=== PATIENT | female | born 1960 | race Caucasian/White ===

== ENCOUNTER 2020-11-17 07:13 | Outpatient (RCR) | payer MEDICAID, SELFPAY ==
[2020-09-13] VITALS (8 sets, daily range): BP systolic 119–142; BP diastolic 51–65; PULSE 72–83; RESP 14–16; TEMP 36.4–37; O2SAT 96–100
[2020-09-13] MEDS: diphenhydrAMINE HCl CAP 25 MG CAPSULE PO (09:14)
[2020-09-13] MEDS: FUROSEMIDE INJ 40 MG/4 ML VIAL 20 MG IV PUSH (12:35)
--- NOTE | 2020-09-13 16:10 | PC.NURSE ---
1545 D/c/ instructions reviewed with patient, questions answered she verbalizes understanding. Iv d/c'd cath intact; pressure applied no bleeding noted. Pt toileted and escorted out via ambulation to main lobby where her son picked her up and drove her home via private vehicle.
[2020-10-14] VITALS (10 sets, daily range): BP systolic 90–128; BP diastolic 46–64; PULSE 71–80; RESP 14–16; TEMP 36.2–37.3; O2SAT 99–100
[2020-10-14] MEDS: ACETAMINOPHEN 325 MG TABLET 650 MG PO (07:51)
[2020-10-14] MEDS: diphenhydrAMINE HCl CAP 25 MG CAPSULE PO (07:52)
[2020-10-14 07:56] LABS: Hematocrit 21.7 % (37.0-47.0); Hemoglobin 7.1 g/dL (12.0-15.0)
[2020-10-14] MEDS: FUROSEMIDE INJ 40 MG/4 ML VIAL 20 MG IV PUSH (11:37)
[2020-11-17] VITALS (10 sets, daily range): BP systolic 124–147; BP diastolic 65–81; PULSE 85–92; RESP 14–16; TEMP 36.9–37.6; O2SAT 100
[2020-11-17] MEDS: ACETAMINOPHEN 325 MG TABLET 650 MG PO (08:52)
[2020-11-17] MEDS: diphenhydrAMINE HCl CAP 25 MG CAPSULE PO (08:52)
[2020-11-17] MEDS: SODIUM CHLORIDE 0.9% IV 250 ML 30 ML (09:07)
[2020-11-17] MEDS: FUROSEMIDE INJ 40 MG/4 ML VIAL 20 MG IV PUSH (12:16)
[2020-11-17] MEDS: HEPARIN SOD FLUSH 500 UNITS/5 ML SYRINGE (15:50)
== END 2020-12-12 23:59 | disposition home or self-care (01) ==
LOC: ANHCPCTRAN 07:13
PROVIDERS: Visit Provider Internal Medicine Hematology & Oncology
DX: C34.90 Malignant neoplasm of unspecified part of unspecified bronchus or lung (principal)
CPT/HCPCS: 36415; 36430; 85014; 85018; 86850; 86900; 86901; 86923; 96374; A9270; J1940; J7050; P9016

== ENCOUNTER 2020-12-05 10:49 | Outpatient (CLI) | payer OTHER, SELFPAY ==
--- NOTE | ~2020-12-05 | CT_ITS ---
EXAMINATION: CT diagnostic chest w con EXAM DATE: 12/05/2020 11:58 INDICATION: C34.82 - Malignant neoplasm of overlapping sites of left bronchus and lung. TECHNIQUE: Spiral CT of the chest following intravenous injection of 75 mL Omnipaque 350. Axial, cor onal and sagittal images were reviewed. Coronal maximum intensity pixel images of chest reviewed. T he dose-length product (DLP) for this examination was 116.45 mGy-cm. The exposure was tailored accor ding to patient size (auto mA exposure control), and iterative reconstruction (ASIR) was used as felicia tional dose reduction technique. There is no prior study for comparison. FINDINGS: There is a right-sided portacatheter in position. Evaluation of lung parenchyma limited fr om respiratory motion, but there are no suspicious pulmonary nodules. The entire mid esophagus has wa ll thickening, probably edema given the indistinct adjacent fat planes. Most likely esophagitis, or c ould be radiation related change if there is such history. Also edema, indistinct fat plane surroundi ng the trachea and mediastinum. There is small pericardial effusion. No pleural effusions. Mild emphysema. Tracheobronchial tree is patent. There is no mediastinal, hilar or axillary lymphadenopathy. There is no pneumothorax. H eart normal in size. There is mild coronary arterial calcification, arterial sclerosis. Upper abdo men is unremarkable. There is mild to moderate thoracic spondylosis without osteoblastic or osteoly tic lesions identified. IMPRESSION: 1. Mediastinal, esophageal edema without focal mass identified. Could be esophagitis or radiation re lated change. 2. Mild emphysema. Reviewed, dictated and finalized at location A. ER HELPER IMPRESSION: 1. Mediastinal, esophageal edema without focal mass identified. Could be esoph agitis or radiation related change. 2. Mild emphysema.
== END 2020-12-05 10:50 | disposition home or self-care (01) ==
LOC: ANHIMG 10:57
PROVIDERS: Visit Provider Radiology Radiation Oncology
DX: C34.92 Malignant neoplasm of unspecified part of left bronchus or lung (principal); J43.9 Emphysema, unspecified
CPT/HCPCS: 71260; Q9967

== ENCOUNTER 2020-12-14 09:40 | Outpatient (CLI) | payer OTHER, SELFPAY ==
[2020-12-14 12:28] LABS: Creatinine Urine 97.2 mg/dL; Total Protein Urine Random 70 mg/dL; Ur Ttl Prot Creatinine Ratio 0.72 mg/mg (0-0.20)
== END 2020-12-14 09:41 | disposition home or self-care (01) ==
LOC: ANHLAB 09:43
PROVIDERS: Visit Provider Internal Medicine Nephrology
DX: N18.32 Chronic kidney disease, stage 3b (principal)
CPT/HCPCS: 36415; 82570; 83970; 84100; 84156

== ENCOUNTER 2021-01-01 09:38 | Outpatient (CLI) | payer OTHER, SELFPAY ==
--- NOTE | ~2021-01-01 | MR_ITS ---
EXAMINATION: MR brain/brain stem wo con EXAM DATE: 01/01/2021 10:48 INDICATION: C34.82 - Malignant neoplasm of overlapping sites of left bronchus. TECHNIQUE: Magnetic resonance imaging (MRI) of the brain/brain stem obtained without contrast. Rosa al T1, axial diffusion, gradient echo (T2*), T1, T2, FLAIR sequences obtained. There is no prior st udy for comparison. FINDINGS: There are no areas of restricted diffusion to suggest acute infarction. There is no acute hemorrhage seen on the T2*, a hemosiderin sensitive sequence. No intraparenchymal brain mass lesion. There is mild to moderate periventricular and subcortical T2/FLAIR signal hyperintensity, nonspecifi c but probably related to small vessel ischemic disease (microangiopathy). Field enhance There are n o extra-axial collections. Flow voids are seen in the cerebral arteries on the T2-weighted sequences consistent with their expected patency. The orbits are unremarkable. Soft tissue is unremarkable. IMPRESSION: 1. No evidence of intracranial metastatic disease. 2. Mild to moderate white matter hyperintensity probably microangiopathy. Reviewed, dictated and finalized at location A.
== END 2021-01-01 09:39 | disposition home or self-care (01) ==
PROVIDERS: Visit Provider Radiology Radiation Oncology
DX: C34.82 Malignant neoplasm of overlapping sites of left bronchus and lung (principal); R51.9 Headache, unspecified; R93.0 Abnormal findings on diagnostic imaging of skull and head, not elsewhere classified
CPT/HCPCS: 70551

== ENCOUNTER → 2021-02-03 02:32 | Outpatient (CLI) | payer OTHER, SELFPAY ==
[2021-02-03 19:11] LABS: SARS-CoV-2 RNA PCR Negative
== END ==
PROVIDERS: Visit Provider Internal Medicine Gastroenterology
DX: Z01.812 Encounter for preprocedural laboratory examination (principal); Z20.822 Contact with and (suspected) exposure to COVID-19
CPT/HCPCS: C9803; U0003; U0005

== ENCOUNTER 2021-02-06 02:29 | Day surgery (SDC) | payer OTHER, SELFPAY ==
[2021-01-31 13:01] VITALS: BMI 19.5
--- NOTE | 2021-02-05 12:12 | P.PNAN_ITS ---
Anes - Eval Pre Procedure Procedure: Operation Date: 02/06/21 07:30 Proposed Procedures p Esophagogastroduodenoscopy - Nguyễn Edward MD Date/Time: 02/05/21 12:12 Pre Op Diagnosis: epigastric pain Patient Data Age: 60 Gender: F Height: 1.5 m Weight: 43.9 kg Allergies Allergy/AdvReac Type Severity Reaction Status Date / Time No Known Allergies Allergy Verified 02/01/21 11:01 Home Medications Medication Instructions Recorded Confirmed Type albuterol sulfate 2 puff INHALATION QID PRN 09/07/20 02/01/21 History aspirin [Low-Dose Aspirin] 81 mg PO DAILY 09/07/20 02/01/21 History atorvastatin 40 mg PO HS 09/07/20 02/01/21 History cholecalciferol (vitamin D3) 125 mcg PO EVERY OTHER DAY 09/07/20 02/01/21 Hi story [Vitamin D3] diltiazem HCl 360 mg PO DAILY 09/07/20 02/01/21 History escitalopram oxalate 10 mg PO DAILY 09/07/20 02/01/21 History ipratropium-albuterol 3 ml INHALATION QID PRN 09/07/20 02/01/21 History budesonide-formoterol HFA 160 2 puff INHALATION Q12H 02/01/21 02/01/21 History mcg-4.5 mcg/actuation aerosol inhaler ferrous sulfate 325 mg (65 mg 325 mg PO DAILY 02/01/21 02/01/21 History iron) tablet mecobalamin (vitamin B12) 1,000 1,000 mcg SUBLINGUAL DAILY 02/01/21 02/01/21 History mcg disintegrating tablet,sublingual melatonin 3 mg tablet 5 mg PO HS tablet 02/01/21 02/01/21 History metoprolol succinate 25 mg 12.5 mg PO Q12H tablet 02/01/21 02/01/21 History tablet,extended release 24 hr pyridoxine (vitamin B6) 100 mg 100 mg PO BID tablet 02/01/21 02/01/21 History tablet sodium bicarbonate 650 mg tablet 650 mg PO BID tablet 02/01/21 02/01/21 History Patient hx anesthesia problems: none Family hx anesthesia problems: none PMFSH Past Medical History Medical History Acute pulmonary edema Acute renal failure Acute respiratory failure Anxiety CHF (congestive heart failure) COPD (chronic obstructive pulmonary disease) Deafness Depression HTN (hypertension) Family History Family History Father Cancer Social History Social History Smoking packs per day: 2 Smoking cigarettes per day: 40.0 Years smoked: 40 Smoking pack-years: 80.00 Smoking status: Former smoker Tobacco type: cigarettes Smoking end date: 11/17/18 Substance use type: does not use Gender identity (if verbalized by the patient): Female Spiritual care concerns: No Exam Day of Procedure 02/05/21 12:12
[2021-02-06 06:31] VITALS: BP 153/83; PULSE 85; RESP 22; TEMP 37.1; O2SAT 100
[2021-02-06] MEDS: LACTATED RINGERS 1,000 ML 150 ML IV CONT (06:42)
--- NOTE | 2021-02-06 07:06 | WPDANESEPPF ---
Anes - Initial Pre Proc Eval Procedure: Operation Date: 02/06/21 07:30 Proposed Procedures p Esophagogastroduodenoscopy - Nguyễn Edward MD Date/Time: 02/06/21 07:06 Surgeon: Nguyễn Edward MD Pre Op Diagnosis: epigastric pain Patient Data Age: 60 Gender: F Height: 4 ft 11 in Weight: 43.1 kg Last Vital Signs Temp 37.1 C 02/06/21 06:31 Pulse 85 02/06/21 06:31 Resp 22 H 02/06/21 06:31 BP 153/83 H 02/06/21 06:31 Pulse Ox 100 02/06/21 06:31 Allergies Allergy/AdvReac Type Severity Reaction Status Date / Time No Known Allergies Allergy Verified 02/01/21 11:01 Home Medications Medication Instructions Recorded Confirmed Type albuterol sulfate 2 puff INHALATION QID PRN 09/07/20 02/01/21 History aspirin [Low-Dose Aspirin] 81 mg PO DAILY 09/07/20 02/01/21 History atorvastatin 40 mg PO HS 09/07/20 02/01/21 History cholecalciferol (vitamin D3) 125 mcg PO EVERY OTHER DAY 09/07/20 02/01/21 History [Vitamin D3] diltiazem HCl 360 mg PO DAILY 09/07/20 02/01/21 History escitalopram oxalate 10 mg PO DAILY 09/07/20 02/01/21 History ipratropium-albuterol 3 ml INHALATION QID PRN 09/07/20 02/01/21 History budesonide-formoterol HFA 160 2 puff INHALATION Q12H 02/01/21 02/06/21 History mcg-4.5 mcg/actuation aerosol inhaler ferrous sulfate 325 mg (65 mg 325 mg PO DAILY 02/01/21 02/06/21 History iron) tablet mecobalamin (vitamin B12) 1,000 1,000 mcg SUBLINGUAL DAILY 02/01/21 02/06/21 History mcg disintegrating tablet,sublingual melatonin 3 mg tablet 5 mg PO HS tablet 02/01/21 02/06/21 History metoprolol succinate 25 mg 12.5 mg PO Q12H tablet 02/01/21 02/06/21 History tablet,extended release 24 hr pyridoxine (vitamin B6) 100 mg 100 mg PO BID tablet 02/01/21 02/06/21 History tablet sodium bicarbonate 650 mg tablet 650 mg PO BID tablet 02/01/21 02/06/21 History Patient hx anesthesia problems: none Family hx anesthesia problems: none PMFSH Past Medical History Medical History Acute pulmonary edema Acute renal failure Acute respiratory failure Anxiety CHF (congestive heart failure) COPD (chronic obstructive pulmonary disease) Deafness Depression HTN (hypertension) Family History Family History Father Cancer Social History Social History Smoking packs per day: 2 Smoking cigarettes per day: 40.0 Years smoked: 40 Smoking pack-years: 80.00 Smoking status: Former smoker Tobacco type: cigarettes Smoking end date: 11/17/18 Substance use type: does not use Living arrangements: with family Gender identity (if verbalized by the patient): Female Spiritual care concerns: No Anes - Eval Final PreProcedure Day of Procedure 02/06/21 07:06 Patient weight: normal Heart: regular rate and rhythm Lungs: decreased breath sounds Airway: Mallampati scale class 1 Neurological: alert and oriented Last oral intake: >/= 8 hours ASA classification: IV Emergent: no Anesthetic plan: proceed Anesthesia type and monitoring: general GIVS and standard monitoring Informed Consent: The patient's anesthetic plan and its attendant risks and benefits were discussed with the patient/family/POA. Questions were solicited and answers provided to the satisfaction of the patient/family/POA.
[2021-02-06 07:39] VITALS: BP 130/70; PULSE 87; RESP 20; O2SAT 100
[2021-02-06 07:49] VITALS: BP 134/82; PULSE 88; RESP 22; O2SAT 99
[2021-02-06 07:59] VITALS: BP 146/79; PULSE 83; RESP 21; O2SAT 100
--- NOTE | 2021-02-06 08:15 | PM.HPGS ---
History of Present Illness History of Present Illness Consent: Risks, benefits, and alternatives have been discussed and questions answered. Patient agrees to proceed with procedure. Chief complaint: epigastric pain Narrative: Stephanie Holt is a 60 year old female who suffers from severe odynophagia and dysphagia for the past several weeks. She has been undergoing radiation treatments for carcinoma of the lung. Various agents have been tried to relieve her discomfort without success including sucralfate and concoction containing lidocaine and other substances Review of Systems Review of Systems: All systems reviewed & are unremarkable except as noted in HPI and below PMFSH Past Medical History Medical History Acute pulmonary edema Acute renal failure Acute respiratory failure Anxiety CHF (congestive heart failure) COPD (chronic obstructive pulmonary disease) Deafness Depression HTN (hypertension) Family History Family History Father Cancer Social History Social History Smoking packs per day: 2 Smoking cigarettes per day: 40.0 Years smoked: 40 Smoking pack-years: 80.00 Smoking status: Former smoker Tobacco type: cigarettes Smoking end date: 11/17/18 Substance use type: does not use Living arrangements: with family Gender identity (if verbalized by the patient): Female Spiritual care concerns: No Meds Home Medications and Allergies Home Medications Medication Instructions Recorded Confirmed Type albuterol sulfate 2 puff INHALATION QID PRN 09/07/20 02/01/21 History aspirin 81 mg PO DAILY 09/07/20 02/01/21 History atorvastatin 40 mg PO HS 09/07/20 02/01/21 History cholecalciferol (vitamin D3) 125 mcg PO EVERY OTHER DAY 09/07/20 02/01/21 History [Vitamin D3] diltiazem HCl 360 mg PO DAILY 09/07/20 02/01/21 History escitalopram oxalate 10 mg PO DAILY 09/07/20 02/01/21 History ipratropium-albuterol 3 ml INHALATION QID PRN 09/07/20 02/01/21 History budesonide-formoterol HFA 160 2 puff INHALATION Q12H 02/01/21 02/06/21 History mcg-4.5 mcg/actuation aerosol inhaler ferrous sulfate 325 mg (65 mg 325 mg PO DAILY 02/01/21 02/06/21 History iron) tablet mecobalamin (vitamin B12) 1,000 1,000 mcg SUBLINGUAL DAILY 02/01/21 02/06/21 History mcg disintegrating tablet,sublingual melatonin 3 mg tablet 5 mg PO HS tablet 02/01/21 02/06/21 History metoprolol succinate 25 mg 12.5 mg PO Q12H tablet 02/01/21 02/06/21 History tablet,extended release 24 hr pyridoxine (vitamin B6) 100 mg 100 mg PO BID tablet 02/01/21 02/06/21 History tablet sodium bicarbonate 650 mg tablet 650 mg PO BID tablet 02/01/21 02/06/21 History Allergies Allergy/AdvReac Type Severity Reaction Status Date / Time No Known Allergies Allergy Verified 02/01/21 11:01 Vital Signs Vital Signs - 24 hr 02/06/21 06:31 02/06/21 07:39 02/06/21 07:49 Temperature 37.1 C Pulse Rate 85 87 88 Respiratory Rate 22 H 20 22 H Blood Pressure 153/83 H 130/70 134/82 Pulse Oximetry 100 100 99 02/06/21 07:59 Temperature Pulse Rate 83 Respiratory Rate 21 H Blood Pressure 146/79 H Pulse Oximetry 100 Exam Const: General: alert Orientation/consciousness: patient oriented x3 Resp: Auscultation: clear to auscultation bilaterally Cardio: Rhythm: regular rhythm GI: GI Palp: Yes Soft to palpation and No Tenderness to palpation present (GI) Neuro: General: patient oriented x3 Assessment and Plan Assessment and plan (1) Dysphagia: Code(s): R13.10 - Dysphagia, unspecified Status: Acute Assessment and Plan: EGD with possible biopsy or dilatation or cautery.
== END 2021-02-06 08:11 | disposition home or self-care (01) ==
PROVIDERS: Visit Provider Internal Medicine Gastroenterology
PROC: 0DJ08ZZ Inspection of Upper Intestinal Tract, Via Natural or Artificial Opening Endoscopic (ICD-10-PCS; CPT 43235; principal; 2021-02-06 07:30)
DX: K22.2 Esophageal obstruction (principal); I10 Essential (primary) hypertension; F41.9 Anxiety disorder, unspecified; F32.9 Major depressive disorder, single episode, unspecified; J44.9 Chronic obstructive pulmonary disease, unspecified; I50.9 Heart failure, unspecified; C34.90 Malignant neoplasm of unspecified part of unspecified bronchus or lung; Z87.891 Personal history of nicotine dependence
CPT/HCPCS: 43249; C1726; J2704; J7120

== ENCOUNTER 2021-02-16 12:40 | Outpatient (CLI) | payer OTHER, SELFPAY ==
[2021-02-16 12:53] VITALS: PULSE 78; O2SAT 90
[2021-02-16 12:55] VITALS: PULSE 85; O2SAT 84
[2021-02-16 12:56] VITALS: PULSE 85; O2SAT 90
[2021-02-16 12:58] VITALS: PULSE 81; O2SAT 93
[2021-02-16 13:02] VITALS: PULSE 81; O2SAT 91
--- NOTE | 2021-02-16 14:03 | HOMEO2EVAL ---
Evaluation was performed at [facility] Home Oxygen Evaluation RC: Home Oxygen (O2) Evaluation Start: 02/16/21 14:01 Freq: Status: Active Protocol: RPE Activity Type Activity Date Activity User E-Sign Co-Sign Detail Recorded Client Recorded Date Recorded By Document 02/16/21 12:53 KRM [id number] 02/16/21 14:03 KRM Document 02/16/21 12:55 [email or web address] [email or web address] 02/16/21 14:03 KRM Document 02/16/21 12:56 [email or web address] [email or web address] 02/16/21 14:03 KRM Document 02/16/21 12:58 [email or web address] [email or web address] 02/16/21 14:03 KRM Document 02/16/21 13:02 [email or web address] [email or web address] 02/16/21 14:03 KRM 02/16/21 02/16/21 02/16/21 12:53 12:55 12:56 Home O2 Evaluation Test Phase Resting Exercise Exercise Oxygen Delivery Room Air Room Air Nasal Cannula Oxygen Flow Rate (L/min) 2 Pulse Oximetry (90-100 %) 90 84 L 90 Pulse Rate (60-100 beats/min) 78 85 85 Activity Tolerance Fair Fair Ambulation Distance (feet) 400 Treatment Charges O2 Evaluation - Inpatient 02/16/21 02/16/21 12:58 13:02 Home O2 Evaluation Test Phase Exercise Resting Oxygen Delivery Nasal Cannula Room Air Oxygen Flow Rate (L/min) 2 Pulse Oximetry (90-100 %) 93 91 Pulse Rate (60-100 beats/min) 81 81 Activity Tolerance Good Ambulation Distance (feet) Treatment Charges
--- NOTE | 2021-02-16 15:29 | WPDPFTINT ---
PFT Procedure Performed PFT Procedure Performed Spirometry with Pre/Post Bronchodilator Plethysmography (Lung Vol) Diffusing Cap (DLCO) Flow Vol Loop PFT Interpretation This is a pulmonary function test with pre and post-bronchodilator spirometry, plethysmography and diffusing capacity. The test was performed and results interpreted in accordance with the 2019 and 2005 ATS/ERS Task Force guidelines respectively using the Global Lung Function Initiative-2012 reference equations. Patient demonstrated good effort and cooperation. Reproducibility criteria were met. The quality of the pre bronchodilator spirometry maneuver was Grade A and post bronchodilator spirometry maneuver was Grade A. Findings: Spirometry: There is decreased maximal expiratory airflow at all lung volumes with concave expiratory flow tracing. The contour of the inspiratory flow tracing is normal. The pre bronchodilator FVC is 1.30 L, 50% predicted. The pre bronchodilator FEV1 is 0.66 L, 32% predicted. The FEV1: FVC ratio is 51%. Post bronchodilator FVC is 1.73 L, representing a 33% increase. The post bronchodilator FEV1 is 0.71 L, representing a 7% increase. Plethysmography: The total lung capacity is 4.15 L, 96% predicted. The functional residual capacity is 3.11 L, 129% predicted. The residual volume is 2.64 L, 150% predicted. Diffusion capacity: The absolute diffusion capacity is 3.2, 17% predicted. The diffusing capacity corrected for alveolar volume is 1.73 L, 37% predicted. Impression: There is a very severe obstructive abnormality with significant improvement after inhaling a single dose of albuterol. The increase in residual volume is consistent with air trapping from an obstructive abnormality. The absolute diffusing capacity is severely decreased and remains severely decreased when corrected for alveolar volume. There are no prior studies for comparison
== END 2021-02-16 12:41 | disposition home or self-care (01) ==
LOC: ANHPFT 12:41
PROVIDERS: Visit Provider Internal Medicine Pulmonary Disease
DX: J44.9 Chronic obstructive pulmonary disease, unspecified (principal); R06.00 Dyspnea, unspecified; R94.2 Abnormal results of pulmonary function studies
CPT/HCPCS: 94060; 94618; 94726; 94729

== ENCOUNTER 2021-03-14 08:51 | Outpatient (CLI) | payer OTHER, SELFPAY ==
--- NOTE | ~2021-03-14 | CT_ITS ---
EXAMINATION: CT diagnostic chest w con EXAM DATE: 03/14/2021 09:44 INDICATION: Small cell lung cancer, left bronchus and lung. TECHNIQUE: Spiral CT of the chest following intravenous injection of 75 mL Omnipaque 350. Axial, cor onal and sagittal images of the chest were reviewed. Coronal maximum intensity pixel images of chest reviewed. The dose-length product (DLP) for this examination was 117.34 mGy-cm. The exposure was t ailored according to patient size (auto mA exposure control), and iterative reconstruction (ASIR) was used as additional dose reduction technique. Comparison is made to prior examination from 12/05/2020. FINDINGS: Left lower lobe superior subsegmental peripheral opacity with ill-defined margins measuring 1.5 cm, new compared to previous examination, with differential diagnosis including infection, infar ction or less likely cancer. No pulmonary emboli centrally or and segmental pulmonary arteries. Subse gmental vessels not visualized. There is a right-sided portacatheter. No central pulmonary emboli. Moderate pericardial effusion, an d small left pleural effusion. Mild emphysema. Mild intralobular septal thickening, pulmonary edema o r less likely developing mild interstitial lung disease. Lingular subsegmental atelectasis. There are indistinct fat plane surrounding the left bronchus without mass effect, could be treated lung cancer . Tracheobronchial tree is patent. There is no mediastinal, hilar or axillary lymphadenopathy. Ther e is no pneumothorax. Heart normal in size. There is mild coronary arterial calcification, arteri al sclerosis. Mid esophageal edema with improvement, could be esophagitis or radiation related pepper e. There is mild thoracic spondylosis without osteoblastic or osteolytic lesions identified. Compared to previous examination, improvement in esophageal edema. Increase in size of the pericardia l effusion and development of the left pleural effusion. IMPRESSION: 1. Development of left lower lobe subsegmental peripheral opacity, infection, infarction or less lik anais cancer. 2. Moderate pericardial, small left pleural effusions. 3. Mild interlobular septal thickening, most likely mild pulmonary edema. 4. Chronic left hilar peribronchial fat stranding probably treated cancer. 5. Improvement in esophageal edema. 6. Mild emphysema. Reviewed, dictated and finalized at location A. IMPRESSION: 1. Development of left lower lobe subsegmental peripheral opacity, infection, infarction or less likely cancer. 2. Moderate pericardial, small left pleural effusions. 3. Mild interlobular septal thickening, most likely mild pulmonary edema. 4. Chronic left hilar peribronchial fat stranding probably treated cancer. 5. Improvement in esophageal edema. 6. Mild emphysema.
[2021-03-14 09:31] LABS: Estimated Glomerular Filt Rate 33
== END 2021-03-14 08:52 | disposition home or self-care (01) ==
LOC: ANHIMG 08:51
PROVIDERS: Visit Provider Internal Medicine Hematology & Oncology
DX: C34.90 Malignant neoplasm of unspecified part of unspecified bronchus or lung (principal); J43.9 Emphysema, unspecified
CPT/HCPCS: 71260; Q9967

== ENCOUNTER 2021-05-12 03:19 | Day surgery (SDC) | payer OTHER, SELFPAY ==
[2021-04-28 13:34] VITALS: BMI 19.5
[2021-05-03 08:47] VITALS: BMI 19.5
--- NOTE | 2021-05-12 10:12 | WPDANESEPPF ---
Anes - Initial Pre Proc Eval Procedure: Operation Date: 05/12/21 12:30 Proposed Procedures p Esophagogastroduodenoscopy - Nguyễn Edward MD Date/Time: 05/12/21 10:12 Surgeon: Nguyễn Edward MD Pre Op Diagnosis: dysphagia Patient Data Age: 60 Gender: F Height: 1.5 m Weight: 44 kg Allergies Allergy/AdvReac Type Severity Reaction Status Date / Time No Known Allergies Allergy Verified 05/12/21 11:57 Home Medications Medication Instructions Recorded Confirmed Type albuterol sulfate 2 puff INHALATION QID PRN 09/07/20 05/03/21 History aspirin 81 mg PO DAILY 09/07/20 05/03/21 History atorvastatin 40 mg PO HS 09/07/20 05/03/21 History cholecalciferol (vitamin D3) 125 mcg PO EVERY OTHER DAY 09/07/20 05/03/21 History [Vitamin D3] diltiazem HCl 360 mg PO DAILY 09/07/20 05/03/21 History escitalopram oxalate 10 mg PO DAILY 09/07/20 05/03/21 History ipratropium-albuterol 3 ml INHALATION QID PRN 09/07/20 05/03/21 History ferrous sulfate 325 mg (65 mg 325 mg PO DAILY 02/01/21 05/03/21 History iron) tablet mecobalamin (vitamin B12) 1,000 1,000 mcg SUBLINGUAL DAILY 02/01/21 05/03/21 History mcg disintegrating tablet,sublingual melatonin 3 mg tablet 5 mg PO HS tablet 02/01/21 05/03/21 History pyridoxine (vitamin B6) 100 mg 100 mg PO BID tablet 02/01/21 05/03/21 History tablet metoprolol succinate 25 mg 25 mg PO BID tablet 05/03/21 05/03/21 History tablet,extended release 24 hr sucralfate 100 mg/mL oral 1 g PO Q6H ml 05/03/21 05/03/21 History suspension tiotropium 2.5 mcg-olodaterol 2.5 2 puff INHALATION DAILY #4 g 05/03/21 05/03/21 Rx mcg/actuation mist for inhalation budesonide-formoterol HFA 160 2 puff INHALATION Q12H #10.2 g 05/11/21 Rx mcg-4.5 mcg/actuation aerosol inhaler Patient hx anesthesia problems: none Family hx anesthesia problems: none PMFSH Past Medical History Medical History (Updated 05/12/21 @ 10:14 by Clarence Alba MD) Acute pulmonary edema Acute renal failure Acute respiratory failure Anxiety CHF (congestive heart failure) COPD (chronic obstructive pulmonary disease) Deafness Depression Emphysema of lung HTN (hypertension) Hypercholesterolemia Malignant neoplasm of overlapping sites of left bronchus and lung Small cell lung cancer Family History Family History Father Cancer Social History Social History Smoking packs per day: 2 Smoking cigarettes per day: 40.0 Years smoked: 40 Smoking pack-years: 80.00 Smoking status: Former smoker Tobacco type: cigarettes Smoking end date: 11/17/18 Alcohol intake: current Alcohol use details: socially Substance use: never Substance use type: does not use Living arrangements: alone Gender identity (if verbalized by the patient): Female Spiritual care concerns: No Anes - Eval Final PreProcedure Day of Procedure 05/12/21 10:12 Patient weight: normal Heart: regular rate and rhythm Lungs: clear to auscultation and normal air movement Airway: Mallampati scale class II Neurological: alert and oriented Last oral intake: >/= 8 hours ASA classification: IV Emergent: no Anesthetic plan: proceed Anesthesia type and monitoring: general GIVS Informed Consent: The patient's anesthetic plan and its attendant risks and benefits were discussed with the patient/family/POA. Questions were solicited and answers provided to the satisfaction of the patient/family/POA.
[2021-05-12 12:00] VITALS: BP 158/70; PULSE 92; RESP 20; TEMP 36.2; O2SAT 100; BMI 19.1
[2021-05-12] MEDS: LACTATED RINGERS 1,000 ML 150 ML IV CONT (12:10)
[2021-05-12 12:47] VITALS: BP 122/77; PULSE 93; RESP 23; O2SAT 93
[2021-05-12 12:57] VITALS: BP 129/64; PULSE 95; RESP 34; O2SAT 97
[2021-05-12 13:07] VITALS: BP 139/86; PULSE 92; RESP 20; O2SAT 97
== END 2021-05-12 13:20 | disposition home or self-care (01) ==
PROVIDERS: Visit Provider Internal Medicine Gastroenterology
PROC: 0DJ08ZZ Inspection of Upper Intestinal Tract, Via Natural or Artificial Opening Endoscopic (ICD-10-PCS; CPT 43235; principal; 2021-05-12 12:30)
DX: R13.10 Dysphagia, unspecified (principal); K22.2 Esophageal obstruction; C34.02 Malignant neoplasm of left main bronchus; I11.0 Hypertensive heart disease with heart failure; I50.9 Heart failure, unspecified; J44.9 Chronic obstructive pulmonary disease, unspecified; H91.90 Unspecified hearing loss, unspecified ear; F41.9 Anxiety disorder, unspecified; Z92.3 Personal history of irradiation; Z87.891 Personal history of nicotine dependence
CPT/HCPCS: 43249; C1726; J2001; J2704; J7120

== ENCOUNTER 2021-05-15 13:04 | Outpatient (CLI) | payer OTHER, SELFPAY ==
--- NOTE | ~2021-05-15 | CT_ITS ---
EXAMINATION: CT diagnostic chest wo con DATE: 05/15/2021 13:31 INDICATION: Small cell lung cancer TECHNIQUE: Computed tomography (CT) of the chest was performed without intravenous contrast. The dose -length product (DLP) was 122.22 mGy-cm. Automated exposure control and iterative reconstruction tech nique were employed. COMPARISON: 03/14/2021, 12/05/2020 FINDINGS: A small left pleural effusion is unchanged. There is also a moderate-sized pericardial effu pb without significant change. A 2.2 x 1.3 cm pleural-based nodule of the left lower lobe previousl y measured approximately 1.7 x 0.9 cm. There is no pneumothorax. There is mild atelectasis. A right i nternal jugular Port-A-Cath ends with its tip near the inferior cavoatrial junction. There is mild em physema. There is unchanged mediastinal lymphadenopathy. The heart size is normal. Calcified coronary artery atherosclerosis is noted. There is moderate thoracic spondylosis. IMPRESSION: 1. Left lower lobe nodule with interval enlargement of mediastinal lymphadenopathy, consistent with m etastatic disease. 2. Small left pleural effusion and moderate-sized pericardial effusion, stable. Reviewed, dictated and finalized at location B. IMPRESSION: 1. Left lower lobe nodule with interval enlargement of mediastinal lymphadenopa thy, consistent with metastatic disease. 2. Small left pleural effusion and moderate-sized pericardial effusion, stable.
== END 2021-05-15 13:05 | disposition home or self-care (01) ==
PROVIDERS: Visit Provider Internal Medicine Hematology & Oncology
DX: C34.90 Malignant neoplasm of unspecified part of unspecified bronchus or lung (principal); J90 Pleural effusion, not elsewhere classified; I31.3 Pericardial effusion (noninflammatory)
CPT/HCPCS: 71250

== ENCOUNTER 2021-05-30 12:02 | Outpatient (CLI) | payer OTHER, SELFPAY ==
--- NOTE | ~2021-05-30 | PE_ITS ---
EXAMINATION: PET skull to mid thigh DATE: 05/30/2021 14:04 INDICATION: Small cell lung cancer TECHNIQUE: Blood glucose level was 89 mg/dL. 9.87 mCi of 18-fluorodeoxyglucose (18-FDG) was administe red i.v. Low dose computed tomography (CT) images were acquired from the base of the brain to the pro ximal thighs for attenuation correction and anatomic localization. Positron emission tomography (PET) images were acquired in the same distribution beginning 60 minutes after injection. Images including fused PET/CT images were reconstructed in axial, coronal, and sagittal planes. Automated exposure co ntrol technique was employed. The dose-length product was 251.28mGy-cm. COMPARISON: None FINDINGS: Head/neck: There is symmetric increased activity in the oral cavity, palatine tonsils and multiple muscles the h ead and neck including the laryngeal, ocular, sternocleidomastoid, scalene, levator scapulae and cerv ical paraspinal muscles, all without CT correlate, likely physiologic. No pathologically enlarged cer vical lymphadenopathy or suspicious foci of increased FDG uptake in the visualized head or neck. Chest: Mild emphysema. Elevation of the left hemidiaphragm. 1.8 x 1.1 cm pleural-based nodule in the posteri or superior segment of the left lower lobe with moderate increased FDG uptake with maximal SUV of 4.5 . There is suggestion of additional mild increased FDG uptake associated with a approximately 1 cm ri ght lower lobe nodule situated along the posterior mediastinum abutting the posterior margin of the r ight atrium with maximal SUV of 1.9. Assessment of the lesion on CT is limited by the absence of intr avenous contrast and on the PET portion of the study due to the activity in the immediately adjacent right atrium. New band of discoid atelectasis at the junction of the left upper lobe and lingula. Sma ll posteriorly layering left pleural effusion with additional mild dependent atelectasis. Heart size is normal. Atherosclerotic coronary artery calcification. Moderate sized pericardial effusion. Right internal jugular central venous port catheter with distal tip extending across the right atrium to th e inferior cavoatrial junction. Calcified right hilar lymph nodes consistent with old granulomatous d isease. There appears to be decrease in the degree of esophageal wall thickening consistent with impr oving radiation esophagitis. No discrete enlarged or FDG avid thoracic lymphadenopathy. Abdomen/pelvis/proximal thighs: Physiologic renal accumulation and excretion of FDG activity in the kidneys, bladder and along portio ns of ureters. 2 mm nonobstructing stone at the upper pole of the right kidney. Normal degree and het erogenous pattern of increased uptake throughout the liver without radiologic correlate or dominant F DG avid lesion. The gallbladder, pancreas, spleen and bilateral adrenal glands are normal. Mild uptak e scattered throughout the bowels without radiologic correlate, also likely physiologic. Calcified ut erine fibroids photopenic defects such with a 2.8 cm cystic lesion at the right adnexal region. There is calcified atherosclerosis of the aorta and many of the other arteries. No other abnormal foci of increased FDG uptake or pathologically enlarged lymphadenopathy in the abdomen, pelvis or proximal t highs. Musculoskeletal: Thoracic kyphosis with moderate spondylosis. No suspicious lytic, blastic or FDG avid bone lesions. IMPRESSION: 1. Moderate increased FDG uptake associated with a 1.8 x 1.1 cm pleural-based mass in the superior se gment of the left lower lobe concerning for malignancy. 2. Mild FDG uptake associated with a 1 cm paramediastinal lesion in the posterior basilar segment of the left lower lobe could be related to radiation pneumonitis, infection or malignancy/metastatic dis ease. Recommend attention on follow-up chest CT studies for which contrast would be helpful. 3.
[2021-05-30 12:28] LABS: Glucose Point of Care 89 mg/dl (65-105)
== END 2021-05-30 12:03 | disposition home or self-care (01) ==
PROVIDERS: Visit Provider Internal Medicine Hematology & Oncology
DX: C34.90 Malignant neoplasm of unspecified part of unspecified bronchus or lung (principal); R91.8 Other nonspecific abnormal finding of lung field
CPT/HCPCS: 78815; A9552

== ENCOUNTER 2021-08-24 12:41 | Outpatient (CLI) | payer OTHER, SELFPAY ==
[2021-08-24 13:00] VITALS: PULSE 85; O2SAT 86
[2021-08-24 13:05] VITALS: PULSE 87; O2SAT 91
[2021-08-24 13:10] VITALS: O2SAT 87
[2021-08-24 13:15] VITALS: PULSE 98; O2SAT 91
[2021-08-24 13:25] VITALS: PULSE 84; O2SAT 91
--- NOTE | 2021-08-24 14:39 | HOMEO2EVAL ---
Evaluation was performed at [facility] Home Oxygen Evaluation RC: Home Oxygen (O2) Evaluation Start: 08/24/21 14:36 Freq: Status: Active Protocol: RPE Activity Type Activity Date Activity User E-Sign Co-Sign Detail Recorded Client Recorded Date Recorded By Document 08/24/21 13:00 DJO [email or web address] 08/24/21 14:39 DJO Document 08/24/21 13:05 [email or web address] [email or web address] 08/24/21 14:39 DJO Document 08/24/21 13:10 [email or web address] [email or web address] 08/24/21 14:39 DJO Document 08/24/21 13:15 [email or web address] [email or web address] 08/24/21 14:39 DJO Document 08/24/21 13:25 [email or web address] [email or web address] 08/24/21 14:39 DJO 08/24/21 08/24/21 08/24/21 13:00 13:05 13:10 Home O2 Evaluation Test Phase Resting Resting Exercise Oxygen Delivery Room Air Nasal Cannula Nasal Cannula Oxygen Flow Rate (L/min) 1 1 Pulse Oximetry (90-100 %) 86 L 91 87 L Pulse Rate (60-100 beats/min) 85 87 Ambulation Distance (feet) Treatment Charges O2 Evaluation - Outpatient 08/24/21 08/24/21 13:15 13:25 Home O2 Evaluation Test Phase Exercise Resting Oxygen Delivery Nasal Cannula Nasal Cannula Oxygen Flow Rate (L/min) 2 1 Pulse Oximetry (90-100 %) 91 91 Pulse Rate (60-100 beats/min) 98 84 Ambulation Distance (feet) 500 Treatment Charges
== END 2021-08-24 12:42 | disposition home or self-care (01) ==
PROVIDERS: Visit Provider Nurse Practitioner Family
DX: J96.00 Acute respiratory failure, unspecified whether with hypoxia or hypercapnia (principal)
CPT/HCPCS: 36415; 80048; 82607; 82728; 83540; 83550; 85027; 94618

== ENCOUNTER 2021-08-24 12:52 | Outpatient (CLI) | payer OTHER, SELFPAY ==
[2021-08-24 14:19] LABS: Hematocrit 25.8 % (37.0-47.0); Hemoglobin 8.3 g/dL (12.0-15.0); Mean Corpuscular HGB Conc 32.2 g/dl (32-36); Mean Corpuscular Hemoglobin 38.6 pg (26-34); Mean Platelet Volume 9.1 fl (7.4-10.4); Platelet Count Result 170 k/mm3 (150-375); Red Blood Count 2.15 M/mm3 (4.2-5.4); Red Cell Distribution Width 12.9 % (11.5-14.5); White Blood Count 7.7 K/mm3 (4.5-10.0)
[2021-08-24 14:30] LABS: Anion Gap 3 mmol/L (8-16); Blood Urea Nitrogen 12 mg/dL (7-17); Calcium 9.4 mg/dL (8.4-10.2); Carbon Dioxide 35 mmol/L (22-30); Chloride 93 mmol/L (98-107); Estimated Glomerular Filt Rate 50; Glucose 95 mg/dL (65-110); Potassium 4.1 mmol/L (3.4-5.0); Sodium 131 mmol/L (137-145)
[2021-08-24 15:17] LABS: Iron 43 ug/dL (37-170)
[2021-08-24 15:28] LABS: Percent Iron Saturation 18 % (20-50)
[2021-08-24 15:35] LABS: Vitamin B12 > 1000.0 pg/mL (239-931)
== END 2021-08-24 12:53 | disposition home or self-care (01) ==
PROVIDERS: Visit Provider Internal Medicine Hematology & Oncology
DX: D64.9 Anemia, unspecified (principal)
CPT/HCPCS: 36415; 80048; 82607; 82728; 83540; 83550; 85027

== ENCOUNTER 2021-09-11 15:08 | Outpatient (CLI) | payer OTHER, SELFPAY ==
--- NOTE | ~2021-09-11 | XR_ITS ---
EXAMINATION: XR chest 2V EXAM DATE: 09/11/2021 15:41 INDICATION: J44.9 - Chronic obstructive pulmonary disease, unspecified. TECHNIQUE: Frontal and lateral projections of the chest obtained and reviewed. There is no prior duran dy for comparison. FINDINGS: There is enlarged cardiac silhouette, cardiomegaly and/or pericardial effusion. Elevated l eft hemidiaphragm, possible paralysis. This was also elevated on a chest CT from May. There is a r ight-sided portacatheter overlying expected position. Small bilateral pleural effusions. There may be mild pulmonary edema. There are mild bony degenerative changes. IMPRESSION: 1. Possible mild CHF exacerbation. Small pleural effusions. 2. Chronic left hemidiaphragm elevation. Reviewed, dictated and finalized at location A. PRODUCTS INSPECTOR
== END 2021-09-11 15:09 | disposition home or self-care (01) ==
LOC: ANHIMG 15:17
PROVIDERS: Visit Provider Physician Assistant
DX: J44.9 Chronic obstructive pulmonary disease, unspecified (principal); J90 Pleural effusion, not elsewhere classified
CPT/HCPCS: 71046

== ENCOUNTER 2021-10-02 14:24 | Inpatient (IN) | payer OTHER, SELFPAY ==
[2021-10-02] VITALS (12 sets, daily range): BP systolic 110–145; BP diastolic 65–95; PULSE 79–87; RESP 16–28; TEMP 37.2; O2SAT 90–100
--- NOTE | ~2021-10-02 | XR_ITS ---
EXAMINATION: [id number] DATE: 10/06/2021 09:51 INDICATION: Left pleural effusion status post thoracentesis. TECHNIQUE: Frontal and lateral views of the chest were obtained. COMPARISON: Chest single view at 5:16 AM FINDINGS: There is a small right pleural effusion. There is a diffuse interstitial pattern in the regine gs, consistent with pulmonary edema. There is mild atelectasis in left midlung zone and at the lung b ases. No pneumothorax. There is enlargement of the cardiac silhouette. There is a right internal jugu lar port with tip in right atrium. IMPRESSION: 1. Mild pulmonary edema. 2. Mild atelectasis in left midlung zone and at the lung bases. 3. Small right pleural effusion. 4. Persistent enlargement of the cardiac silhouette, likely secondary to pericardial effusion. Reviewed, dictated and finalized at location A. PUNCHER IMPRESSION: 1. Mild pulmonary edema. 2. Mild atelectasis in left midlung zone and at the lung bases. 3. Small right pleural effusion. 4. Persistent enlargement of the cardiac silhouette, likely secondary to perica rdial effusion.
--- NOTE | ~2021-10-02 | XR_ITS ---
EXAMINATION: XR chest 1V portable EXAM DATE: 10/08/2021 06:16 INDICATION: Dyspnea. TECHNIQUE: Portable AP frontal chest x-ray was obtained. Comparison is made to prior examination from 10/07/2021. FINDINGS: There is a right-sided portacatheter. There is moderate-sized left pleural effusion with ad jacent atelectasis. Superimposed pneumonia or edema also likely. No pneumothorax or focal right-sided airspace disease. Cardiomegaly. Osteopenic-appearing bones. There is aortic arteriosclerosis. IMPRESSION: 1. Improvement in size of moderate left pleural effusion. 2. Adjacent atelectasis and superimposed pneumonia or edema. Reviewed, dictated and finalized at location A. C ARRANGER
--- NOTE | ~2021-10-02 | XR_ITS ---
EXAMINATION: XR chest 1V portable INDICATION: Hypoxia and shortness of breath, history of small cell lung cancer TECHNIQUE: Portable AP chest at 1607 hours COMPARISON: 09/11/2021 FINDINGS: A right internal jugular Port-A-Cath is in expected position. Perihilar airspace opacities have developed on the left. There are also minimal airspace opacities of the lung bases. There are sm all pleural effusions. No pneumothorax is identified. Cardiomegaly is noted. IMPRESSION: 1. Left perihilar and bibasilar airspace opacities which could reflect atelectasis versus pneumonia. 2. Cardiomegaly. 3. Small pleural effusions. Reviewed, dictated and finalized at location F. SCAPING CREW LEADER IMPRESSION: 1. Left perihilar and bibasilar airspace opacities which could reflect atelecta sis versus pneumonia. 2. Cardiomegaly. 3. Small pleural effusions.
--- NOTE | ~2021-10-02 | CT_ITS ---
EXAMINATION: CT brain wo con INDICATION: Confusion COMPARISON: None TECHNIQUE: Standard unenhanced head CT. The dose-length product (DLP) was 605.33 mGy-cm. The mA was a djusted according to patient size. Iterative reconstruction technique was employed. FINDINGS: There is no intracranial hemorrhage, acute infarction, or abnormal mass lesion. The ventric les are normal. There is no abnormal mass effect or midline shift. The kimball-white matter differentiat ion is normal. The basal cisterns are patent. The orbits are normal. There are bilateral mastoid effu sions. IMPRESSION: 1. No acute intracranial abnormality. 2. Bilateral mastoid effusions. Reviewed, dictated and finalized at location F. HANDISE DISTRIBUTOR
--- NOTE | ~2021-10-02 | CT_ITS ---
EXAMINATION: CT diagnostic chest wo con DATE: 10/03/2021 13:15 INDICATION: ? CHF. Shortness of breath. COPD. TECHNIQUE: Computed tomography (CT) of the chest was performed without intravenous contrast. Addition al 3D reconstructions utilizing coronal maximum intensity projection (MIP) were performed. Automated exposure control and iterative reconstruction technique were employed. The dose-length product was 11 8.76 mGy-cm. COMPARISON: 05/15/2021 FINDINGS: Small bilateral posterior layering pleural effusions left larger than right. There is compressive ate lectasis in the dependent bilateral lower lobes and along the anteromedial lingula. Additional linear bands of discoid atelectasis/scarring in the right upper lobe and in the left upper lobe extending t o the lingula. Diffuse mild peripheral smooth septal line thickening consistent with mild pulmonary e camila. Calcified right lower lobe nodules along with calcified right hilar lymph nodes consistent with old granulomatous disease. Interval decrease in size of a 2.0 x 1.2 cm nodule in the superior segmen t of the left lower lobe currently measuring 9 x 7 mm. No pneumonia. Heart size is normal. Moderate-s ized pericardial effusion. Atherosclerotic coronary artery calcification. Aortic valve calcification. Thoracic aorta is normal in caliber. Right internal jugular central venous port catheter with distal tip extending into the inferior right atrium. Minimal amount of perihepatic ascites. A few <2 mm non obstructing stones at the upper poles of both kidneys. Moderate to severe lower cervical spondylosis. Mild thoracic spondylosis. IMPRESSION: 1. Mild pulmonary edema, small bilateral pleural effusions and some associated atelectasis. 2. Decrease in size of a previously 2.0 x 1.2 cm, now 9 x 7 mm nodules in the superior segment of the left lower lobe which could represent stress response to treatment of metastatic disease in this pat ient with known small cell lung cancer 3. Normal heart size with moderate-sized pericardial effusion. Reviewed, dictated and finalized at location A. ERTY MANAGEMENT COORDINATOR IMPRESSION: 1. Mild pulmonary edema, small bilateral pleural effusions and some associated atelectasis. 2. Decrease in size of a previously 2.0 x 1.2 cm, now 9 x 7 mm nodules in the s uperior segment of the left lower lobe which could represent stress response to treatment of metastatic disease in this patient with known small cell lung can cer 3. Normal heart size with moderate-sized pericardial effusion.
--- NOTE | ~2021-10-02 | XR_ITS ---
EXAMINATION: XR chest 1V portable DATE: 10/05/2021 08:44 INDICATION: Shortness of breath. TECHNIQUE: A single frontal view of the chest was obtained. COMPARISON: Chest single view 10/02/2021, chest CT 10/03/2021 FINDINGS: There is a diffuse interstitial pattern in the lungs. There are airspace opacities in the p erihilar regions and at the lung bases, left worse than right. There is a small left pleural effusion . No pneumothorax. There is enlargement of the cardiac silhouette. There is a right internal jugular port with tip in right atrium. IMPRESSION: 1. Diffuse lung disease with worsening from 10/02/2021, likely a combination of pulmonary edema and a telectasis. Pneumonia cannot be excluded. 2. Small left pleural effusion, worsened from 10/02/2021. 3. Persistent enlargement of the cardiac silhouette, likely secondary to pericardial effusion. Reviewed, dictated and finalized at location B. DISTRIBUTION SUPERVISOR IMPRESSION: 1. Diffuse lung disease with worsening from 10/02/2021, likely a combination of pulmonary edema and atelectasis. Pneumonia cannot be excluded. 2. Small left pleural effusion, worsened from 10/02/2021. 3. Persistent enlargement of the cardiac silhouette, likely secondary to perica rdial effusion.
--- NOTE | ~2021-10-02 | XR_ITS ---
EXAMINATION: XR chest 1V portable DATE: 10/07/2021 07:10 INDICATION: Respiratory failure. TECHNIQUE: A single frontal view of the chest was obtained. COMPARISON: Chest single view 10/06/2021 FINDINGS: The patient is rotated to her left. There is a diffuse interstitial pattern in the lungs. T here are airspace opacities in the right perihilar region. There are airspace opacities in all left l guillermina zones, worse at left lung base. There is a small left pleural effusion. There is enlargement of t he cardiac silhouette. There is a right internal jugular port with tip in right atrium. IMPRESSION: 1. Worsened small left pleural effusion. 2. Diffuse lung disease with worsening on the left, consistent with a combination of pulmonary edema and either pneumonia or atelectasis. 3. Persistent enlargement of the cardiac silhouette, likely secondary to pericardial effusion. Reviewed, dictated and finalized at location A. MILLER IMPRESSION: 1. Worsened small left pleural effusion. 2. Diffuse lung disease with worsening on the left, consistent with a combinati on of pulmonary edema and either pneumonia or atelectasis. 3. Persistent enlargement of the cardiac silhouette, likely secondary to perica rdial effusion.
--- NOTE | ~2021-10-02 | US_ITS ---
EXAMINATION: US venous doppler [facility] DATE: 10/03/2021 14:39 INDICATION: Deep vein thrombosis. TECHNIQUE: Grayscale ultrasound images without and with compression and Doppler ultrasound images of the bilateral lower extremity veins were obtained. COMPARISON: None. FINDINGS: The visualized portions of right common femoral vein, profunda (deep) femoral vein, femoral vein, pop liteal vein, peroneal veins, posterior tibial veins, and greater saphenous vein outflow are patent. The visualized portions of left common femoral vein, profunda femoral vein, femoral vein, popliteal v ein, peroneal veins, posterior tibial veins, and greater saphenous vein outflow are patent. IMPRESSION: 1. No deep venous thrombosis. Reviewed, dictated and finalized at location B. PACKER
--- NOTE | ~2021-10-02 | XR_ITS ---
EXAMINATION: XR chest 1V portable DATE: 10/06/2021 05:53 INDICATION: Shortness of breath. TECHNIQUE: A single frontal view of the chest was obtained. COMPARISON: Chest single view 10/05/2021, chest CT 10/05/2021 FINDINGS: There is a diffuse interstitial pattern in the lungs, consistent with pulmonary edema. Ther e are airspace opacities in left lung with a basilar predominance. There are mild airspace opacities in right mid and lower lung zones. There is a moderate-sized left pleural effusion. No pneumothorax. There is enlargement of the cardiac silhouette. There is a right internal jugular port with tip in ri ght atrium. IMPRESSION: 1. Stable diffuse lung disease, likely a combination of pulmonary edema and atelectasis. Pneumonia ca nnot be excluded. 2. Stable moderate-sized left pleural effusion. 3. Persistently enlargement of the cardiac silhouette, likely secondary to pericardial effusion. Reviewed, dictated and finalized at location A. GRADER IMPRESSION: 1. Stable diffuse lung disease, likely a combination of pulmonary edema and ate lectasis. Pneumonia cannot be excluded. 2. Stable moderate-sized left pleural effusion. 3. Persistently enlargement of the cardiac silhouette, likely secondary to saqib cardial effusion.
--- NOTE | ~2021-10-02 | US_ITS ---
EXAMINATION: US thoracentesis DATE: 10/06/2021 09:47 INDICATION: pleural effusion TECHNIQUE: The procedure and its risks, benefits, and alternatives were discussed with the patient. P otential risks discussed included bleeding, infection, and pneumothorax. The patient understood the r isks and agreed to proceed. The skin was prepped and draped in sterile fashion. 1% lidocaine was used for local anesthesia. Under ultrasound guidance, a 5 Fr catheter with trochar was advanced into the left pleural effusion. Fluid was aspirated. The catheter was removed, and a dressing was applied. The re were no immediate complications. FINDINGS: Ultrasound images demonstrate a left pleural effusion and the catheter within the fluid. IMPRESSION: 1. Successful ultrasound-guided thoracentesis yielding 500 mL of clear, philomena-colored fluid. Reviewed, dictated and finalized at location A. GRATION SPECIALIST IMPRESSION: 1. Successful ultrasound-guided thoracentesis yielding 500 mL of clear, philomena- colored fluid.
--- NOTE | ~2021-10-02 | XR_ITS ---
EXAMINATION: XR chest 2V DATE: 10/11/2021 09:51 INDICATION: Lung cancer. Left pleural effusion. TECHNIQUE: Frontal and lateral views of the chest were obtained. COMPARISON: Chest single view 10/08/2021, chest CT 10/05/2021 FINDINGS: There is elevation of left hemidiaphragm. There are airspace opacities at left lung base. T here is a diffuse interstitial pattern in the lungs. There are airspace opacities in left upper lobe. There is a moderate-sized left pleural effusion. No pneumothorax. There is enlargement of the cardia c silhouette. Calcified right hilar lymph nodes are consistent with old granulomatous disease. There is a right internal jugular port with tip in right atrium. IMPRESSION: 1. Stable moderate-sized left pleural effusion. 2. Airspace opacities in left upper lobe and at left lung base, consistent with atelectasis versus pn eumonia. 3. Diffuse interstitial pattern in the lungs, likely mild pulmonary edema. 4. Enlargement of the cardiac silhouette, likely secondary to pericardial effusion as seen by CT. Reviewed, dictated and finalized at location A. STERILIZER IMPRESSION: 1. Stable moderate-sized left pleural effusion. 2. Airspace opacities in left upper lobe and at left lung base, consistent with atelectasis versus pneumonia. 3. Diffuse interstitial pattern in the lungs, likely mild pulmonary edema. 4. Enlargement of the cardiac silhouette, likely secondary to pericardial effus ion as seen by CT.
--- NOTE | ~2021-10-02 | MR_ITS ---
EXAMINATION: MR brain/brain stem wo/w con EXAM DATE: 10/06/2021 17:26 INDICATION: Confusion, small cell lung CA. TECHNIQUE: Magnetic resonance imaging (MRI) of the brain/brain stem obtained without contrast. Sagit zulma T1, axial diffusion, gradient echo (T2*), T1, T2, FLAIR sequences obtained. Patient was then inj ected with 9 cc intravenous Multihance contrast. Axial and coronal postcontrast T1 weighted sequences obtained. Comparison is made to prior examination from 01/01/2021. FINDINGS: There are no areas of restricted diffusion to suggest acute infarction. There is no acute hemorrhage seen on the T2*, a hemosiderin sensitive sequence. No intraparenchymal brain mass lesion. There is moderate periventricular and subcortical T2/FLAIR signal hyperintensity, nonspecific but pr obably related to small vessel ischemic disease (microangiopathy). There is mild to moderate promin ence of the sulci and ventricles related to cerebral atrophy. There are no extra-axial collections. Flow voids are seen in the cerebral arteries on the T2-weighted sequences consistent with their exp ected patency. The orbits are unremarkable. Soft tissue is unremarkable. Bilateral mastoid effusion s. There are no areas of abnormal enhancement on the postcontrast images. IMPRESSION: 1. No acute intracranial findings or suspicion of intracranial metastatic disease. 2. Chronic age related findings. 3. Bilateral mastoid effusions. Reviewed, dictated and finalized at location A. USEMENT MACHINE MECHANIC IMPRESSION: 1. No acute intracranial findings or suspicion of intracranial metastatic dise ase. 2. Chronic age related findings. 3. Bilateral mastoid effusions.
--- NOTE | ~2021-10-02 | CT_ITS ---
EXAMINATION: CTA chest PE protocol DATE: 10/05/2021 16:56 INDICATION: Confusion and shortness of breath, history of small cell lung cancer TECHNIQUE: Computed tomography angiography (CTA) of the chest was performed with 100 mL Omnipaque-350 intravenous contrast timed to evaluate the pulmonary arteries. Coronal maximum intensity projection 3D-reconstructions were created by the technologist. The dose-length product (DLP) was 140.20 mGy-cm. Automated exposure control and iterative reconstruction technique were employed. COMPARISON: 10/03/2021 FINDINGS: The pulmonary arteries are well-opacified. No pulmonary embolism is identified. There are s mall right and moderate-sized left pleural effusions. Mild smooth interlobular septal thickening is n oted. There is moderate emphysema. There is increasing atelectasis of the lingula. There is a moderat e-sized pericardial effusion. IMPRESSION: 1. No pulmonary embolus identified. 2. Moderate-sized left and small right pleural effusions. 3. Moderate-sized pericardial effusion. 4. Mild pulmonary edema. 5. Increasing atelectasis of the lingula. Reviewed, dictated and finalized at location F. LY REUNIFICATION SPECIALIST
--- NOTE | 2021-10-02 15:53 | ECG_ITS ---
Measurements Intervals [place] Rate: 80 P: 16 IA: 130 QRS: 23 QRSD: 74 T: 65 QT: 346 QTc: 400 Interpretive Statements SINUS RHYTHM EARLY PRECORDIAL R/S TRANSITION LOW QRS VOLTAGE IN PRECORDIAL LEADS BASELINE ARTIFACT- II, III, AVF, V1, V3 BORDERLINE ECG Electronically Signed On 10-02-2021 19:49:17 AGRICULTURAL RESEARCH TECHNICIAN by Darrell Norris D.O.
--- NOTE | 2021-10-02 15:54 | ED.SOB ---
HPI - SOB/Dyspnea General Chief Complaint: Shortness of Breath/Dyspnea Stated Complaint: SOB, hx copd Time Seen by Provider: 10/02/21 15:45 Source: patient and family Mode of arrival: ambulatory Limitations: no limitations History of Present Illness HPI Narrative: Patient is a 60-year-old female complaining of shortness of breath, I am always short of breath but worse the past week. Daughter states that today her shortness of breath is worse, when she walks to the bathroom even just a few steps her oxygen saturation will drop to the 60s . Patient has a history of COPD, CHF and respiratory failure, currently on 2 to 4 L of O2 continuously at home. Patient denies any chest pain, abdominal pain, nausea, vomiting, diaphoresis, fever or chills. Related Data Home Medications Medication Instructions Recorded Confirmed albuterol sulfate 2 puff INHALATION QID PRN 09/07/20 07/20/21 aspirin 81 mg PO DAILY 09/07/20 07/20/21 atorvastatin 40 mg PO HS 09/07/20 07/20/21 cholecalciferol (vitamin D3) 125 mcg PO EVERY OTHER DAY 09/07/20 07/20/21 [Vitamin D3] diltiazem HCl 360 mg PO DAILY 09/07/20 07/20/21 escitalopram oxalate 10 mg PO DAILY 09/07/20 07/20/21 mecobalamin (vitamin B12) 1,000 1,000 mcg SUBLINGUAL DAILY 02/01/21 07/20/21 mcg disintegrating tablet,sublingual melatonin 3 mg tablet 5 mg PO HS tablet 02/01/21 07/20/21 pyridoxine (vitamin B6) 100 mg 100 mg PO BID tablet 02/01/21 07/20/21 tablet metoprolol succinate 25 mg 25 mg PO BID tablet 05/03/21 07/20/21 tablet,extended release 24 hr ferrous sulfate 325 mg (65 mg 325 mg PO BID tablet 09/11/21 09/11/21 iron) tablet Allergies Allergy/AdvReac Type Severity Reaction Status Date / Time No Known Allergies Allergy Verified 10/02/21 17:42 Review of Systems Review of Systems: All systems reviewed & are unremarkable except as noted in HPI and below Constitutional: Constitutional: Denies body ache(s), Denies chills, Denies excessive sweating, Denies fatigue, Denies fever(s), Denies headache(s), Denies lethargy, Denies malaise, Denies weakness and Denies weight loss Eyes: Eyes: Denies blurry vision, Denies change in vision and Denies loss of vision ENT: Denies dizziness, Denies ear discharge, Denies headache(s), Denies lip swelling, Denies epistaxis, Denies nasal congestion, Denies neck pain, Denies throat swelling and Denies tongue swelling Cardiovascular: Cardiovascular: Denies chest pain, Denies chest pain at rest, Denies chest pain with activity, Denies diaphoresis, Denies rapid heart rate, Denies edema, Denies irregular heart rhythm, Denies lightheadedness and Denies palpitations Respiratory: Respiratory: Denies chest congestion and Denies hemoptysis Gastrointestinal: Gastrointestinal: Denies abdominal pain, Denies melena, Denies hematochezia, Denies diarrhea, Denies nausea, Denies vomiting and Denies hematemesis Musculoskeletal: Musculoskeletal: Denies abnormal gait, Denies deformity, Denies joint swelling, Denies limited range of motion, Denies neck pain and Denies numbness Neurologic: Denies Abnormal speech present, Denies abnormal gait, Denies confusion, Denies dizziness, Denies headache(s), Denies focal weakness, Denies loss of vision, Denies numbness, Denies Other visual disturbances, Denies Sensory deficit (Neuro) and Denies weakness Psychiatric: Psychiatric: Denies confusion, Denies depression, Denies auditory hallucinations, Denies homicidal ideation and Denies suicidal ideation Endocrine: Endocrine: Denies cold intolerance, Denies excessive sweating, Denies fatigue, Denies heat intolerance and Denies palpitations Hematologic/Lymphatic: Hematologic/Lymphatic: Denies easy bleeding and Denies easy bruising Allergic/Immunologic: Allergic/Immunologic: Denies lip swelling, Denies throat swelling and Denies tongue swelling PMFSH Past Medical History Medical History Acute pulmonary edema Acute renal jet
[2021-10-02 16:11] LABS: Basophils Percent Auto 0.6 % (0.2-1.2); Eosinophils Absolute Auto 0.1 K/mm3 (0-0.3); Eosinophils Percent Auto 0.9 % (0-4.4); Hematocrit 27.4 % (37.0-47.0); Hemoglobin 8.4 g/dL (12.0-15.0); Immature Granulocyte Absolute 0.03 K/mm3 (0.00-0.031); Immature Granulocyte Percent A 0.4 % (0-0.5); Immature Platelet Fraction Pct 4.2 % (0.9-11.2); Lymphocytes Absolute Auto 0.34 K/mm3 (0.9-3.2); Mean Corpuscular HGB Conc 30.7 g/dl (32-36); Mean Corpuscular Hemoglobin 35.7 pg (26-34); Mean Corpuscular Volume 116.6 fl (80-100); Mean Platelet Volume 9.8 fl (7.4-10.4); Monocytes Absolute Auto 0.6 K/mm3 (0.1-0.6); Monocytes Percent Auto 8.2 % (2.6-8.5); Neutrophils Absolute Auto 5.8 K/mm3 (1.3-6.7); Neutrophils Percent Auto 84.9 % (45.5-73.1); Platelet Count Result 161 k/mm3 (150-375); Red Blood Count 2.35 M/mm3 (4.2-5.4); Red Cell Distribution Width 13.1 % (11.5-14.5); White Blood Count 6.9 K/mm3 (4.5-10.0)
[2021-10-02 16:20] LABS: Anion Gap 5 mmol/L (8-16); Blood Urea Nitrogen 14 mg/dL (7-17); Calcium 8.9 mg/dL (8.4-10.2); Carbon Dioxide 37 mmol/L (22-30); Chloride 92 mmol/L (98-107); Estimated Glomerular Filt Rate 38; Glucose 111 mg/dL (65-110); Potassium 4.7 mmol/L (3.4-5.0); Sodium 134 mmol/L (137-145)
[2021-10-02 16:21] LABS: Lactic Acid Reflex 0.6 mmol/L (0.7-2.1)
[2021-10-02 16:23] LABS: INR 0.9; Prothrombin Time 12.4 Seconds (11.1-14.7)
[2021-10-02] MEDS: methylPREDNISolone SOD SUCC 125 MG VIAL IV PUSH (16:23)
[2021-10-02 16:24] LABS: Partial Thromboplastin Time 29.3 SECONDS (22.3-36.8)
[2021-10-02] MEDS: ALBUTEROL SULFATE NEB 2.5 MG/0.5 ML INH 5 MG INHALATION ×2 (16:29→20:09)
[2021-10-02] MEDS: IPRATROPIUM BR 0.02% INH SOLN 0.5 MG/2.5 ML VIAL INHALATION ×2 (16:29→20:09)
--- NOTE | 2021-10-02 16:30 | PC.NURSE ---
Pt states that ABGs hurt too bad and is requesting medication to help with the pain. Verbal order for topical LET obtained and placed on patients wrists with a tegaderm
[2021-10-02] MEDS: LIDOCAINE, EPINEPHRINE, TETRACAINE VISCOUS SOLN 3 ML TOPICAL (16:31)
[2021-10-02 16:33] LABS: NT Pro B Type Natriuretic Pept 2930 pg/mL (5-100); Troponin I < 0.012 ng/mL (0.000-0.034)
[2021-10-02 16:47] LABS: Alveolar/Arterial O2 Gradient 53.4 mmHg; Base Excess ABG 10.8 mEq/l (+/-2.0); Carboxyhemoglobin 0.2 % THb (0-2.0); Fractional Inspired Oxygen 28 %; HCO3 ABG 38.6 mEq/l (22.0-26.0); Methemoglobin ABG 0.2 %THb (0-1.5); Oxygen Content ABG 11.1 %vol (16.0-22.0); PO2 ABG 57.2 mmHg (80.0-100.0); PO2 FiO2 Ratio Arterial Blood 2.04 %; Total Hemoglobin 9.1 g/dL (12.0-18.0); pH ABG 7.327 (7.350-7.450)
[2021-10-02 16:48] LABS: Oxygen Saturation ABG 86.2 % (95.0-100.0); PCO2 ABG 75.5 mmHg (35.0-45.0)
[2021-10-02 16:49] LABS: Oxyhemoglobin 86.6 % THb (90.0-100.0)
[2021-10-02 16:51] LABS: Device NASAL CANNULA; Modified Allen's Test Pass; Site Drawn RIGHT RADIAL
--- NOTE | 2021-10-02 19:22 | PC.NURSE ---
Assumed care of pt at this time. Pt alert and upright on stretcher. Ambulated with steady gait to bedside commode. Pt on 5L NC
--- NOTE | 2021-10-02 19:40 | PC.NURSE ---
pt refusing blood cultures at this time.
--- NOTE | 2021-10-02 20:02 | PM.IMHP ---
H&P: HPI History of Present Illness Date/Time: 10/02/21 20:02 Chief Complaint: Shortness of breath Narrative: This is a 60-year-old female with past medical history significant for COPD/emphysema, 8 0 dependence, megaloblastic anemia, tobacco dependence, congestive heart failure, a small cell lung cancer, chronic hypoxic and hypercarbic respiratory failure on chronic supplemental oxygen by nasal cannula, patient has concluded chemotherapy and radiation she follows up in the outpatient setting with Oncology. Patient has been having worsening shortness of breath. According to office visit patient has been struggling with this for quite some time now. Today in particular before coming to the emergency room she was noted that her oxygen saturation was dropping into the 60s at exertion and she had to increase her usual supplemental oxygen she is usually on 3 L. she denies any fevers any rigors any chills she denies any changes to her sputum quality or excessive production of sputum however she has a persistent productive cough. Preliminary workup was significant for chest x-ray with opacities. A COVID PCR is currently pending. An ABG showed a pH of 7.3, pCO2 of 75 PO2 of 57. Patient is being admitted for further evaluation management and treatment. Review of Systems Review of Systems: Worsening shortness of breath at rest and worse with exertion on low pulse ox, persistent cough. Constitutional: Constitutional: Denies chills, Denies fever(s), Denies malaise and Denies night sweats Eyes: Eyes: Denies change in vision ENT: Denies dysphagia, Denies nasal congestion, Denies nasal discharge, Denies nasal obstruction and Denies odynophagia Cardiovascular: Cardiovascular: Denies chest pain, Denies pedal edema, Denies lightheadedness, Denies radiating jaw, neck or arm pain and Denies palpitations Respiratory: Respiratory: Denies change in phlegm color, Reports cough, Denies excessive phlegm production and Reports dyspnea Gastrointestinal: Gastrointestinal: Denies dyspepsia, Denies heartburn, Denies nausea and Denies vomiting Genitourinary: Genitourinary: Denies dysuria and Denies flank pain Musculoskeletal: Musculoskeletal: Denies arthralgias and Denies joint swelling Integumentary/Breasts: Skin/Breast: Denies rash Neurologic: Denies focal weakness and Denies Sensory deficit (Neuro) Psychiatric: Psychiatric: Reports no additional psychiatric complaints and Reports as per HPI Endocrine: Endocrine: Denies excessive sweating, Denies heat intolerance and Denies palpitations Hematologic/Lymphatic: Hematologic/Lymphatic: Reports no additional hematologic/lymphatic complaints and Reports as per HPI Allergic/Immunologic: Allergic/Immunologic: Reports no additional allergic/immunologic complaints and Reports as per HPI PMFSH Past Medical History Medical History Acute pulmonary edema Acute renal failure Acute respiratory failure Anxiety CHF (congestive heart failure) COPD (chronic obstructive pulmonary disease) Deafness Depression Emphysema of lung HTN (hypertension) Hypercholesterolemia Malignant neoplasm of overlapping sites of left bronchus and lung Small cell lung cancer Family History Family History Father Cancer Social History Social History Smoking packs per day: 2 Smoking cigarettes per day: 40.0 Years smoked: 40 Smoking pack-years: 80.00 Smoking status: Former smoker Alcohol intake: former Alcohol use details: socially Substance use: never Substance use type: does not use Gender identity (if verbalized by the patient): Female Spiritual care concerns: No Meds Home Medications and Allergies Home Medications Medication Instructions Recorded Confirmed Type albuterol sulfate 2 puff INHALATION QID PRN 09/07/20 10/03/21 History as
--- NOTE | 2021-10-02 20:11 | PC.NURSE ---
Respiratory at bedside
[2021-10-02 20:31] LABS: Alveolar/Arterial O2 Gradient 131.5 mmHg; Base Excess ABG 10.5 mEq/l (+/-2.0); Carboxyhemoglobin 0.3 % THb (0-2.0); Fractional Inspired Oxygen 40 %; HCO3 ABG 38.3 mEq/l (22.0-26.0); Methemoglobin ABG 0.2 %THb (0-1.5); Oxygen Content ABG 12.3 %vol (16.0-22.0); Oxyhemoglobin 91.7 % THb (90.0-100.0); PO2 ABG 69.3 mmHg (80.0-100.0); PO2 FiO2 Ratio Arterial Blood 1.73 %; Reduced Hemoglobin 7.8 %THb (0-5.0); Total Hemoglobin 9.5 g/dL (12.0-18.0); pH ABG 7.335 (7.350-7.450)
[2021-10-02 20:32] LABS: PCO2 ABG 73.4 mmHg (35.0-45.0)
[2021-10-02 20:33] LABS: Device NASAL CANNULA; Modified Allen's Test Pass; Site Drawn RIGHT RADIAL
[2021-10-02] MEDS: LACTATED RINGERS 1,000 ML 75 ML IV CONT (23:50)
[2021-10-03] VITALS (24 sets, daily range): BP systolic 118–156; BP diastolic 7–83; PULSE 72–106; RESP 15–22; TEMP 35.7; O2SAT 91–100; BMI 19.6
--- NOTE | 2021-10-03 00:33 | ADMGEN ---
This patient, Stephanie Holt, was admitted to [facility] Bed Second Floor-1. Patient/family oriented to hospital policies and general routines including ID bracelet, bed and alarms, visiting hours, pain management, procedures, bathroom and other care routines, personal items, smoking policy, room service/diet, and visiting hours. Information on how to activate the Rapid Response Team has been discussed. Patient/Family are encouraged to report perceived risks to care and to ask questions if they do not understand what they are told or what they should do.
[2021-10-03] MEDS: ALBUTEROL SULFATE NEB 2.5 MG/0.5 ML INH 5 MG INHALATION ×4 (01:57→19:34)
[2021-10-03] MEDS: IPRATROPIUM BR 0.02% INH SOLN 0.5 MG/2.5 ML VIAL INHALATION ×4 (01:57→19:34)
--- NOTE | 2021-10-03 01:58 | PCRCNOTE ---
02 off when therapist entered room- pt desat to 68
[2021-10-03] MEDS: methylPREDNISolone SOD SUCC 40 MG VIAL IV PUSH ×2 (04:23→09:09)
[2021-10-03] MEDS: FERROUS SULFATE 324 MG TABLET PO ×2 (09:07→18:25)
[2021-10-03] MEDS: METOPROLOL SUCCINATE EXT REL 25 MG TABCR PO (09:08)
[2021-10-03] MEDS: ESCITALOPRAM OXALATE 10 MG TABLET PO (09:08)
[2021-10-03] MEDS: dilTIAZem HCL CD 180 MG CAP.ER.24H 360 MG PO (09:09)
[2021-10-03] MEDS: ASPIRIN 81 MG CHEWABLE TABLET PO (09:10)
--- NOTE | 2021-10-03 12:36 | PM.CNPUL ---
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 Chest imaging studies showed new infiltrates bilaterally possibly related to congestive heart failure and less likely to pneumonia. In addition the patient has worsening of her renal function, and no evidence of wheezing on physical exam or other respiratory symptoms to suggest COPD exacerbation or pneumonia. It is very likely that the patient's worsening dyspnea is related to congestive heart failure and also anemia with the last hematocrit being 8.3. Doubt there is pulmonary embolism. COVID test is pending. I would discontinue IV steroids, get a chest CT without contrast, venous study of lower extremities, EchoCardiogram. I would decrease IV fluid rate as patient is taking p.o.. Would start the patient on BiPAP support at night. Further recommendations depending upon the results of chest CT. (2) Congestive heart failure: Qualifiers: Heart failure chronicity: unspecified Heart failure type: unspecified Qualified Code(s): I50.9 - Heart failure, unspecified Code(s): I50.9 - Heart failure, unspecified Status: Acute (3) Small cell lung cancer: Code(s): C34.90 - Malignant neoplasm of unspecified part of unspecified bronchus or lung Status: Acute (4) COPD (chronic obstructive pulmonary disease): Qualifiers: COPD type: unspecified COPD Qualified Code(s): J44.9 - Chronic obstructive pulmonary disease, unspecified Code(s): J44.9 - Chronic obstructive pulmonary disease, unspecified Status: Acute History of Present Illness History of Present Illness Consult date: 10/03/21 Chief complaint: Pneumonia,COPD exacerbation, respiratory failure Narrative: This 60-year-old female presented with progressively increasing shortness of breath. The patient has a significant past medical history consisting of a severe COPD with FEV1 in the range of 0.6L or 32% predicted with previous significant response to bronchodilators, history of congestive heart failure, small cell lung cancer status post chemo radiation approximately 1 year ago. The small cell cancer was primarily arising from the left hilar region with extensive lymphadenopathy in the right lobe neck mediastinum and left hilar region.The patient also has hypoxemic respiratory failure and has been on supplemental oxygen at home ranging from 2-4 liters/minute. Over the last week she noticed increasing shortness of breath primarily with activities. She had no other respiratory symptoms such as chest pain palpitations hemoptysis coughing sputum production fever or chills. Workup in the emergency room with a chest x-ray showed a chronically elevated left hemidiaphragm a new infiltrates bilaterally since approximately 3 weeks ago. arterial blood gases showed a pH of 7.3 pCO2 of 75 PO2 57. COVID PCR is pending. The patient has hearing impairment and most of the information for this report was obtained after reviewing the records and also talking to the patient. Review of Systems Review of Systems: All systems reviewed & are unremarkable except as noted in HPI and below ( H&P and below) PMFSH Past Medical History M
[2021-10-03 15:47] LABS: SARS-CoV-2 RNA PCR Negative (Negative)
--- NOTE | 2021-10-03 15:58 | PM.IMPN ---
Progress Note: A&P Assessment and Plan (1) Pneumonia: Qualifiers: Laterality: unspecified laterality Lung location: unspecified part of lung Pneumonia type: due to unspecified organism Qualified Code(s): J18.9 - Pneumonia, unspecified organism Code(s): J18.9 - Pneumonia, unspecified organism Status: Acute Assessment and Plan: Patient was found to have infiltrates on chest x-ray Started on Rocephin and Zithromax Blood cultures in progress Supportive care Continue to monitor (2) Acute exacerbation of chronic obstructive pulmonary disease: Code(s): J44.1 - Chronic obstructive pulmonary disease with (acute) exacerbation Status: Acute Assessment and Plan: Continue supplemental oxygen by nasal cannula Continuous pulse ox (3) Malignant neoplasm of overlapping sites of left bronchus and lung: Code(s): C34.82 - Malignant neoplasm of overlapping sites of left bronchus and lung Status: Acute Assessment and Plan: Small cell lung cancer Patient concluded chemotherapy and radiation therapy Follow-up in the outpatient setting Limited stage small cell lung cancer status post bronchoscopy and biopsy done August 04, 2020 left upper lobe bronchial biopsy showed small cell carcinoma and lymph node 4R also showed metastatic small-cell carcinoma Recent PET scan with moderate increased FDG uptake in 1.8 x 1.1 cm pleural based mass in the superior segment of the left lower lobe concerning for malignancy with mild FDG uptake associated with 1 cm paramediastinal lesion in the posterior basilar segment of the left lower lobe could be related to radiation pneumonitis infection or malignancy/metastatic disease. Follow this up as an outpatient basis with Dr. Mendez (4) Respiratory failure, [id number]: Qualifiers: Respiratory failure complication: hypoxia and hypercapnia Qualified Code(s): J96.21 - Acute and chronic respiratory failure with hypoxia; J96.22 - Acute and chronic respiratory failure with hypercapnia Code(s): J96.20 - Acute and chronic respiratory failure, unspecified whether with hypoxia or hypercapnia Status: Acute Assessment and Plan: Acute on chronic hypoxic hypercapnic respiratory failure Pulmonary consulted BiPAP at night started for pulmonary See normally on 1-2 L oxygen currently on 5 L oxygen Chest x-ray with left perihilar and bibasilar airspace opacities which could represent atelectasis versus pneumonia along with cardiomegaly and small pleural effusion CT chest done this morning 10/03/2021 with mild pulmonary edema, small bilateral pleural effusions some at associated atelectasis. Decrease in size of previously to to multiply 1.2 cm now 0 9 multiply 7 mm nodule in superior segment of the left lower lobe which may represent stress response to treatment off metastatic disease in this patient with known small cell lung cancer Normal heart size with moderate size pericardial effusion Bilateral lower extremity venous duplex is negative for DVT BNP is elevated at 2 930 Troponins negative COVID swab came back negative Will stop her IV fluids that was ordered Will give a dose of Lasix (5) Anemia in CKD (chronic kidney disease): Code(s): N18.9 - Chronic kidney disease, unspecified; D63.1 - Anemia in chronic kidney disease Status: Acute Assessment and Plan: Patient also with history of heavy alcohol use also chronic disease Continue to monitor No need for transfusion currently Iron profile suggestive of anemia of chronic disease with ferritin is elevated with lower TIBC vitamin B12 is more than 1000 Will check folic acid MCV is elevated suggestive of macrocytic anemia Will also check TSH hepatic panel History of heavy drinking (6) Pericardial effusion: Code(s): I31.3 - Pericardial effusion (noninflammatory) Status: Acute Assessment and Plan: Moderate size. Chest CT from May represent the similar sized pe
[2021-10-03] MEDS: FUROSEMIDE INJ 40 MG/4 ML VIAL IV PUSH (18:26)
[2021-10-03 18:56] LABS: Alanine Aminotransferase 29 U/L (4-35); Albumin Level 4.1 g/dL (3.5-5.1); Alkaline Phosphatase 69 U/L (38-126); Aspartate Amino Transferase 41 U/L (14-36); Bilirubin,Total 0.4 mg/dL (0.2-1.3)
[2021-10-03] MEDS: FLUTICASONE/SALMETEROL 115-21 MCG INHALER 1 PUFF 2 PUFF INHALATION (19:34)
[2021-10-03 20:02] LABS: Folic Acid 4.5 ng/mL (2.76->20)
[2021-10-03] MEDS: ATORVASTATIN 40 MG TABLET PO (21:14)
[2021-10-04] VITALS (22 sets, daily range): BP systolic 115–151; BP diastolic 57–75; PULSE 67–105; RESP 16–26; TEMP 35.8–36.8; O2SAT 91–100
--- NOTE | 2021-10-04 | ECHO_ITS ---
Patient Info Name: Stephanie Holt Age: 60 years : 1960 Gender: Female Ht: 50 in Wt: 95 lbs BSA: 1.25 m2 HR: 80 bpm BP: 115 / 65 mmHg Heart Rhythm: Sinus Rhythm Technical Quality: Fair Exam Date: 10/04/2021 9:18 AM Exam Location: [facility] Patient Status: Outpatient Admit Date: 10/03/2021 Staff Ordering Physician: Jaime Quiles MD Activity Director: Nancy Pichardo RDCS Attending Provider: Job Armenta MD Referring Physician: Kb MENDOZA; Exam Type: CA echo doppler color flow Study Info Indications - ? CHF Complete two-dimensional, color flow and Doppler transthoracic echocardiogram is performed. Summary 1. Complete two-dimensional, color flow and Doppler transthoracic echocardiogram is performed. 2. Left ventricular chamber dimension is normal. 3. Left ventricular systolic function is normal, estimated at 65-70%. 4. There is mildly increased left ventricular wall thickness. 5. The left ventricular diastolic function is grade I diastolic dysfunction. 6. Left atrial chamber dimension is moderately enlarged. 7. There is mild mitral valve regurgitation. 8. There is mild to moderate tricuspid valve regurgitation. 9. Moderate pulmonary hypertension, estimated pulmonary arterial systolic pressure is 47 mmHg. 10. There is mild pulmonic regurgitation. 11. There is moderate to large pericardial effusion. Right atrial free wall invagination consistent with elevated pericardial pressures. 12. The pericardium appears thickened pericardium. Left Ventricle Left ventricular chamber dimension is normal. Left ventricular systolic function is normal, estimated at 65-70%. There is mildly increased left ventricular wall thickness. The left ventricular diastolic function is grade I diastolic dysfunction. Right Ventricle Right ventricular chamber dimension is normal. Right ventricular systolic function is normal. Left Atria Left atrial chamber dimension is moderately enlarged. Right Atria Right atrial chamber dimension is normal. Atrial Septum Intact interatrial septum visualized by color flow imaging. Aortic Valve The aortic valve is trileaflet. There is mild aortic valve sclerosis. There is no aortic valve stenosis. There is trace aortic valve regurgitation. Pulmonic Valve The pulmonic valve is normal. There is no pulmonic valve stenosis. There is mild pulmonic regurgitation. Mitral Valve The mitral valve has thickened leaflets. There is no mitral valve stenosis. There is mild mitral valve regurgitation. Tricuspid Valve The tricuspid valve leaflets are normal. There is no significant tricuspid valve stenosis. There is mild to moderate tricuspid valve regurgitation. Moderate pulmonary hypertension, estimated pulmonary arterial systolic pressure is 47 mmHg. Pericardium/Pleural The pericardium appears thickened pericardium. There is moderate to large pericardial effusion. Right atrial free wall invagination consistent with elevated pericardial pressures. Inferior Vena Cava Normal inferior vena cava with <50% collapse upon inspiration consistent with elevated right atrial pressure, 10 mmHg. Aorta The aortic root size at the sinus of Valsalva is normal. Left Ventricular Outflow Tract Name Value Normal LVOT 2D ------
[2021-10-04] MEDS: ALBUTEROL SULFATE NEB 2.5 MG/0.5 ML INH 5 MG INHALATION (01:45)
[2021-10-04] MEDS: IPRATROPIUM BR 0.02% INH SOLN 0.5 MG/2.5 ML VIAL INHALATION ×3 (01:45→20:33)
--- NOTE | 2021-10-04 03:07 | ADMGEN ---
This patient, Stephanie Holt, was admitted to IMU Room 209-01. Patient/family oriented to hospital policies and general routines including ID bracelet, bed and alarms, visiting hours, pain management, procedures, bathroom and other care routines, personal items, smoking policy, room service/diet, and visiting hours. Information on how to activate the Rapid Response Team has been discussed. Patient/Family are encouraged to report perceived risks to care and to ask questions if they do not understand what they are told or what they should do.
[2021-10-04 05:17] LABS: Basophils Percent Auto 0.1 % (0.2-1.2); Hematocrit 27.9 % (37.0-47.0); Hemoglobin 8.8 g/dL (12.0-15.0); Immature Granulocyte Absolute 0.06 K/mm3 (0.00-0.031); Immature Granulocyte Percent A 0.6 % (0-0.5); Lymphocytes Absolute Auto 0.27 K/mm3 (0.9-3.2); Lymphocytes Percent Auto 2.5 % (18.3-44.2); Mean Corpuscular HGB Conc 31.5 g/dl (32-36); Mean Corpuscular Hemoglobin 35.1 pg (26-34); Mean Corpuscular Volume 111.2 fl (80-100); Mean Platelet Volume 10.2 fl (7.4-10.4); Monocytes Absolute Auto 0.5 K/mm3 (0.1-0.6); Monocytes Percent Auto 4.7 % (2.6-8.5); Neutrophils Percent Auto 92.1 % (45.5-73.1); Platelet Count Result 172 k/mm3 (150-375); Red Blood Count 2.51 M/mm3 (4.2-5.4); Red Cell Distribution Width 12.9 % (11.5-14.5); White Blood Count 10.9 K/mm3 (4.5-10.0)
[2021-10-04 05:34] LABS: Alanine Aminotransferase 26 U/L (4-35); Albumin Level 3.8 g/dL (3.5-5.1); Alkaline Phosphatase 76 U/L (38-126); Anion Gap 8 mmol/L (8-16); Aspartate Amino Transferase 35 U/L (14-36); Bilirubin,Total 0.4 mg/dL (0.2-1.3); Blood Urea Nitrogen 32 mg/dL (7-17); Calcium 9.2 mg/dL (8.4-10.2); Carbon Dioxide 37 mmol/L (22-30); Chloride 87 mmol/L (98-107); Estimated Glomerular Filt Rate 46; Glucose 121 mg/dL (65-110); Magnesium 1.7 mg/dL (1.6-2.3); Potassium 4.4 mmol/L (3.4-5.0); Sodium 132 mmol/L (137-145)
[2021-10-04] MEDS: CHOLECALCIFEROL 1,000 UNITS TABLET 5000 UNITS PO (08:41)
[2021-10-04] MEDS: dilTIAZem HCL CD 180 MG CAP.ER.24H 360 MG PO (08:42)
[2021-10-04] MEDS: METOPROLOL SUCCINATE EXT REL 25 MG TABCR PO (08:43)
[2021-10-04] MEDS: FERROUS SULFATE 324 MG TABLET PO ×2 (08:43→19:01)
[2021-10-04] MEDS: ESCITALOPRAM OXALATE 10 MG TABLET PO (08:43)
[2021-10-04] MEDS: ASPIRIN 81 MG CHEWABLE TABLET PO (08:43)
[2021-10-04 11:06] LABS: Alveolar/Arterial O2 Gradient 174.5 mmHg; Base Excess ABG 13.9 mEq/l (+/-2.0); HCO3 ABG 41.1 mEq/l (22.0-26.0); Oxygen Content ABG 11.9 %vol (16.0-22.0); Oxygen Saturation ABG 89.7 % (95.0-100.0); PCO2 ABG 69.5 mmHg (35.0-45.0); Total Hemoglobin 9.6 g/dL (12.0-18.0)
[2021-10-04 11:07] LABS: Carboxyhemoglobin 0.3 % THb (0-2.0); Device HIGH FLOW NASAL CANN; Fractional Inspired Oxygen 44 %; Methemoglobin ABG 0.3 %THb (0-1.5); Modified Allen's Test Pass; Oxyhemoglobin 87.7 % THb (90.0-100.0); PO2 FiO2 Ratio Arterial Blood 1.36 %; Reduced Hemoglobin 11.7 %THb (0-5.0); Site Drawn RIGHT RADIAL
--- NOTE | 2021-10-04 12:16 | P.CDI_ITS ---
CDI Query Clarification Request -
--- NOTE | 2021-10-04 12:16 | WPDCDIQUERY2 ---
CDI Query Clarification Request -
--- NOTE | 2021-10-04 13:05 | PM.IMPN ---
Progress Note: A&P Assessment and Plan (1) Pneumonia: Qualifiers: Laterality: unspecified laterality Lung location: unspecified part of lung Pneumonia type: due to unspecified organism Qualified Code(s): J18.9 - Pneumonia, unspecified organism Code(s): J18.9 - Pneumonia, unspecified organism Status: Acute Assessment and Plan: Patient was found to have infiltrates on chest x-ray Started on Rocephin and Zithromax Blood cultures in progress Supportive care Continue to monitor (2) Acute exacerbation of chronic obstructive pulmonary disease: Code(s): J44.1 - Chronic obstructive pulmonary disease with (acute) exacerbation Status: Acute Assessment and Plan: Continue supplemental oxygen by nasal cannula Continuous pulse ox (3) Malignant neoplasm of overlapping sites of left bronchus and lung: Code(s): C34.82 - Malignant neoplasm of overlapping sites of left bronchus and lung Status: Acute Assessment and Plan: Small cell lung cancer Patient concluded chemotherapy and radiation therapy Follow-up in the outpatient setting Limited stage small cell lung cancer status post bronchoscopy and biopsy done August 04, 2020 left upper lobe bronchial biopsy showed small cell carcinoma and lymph node 4R also showed metastatic small-cell carcinoma Recent PET scan with moderate increased FDG uptake in 1.8 x 1.1 cm pleural based mass in the superior segment of the left lower lobe concerning for malignancy with mild FDG uptake associated with 1 cm paramediastinal lesion in the posterior basilar segment of the left lower lobe could be related to radiation pneumonitis infection or malignancy/metastatic disease. Follow this up as an outpatient basis with Dr. Mendez (4) Respiratory failure, [id number]: Qualifiers: Respiratory failure complication: hypoxia and hypercapnia Qualified Code(s): J96.21 - Acute and chronic respiratory failure with hypoxia; J96.22 - Acute and chronic respiratory failure with hypercapnia Code(s): J96.20 - Acute and chronic respiratory failure, unspecified whether with hypoxia or hypercapnia Status: Acute Assessment and Plan: Acute on chronic hypoxic hypercapnic respiratory failure Pulmonary consulted BiPAP at night started for pulmonary See normally on 1-2 L oxygen currently on 5 L oxygen Chest x-ray with left perihilar and bibasilar airspace opacities which could represent atelectasis versus pneumonia along with cardiomegaly and small pleural effusion CT chest done this morning 10/03/2021 with mild pulmonary edema, small bilateral pleural effusions some at associated atelectasis. Decrease in size of previously to to multiply 1.2 cm now 0 9 multiply 7 mm nodule in superior segment of the left lower lobe which may represent stress response to treatment off metastatic disease in this patient with known small cell lung cancer Normal heart size with moderate size pericardial effusion Bilateral lower extremity venous duplex is negative for DVT BNP is elevated at 2 930 Troponins negative COVID swab came back negative Will stop her IV fluids that was ordered Will give a dose of Lasix 10/04/2021 will continue IV Lasix 40 mg daily with pericardial effusion will not aggressively diurese (5) Anemia in CKD (chronic kidney disease): Code(s): N18.9 - Chronic kidney disease, unspecified; D63.1 - Anemia in chronic kidney disease Status: Acute Assessment and Plan: Patient also with history of heavy alcohol use also chronic disease Continue to monitor No need for transfusion currently Iron profile suggestive of anemia of chronic disease with ferritin is elevated with lower TIBC vitamin B12 is more than 1000 Will check folic acid MCV is elevated suggestive of macrocytic anemia Will also check TSH hepatic panel History of heavy drinking (6) Pericardial effusion: Code(s): I31.3 - Pericardial effusion (noninflammatory) Status:
[2021-10-04] MEDS: ALBUTEROL SULFATE NEB 2.5 MG/0.5 ML INH INHALATION ×2 (13:46→20:33)
[2021-10-04] MEDS: FUROSEMIDE INJ 40 MG/4 ML VIAL IV PUSH (14:39)
--- NOTE | 2021-10-04 16:24 | PM.PNPUL ---
Progress Note: A&P Assessment and Plan (1) Respiratory failure, [id number]: Qualifiers: Respiratory failure complication: hypoxia and hypercapnia Qualified Code(s): J96.21 - Acute and chronic respiratory failure with hypoxia; J96.22 - Acute and chronic respiratory failure with hypercapnia Code(s): J96.20 - Acute and chronic respiratory failure, unspecified whether with hypoxia or hypercapnia Status: Acute Assessment and Plan: patient presented with a blood gas on 10/02/2021 a pH of 7.33/76/57 on 2 L nasal cannula demonstrating acute on chronic hypercarbic and hypoxemic respiratory failure. Etiology of this failure includes chronic COPD, acute fluid overload and possible pneumonia. her COVID RT PCR test is negative. Her CT scan demonstrates mild pulmonary edema with small bilateral pleural effusions. Decreased size in her previous nodules in the superior segment of the left lower lobe. Moderate size pericardial effusion. 10/04 Patient improved today on ceftriaxone and azithromycin for possible pneumonia. White blood cell count 10.9, afebrile. Cultures are negative. patient is being diuresed with Lasix 40 mg IV q.day. (2) COPD (chronic obstructive pulmonary disease): Qualifiers: COPD type: unspecified COPD Qualified Code(s): J44.9 - Chronic obstructive pulmonary disease, unspecified Code(s): J44.9 - Chronic obstructive pulmonary disease, unspecified Status: Acute Assessment and Plan: Patient tells me that at home she wears 2 L at rest and 4-5 L with activity. At home she is on Symbicort and DuoNebs p.r.n.. 10/04 No wheezing on albuterol and ipratropium nebulizers q.6 hours. There is no evidence of a COPD exacerbation and I do not feel a need for systemic steroids. At this time I will discontinue patient's Advair HFA 115-21 at 2 puffs q.12 hours As she is on albuterol full strength and I will attempt to see if we can maintain her off of the inhaled corticos. Patient has chronic hypercarbic respiratory failure from COPD and would benefit from noninvasive ventilation. Patient did not tolerate the BiPAP earlier during this admission and tonight I will place her on noninvasive ventilation with an AVAPS mode, respiratory rate 14, tidal volume 450, EPAP 5, minimal inspiratory pressure 6, maximal inspiratory pressure 25 and 35% FiO2. I will check a blood gas prior to removal of the AVAPS and an overnight oximetry. Will follow with you. (3) Malignant neoplasm of overlapping sites of left bronchus and lung: Code(s): C34.82 - Malignant neoplasm of overlapping sites of left bronchus and lung Status: Acute Assessment and Plan: CT scan of the chest demonstrates an improvement in her superior segment of the left lower lobe nodule. Patient is followed by Oncology. Subjective Date/time seen: 10/04/21 16:24 Interval history: 10/03/21 Chief complaint: Pneumonia,COPD exacerbation, respiratory failure Narrative: This 60-year-old female presented with progressively increasing shortness of breath. The patient has a significant past medical history consisting of a severe COPD with FEV1 in the range of 0.6L or 32% predicted with previous significant response to bronchodilators, history of congestive heart failure, small cell lung cancer status post chemo radiation approximately 1 year ago. The small cell cancer was primarily arising from the left hilar region with extensive lymphadenopathy in the right lobe neck mediastinum and left hilar region.The patient also has hypoxemic respiratory failure and has been on supplemental oxygen at home ranging from 2-4 liters/minute. Over the last week she noticed increasing shortness of breath primarily with activities. She had no other respiratory symptoms such as chest pain palpitations hemoptysis coughing sputum production fever or chills. Workup in the emergency room with a chest x-ray showed a chronically kian
[2021-10-04] MEDS: ATORVASTATIN 40 MG TABLET PO (20:41)
--- NOTE | 2021-10-04 23:27 | PCRCNOTE ---
Pt very confused, has a sitter, is taking every type of monitor or device off, is combative @ times, will not do sleep study now refuses to sleep here
[2021-10-05] VITALS (21 sets, daily range): BP systolic 113–153; BP diastolic 64–106; PULSE 66–103; RESP 14–22; TEMP 36.4–37.7; O2SAT 87–100
[2021-10-05] MEDS: IPRATROPIUM BR 0.02% INH SOLN 0.5 MG/2.5 ML VIAL INHALATION ×3 (02:14→20:19)
[2021-10-05] MEDS: ALBUTEROL SULFATE NEB 2.5 MG/0.5 ML INH INHALATION ×3 (02:14→20:19)
[2021-10-05 05:23] LABS: Basophils Percent Auto 0.1 % (0.2-1.2); Eosinophils Percent Auto 0.4 % (0-4.4); Hematocrit 26.1 % (37.0-47.0); Hemoglobin 7.9 g/dL (12.0-15.0); Immature Granulocyte Absolute 0.03 K/mm3 (0.00-0.031); Immature Granulocyte Percent A 0.4 % (0-0.5); Lymphocytes Absolute Auto 0.32 K/mm3 (0.9-3.2); Lymphocytes Percent Auto 4.1 % (18.3-44.2); Mean Corpuscular HGB Conc 30.3 g/dl (32-36); Mean Corpuscular Hemoglobin 35.4 pg (26-34); Mean Platelet Volume 10.3 fl (7.4-10.4); Monocytes Absolute Auto 0.7 K/mm3 (0.1-0.6); Monocytes Percent Auto 9.4 % (2.6-8.5); Neutrophils Absolute Auto 6.7 K/mm3 (1.3-6.7); Neutrophils Percent Auto 85.6 % (45.5-73.1); Platelet Count Result 147 k/mm3 (150-375); Red Blood Count 2.23 M/mm3 (4.2-5.4); Red Cell Distribution Width 13.4 % (11.5-14.5); White Blood Count 7.9 K/mm3 (4.5-10.0)
[2021-10-05 05:57] LABS: Blood Urea Nitrogen 28 mg/dL (7-17); Calcium 8.6 mg/dL (8.4-10.2); Carbon Dioxide > 40 mmol/L (22-30); Chloride 87 mmol/L (98-107); Estimated Glomerular Filt Rate 46; Glucose 96 mg/dL (65-110); Magnesium 1.7 mg/dL (1.6-2.3); Potassium 4.1 mmol/L (3.4-5.0); Sodium 132 mmol/L (137-145)
--- NOTE | 2021-10-05 08:53 | PM.CNCAR ---
Assessment and Plan Additional Plan -acute on chronic hypercapnic and hypoxic respiratory failure. -acute diastolic heart failure exacerbation. -pericardial effusion -underlying small cell lung cancer. -COPD This is 60-year-old female with history of COPD, tobacco use, small-cell lung cancer who presents here with shortness of breath. She has elevated CO2 and decrease oxygen on blood gases. On CT imaging it shows moderate pericardial effusion, small pleural effusions and mild pulmonary edema. Echocardiogram I personally reviewed myself shows small to moderate pericardial effusion and not large pericardial effusion. Patient is hemodynamically stable. She has no tachycardia and blood pressure is stable. At this time she is getting IV Lasix 40 mg daily. I will continue the Lasix with monitoring renal function. On physical examination she does not have peripheral edema no elevated JVP History of Present Illness History of Present Illness Consult date/time: Date of service 10/05/21 08:53 Requesting physician: Angel Mcarthur MD Consult reason: Other (Pericardial effusion) Reason For Visit: Pneumonia,COPD exacerbation, respiratory failure Narrative: This 60-year-old female with past history of hypertension, hyperlipidemia small cell lung cancer concluded chemoradiation, tobacco abuse, COPD, alcohol use who presents here with shortness of breath. Patient at this time is totally obtunded on oxygen. She has stable vital signs both blood pressure and heart rate. History obtained from review of the chart. Patient has a sitter next to her. White cell count on admission 10.9 and today 7.9, hemoglobin on admission 8.8 and today 7.9 Blood gas as 7.32, CO2 79, oxygen 52 BUN 32, creatinine 1.[address] a thorax shows Small pleural effusions and pulmonary edema, moderate pericardial effusion. Decrease in the size of the left lung nodule. Brain atretic peptide 2900 EKG reviewed and I zoster shows normal sinus rhythm. Echo done during this admission: 2. Left ventricular chamber dimension is normal. 3. Left ventricular systolic function is normal, estimated at 65-70%. 4. There is mildly increased left ventricular wall thickness. 5. The left ventricular diastolic function is grade I diastolic dysfunction. 6. Left atrial chamber dimension is moderately enlarged. 7. There is mild mitral valve regurgitation. 8. There is mild to moderate tricuspid valve regurgitation. 9. Moderate pulmonary hypertension, estimated pulmonary arterial systolic pressure is 47 mmHg. 10. There is mild pulmonic regurgitation. 11. There is moderate to large pericardial effusion. Right atrial free wall invagination consistent with elevated pericardial pressures. 12. The pericardium appears thickened pericardium. Echo July 2020 small to moderate pericardial effusion Review of Systems Review of Systems: ROS unobtainable: Yes unobtainable due to mental status and other (No family member on bedside) [facility] Past Medical History Medical History Acute pulmonary edema Acute renal failure Acute respiratory failure Anxiety CHF (congestive heart failure) COPD (chronic obstructive pulmonary disease) Deafness Depression Emphysema of lung HTN (hypertension) Hypercholesterolemia Malignant neoplasm of overlapping sites of left bronchus and lung Small cell lung cancer Family History Family History Father Cancer Social History Social History Smoking packs per day: 2 Smoking cigarettes per day: 40.0 Years smoked: 40 Smoking pack-years: 80.00 Smoking status: Former smoker Alcohol intake: former Alcohol use details: socially Substance use: never Substance use type: does not use Gender identity (if verbalized by the patient): Female Spiritual care concerns:
[2021-10-05] MEDS: METOPROLOL SUCCINATE EXT REL 25 MG TABCR PO (10:40)
[2021-10-05] MEDS: FERROUS SULFATE 324 MG TABLET PO ×2 (10:40→19:08)
[2021-10-05] MEDS: ASPIRIN 81 MG CHEWABLE TABLET PO (10:40)
[2021-10-05] MEDS: FUROSEMIDE INJ 40 MG/4 ML VIAL IV PUSH (10:41)
[2021-10-05] MEDS: dilTIAZem HCL CD 180 MG CAP.ER.24H 360 MG PO (10:41)
[2021-10-05] MEDS: ESCITALOPRAM OXALATE 10 MG TABLET PO (10:42)
[2021-10-05 12:22] LABS: D Dimer 1.71 ug/mL (<0.48)
[2021-10-05 12:40] LABS: NT Pro B Type Natriuretic Pept 3320 pg/mL (5-100)
--- NOTE | 2021-10-05 12:59 | PM.PNPUL ---
Progress Note: A&P Assessment and Plan (1) Respiratory failure, [id number]: Qualifiers: Respiratory failure complication: hypoxia and hypercapnia Qualified Code(s): J96.21 - Acute and chronic respiratory failure with hypoxia; J96.22 - Acute and chronic respiratory failure with hypercapnia Code(s): J96.20 - Acute and chronic respiratory failure, unspecified whether with hypoxia or hypercapnia Status: Acute Assessment and Plan: patient presented with a blood gas on 10/02/2021 a pH of 7.33/76/57 on 2 L nasal cannula demonstrating acute on chronic hypercarbic and hypoxemic respiratory failure. Etiology of this failure includes chronic COPD, acute fluid overload and possible pneumonia. her COVID RT PCR test is negative. Her CT scan demonstrates mild pulmonary edema with small bilateral pleural effusions. Decreased size in her previous nodules in the superior segment of the left lower lobe. Moderate size pericardial effusion. 10/04 Patient improved today on ceftriaxone and azithromycin for possible pneumonia. White blood cell count 10.9, afebrile. Cultures are negative. patient is being diuresed with Lasix 40 mg IV q.day. 10/05 Patient tells me that she feels better and overall she is breathing better. Patient was uncooperative wearing the overnight noninvasive ventilator mask and also she would not wear the overnight oximetry. She kept pulling on things. Patient had hypoxemia this morning and required 15 L high-flow nasal cannula for saturations 97%. A a chest x-ray was performed and demonstrated worsening diffuse lung infiltrates and small left pleural effusion from 10/02/2021. A D-dimer was positive and I have ordered a CT angiogram of the chest. Her COVID was negative. I have ordered an influenza swab. She is afebrile and her white blood cell count is 7.0. Patient had some expiratory wheezes on exam and I will initiate Solu-Medrol 40 q.6. I will continue her albuterol and ipratropium nebulizers and increase the frequency to q.4 hours. (2) COPD (chronic obstructive pulmonary disease): Qualifiers: COPD type: unspecified COPD Qualified Code(s): J44.9 - Chronic obstructive pulmonary disease, unspecified Code(s): J44.9 - Chronic obstructive pulmonary disease, unspecified Status: Acute Assessment and Plan: Patient tells me that at home she wears 2 L at rest and 4-5 L with activity. At home she is on Symbicort and DuoNebs p.r.n.. 10/04 No wheezing on albuterol and ipratropium nebulizers q.6 hours. There is no evidence of a COPD exacerbation and I do not feel a need for systemic steroids. At this time I will discontinue patient's Advair HFA 115-21 at 2 puffs q.12 hours As she is on albuterol full strength and I will attempt to see if we can maintain her off of the inhaled corticos. Patient has chronic hypercarbic respiratory failure from COPD and would benefit from noninvasive ventilation. Patient did not tolerate the BiPAP earlier during this admission and tonight I will place her on noninvasive ventilation with an AVAPS mode, respiratory rate 14, tidal volume 450, EPAP 5, minimal inspiratory pressure 6, maximal inspiratory pressure 25 and 35% FiO2. I will check a blood gas prior to removal of the AVAPS and an overnight oximetry. 10/05 Patient was to add to agitated and uncooperative last night and did not wear a noninvasive ventilator at night and did not allow for her overnight oximetry. Will follow with you. (3) Malignant neoplasm of overlapping sites of left bronchus and lung: Code(s): C34.82 - Malignant neoplasm of overlapping sites of left bronchus and lung Status: Acute Assessment and Plan: CT scan of the chest demonstrates an improvement in her superior segment of the left lower lobe nodule. Patient is followed by Oncology. Subjective Date/time seen: 10/05/21 13:00 Interval history: 10/03/21 Chief complaint: Pneumo
--- NOTE | 2021-10-05 14:16 | PM.IMPN ---
Progress Note: A&P Assessment and Plan (1) Pneumonia: Qualifiers: Laterality: unspecified laterality Lung location: unspecified part of lung Pneumonia type: due to unspecified organism Qualified Code(s): J18.9 - Pneumonia, unspecified organism Code(s): J18.9 - Pneumonia, unspecified organism Status: Acute Assessment and Plan: Patient was found to have infiltrates on chest x-ray Started on Rocephin and Zithromax Blood cultures in progress Supportive care Continue to monitor (2) Acute exacerbation of chronic obstructive pulmonary disease: Code(s): J44.1 - Chronic obstructive pulmonary disease with (acute) exacerbation Status: Acute Assessment and Plan: Continue supplemental oxygen by nasal cannula Continuous pulse ox Steroid has been stopped Pulmonary following Discussed with Pulmonary (3) Malignant neoplasm of overlapping sites of left bronchus and lung: Code(s): C34.82 - Malignant neoplasm of overlapping sites of left bronchus and lung Status: Acute Assessment and Plan: Small cell lung cancer Patient concluded chemotherapy and radiation therapy Follow-up in the outpatient setting Limited stage small cell lung cancer status post bronchoscopy and biopsy done August 04, 2020 left upper lobe bronchial biopsy showed small cell carcinoma and lymph node 4R also showed metastatic small-cell carcinoma Recent PET scan with moderate increased FDG uptake in 1.8 x 1.1 cm pleural based mass in the superior segment of the left lower lobe concerning for malignancy with mild FDG uptake associated with 1 cm paramediastinal lesion in the posterior basilar segment of the left lower lobe could be related to radiation pneumonitis infection or malignancy/metastatic disease. Follow this up as an outpatient basis with Dr. Mendez (4) Respiratory failure, [id number]: Qualifiers: Respiratory failure complication: hypoxia and hypercapnia Qualified Code(s): J96.21 - Acute and chronic respiratory failure with hypoxia; J96.22 - Acute and chronic respiratory failure with hypercapnia Code(s): J96.20 - Acute and chronic respiratory failure, unspecified whether with hypoxia or hypercapnia Status: Acute Assessment and Plan: Acute on chronic hypoxic hypercapnic respiratory failure Pulmonary consulted BiPAP at night started for pulmonary See normally on 1-2 L oxygen currently on 5 L oxygen Chest x-ray with left perihilar and bibasilar airspace opacities which could represent atelectasis versus pneumonia along with cardiomegaly and small pleural effusion CT chest done this morning 10/03/2021 with mild pulmonary edema, small bilateral pleural effusions some at associated atelectasis. Decrease in size of previously to to multiply 1.2 cm now 0 9 multiply 7 mm nodule in superior segment of the left lower lobe which may represent stress response to treatment off metastatic disease in this patient with known small cell lung cancer Normal heart size with moderate size pericardial effusion Bilateral lower extremity venous duplex is negative for DVT BNP is elevated at 2 930 Troponins negative COVID swab came back negative Will stop her IV fluids that was ordered Will give a dose of Lasix 10/04/2021 will continue IV Lasix 40 mg daily with pericardial effusion will not aggressively diurese 10/05/2021 continue diuresis chest x-ray with persistent congestive changes and/or pneumonia. CTA planned to rule out PE. (5) Anemia in CKD (chronic kidney disease): Code(s): N18.9 - Chronic kidney disease, unspecified; D63.1 - Anemia in chronic kidney disease Status: Acute Assessment and Plan: Patient also with history of heavy alcohol use also chronic disease Continue to monitor No need for transfusion currently Iron profile suggestive of anemia of chronic disease with ferritin is elevated with lower TIBC vitamin B12 is more than 1000 Will check folic acid MCV is elevated sug
[2021-10-05] MEDS: methylPREDNISolone SOD SUCC 40 MG VIAL IV PUSH (14:59)
[2021-10-05 16:29] LABS: Influenza Control Positive
--- NOTE | 2021-10-05 17:35 | PCRCNOTE ---
Window of time for administration has passed. See next scheduled administration.
[2021-10-05] MEDS: ATORVASTATIN 40 MG TABLET PO (21:05)
[2021-10-06] VITALS (32 sets, daily range): BP systolic 105–158; BP diastolic 59–93; PULSE 73–95; RESP 12–25; TEMP 36.7–37.1; O2SAT 91–100
[2021-10-06] MEDS: IPRATROPIUM BR 0.02% INH SOLN 0.5 MG/2.5 ML VIAL INHALATION ×5 (00:20→23:17)
[2021-10-06] MEDS: ALBUTEROL SULFATE NEB 2.5 MG/0.5 ML INH INHALATION ×5 (00:20→23:17)
[2021-10-06 04:43] LABS: Alveolar/Arterial O2 Gradient 107.7 mmHg; Base Excess ABG 16.1 mEq/l (+/-2.0); Fractional Inspired Oxygen 40 %; HCO3 ABG 41.8 mEq/l (22.0-26.0); Oxygen Saturation ABG 98.1 % (95.0-100.0); Oxyhemoglobin 96.9 % THb (90.0-100.0); PCO2 ABG 58.8 mmHg (35.0-45.0); PO2 ABG 109.9 mmHg (80.0-100.0); PO2 FiO2 Ratio Arterial Blood 2.75 %; Total Hemoglobin 9.4 g/dL (12.0-18.0)
[2021-10-06 04:44] LABS: Modified Allen's Test Pass; Site Drawn RIGHT RADIAL
[2021-10-06 05:37] LABS: Hematocrit 25.8 % (37.0-47.0); Hemoglobin 8.4 g/dL (12.0-15.0); Immature Granulocyte Absolute 0.03 K/mm3 (0.00-0.031); Immature Granulocyte Percent A 0.5 % (0-0.5); Lymphocytes Absolute Auto 0.15 K/mm3 (0.9-3.2); Lymphocytes Percent Auto 2.6 % (18.3-44.2); Mean Corpuscular HGB Conc 32.6 g/dl (32-36); Mean Corpuscular Hemoglobin 35.6 pg (26-34); Mean Corpuscular Volume 109.3 fl (80-100); Mean Platelet Volume 10.1 fl (7.4-10.4); Monocytes Absolute Auto 0.2 K/mm3 (0.1-0.6); Monocytes Percent Auto 3.1 % (2.6-8.5); Neutrophils Absolute Auto 5.4 K/mm3 (1.3-6.7); Neutrophils Percent Auto 93.8 % (45.5-73.1); Platelet Count Result 160 k/mm3 (150-375); Red Blood Count 2.36 M/mm3 (4.2-5.4); Red Cell Distribution Width 12.7 % (11.5-14.5); White Blood Count 5.8 K/mm3 (4.5-10.0)
[2021-10-06 06:05] LABS: Blood Urea Nitrogen 32 mg/dL (7-17); Calcium 8.5 mg/dL (8.4-10.2); Carbon Dioxide > 40 mmol/L (22-30); Chloride 82 mmol/L (98-107); Estimated Glomerular Filt Rate 42; Glucose 138 mg/dL (65-110); Magnesium 1.6 mg/dL (1.6-2.3); Potassium 4.5 mmol/L (3.4-5.0); Sodium 129 mmol/L (137-145)
[2021-10-06 07:18] LABS: Hypochromasia 1+ (NORMAL); Platelet Estimate Adequate (Adequate); Stomatocytes 1+ (NORMAL)
[2021-10-06 07:36] LABS: Lactate Dehydrogenase 488 U/L (313-618)
--- NOTE | 2021-10-06 09:45 | PCPTNOTE ---
The patient treatment was not able to be completed due to patient having thoracentesis procedure. Will plan to continue treatment per plan of care.
[2021-10-06 10:08] LABS: pH Pleural Fluid 7.474 (7.210-7.500)
[2021-10-06] MEDS: CHOLECALCIFEROL 1,000 UNITS TABLET 5000 UNITS PO (10:24)
[2021-10-06] MEDS: FERROUS SULFATE 324 MG TABLET PO ×2 (10:24→17:14)
[2021-10-06] MEDS: ASPIRIN 81 MG CHEWABLE TABLET PO (10:24)
[2021-10-06] MEDS: dilTIAZem HCL CD 180 MG CAP.ER.24H 360 MG PO (10:25)
[2021-10-06] MEDS: ESCITALOPRAM OXALATE 10 MG TABLET PO (10:25)
[2021-10-06] MEDS: METOPROLOL SUCCINATE EXT REL 25 MG TABCR PO (10:25)
--- NOTE | 2021-10-06 11:04 | PM.PNPUL ---
Progress Note: A&P Assessment and Plan (1) Respiratory failure, [id number]: Qualifiers: Respiratory failure complication: hypoxia and hypercapnia Qualified Code(s): J96.21 - Acute and chronic respiratory failure with hypoxia; J96.22 - Acute and chronic respiratory failure with hypercapnia Code(s): J96.20 - Acute and chronic respiratory failure, unspecified whether with hypoxia or hypercapnia Status: Acute Assessment and Plan: patient presented with a blood gas on 10/02/2021 a pH of 7.33/76/57 on 2 L nasal cannula demonstrating acute on chronic hypercarbic and hypoxemic respiratory failure. Etiology of this failure includes chronic COPD, acute fluid overload and possible pneumonia. her COVID RT PCR test is negative. Her CT scan demonstrates mild pulmonary edema with small bilateral pleural effusions. Decreased size in her previous nodules in the superior segment of the left lower lobe. Moderate size pericardial effusion. 10/04 Patient improved today on ceftriaxone and azithromycin for possible pneumonia. White blood cell count 10.9, afebrile. Cultures are negative. patient is being diuresed with Lasix 40 mg IV q.day. 10/05 Patient tells me that she feels better and overall she is breathing better. Patient was uncooperative wearing the overnight noninvasive ventilator mask and also she would not wear the overnight oximetry. She kept pulling on things. Patient had hypoxemia this morning and required 15 L high-flow nasal cannula for saturations 97%. A a chest x-ray was performed and demonstrated worsening diffuse lung infiltrates and small left pleural effusion from 10/02/2021. A D-dimer was positive and I have ordered a CT angiogram of the chest. Her COVID was negative. I have ordered an influenza swab. She is afebrile and her white blood cell count is 7.0. Patient had some expiratory wheezes on exam and I will initiate Solu-Medrol 40 q.6. I will continue her albuterol and ipratropium nebulizers and increase the frequency to q.4 hours. Patient was weaned to 4 L nasal cannula later in the day. Her in full phlegm influenza swab was negative. Her CT angiogram of the chest was negative for PE, she had a moderate left and small right pleural effusion she had moderate centrilobular emphysema a moderate pericardial effusion and moderate pulmonary edema. 10/06 Patient is currently on 5 L nasal cannula with saturations 100%. Patient's creatinine is 1.30 and her Lasix has been held today. A left thoracentesis has been performed and 500 mL of clear fluid with a pH of 7.47 is back. Other chemistries are pending. Patient wore noninvasive ventilator with AVAPS mode at a rate of 14, tidal volume 400, EPAP 5, minimal inspiratory pressure 6, maximal inspiratory pressure 25, inspiratory time 1.0, rise of 5 and 40% last night and she tolerated this well and nursing staff she slept well. Patient said that the mask was comfortable and her blood gas prior to removal was 7.47/59/110. The settings appear optimal at this time. Will continue. (2) COPD (chronic obstructive pulmonary disease): Qualifiers: COPD type: unspecified COPD Qualified Code(s): J44.9 - Chronic obstructive pulmonary disease, unspecified Code(s): J44.9 - Chronic obstructive pulmonary disease, unspecified Status: Acute Assessment and Plan: Patient tells me that at home she wears 2 L at rest and 4-5 L with activity. At home she is on Symbicort and DuoNebs p.r.n.. 10/04 No wheezing on albuterol and ipratropium nebulizers q.6 hours. There is no evidence of a COPD exacerbation and I do not feel a need for systemic steroids. At this time I will discontinue patient's Advair HFA 115-21 at 2 puffs q.12 hours As she is on albuterol full strength and I will attempt to see if we can maintain her off of the inhaled corticos. Patient has chronic hypercarbic respiratory failure from COPD and would benefit from noninva
--- NOTE | 2021-10-06 11:38 | PM.PNCARD ---
Progress Note: A&P Additional Plan 60-year-old lady with small cell lung cancer which now has a pericardial effusion involving this. Draining the effusion would be a matter of treatment of tamponade physiology not really a need to drain this for diagnostic purposes I am confident this is a malignant process based on her history. There is no physical exam evidence of tamponade at this time and therefore at this time there are no specific cardiac recommendations regarding this. I would recommend that DNR status be considered in this setting William Menendez MD [facility] Subjective Date/time seen: Date of service: 10/06/21 11:38 Interval history: Follow-up visit in this 60-year-old lady with: Small cell lung cancer which was treated with radiation and chemotherapy starting about a year ago and then salvage therapy because of recurrent masses in the left lung. Asked to see the patient in this hospitalization because of the presence of a pericardial effusion. The effusion is not resulting in any hemodynamic embarrassment(TAMPONADE) at this time. The likelihood that this is a malignant effusion is almost certain. Obviously patient's prognosis is very poor in this situation. Exam Const: General: comfortable and no acute distress Other: Chronically ill woman appearing older than her stated age sleeping flat in bed upon awakening appears to be in good spirits and offers no significant complaints of a cardiac nature HENMT: Mouth: Yes moist mucous membranes Eyes: Sclera: sclerae normal Neck: Neck: supple and no JVD Other: Jugular veins are not distended at this time Resp: Effort & Inspection: normal respiratory effort Other: Coarse breath sounds Cardio: Rate: regular rate Rhythm: regular rhythm GI: GI Palp: Yes Soft to palpation Auscultation: normal bowel sounds Skin: General skin exam: normal color Neuro: Other: Alert and responsive when awakened Extrem: General: normal to inspection Objective Data Vital Signs Vital Signs: Vital Signs - 24 hr 10/05/21 12:00 10/05/21 14:00 10/05/21 15:22 Temperature Pulse Rate 103 H 85 82 Respiratory Rate 14 Blood Pressure Pulse Oximetry 97 91 10/05/21 16:00 10/05/21 18:00 10/05/21 19:40 Temperature 36.7 C 36.9 C Pulse Rate 82 79 82 Respiratory Rate 22 H 22 H Blood Pressure 113/64 125/106 H Pulse Oximetry 98 94 10/05/21 20:00 10/05/21 20:19 10/05/21 20:26 Temperature Pulse Rate 80 80 79 Respiratory Rate 20 16 Blood Pressure Pulse Oximetry 98 100 10/05/21 21:35 10/05/21 22:00 10/06/21 00:00 Temperature Pulse Rate 83 85 Respiratory Rate Blood Pressure Pulse Oximetry 100 97 10/06/21 00:20 10/06/21 00:25 10/06/21 00:27 Temperature 37.1 C Pulse Rate 88 83 88 Respiratory Rate 20 20 20 Blood Pressure 141/93 H Pulse Oximetry 97 10/06/21 02:00 10/06/21 03:10 10/06/21 03:44 Temperature 37.0 C Pulse Rate 86 88 82 Respiratory Rate 22 H 18 Blood Pressure 117/61 Pulse Oximetry 98 10/06/21 03:49 10/06/21 03:50 10/06/21 04:00 Temperature Pulse Rate 86 86 92 Respiratory Rate 21 H 21 H Blood Pressure Pulse Oximetry 100 98 10/06/21 06:00 10/06/21 07:19 10/06/21 08:09 Temperature 36.8 C Pulse Rate 82 73 84 Respiratory Rate 12 18 Blood Pressure 140/59 L Pulse Oximetry 99 10/06/21 08:13 10/06/21 08:21 10/06/21 09:44 Temperature Pulse Rate 85 86 Respiratory Rate 18 24 H Blood Pressure 158/77 H Pulse Oximetry 98 100 10/06/21 09:45 10/06/21 10:25 Temperature Pulse Rate 92 95 Respiratory Rate 24 H Blood Pressure 152/81 H Pulse Oximetry 100 Intake/Output Intake/Output: Intake & Output 10/03/21 10/04/21 10/05/21 10/06/21 23:59 23:59 23:59 23:59 Intake Total 1040 1310 480 250 Output Total 776 720 7549 1200 Balance 240 102 -9206 -347 Meds/Results Medications: Active Medications Generic Name Dose Route Start Last Admin Trade Name Freq PRN Reas
[2021-10-06 12:28] LABS: Appearance Pleural Fluid Clear (Clear); Color Pleural Fluid Yellow (Colorless); Lymphocytes Pleural Fluid 46 %; Monocytes Pleural Fluid 11 %; Neutrophils Pleural Fluid 41 % (0-25); Pleural fluid source Pleural fluid
[2021-10-06 12:29] LABS: Macrophages Pleural Fluid 1 %; Other Cells Pleural Fluid 1 %
--- NOTE | 2021-10-06 15:28 | PM.IMPN ---
Progress Note: A&P Assessment and Plan (1) Pneumonia: Qualifiers: Laterality: unspecified laterality Lung location: unspecified part of lung Pneumonia type: due to unspecified organism Qualified Code(s): J18.9 - Pneumonia, unspecified organism Code(s): J18.9 - Pneumonia, unspecified organism Status: Acute Assessment and Plan: Patient was found to have infiltrates on chest x-ray. Started on Rocephin and Zithromax Blood cultures NGTD. Thoracentesis today showing no organisms but rare WBC on smear. CTA showing increasing atelectasis of the lingula. Feel PNA less likely. (2) Acute exacerbation of chronic obstructive pulmonary disease: Code(s): J44.1 - Chronic obstructive pulmonary disease with (acute) exacerbation Status: Acute Assessment and Plan: No wheezing. 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 Patient concluded chemotherapy and radiation therapy Follow up as an outpatient basis with Dr. Mendez (4) Respiratory failure, [id number]: Qualifiers: Respiratory failure complication: hypoxia and hypercapnia Qualified Code(s): J96.21 - Acute and chronic respiratory failure with hypoxia; J96.22 - Acute and chronic respiratory failure with hypercapnia Code(s): J96.20 - Acute and chronic respiratory failure, unspecified whether with hypoxia or hypercapnia Status: Acute Assessment and Plan: Acute on chronic hypoxic hypercapnic respiratory failure Pulmonary consulted BiPAP at night started for pulmonary See normally on 2-[address] chest 10/03/2021 with mild pulmonary edema, small bilateral pleural effusions some at associated atelectasis. Decrease in size of previously to to multiply 1.2 cm now 0 9 multiply 7 mm nodule in superior segment of the left lower lobe which may represent stress response to treatment off metastatic disease in this patient with known small cell lung cancer Bilateral lower extremity venous duplex is negative for DVT CTA chest 10/05 shownig no PE but moderate sized left pleural effusion adn moderate sized pericardial effusion. BNP is elevated 3320 Thoracentesis left lung with 500mL removed Troponins negative COVID swab came back negative Treated with Laisx IV with negative fluid balance. Lasix stopped today. Weaned to 4L which is at her baseline (5) Anemia in CKD (chronic kidney disease): Code(s): N18.9 - Chronic kidney disease, unspecified; D63.1 - Anemia in chronic kidney disease Status: Acute Assessment and Plan: Hgb mostly in the 8-9 range recently but it does fluctuate widely. Iron profile suggestive of anemia of chronic disease with ferritin is elevated with lower TIBC. B12 and folate levels are normal. She does have a macrocytosis. She has a history of heavy alcohol use. Continue to follow (6) Pericardial effusion: Code(s): I31.3 - Pericardial effusion (noninflammatory) Status: Acute Assessment and Plan: Moderate size pericardial effusion. Chest CT from May represent the similar sized pericardial effusion also d
--- NOTE | 2021-10-06 17:51 | PCRCNOTE ---
Window of time for administration has passed. See next scheduled administration.
[2021-10-06] MEDS: ATORVASTATIN 40 MG TABLET PO (21:04)
[2021-10-07] VITALS (14 sets, daily range): BP systolic 111–153; BP diastolic 47–86; PULSE 70–93; RESP 17–20; TEMP 35.8–36.7; O2SAT 93–98
--- NOTE | 2021-10-07 01:24 | PC.NURSE ---
Received pt from IMU per bed. Report from Ramya RODRÍGUEZ. Pt is reoriented to room. Bed alarm activated.
[2021-10-07 06:13] LABS: Eosinophils Absolute Auto 0.1 K/mm3 (0-0.3); Eosinophils Percent Auto 1.2 % (0-4.4); Hematocrit 30.6 % (37.0-47.0); Hemoglobin 9.8 g/dL (12.0-15.0); Immature Granulocyte Absolute 0.04 K/mm3 (0.00-0.031); Immature Granulocyte Percent A 0.5 % (0-0.5); Lymphocytes Absolute Auto 0.42 K/mm3 (0.9-3.2); Lymphocytes Percent Auto 5.5 % (18.3-44.2); Mean Corpuscular Hemoglobin 35.1 pg (26-34); Mean Corpuscular Volume 109.7 fl (80-100); Mean Platelet Volume 9.9 fl (7.4-10.4); Monocytes Absolute Auto 0.9 K/mm3 (0.1-0.6); Monocytes Percent Auto 11.2 % (2.6-8.5); Neutrophils Absolute Auto 6.3 K/mm3 (1.3-6.7); Neutrophils Percent Auto 81.6 % (45.5-73.1); Platelet Count Result 196 k/mm3 (150-375); Red Blood Count 2.79 M/mm3 (4.2-5.4); Red Cell Distribution Width 12.7 % (11.5-14.5); White Blood Count 7.7 K/mm3 (4.5-10.0)
[2021-10-07 06:57] LABS: Alanine Aminotransferase 34 U/L (4-35); Albumin Level 3.6 g/dL (3.5-5.1); Alkaline Phosphatase 74 U/L (38-126); Aspartate Amino Transferase 42 U/L (14-36); Bilirubin,Total 0.3 mg/dL (0.2-1.3); Blood Urea Nitrogen 34 mg/dL (7-17); CRP 0.6 mg/dL (<1.0); Calcium 9.4 mg/dL (8.4-10.2); Carbon Dioxide > 40 mmol/L (22-30); Chloride 85 mmol/L (98-107); Estimated Glomerular Filt Rate 31; Glucose 89 mg/dL (65-110); Magnesium 1.8 mg/dL (1.6-2.3); Phosphorus 2.9 mg/dL (2.5-4.5); Sodium 133 mmol/L (137-145)
[2021-10-07] MEDS: METOPROLOL SUCCINATE EXT REL 25 MG TABCR PO (09:29)
[2021-10-07] MEDS: dilTIAZem HCL CD 180 MG CAP.ER.24H 360 MG PO (09:29)
[2021-10-07] MEDS: FERROUS SULFATE 324 MG TABLET PO ×2 (09:29→16:05)
[2021-10-07] MEDS: ESCITALOPRAM OXALATE 10 MG TABLET PO (09:30)
[2021-10-07] MEDS: ASPIRIN 81 MG CHEWABLE TABLET PO (09:30)
[2021-10-07] MEDS: IPRATROPIUM BR 0.02% INH SOLN 0.5 MG/2.5 ML VIAL INHALATION ×4 (09:49→20:23)
[2021-10-07] MEDS: ALBUTEROL SULFATE NEB 2.5 MG/0.5 ML INH INHALATION ×4 (09:49→20:23)
--- NOTE | 2021-10-07 10:27 | PM.IMPN ---
Progress Note: A&P Assessment and Plan (1) Pneumonia: Qualifiers: Laterality: unspecified laterality Lung location: unspecified part of lung Pneumonia type: due to unspecified organism Qualified Code(s): J18.9 - Pneumonia, unspecified organism Code(s): J18.9 - Pneumonia, unspecified organism Status: Acute Assessment and Plan: Patient was found to have infiltrates on chest x-ray. Started on Rocephin and Zithromax Blood cultures NGTD. Thoracentesis today showing no organisms but rare WBC on smear. CTA showing increasing atelectasis of the lingula. Feel PNA less likely. (2) Acute exacerbation of chronic obstructive pulmonary disease: Code(s): J44.1 - Chronic obstructive pulmonary disease with (acute) exacerbation Status: Acute Assessment and Plan: No wheezing. 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 Patient concluded chemotherapy and radiation therapy Follow up as an outpatient basis with Dr. Mendez pleural fluid tapped 10/06/2021 and awaiting cytology. if positive for cancer cells, would suggest extesion of her malignancy, likely involvign her pericardium as well now. (4) Respiratory failure, [id number]: Qualifiers: Respiratory failure complication: hypoxia and hypercapnia Qualified Code(s): J96.21 - Acute and chronic respiratory failure with hypoxia; J96.22 - Acute and chronic respiratory failure with hypercapnia Code(s): J96.20 - Acute and chronic respiratory failure, unspecified whether with hypoxia or hypercapnia Status: Acute Assessment and Plan: Acute on chronic hypoxic hypercapnic respiratory failure Pulmonary consulted BiPAP at night started for pulmonary See normally on 2-[address] chest 10/03/2021 with mild pulmonary edema, small bilateral pleural effusions some at associated atelectasis. Decrease in size of previously to to multiply 1.2 cm now 0 9 multiply 7 mm nodule in superior segment of the left lower lobe which may represent stress response to treatment off metastatic disease in this patient with known small cell lung cancer Bilateral lower extremity venous duplex is negative for DVT CTA chest 10/05 shownig no PE but moderate sized left pleural effusion adn moderate sized pericardial effusion. BNP is elevated 3320 Thoracentesis left lung with 500mL removed Troponins negative COVID swab came back negative Treated with Laisx IV with negative fluid balance. Lasix stopped today. Weaned to 4L which is at her baseline renal funciton slightly up today, will recheck in am. hold iv diureiss until renal function improves. (5) Anemia in CKD (chronic kidney disease): Code(s): N18.9 - Chronic kidney disease, unspecified; D63.1 - Anemia in chronic kidney disease Status: Acute Assessment and Plan: Hgb mostly in the 8-9 range recently but it does fluctuate widely. Iron profile suggestive of anemia of chronic disease with ferritin is elevated with lower TIBC. B12 and folate levels are normal. She does have a macrocytosis. She has a history of heavy alcohol use.
[2021-10-07] MEDS: ATORVASTATIN 40 MG TABLET PO (21:22)
[2021-10-08] VITALS (18 sets, daily range): BP systolic 110–128; BP diastolic 53–61; PULSE 73–99; RESP 17–22; TEMP 36.6–37.1; O2SAT 94–98
[2021-10-08] MEDS: IPRATROPIUM BR 0.02% INH SOLN 0.5 MG/2.5 ML VIAL INHALATION ×5 (00:07→23:46)
[2021-10-08] MEDS: ALBUTEROL SULFATE NEB 2.5 MG/0.5 ML INH INHALATION ×5 (00:07→23:47)
[2021-10-08 06:19] LABS: Basophils Percent Auto 0.1 % (0.2-1.2); Eosinophils Absolute Auto 0.2 K/mm3 (0-0.3); Eosinophils Percent Auto 2.8 % (0-4.4); Hematocrit 33.5 % (37.0-47.0); Hemoglobin 10.4 g/dL (12.0-15.0); Immature Granulocyte Absolute 0.03 K/mm3 (0.00-0.031); Immature Granulocyte Percent A 0.4 % (0-0.5); Lymphocytes Absolute Auto 0.23 K/mm3 (0.9-3.2); Lymphocytes Percent Auto 3.2 % (18.3-44.2); Mean Corpuscular Hemoglobin 34.8 pg (26-34); Mean Platelet Volume 9.8 fl (7.4-10.4); Monocytes Absolute Auto 0.7 K/mm3 (0.1-0.6); Monocytes Percent Auto 9.5 % (2.6-8.5); Neutrophils Absolute Auto 5.9 K/mm3 (1.3-6.7); Platelet Count Result 172 k/mm3 (150-375); Red Blood Count 2.99 M/mm3 (4.2-5.4); Red Cell Distribution Width 12.9 % (11.5-14.5); White Blood Count 7.1 K/mm3 (4.5-10.0)
[2021-10-08 06:30] LABS: Alanine Aminotransferase 39 U/L (4-35); Albumin Level 3.3 g/dL (3.5-5.1); Alkaline Phosphatase 75 U/L (38-126); Aspartate Amino Transferase 44 U/L (14-36); Bilirubin,Total 0.3 mg/dL (0.2-1.3); Blood Urea Nitrogen 32 mg/dL (7-17); Carbon Dioxide > 40 mmol/L (22-30); Chloride 87 mmol/L (98-107); Estimated Glomerular Filt Rate 42; Glucose 93 mg/dL (65-110); Potassium 4.4 mmol/L (3.4-5.0); Sodium 134 mmol/L (137-145)
[2021-10-08] MEDS: ESCITALOPRAM OXALATE 10 MG TABLET PO (08:26)
[2021-10-08] MEDS: CHOLECALCIFEROL 1,000 UNITS TABLET 5000 UNITS PO (08:26)
[2021-10-08] MEDS: dilTIAZem HCL CD 180 MG CAP.ER.24H 360 MG PO (08:26)
[2021-10-08] MEDS: FERROUS SULFATE 324 MG TABLET PO ×2 (08:26→16:50)
[2021-10-08] MEDS: METOPROLOL SUCCINATE EXT REL 25 MG TABCR PO (08:27)
[2021-10-08] MEDS: ASPIRIN 81 MG CHEWABLE TABLET PO (08:27)
--- NOTE | 2021-10-08 09:58 | PM.IMPN ---
Progress Note: A&P Assessment and Plan (1) Pneumonia: Qualifiers: Laterality: unspecified laterality Lung location: unspecified part of lung Pneumonia type: due to unspecified organism Qualified Code(s): J18.9 - Pneumonia, unspecified organism Code(s): J18.9 - Pneumonia, unspecified organism Status: Acute Assessment and Plan: Patient was found to have infiltrates on chest x-ray. Started on Rocephin and Zithromax Blood cultures NGTD. Thoracentesis 10/05/2021 showing no organisms but rare WBC on smear. CTA showing increasing atelectasis of the lingula. Feel PNA less likely. (2) Acute exacerbation of chronic obstructive pulmonary disease: Code(s): J44.1 - Chronic obstructive pulmonary disease with (acute) exacerbation Status: Acute Assessment and Plan: No wheezing. 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 Patient concluded chemotherapy and radiation therapy Follow up as an outpatient basis with Dr. Mendez pleural fluid tapped 10/06/2021 and awaiting cytology. if positive for cancer cells, would suggest extension of her malignancy, likely involvign her pericardium as well now. (4) Respiratory failure, [id number]: Qualifiers: Respiratory failure complication: hypoxia and hypercapnia Qualified Code(s): J96.21 - Acute and chronic respiratory failure with hypoxia; J96.22 - Acute and chronic respiratory failure with hypercapnia Code(s): J96.20 - Acute and chronic respiratory failure, unspecified whether with hypoxia or hypercapnia Status: Acute Assessment and Plan: Acute on chronic hypoxic hypercapnic respiratory failure Pulmonary consulted BiPAP at night started for pulmonary See normally on 2-[address] chest 10/03/2021 with mild pulmonary edema, small bilateral pleural effusions some at associated atelectasis. Decrease in size of previously to to multiply 1.2 cm now 0 9 multiply 7 mm nodule in superior segment of the left lower lobe which may represent stress response to treatment off metastatic disease in this patient with known small cell lung cancer Bilateral lower extremity venous duplex is negative for DVT CTA chest 10/05 shownig no PE but moderate sized left pleural effusion adn moderate sized pericardial effusion. BNP is elevated 3320 Thoracentesis left lung with 500mL removed Troponins negative COVID swab came back negative Treated with Laisx IV with negative fluid balance. Lasix stopped today. Weaned to 4L which is at her baseline renal funciton slightly up but improved with holding diuresis. Start oral diuretic and was renal function Chest x-ray with improvement in the moderate left pleural effusion today (5) Anemia in CKD (chronic kidney disease): Code(s): N18.9 - Chronic kidney disease, unspecified; D63.1 - Anemia in chronic kidney disease Status: Acute Assessment and Plan: Hgb mostly in the 8-9 range recently but it does fluctuate widely. Iron profile suggestive of anemia of chronic disease with ferritin is elevated with lower TIBC. B12 and folate levels are
--- NOTE | 2021-10-08 10:19 | PCRCNOTE ---
Window of time for administration has passed. See next scheduled administration.
[2021-10-08] MEDS: FUROSEMIDE 40 MG TABLET PO (12:19)
--- NOTE | 2021-10-08 17:55 | PCRCNOTE ---
Window of time for administration has passed. See next scheduled administration.
[2021-10-08] MEDS: ATORVASTATIN 40 MG TABLET PO (21:27)
[2021-10-09] VITALS (17 sets, daily range): BP systolic 106–130; BP diastolic 48–58; PULSE 78–99; RESP 16–20; TEMP 36.3–37.1; O2SAT 93–99
[2021-10-09] MEDS: IPRATROPIUM BR 0.02% INH SOLN 0.5 MG/2.5 ML VIAL INHALATION ×3 (03:43→11:21)
[2021-10-09] MEDS: ALBUTEROL SULFATE NEB 2.5 MG/0.5 ML INH INHALATION ×3 (03:44→11:21)
--- NOTE | 2021-10-09 04:09 | PCRCNOTE ---
Patient wore Bipap for about 4 hours through the night. Removed bipap herself and said she didn't want it anymore. Placed back on nasal cannula.
[2021-10-09 06:12] LABS: Eosinophils Absolute Auto 0.2 K/mm3 (0-0.3); Eosinophils Percent Auto 2.9 % (0-4.4); Hematocrit 30.7 % (37.0-47.0); Hemoglobin 9.7 g/dL (12.0-15.0); Immature Granulocyte Absolute 0.04 K/mm3 (0.00-0.031); Immature Granulocyte Percent A 0.8 % (0-0.5); Lymphocytes Absolute Auto 0.16 K/mm3 (0.9-3.2); Lymphocytes Percent Auto 3.1 % (18.3-44.2); Mean Corpuscular HGB Conc 31.6 g/dl (32-36); Mean Corpuscular Hemoglobin 34.9 pg (26-34); Mean Corpuscular Volume 110.4 fl (80-100); Mean Platelet Volume 9.7 fl (7.4-10.4); Monocytes Absolute Auto 0.7 K/mm3 (0.1-0.6); Monocytes Percent Auto 13.5 % (2.6-8.5); Neutrophils Absolute Auto 4.1 K/mm3 (1.3-6.7); Neutrophils Percent Auto 79.7 % (45.5-73.1); Platelet Count Result 143 k/mm3 (150-375); Red Blood Count 2.78 M/mm3 (4.2-5.4); Red Cell Distribution Width 12.7 % (11.5-14.5); White Blood Count 5.2 K/mm3 (4.5-10.0)
[2021-10-09 06:35] LABS: Blood Urea Nitrogen 24 mg/dL (7-17); Calcium 8.8 mg/dL (8.4-10.2); Carbon Dioxide > 40 mmol/L (22-30); Chloride 84 mmol/L (98-107); Estimated Glomerular Filt Rate 42; Glucose 98 mg/dL (65-110); Potassium 4.1 mmol/L (3.4-5.0); Sodium 130 mmol/L (137-145)
[2021-10-09] MEDS: FERROUS SULFATE 324 MG TABLET PO ×2 (09:25→16:46)
[2021-10-09] MEDS: acetaZOLAMIDE TAB 250 MG TABLET 500 MG PO (09:25)
[2021-10-09] MEDS: ASPIRIN 81 MG CHEWABLE TABLET PO (09:25)
[2021-10-09] MEDS: ESCITALOPRAM OXALATE 10 MG TABLET PO (09:26)
[2021-10-09] MEDS: FUROSEMIDE 40 MG TABLET PO (09:26)
[2021-10-09] MEDS: METOPROLOL SUCCINATE EXT REL 25 MG TABCR PO (09:27)
[2021-10-09] MEDS: dilTIAZem HCL CD 180 MG CAP.ER.24H 360 MG PO (09:28)
[2021-10-09 11:55] LABS: Non-Invasive Vent Rate 14 /MIN
[2021-10-09 11:57] LABS: Device NON-INVASIVE VENT
--- NOTE | 2021-10-09 12:10 | P.PNPL_ITS ---
Progress Note: A&P Assessment and Plan (1) Respiratory failure, [id number]: Qualifiers: Respiratory failure complication: hypoxia and hypercapnia Qualified Code(s): J96.21 - Acute and chronic respiratory failure with hypoxia; J96.22 - Acute and chronic respiratory failure with hypercapnia Code(s): J96.20 - Acute and chronic respiratory failure, unspecified whether with hypoxia or hypercapnia Status: Acute Assessment and Plan: patient presented with a blood gas on 10/02/2021 a pH of 7.33/76/57 on 2 L nasal cannula demonstrating acute on chronic hypercarbic and hypoxemic respiratory failure. Etiology of this failure includes chronic COPD, acute fluid overload and possible pneumonia. her COVID RT PCR test is negative. Her CT scan demonstrates mild pulmonary edema with small bilateral pleural effusions. Decreased size in her previous nodules in the superior segment of the left lower lobe. Moderate size pericardial effusion. 10/04 Patient improved today on ceftriaxone and azithromycin for possible pneumonia. White blood cell count 10.9, afebrile. Cultures are negative. patient is being diuresed with Lasix 40 mg IV q.day. 10/05 Patient tells me that she feels better and overall she is breathing better. Patient was uncooperative wearing the overnight noninvasive ventilator mask and also she would not wear the overnight oximetry. She kept pulling on things. Patient had hypoxemia this morning and required 15 L high-flow nasal cannula for saturations 97%. A a chest x-ray was performed and demonstrated worsening diffuse lung infiltrates and small left pleural effusion from 10/02/2021. A D-dimer was positive and I have ordered a CT angiogram of the chest. Her COVID was negative. I have ordered an influenza swab. She is afebrile and her white blood cell count is 7.0. Patient had some expiratory wheezes on exam and I will initiate Solu-Medrol 40 q.6. I will continue her albuterol and ipratropium nebulizers and increase the frequency to q.4 hours. Patient was weaned to 4 L nasal cannula later in the day. Her in full phlegm influenza swab was negative. Her CT angiogram of the chest was negative for PE, she had a moderate left and small right pleural effusion she had moderate centrilobular emphysema a moderate pericardial effusion and moderate pulmonary edema. 10/06 Patient is currently on 5 L nasal cannula with saturations 100%. Patient's creatinine is 1.30 and her Lasix has been held today. A left thoracentesis has been performed and 500 mL of clear fluid with a pH of 7.47 is back. Other chemistries are pending. Patient wore noninvasive ventilator with AVAPS mode at a rate of 14, tidal volume 400, EPAP 5, minimal inspiratory pressure 6, maximal inspiratory pressure 25, inspiratory time 1.0, rise of 5 and 40% last night and she tolerated this well and nursing staff she slept well. Patient said that the mask was comfortable and her blood gas prior to removal was 7.47/59/110. The settings appear optimal at this time. Will continue. 10/09/21 Patient sitting in the chair and looks well today. Currently on 4 L nasal cannula saturations 96%. Patient is in agreement to wear her noninvasive ventilator overnight. I will perform an overnight oximetry on her noninvasive ventilator with the above settings and 5 L bleed in tonight. The quality assurance coordinator as initiated the process to obtain a home noninvasive ventilator. I spoke with the [id number] Caitlyn and she confirmed with the daughter that there are no plans for the patient to move in with the daughters. The patient is confused and had relayed this to the healthcare team but the patient will not be moving in with the daughters. In my opinion the juan m
--- NOTE | 2021-10-09 14:33 | PM.IMPN ---
Progress Note: A&P Assessment and Plan (1) Pneumonia: Qualifiers: Laterality: unspecified laterality Lung location: unspecified part of lung Pneumonia type: due to unspecified organism Qualified Code(s): J18.9 - Pneumonia, unspecified organism Code(s): J18.9 - Pneumonia, unspecified organism Status: Acute Assessment and Plan: Patient was found to have infiltrates on chest x-ray. Started on Rocephin and Zithromax Blood cultures NGTD. Thoracentesis 10/05/2021 showing no organisms but rare WBC on smear. CTA showing increasing atelectasis of the lingula. Feel PNA less likely. aziithromycin stopped. discussed with pulmonary contineu ceftriaxone (2) Acute exacerbation of chronic obstructive pulmonary disease: Code(s): J44.1 - Chronic obstructive pulmonary disease with (acute) exacerbation Status: Acute Assessment and Plan: No wheezing. 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 Patient concluded chemotherapy and radiation therapy Follow up as an outpatient basis with Dr. Mendez pleural fluid tapped 10/06/2021 and awaiting cytology. if positive for cancer cells, would suggest extension of her malignancy, likely involvign her pericardium as well now. awaiitng fluid cytology. (4) Respiratory failure, [id number]: Qualifiers: Respiratory failure complication: hypoxia and hypercapnia Qualified Code(s): J96.21 - Acute and chronic respiratory failure with hypoxia; J96.22 - Acute and chronic respiratory failure with hypercapnia Code(s): J96.20 - Acute and chronic respiratory failure, unspecified whether with hypoxia or hypercapnia Status: Acute Assessment and Plan: Acute on chronic hypoxic hypercapnic respiratory failure Pulmonary consulted BiPAP at night started for pulmonary See normally on 2-[address] chest 10/03/2021 with mild pulmonary edema, small bilateral pleural effusions some at associated atelectasis. Decrease in size of previously to to multiply 1.2 cm now 0 9 multiply 7 mm nodule in superior segment of the left lower lobe which may represent stress response to treatment off metastatic disease in this patient with known small cell lung cancer Bilateral lower extremity venous duplex is negative for DVT CTA chest 10/05 shownig no PE but moderate sized left pleural effusion adn moderate sized pericardial effusion. BNP is elevated 3320 Thoracentesis left lung with 500mL removed Troponins negative COVID swab came back negative Treated with Laisx IV with negative fluid balance. Lasix stopped today. Weaned to 4L which is at her baseline renal funciton slightly up but improved with holding diuresis. Start oral diuretic and was renal function Chest x-ray with improvement in the moderate left pleural effusion needs AVAPS at discrge, pulmonary setting up the non invasive ventilation therapy for her discharge. (5) Anemia in CKD (chronic kidney disease): Code(s): N18.9 - Chronic kidney disease, unspecified; D63.1 - Anemia in chroni
[2021-10-09] MEDS: ATORVASTATIN 40 MG TABLET PO (20:08)
[2021-10-10] VITALS (13 sets, daily range): BP systolic 100–116; BP diastolic 43–88; PULSE 66–87; RESP 14–18; TEMP 36.2–37.4; O2SAT 93–100
[2021-10-10 05:25] LABS: Basophils Percent Auto 0.6 % (0.2-1.2); Eosinophils Absolute Auto 0.2 K/mm3 (0-0.3); Eosinophils Percent Auto 4.1 % (0-4.4); Hematocrit 33.6 % (37.0-47.0); Hemoglobin 10.3 g/dL (12.0-15.0); Immature Granulocyte Absolute 0.06 K/mm3 (0.00-0.031); Immature Granulocyte Percent A 1.1 % (0-0.5); Lymphocytes Absolute Auto 0.32 K/mm3 (0.9-3.2); Mean Corpuscular HGB Conc 30.7 g/dl (32-36); Mean Corpuscular Volume 114.3 fl (80-100); Mean Platelet Volume 9.5 fl (7.4-10.4); Monocytes Absolute Auto 0.9 K/mm3 (0.1-0.6); Monocytes Percent Auto 16.3 % (2.6-8.5); Neutrophils Absolute Auto 3.8 K/mm3 (1.3-6.7); Neutrophils Percent Auto 71.9 % (45.5-73.1); Platelet Count Result 169 k/mm3 (150-375); Red Blood Count 2.94 M/mm3 (4.2-5.4); Red Cell Distribution Width 12.6 % (11.5-14.5); White Blood Count 5.3 K/mm3 (4.5-10.0)
--- NOTE | 2021-10-10 07:23 | PCRCNOTE ---
Faxed paperwork to patient's DME, [facility], for home [employer] set-up.
[2021-10-10 08:37] LABS: Anion Gap 6 mmol/L (8-16); Blood Urea Nitrogen 27 mg/dL (7-17); Calcium 9.2 mg/dL (8.4-10.2); Carbon Dioxide 38 mmol/L (22-30); Chloride 88 mmol/L (98-107); Estimated Glomerular Filt Rate 29; Glucose 97 mg/dL (65-110); Potassium 4.2 mmol/L (3.4-5.0); Sodium 132 mmol/L (137-145)
[2021-10-10] MEDS: ASPIRIN 81 MG CHEWABLE TABLET PO (08:46)
[2021-10-10] MEDS: FERROUS SULFATE 324 MG TABLET PO ×2 (08:46→16:41)
[2021-10-10] MEDS: acetaZOLAMIDE TAB 250 MG TABLET 500 MG PO (08:46)
[2021-10-10] MEDS: dilTIAZem HCL CD 180 MG CAP.ER.24H 360 MG PO (08:46)
[2021-10-10] MEDS: CHOLECALCIFEROL 1,000 UNITS TABLET 5000 UNITS PO (08:46)
[2021-10-10] MEDS: ESCITALOPRAM OXALATE 10 MG TABLET PO (08:46)
[2021-10-10] MEDS: METOPROLOL SUCCINATE EXT REL 25 MG TABCR PO (08:47)
[2021-10-10] MEDS: FUROSEMIDE 40 MG TABLET PO (08:47)
--- NOTE | 2021-10-10 10:16 | P.PNPL_ITS ---
Progress Note: A&P Assessment and Plan (1) Respiratory failure, [id number]: Qualifiers: Respiratory failure complication: hypoxia and hypercapnia Qualified Code(s): J96.21 - Acute and chronic respiratory failure with hypoxia; J96.22 - Acute and chronic respiratory failure with hypercapnia Code(s): J96.20 - Acute and chronic respiratory failure, unspecified whether with hypoxia or hypercapnia Status: Acute Assessment and Plan: patient presented with a blood gas on 10/02/2021 a pH of 7.33/76/57 on 2 L nasal cannula demonstrating acute on chronic hypercarbic and hypoxemic respiratory failure. Etiology of this failure includes chronic COPD, acute fluid overload and possible pneumonia. her COVID RT PCR test is negative. Her CT scan demonstrates mild pulmonary edema with small bilateral pleural effusions. Decreased size in her previous nodules in the superior segment of the left lower lobe. Moderate size pericardial effusion. 10/04 Patient improved today on ceftriaxone and azithromycin for possible pneumonia. White blood cell count 10.9, afebrile. Cultures are negative. patient is being diuresed with Lasix 40 mg IV q.day. 10/05 Patient tells me that she feels better and overall she is breathing better. Patient was uncooperative wearing the overnight noninvasive ventilator mask and also she would not wear the overnight oximetry. She kept pulling on things. Patient had hypoxemia this morning and required 15 L high-flow nasal cannula for saturations 97%. A a chest x-ray was performed and demonstrated worsening diffuse lung infiltrates and small left pleural effusion from 10/02/2021. A D-dimer was positive and I have ordered a CT angiogram of the chest. Her COVID was negative. I have ordered an influenza swab. She is afebrile and her white blood cell count is 7.0. Patient had some expiratory wheezes on exam and I will initiate Solu-Medrol 40 q.6. I will continue her albuterol and ipratropium nebulizers and increase the frequency to q.4 hours. Patient was weaned to 4 L nasal cannula later in the day. Her in full phlegm influenza swab was negative. Her CT angiogram of the chest was negative for PE, she had a moderate left and small right pleural effusion she had moderate centrilobular emphysema a moderate pericardial effusion and moderate pulmonary edema. 10/06 Patient is currently on 5 L nasal cannula with saturations 100%. Patient's creatinine is 1.30 and her Lasix has been held today. A left thoracentesis has been performed and 500 mL of clear fluid with a pH of 7.47 is back. Other chemistries are pending. Patient wore noninvasive ventilator with AVAPS mode at a rate of 14, tidal volume 400, EPAP 5, minimal inspiratory pressure 6, maximal inspiratory pressure 25, inspiratory time 1.0, rise of 5 and 40% last night and she tolerated this well and nursing staff she slept well. Patient said that the mask was comfortable and her blood gas prior to removal was 7.47/59/110. The settings appear optimal at this time. Will continue. 10/09/21 Patient sitting in the chair and looks well today. Currently on 4 L nasal cannula saturations 96%. Patient is in agreement to wear her noninvasive ventilator overnight. I will perform an overnight oximetry on her noninvasive ventilator with the above settings and 5 L bleed in tonight. The manager respiratory care as initiated the process to obtain a home noninvasive ventilator. I spoke with the [id number] Caitlyn and she confirmed with the daughter that there are no plans for the patient to move in with the daughters. The patient is confused and had relayed this to the healthcare team but the patient will not be moving in with the daughters. In my opinion the juan m
--- NOTE | 2021-10-10 12:15 | PDONCCN ---
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 Completed chemotherapy treatment in January of 2021. She had local relapse in the left lower lobe of the lung and completed radiation therapy in July of 2021. She also had PCI treatment. Patient has significant COPD and is quite hard of hearing. She came into the hospital with worsening of shortness of breath. CT chest showed no evidence of PE but there was mild pulmonary edema and bilateral pleural effusion. Decrease in size of the left lower lobe lung mass now measures only 9 x 7 mm compared to 2 x 1.2 cm previously. Moderate side pericardial effusion. Patient had left-sided thoracentesis done with 500 cc of fluid removed on October 04 and cytology is pending. Breathing has improved. She denies any fevers and chills. Review of Systems - Review of Systems All systems reviewed & are unremarkable except as noted in HPI and bel - Neurologic Reports system reviewed and no additional complaints, except as documented, Denies abnormal speech, Denies abnormal gait, Denies confusion, Denies headache(s), Denies focal weakness, Denies loss of vision, Denies numbness, Denies other visual disturbances, Denies sensory deficit, Denies weakness PMFSH Medical History: Medical History (Last Reviewed 10/05/21 @ 09:09 by Donn Pinto MD) Acute pulmonary edema Acute renal failure Acute respiratory failure Anxiety CHF (congestive heart failure) COPD (chronic obstructive pulmonary disease) Deafness Depression Emphysema of lung HTN (hypertension) Hypercholesterolemia Malignant neoplasm of overlapping sites of left bronchus and lung Small cell lung cancer Family History: Family History (Last Reviewed 10/05/21 @ 09:25 by Donn Pinto MD) Father Cancer - Social History Social History: Social History (Last Reviewed 10/05/21 @ 09:09 by Donn Pinto MD) Gender Identity: Gender identity (if verbalized by the patient): Female Alcohol Use: Alcohol intake: former Alcohol use details: socially Substance Use: Substance use: never Substance use type: does not use Others: Spiritual care concerns: No Smoking Status: Smoking status: Former smoker Smoking Pack-years: Smoking packs per day: 2 Smoking cigarettes per day: 40.0 Years smoked: 40 Smoking pack-years: 80.00 Meds Home Medications Medication Instructions Recorded Confirmed Type aspirin 81 mg PO DAILY 09/07/20 10/03/21 History atorvastatin 40 mg PO HS 09/07/20 10/03/21 History cholecalciferol (vitamin D3) 125 mcg PO EVERY OTHER DAY 09/07/20 10/03/21 History [Vitamin D3] diltiazem HCl 360 mg PO DAILY 09/07/20 10/03/21 History escitalopram oxalate 10 mg PO DAILY 09/07/20 10/03/21 History mecobalamin (vitamin B12) 1,000 1,000 mcg SUBLINGUAL DAILY 02/01/21 10/04/21 History mcg disintegrating tablet,sublingual melatonin 3 mg tablet 5 mg PO HS tablet 02/01/21 10/04/21 History pyridoxine (vitamin B6) 100 mg 100 mg PO BID tablet 02/01/21 10/04/21 History tablet metoprolol succinate 25 mg 25 mg PO DAILY tablet 05/03/21 10/03/21 History tablet,extended release 24 hr Symbicort 160 mcg-4.5 2 puff INHALATION Q12H #10.2 g NS 09/08/21 10/03/21 Rx mcg/actuation HFA aerosol inhaler ferrous sulfate 325 mg (65 mg 325 mg PO BID tablet 09/11/21 10/03/21 History iron) tablet albuterol sulfate 90 mcg/actuation 2 puff INHALATION QID PRN #17 g 10/03/21 10/04/21 Rx aerosol inhaler ipratropium 0.5 mg-albuterol 3 mg 3 ml INHALATION Q4H PRN #300 ml 10/03/21 10/04/21 Rx (2.5 mg base)/3 mL nebulization soln Allergies Aller
[2021-10-10] MEDS: ACETAMINOPHEN 325 MG TABLET 650 MG PO (15:28)
--- NOTE | 2021-10-10 15:31 | PM.IMPN ---
Progress Note: A&P Assessment and Plan (1) Pneumonia: Qualifiers: Laterality: unspecified laterality Lung location: unspecified part of lung Pneumonia type: due to unspecified organism Qualified Code(s): J18.9 - Pneumonia, unspecified organism Code(s): J18.9 - Pneumonia, unspecified organism Status: Acute Assessment and Plan: Patient was found to have infiltrates on chest x-ray. Started on Rocephin and Zithromax Blood cultures NGTD. Thoracentesis 10/05/2021 showing no organisms but rare WBC on smear. CTA showing increasing atelectasis of the lingula. Feel PNA less likely. Azithromycin stopped after #5 days of treatment discussed with pulmonary continue ceftriaxone #7, will discontinue treatment after today. Doing well at this time. (2) Acute exacerbation of chronic obstructive pulmonary disease: Code(s): J44.1 - Chronic obstructive pulmonary disease with (acute) exacerbation Status: Acute Assessment and Plan: No wheezing. Steroid has been stopped Pulmonary following and recommends continuing Anoro Ellipta at this time. Continue supplemental oxygen by nasal cannula stable oxygen need, though increased from her home settings (3) Malignant neoplasm of overlapping sites of left bronchus and lung: Code(s): C34.82 - Malignant neoplasm of overlapping sites of left bronchus and lung Status: Acute Assessment and Plan: Small cell lung cancer with limited stage small cell lung cancer status post bronchoscopy and biopsy done August 04, 2020 left upper lobe bronchial biopsy showed small cell carcinoma and lymph node 4R also showed metastatic small-cell carcinoma Recent PET scan with moderate increased FDG uptake in 1.8 x 1.1 cm pleural based mass in the superior segment of the left lower lobe concerning for malignancy with mild FDG uptake associated with 1 cm paramediastinal lesion in the posterior basilar segment of the left lower lobe could be related to radiation pneumonitis infection or malignancy/metastatic disease. Patient concluded chemotherapy and radiation therapy Follow up as an outpatient basis with Dr. Mendez pleural fluid tapped 10/06/2021 and awaiting cytology. if positive for cancer cells, would suggest extension of her malignancy, likely involvign her pericardium as well now. awaiitng fluid cytology. (4) Respiratory failure, [id number]: Qualifiers: Respiratory failure complication: hypoxia and hypercapnia Qualified Code(s): J96.21 - Acute and chronic respiratory failure with hypoxia; J96.22 - Acute and chronic respiratory failure with hypercapnia Code(s): J96.20 - Acute and chronic respiratory failure, unspecified whether with hypoxia or hypercapnia Status: Acute Assessment and Plan: Acute on chronic hypoxic hypercapnic respiratory failure Pulmonary consulted BiPAP at night started for pulmonary See normally on 2-[address] chest 10/03/2021 with mild pulmonary edema, small bilateral pleural effusions some at associated atelectasis. Decrease in size of previously to to multiply 1.2 cm now 0 9 multiply 7 mm nodule in superior segment of the left lower lobe which may represent stress response to treatment off metastatic disease in this patient with known small cell lung cancer Bilateral lower extremity venous duplex is negative for DVT CTA chest 10/05 shownig no PE but moderate sized left pleural effusion adn moderate sized pericardial effusion. BNP is elevated 3320 Thoracentesis left lung with 500mL removed Troponins negative COVID swab came back negative Treated with Laisx IV with negative fluid balance. Lasix stopped today. Weaned to 4L which is at her baseline renal funciton slightly up but improved with holding diuresis. Start oral diuretic and was renal function Chest x-ray with improvement in the moderate left pleural effusion needs AVAPS at discahrge, pulmonary setting up the non invasive ventilation therapy for
--- NOTE | 2021-10-10 15:38 | PCRCNOTE ---
Window of time for administration has passed. See next scheduled administration.
[2021-10-10] MEDS: ATORVASTATIN 40 MG TABLET PO (20:04)
[2021-10-11] VITALS (11 sets, daily range): BP systolic 98–111; BP diastolic 52–61; PULSE 69–84; RESP 17–24; TEMP 36.1–37.1; O2SAT 93–98
[2021-10-11 04:23] LABS: Alveolar/Arterial O2 Gradient 101.5 mmHg; Base Excess ABG 9.7 mEq/l (+/-2.0); Fractional Inspired Oxygen 35 %; Oxygen Saturation ABG 93.2 % (95.0-100.0); Oxyhemoglobin 92.9 % THb (90.0-100.0); PO2 ABG 71.1 mmHg (80.0-100.0); PO2 FiO2 Ratio Arterial Blood 2.03 %; Total Hemoglobin 10.7 g/dL (12.0-18.0); pH ABG 7.365 (7.350-7.450)
[2021-10-11 04:26] LABS: Modified Allen's Test Pass; PCO2 ABG 66.2 mmHg (35.0-45.0); Site Drawn RIGHT RADIAL
[2021-10-11 06:07] LABS: Anion Gap 6 mmol/L (8-16); Blood Urea Nitrogen 26 mg/dL (7-17); Calcium 8.8 mg/dL (8.4-10.2); Carbon Dioxide 35 mmol/L (22-30); Chloride 90 mmol/L (98-107); Estimated Glomerular Filt Rate 29; Glucose 122 mg/dL (65-110); Potassium 3.7 mmol/L (3.4-5.0); Sodium 131 mmol/L (137-145)
[2021-10-11 06:40] LABS: Hematocrit 29.8 % (37.0-47.0); Hemoglobin 9.3 g/dL (12.0-15.0); Mean Corpuscular HGB Conc 31.2 g/dl (32-36); Mean Corpuscular Hemoglobin 35.1 pg (26-34); Mean Corpuscular Volume 112.5 fl (80-100); Mean Platelet Volume 10.3 fl (7.4-10.4); Platelet Count Result 176 k/mm3 (150-375); Red Blood Count 2.65 M/mm3 (4.2-5.4); Red Cell Distribution Width 12.6 % (11.5-14.5); White Blood Count 5.3 K/mm3 (4.5-10.0)
[2021-10-11] MEDS: FERROUS SULFATE 324 MG TABLET PO ×2 (08:30→16:14)
[2021-10-11] MEDS: dilTIAZem HCL CD 180 MG CAP.ER.24H 360 MG PO (08:30)
[2021-10-11] MEDS: ESCITALOPRAM OXALATE 10 MG TABLET PO (08:32)
[2021-10-11] MEDS: METOPROLOL SUCCINATE EXT REL 25 MG TABCR PO (08:32)
[2021-10-11] MEDS: ASPIRIN 81 MG CHEWABLE TABLET PO (08:32)
[2021-10-11] MEDS: UMECLIDINIUM/VILANTEROL 62.5-25 MCG ELLIPTA 1 PUFF INHALATION (08:51)
[2021-10-11 11:12] LABS: Device NON-INVASIVE VENT
--- NOTE | 2021-10-11 13:02 | PCNWS ---
Weekly nutritional screen. Patient is tolerating current diet of heart healthy. Oral Intake has been 45-100% of most meals. Discussed diet supplements with patient today, she refused. No further nutritional needs at this time.
[2021-10-11] MEDS: ACETAMINOPHEN 325 MG TABLET 650 MG PO (16:14)
--- NOTE | 2021-10-11 16:19 | P.PNIM_ITS ---
Progress Note: A&P Assessment and Plan (1) Pneumonia: Qualifiers: Laterality: unspecified laterality Lung location: unspecified part of lung Pneumonia type: due to unspecified organism Qualified Code(s): J18.9 - Pneumonia, unspecified organism Code(s): J18.9 - Pneumonia, unspecified organism Status: Acute Assessment and Plan: Patient was found to have infiltrates on chest x-ray. Started on Rocephin and Zithromax Blood cultures NGTD. Thoracentesis 10/05/2021 showing no organisms but rare WBC on smear. CTA showing increasing atelectasis of the lingula. Feel PNA less likely. Azithromycin stopped after #5 days of treatment discussed with pulmonary continue ceftriaxone #7, will discontinue treatment after today. Doing well at this time. (2) Acute exacerbation of chronic obstructive pulmonary disease: Code(s): J44.1 - Chronic obstructive pulmonary disease with (acute) exacerbation Status: Acute Assessment and Plan: Mild wheezing. Steroid has been stopped Pulmonary following and recommends continuing Anoro Ellipta at this time. Continue supplemental oxygen by nasal cannula stable oxygen need, though increased from her home settings (3) Malignant neoplasm of overlapping sites of left bronchus and lung: Code(s): C34.82 - Malignant neoplasm of overlapping sites of left bronchus and lung Status: Acute Assessment and Plan: Small cell lung cancer with limited stage small cell lung cancer status post bronchoscopy and biopsy done August 04, 2020 left upper lobe bronchial biopsy showed small cell carcinoma and lymph node 4R also showed metastatic small-cell carcinoma Recent PET scan with moderate increased FDG uptake in 1.8 x 1.1 cm pleural based mass in the superior segment of the left lower lobe concerning for malignancy with mild FDG uptake associated with 1 cm paramediastinal lesion in the posterior basilar segment of the left lower lobe could be related to radiation pneumonitis infection or malignancy/metastatic disease. Patient concluded chemotherapy and radiation therapy Follow up as an outpatient basis with Dr. Mendez pleural fluid tapped 10/06/2021 and awaiting cytology. if positive for cancer cells, would suggest extension of her malignancy, likely involvign her pericardium as well now. awaiitng fluid cytology. (4) Respiratory failure, [id number]: Qualifiers: Respiratory failure complication: hypoxia and hypercapnia Qualified Code(s): J96.21 - Acute and chronic respiratory failure with hypoxia; J96.22 - Acute and chronic respiratory failure with hypercapnia Code(s): J96.20 - Acute and chronic respiratory failure, unspecified whether with hypoxia or hypercapnia Status: Acute Assessment and Plan: Acute on chronic hypoxic hypercapnic respiratory failure Pulmonary consulted BiPAP at night started for pulmonary See normally on 2-[address] chest 10/03/2021 with mild pulmonary edema, small bilateral pleural effusions some at associated atelectasis. Decrease in size of previously to to multiply 1.2 cm now 0 9 multiply 7 mm nodule in superior segment of the left lower lobe which may represent stress response to treatment off metastatic disease in this patient with known small cell lung cancer Bilateral lower extremity venous duplex is negative for DVT CTA chest 10/05 shownig no PE but moderate sized left pleural effusion adn moderate sized pericardial effusion. BNP is elevated 3320 Thoracentesis left lung with 500mL removed Troponins negative COVID swab came back negative Treated with Laisx IV with negative fluid balance. Rubio
[2021-10-11] MEDS: ATORVASTATIN 40 MG TABLET PO (21:04)
[2021-10-12] VITALS (15 sets, daily range): BP systolic 100–109; BP diastolic 53–60; PULSE 68–89; RESP 15–23; TEMP 36.2–36.8; O2SAT 92–99
[2021-10-12] MEDS: ALBUTEROL SULFATE (*SP) AEROSOL 1 PUFF 2 PUFF INHALATION (00:19)
--- NOTE | 2021-10-12 00:23 | PCRCNOTE ---
Addendum entered by Peggy Benavides, [employer] 10/12/21 00:52: Study was scheduled for night of 10/11 and will be performed night of 10/12 instead. Original Note: Overnight pulse oximetry ordered for night of 10/12/21. RT unavailable to put apnea link on pt in time to do study due to emergencies elsewhere in hospital. Study to be performed night of 10/13/21 instead.
[2021-10-12 06:13] LABS: Anion Gap 2 mmol/L (8-16); Blood Urea Nitrogen 28 mg/dL (7-17); Calcium 8.8 mg/dL (8.4-10.2); Carbon Dioxide 33 mmol/L (22-30); Chloride 94 mmol/L (98-107); Estimated Glomerular Filt Rate 29; Glucose 89 mg/dL (65-110); Potassium 3.6 mmol/L (3.4-5.0); Sodium 129 mmol/L (137-145)
[2021-10-12 06:35] LABS: Alveolar/Arterial O2 Gradient 95.5 mmHg; Base Excess ABG 5.9 mEq/l (+/-2.0); Fractional Inspired Oxygen 35 %; HCO3 ABG 32.9 mEq/l (22.0-26.0); Oxygen Content ABG 14.6 %vol (16.0-22.0); Oxygen Saturation ABG 95.4 % (95.0-100.0); Oxyhemoglobin 94.9 % THb (90.0-100.0); PO2 FiO2 Ratio Arterial Blood 2.37 %; Total Hemoglobin 10.9 g/dL (12.0-18.0); pH ABG 7.349 (7.350-7.450)
[2021-10-12 07:56] LABS: NT Pro B Type Natriuretic Pept 675 pg/mL (5-100)
[2021-10-12] MEDS: METOPROLOL SUCCINATE EXT REL 25 MG TABCR PO (08:11)
[2021-10-12] MEDS: ASPIRIN 81 MG CHEWABLE TABLET PO (08:11)
[2021-10-12] MEDS: FERROUS SULFATE 324 MG TABLET PO ×2 (08:11→16:55)
[2021-10-12] MEDS: CHOLECALCIFEROL 1,000 UNITS TABLET 5000 UNITS PO (08:11)
[2021-10-12] MEDS: ESCITALOPRAM OXALATE 10 MG TABLET PO (08:11)
[2021-10-12] MEDS: dilTIAZem HCL CD 180 MG CAP.ER.24H 360 MG PO (08:11)
[2021-10-12] MEDS: UMECLIDINIUM/VILANTEROL 62.5-25 MCG ELLIPTA 1 PUFF INHALATION (09:17)
--- NOTE | 2021-10-12 10:40 | PM.PNPUL ---
Progress Note: A&P Assessment and Plan (1) Respiratory failure, [id number]: Qualifiers: Respiratory failure complication: hypoxia and hypercapnia Qualified Code(s): J96.21 - Acute and chronic respiratory failure with hypoxia; J96.22 - Acute and chronic respiratory failure with hypercapnia Code(s): J96.20 - Acute and chronic respiratory failure, unspecified whether with hypoxia or hypercapnia Status: Acute Assessment and Plan: patient presented with a blood gas on 10/02/2021 a pH of 7.33/76/57 on 2 L nasal cannula demonstrating acute on chronic hypercarbic and hypoxemic respiratory failure. Etiology of this failure includes chronic COPD, acute fluid overload and possible pneumonia. her COVID RT PCR test is negative. Her CT scan demonstrates mild pulmonary edema with small bilateral pleural effusions. Decreased size in her previous nodules in the superior segment of the left lower lobe. Moderate size pericardial effusion. 10/04 Patient improved today on ceftriaxone and azithromycin for possible pneumonia. White blood cell count 10.9, afebrile. Cultures are negative. patient is being diuresed with Lasix 40 mg IV q.day. 10/05 Patient tells me that she feels better and overall she is breathing better. Patient was uncooperative wearing the overnight noninvasive ventilator mask and also she would not wear the overnight oximetry. She kept pulling on things. Patient had hypoxemia this morning and required 15 L high-flow nasal cannula for saturations 97%. A a chest x-ray was performed and demonstrated worsening diffuse lung infiltrates and small left pleural effusion from 10/02/2021. A D-dimer was positive and I have ordered a CT angiogram of the chest. Her COVID was negative. I have ordered an influenza swab. She is afebrile and her white blood cell count is 7.0. Patient had some expiratory wheezes on exam and I will initiate Solu-Medrol 40 q.6. I will continue her albuterol and ipratropium nebulizers and increase the frequency to q.4 hours. Patient was weaned to 4 L nasal cannula later in the day. Her in full phlegm influenza swab was negative. Her CT angiogram of the chest was negative for PE, she had a moderate left and small right pleural effusion she had moderate centrilobular emphysema a moderate pericardial effusion and moderate pulmonary edema. 10/06 Patient is currently on 5 L nasal cannula with saturations 100%. Patient's creatinine is 1.30 and her Lasix has been held today. A left thoracentesis has been performed and 500 mL of clear fluid with a pH of 7.47 is back. Other chemistries are pending. Patient wore noninvasive ventilator with AVAPS mode at a rate of 14, tidal volume 400, EPAP 5, minimal inspiratory pressure 6, maximal inspiratory pressure 25, inspiratory time 1.0, rise of 5 and 40% last night and she tolerated this well and nursing staff she slept well. Patient said that the mask was comfortable and her blood gas prior to removal was 7.47/59/110. The settings appear optimal at this time. Will continue. 10/09/21 Patient sitting in the chair and looks well today. Currently on 4 L nasal cannula saturations 96%. Patient is in agreement to wear her noninvasive ventilator overnight. I will perform an overnight oximetry on her noninvasive ventilator with the above settings and 5 L bleed in tonight. The clinical rehabilitation coordinator as initiated the process to obtain a home noninvasive ventilator. I spoke with the [id number] Caitlyn and she confirmed with the daughter that there are no plans for the patient to move in with the daughters. The patient is confused and had relayed this to the healthcare team but the patient will not be moving in with the daughters. In my opinion the patient is not able to live at home by herself as she has a very difficult time performing her activities of daily living and will likely be unable to manage a noninvasive ventilator at home. I have relayed to
[2021-10-12 10:46] LABS: Modified Allen's Test Pass; PCO2 ABG 61.1 mmHg (35.0-45.0); Site Drawn RIGHT RADIAL
[2021-10-12 10:47] LABS: Device NON-INVASIVE VENT; Non-Invasive Expiratory Pressure 5 CMH2O; Non-Invasive Inspiratory Pressure 14 CMH2O; Non-Invasive Vent Rate 14 /MIN
--- NOTE | 2021-10-12 14:22 | PM.IMPN ---
Progress Note: A&P Assessment and Plan (1) Pneumonia: Qualifiers: Laterality: unspecified laterality Lung location: unspecified part of lung Pneumonia type: due to unspecified organism Qualified Code(s): J18.9 - Pneumonia, unspecified organism Code(s): J18.9 - Pneumonia, unspecified organism Status: Acute Assessment and Plan: Patient is a 60-year-old woman with a history of chronic respiratory failure with hypoxemia and hypercapnia, COPD/emphysema, tobacco dependence, megaloblastic anemia, congestive heart failure, small cell lung cancer who has undergone chemotherapy and radiation in sees Dr. Mendez, who presented to emergency room with worsening shortness of breath. Patient had been noticing that her oxygen saturation was dropping in the 60s with exertion and had to increase her oxygen more to recover. Initial vitals showed blood pressure 122/93, heart rate 87 beats per minute, respiratory rate was increased at 24, afebrile, oxygen saturation was 96% on 2 L via nasal cannula. Initial labs showed normal white blood cell count at 6,900 with elevated neutrophils 84%, macrocytic anemia with a hemoglobin at 8.4, hematocrit 27%. Negative coag panel. ABG showed respiratory acidosis with a pH of 7.327, pCO2 75.5, hypoxia at 86%, HC03 at 38 on 2 L via nasal cannula. Slight hyponatremia at 134, baseline creatinine 1.4, BUN 14, negative troponin. BNP was elevated at 2930. Chest x-ray showed left perihilar and bibasilar airspace opacities which could reflect atelectasis versus pneumonia. Cardiomegaly. Small pleural effusions. Patient was admitted into the hospital with IV antibiotics for community-acquired pneumonia with Rocephin and azithromycin. Pulmonology was consulted who believed patient's respiratory failure was secondary to congestive heart failure possible anemia. Further workup was completed with a CT of her chest which showed Mild pulmonary edema, small bilateral pleural effusions and some associated atelectasis. Decrease in size of a previously 2.0 x 1.2 cm, now 9 x 7 mm nodules in the superior segment of the left lower lobe which could represent stress response to treatment of metastatic disease in this patient with known small cell lung cancer. Normal heart size with moderate-sized pericardial effusion. Due to the patient's pleural effusions she had a paracentesis on 10/06/2021, which showed clear yellow fluid, elevated neutrophils of 41%, and her albumin, LDH, glucose, amylase are all still pending. Cultures showed no growth of organisms and rare wbc's on smear. Venous Doppler showed no acute DVT. Pulmonology discontinued IV steroids. Patient was COVID PCR tested which was negative. Echocardiogram was completed which showed normal EF 65-70%, mild LVH, diastolic grade 1 dysfunction, moderate pulmonary hypertension, moderate to large pericardial effusion. Patient was started on a BiPAP at night and her fluids were discontinued. She was given IV Lasix 40 mg daily to help with diuresis. She was continued on a total of 7 days of Rocephin and 5 days of azithromycin IV. Patient then had episode of confusion and further workup was completed with a CTA of her chest which showed no PE, moderate size left and small right pleural effusions, moderate pericardial effusion, mild pulmonary edema. MRI brain showed no acute intracranial findings or suspicion of intracranial metastatic disease. Chronic age-related findings. Leave confusion is secondary to underlying dementia with hospital-acquired delirium. Pulmonology has been working on her noninvasive ventilation settings while here. Pulmonology recommends: Anoro Ellipta 62.5-25 at 1 puff q.day. Rescue albuterol 2 puffs q.4 hours p.r.n. shortness of breath or wheezing. If she goes to a facility that can manage noninvasive ventilation with an AVAPS mode she should be on: rate of 14, tidal volume 450, EPAP 5, minimal inspiratory pressure 6, maximal inspiratory pressure 25, inspiratory ti
[2021-10-12] MEDS: ATORVASTATIN 40 MG TABLET PO (22:02)
[2021-10-13] VITALS (10 sets, daily range): BP systolic 100–110; BP diastolic 50–54; PULSE 73–79; RESP 17–18; TEMP 36.2–37; O2SAT 95–100
[2021-10-13 05:41] LABS: Hematocrit 28.9 % (37.0-47.0); Mean Corpuscular HGB Conc 31.1 g/dl (32-36); Mean Corpuscular Volume 109.1 fl (80-100); Mean Platelet Volume 9.7 fl (7.4-10.4); Platelet Count Result 168 k/mm3 (150-375); Red Blood Count 2.65 M/mm3 (4.2-5.4); Red Cell Distribution Width 12.5 % (11.5-14.5); White Blood Count 5.5 K/mm3 (4.5-10.0)
[2021-10-13 05:58] LABS: Anion Gap 6 mmol/L (8-16); Blood Urea Nitrogen 30 mg/dL (7-17); Calcium 8.9 mg/dL (8.4-10.2); Carbon Dioxide 29 mmol/L (22-30); Chloride 95 mmol/L (98-107); Estimated Glomerular Filt Rate 27; Glucose 89 mg/dL (65-110); Potassium 4.1 mmol/L (3.4-5.0); Sodium 130 mmol/L (137-145)
[2021-10-13] MEDS: ESCITALOPRAM OXALATE 10 MG TABLET PO (09:09)
[2021-10-13] MEDS: ASPIRIN 81 MG CHEWABLE TABLET PO (09:09)
[2021-10-13] MEDS: FERROUS SULFATE 324 MG TABLET PO ×2 (09:09→17:11)
[2021-10-13] MEDS: dilTIAZem HCL CD 180 MG CAP.ER.24H 360 MG PO (09:09)
[2021-10-13] MEDS: METOPROLOL SUCCINATE EXT REL 25 MG TABCR PO (09:09)
[2021-10-13] MEDS: SODIUM CHLORIDE 0.9% IV 250 ML 50 ML IV CONT (09:15)
[2021-10-13] MEDS: UMECLIDINIUM/VILANTEROL 62.5-25 MCG ELLIPTA 1 PUFF INHALATION (09:54)
--- NOTE | 2021-10-13 10:54 | P.PNPL_ITS ---
Progress Note: A&P Assessment and Plan (1) Respiratory failure, [id number]: Qualifiers: Respiratory failure complication: hypoxia and hypercapnia Qualified Code(s): J96.21 - Acute and chronic respiratory failure with hypoxia; J96.22 - Acute and chronic respiratory failure with hypercapnia Code(s): J96.20 - Acute and chronic respiratory failure, unspecified whether with hypoxia or hypercapnia Status: Acute Assessment and Plan: patient presented with a blood gas on 10/02/2021 a pH of 7.33/76/57 on 2 L nasal cannula demonstrating acute on chronic hypercarbic and hypoxemic respiratory failure. Etiology of this failure includes chronic COPD, acute fluid overload and possible pneumonia. her COVID RT PCR test is negative. Her CT scan demonstrates mild pulmonary edema with small bilateral pleural effusions. Decreased size in her previous nodules in the superior segment of the left lower lobe. Moderate size pericardial effusion. 10/04 Patient improved today on ceftriaxone and azithromycin for possible pneumonia. White blood cell count 10.9, afebrile. Cultures are negative. patient is being diuresed with Lasix 40 mg IV q.day. 10/05 Patient tells me that she feels better and overall she is breathing better. Patient was uncooperative wearing the overnight noninvasive ventilator mask and also she would not wear the overnight oximetry. She kept pulling on things. Patient had hypoxemia this morning and required 15 L high-flow nasal cannula for saturations 97%. A a chest x-ray was performed and demonstrated worsening diffuse lung infiltrates and small left pleural effusion from 10/02/2021. A D-dimer was positive and I have ordered a CT angiogram of the chest. Her COVID was negative. I have ordered an influenza swab. She is afebrile and her white blood cell count is 7.0. Patient had some expiratory wheezes on exam and I will initiate Solu-Medrol 40 q.6. I will continue her albuterol and ipratropium nebulizers and increase the frequency to q.4 hours. Patient was weaned to 4 L nasal cannula later in the day. Her in full phlegm influenza swab was negative. Her CT angiogram of the chest was negative for PE, she had a moderate left and small right pleural effusion she had moderate centrilobular emphysema a moderate pericardial effusion and moderate pulmonary edema. 10/06 Patient is currently on 5 L nasal cannula with saturations 100%. Patient's creatinine is 1.30 and her Lasix has been held today. A left thoracentesis has been performed and 500 mL of clear fluid with a pH of 7.47 is back. Other chemistries are pending. Patient wore noninvasive ventilator with AVAPS mode at a rate of 14, tidal volume 400, EPAP 5, minimal inspiratory pressure 6, maximal inspiratory pressure 25, inspiratory time 1.0, rise of 5 and 40% last night and she tolerated this well and nursing staff she slept well. Patient said that the mask was comfortable and her blood gas prior to removal was 7.47/59/110. The settings appear optimal at this time. Will continue. 10/09/21 Patient sitting in the chair and looks well today. Currently on 4 L nasal cannula saturations 96%. Patient is in agreement to wear her noninvasive ventilator overnight. I will perform an overnight oximetry on her noninvasive ventilator with the above settings and 5 L bleed in tonight. The development coordinator as initiated the process to obtain a home noninvasive ventilator. I spoke with the [id number] Caitlyn and she confirmed with the daughter that there are no plans for the patient to move in with the daughters. The patient is confused and had relayed this to the healthcare team but the patient will not be moving in with the daughters. In my opinion the juan m
--- NOTE | 2021-10-13 13:52 | P.PNIM_ITS ---
Progress Note: A&P Assessment and Plan (1) Pneumonia: Qualifiers: Laterality: unspecified laterality Lung location: unspecified part of lung Pneumonia type: due to unspecified organism Qualified Code(s): J18.9 - Pneumonia, unspecified organism Code(s): J18.9 - Pneumonia, unspecified organism Status: Acute Assessment and Plan: Patient is a 60-year-old woman with a history of chronic respiratory failure with hypoxemia and hypercapnia, COPD/emphysema, tobacco dependence, megaloblastic anemia, congestive heart failure, small cell lung cancer who has undergone chemotherapy and radiation in sees Dr. Mendez, who presented to emergency room with worsening shortness of breath. Patient had been noticing that her oxygen saturation was dropping in the 60s with exertion and had to increase her oxygen more to recover. Initial vitals showed blood pressure 122/93, heart rate 87 beats per minute, respiratory rate was increased at 24, afebrile, oxygen saturation was 96% on 2 L via nasal cannula. Initial labs showed normal white blood cell count at 6,900 with elevated neutrophils 84%, macrocytic anemia with a hemoglobin at 8.4, hematocrit 27%. Negative coag panel. ABG showed respiratory acidosis with a pH of 7.327, pCO2 75.5, hypoxia at 86%, HC03 at 38 on 2 L via nasal cannula. Slight hyponatremia at 134, baseline creatinine 1.4, BUN 14, negative troponin. BNP was elevated at 2930. Chest x-ray showed left perihilar and bibasilar airspace opacities which could reflect atelectasis versus pneumonia. Cardiomegaly. Small pleural effusions. Patient was admitted into the hospital with IV antibiotics for community- acquired pneumonia with Rocephin and azithromycin. * Pulmonology was consulted who believed patient's respiratory failure was secondary to congestive heart failure possible anemia. Further workup was completed with a CT of her chest which showed Mild pulmonary edema, small bilateral pleural effusions and some associated atelectasis. Decrease in size of a previously 2.0 x 1.2 cm, now 9 x 7 mm nodules in the superior segment of the left lower lobe which could represent stress response to treatment of metastatic disease in this patient with known small cell lung cancer. Normal heart size with moderate-sized pericardial effusion. Due to the patient's pleural effusions she had a paracentesis on 10/06/2021, which showed clear yellow fluid, elevated neutrophils of 41%, and her albumin, LDH, glucose, amylase are all still pending. Cultures showed no growth of organisms and rare wbc's on smear. Venous Doppler showed no acute DVT. Pulmonology discontinued IV steroids. Patient was COVID PCR tested which was negative. Echocardiogram was completed which showed normal EF 65-70%, mild LVH, diastolic grade 1 dysfunction, moderate pulmonary hypertension, moderate to large pericardial effusion. Patient was started on a BiPAP at night and her fluids were discontinued. She was given IV Lasix 40 mg daily to help with diuresis. She was continued on a total of 7 days of Rocephin and 5 days of azithromycin IV. * Patient then had episode of confusion and further workup was completed with a CTA of her chest which showed no PE, moderate size left and small right pleural effusions, moderate pericardial effusion, mild pulmonary edema. MRI brain showed no acute intracranial findings or suspicion of intracranial metastatic disease. Chronic age-related findings. Leave confusion is secondary to underlying dementia with hospital-acquired delirium. * Pulmonology has been working on her noninvasive ventilation settings while here. Pulmonology recommends: Anoro Ellipta 62.5-25 at 1 puff q.day. Rescue albuterol 2 puffs q.4 hours p.r.n.
[2021-10-13] MEDS: ACETAMINOPHEN 325 MG TABLET 650 MG PO (20:31)
[2021-10-13] MEDS: ATORVASTATIN 40 MG TABLET PO (20:31)
[2021-10-14] VITALS (8 sets, daily range): BP systolic 100–115; BP diastolic 54–62; PULSE 64–98; RESP 16–18; TEMP 36.2–36.6; O2SAT 96–100
[2021-10-14 06:17] LABS: Anion Gap 4 mmol/L (8-16); Blood Urea Nitrogen 29 mg/dL (7-17); Calcium 8.9 mg/dL (8.4-10.2); Carbon Dioxide 32 mmol/L (22-30); Chloride 96 mmol/L (98-107); Estimated Glomerular Filt Rate 29; Glucose 86 mg/dL (65-110); Potassium 4.1 mmol/L (3.4-5.0); Sodium 132 mmol/L (137-145)
[2021-10-14] MEDS: dilTIAZem HCL CD 180 MG CAP.ER.24H 360 MG PO (08:11)
[2021-10-14] MEDS: CHOLECALCIFEROL 1,000 UNITS TABLET 5000 UNITS PO (08:11)
[2021-10-14] MEDS: ESCITALOPRAM OXALATE 10 MG TABLET PO (08:11)
[2021-10-14] MEDS: FERROUS SULFATE 324 MG TABLET PO ×2 (08:11→17:00)
[2021-10-14] MEDS: ASPIRIN 81 MG CHEWABLE TABLET PO (08:12)
[2021-10-14] MEDS: METOPROLOL SUCCINATE EXT REL 25 MG TABCR PO (08:12)
--- NOTE | 2021-10-14 18:52 | PCRCNOTE ---
Window of time for administration has passed. See next scheduled administration.
[2021-10-14] MEDS: ACETAMINOPHEN 325 MG TABLET 650 MG PO (19:00)
[2021-10-14] MEDS: ATORVASTATIN 40 MG TABLET PO (20:23)
[2021-10-15 04:48] VITALS: BP 104/53; PULSE 71; RESP 16; TEMP 36.8; O2SAT 97
[2021-10-15 05:57] LABS: Anion Gap 5 mmol/L (8-16); Blood Urea Nitrogen 28 mg/dL (7-17); Calcium 8.8 mg/dL (8.4-10.2); Carbon Dioxide 32 mmol/L (22-30); Chloride 94 mmol/L (98-107); Estimated Glomerular Filt Rate 33; Glucose 91 mg/dL (65-110); Potassium 4.1 mmol/L (3.4-5.0); Sodium 131 mmol/L (137-145)
[2021-10-15 08:07] VITALS: PULSE 71
[2021-10-15] MEDS: dilTIAZem HCL CD 180 MG CAP.ER.24H 360 MG PO (08:07)
[2021-10-15] MEDS: ESCITALOPRAM OXALATE 10 MG TABLET PO (08:07)
[2021-10-15] MEDS: ASPIRIN 81 MG CHEWABLE TABLET PO (08:07)
[2021-10-15] MEDS: FERROUS SULFATE 324 MG TABLET PO ×2 (08:07→16:52)
[2021-10-15] MEDS: METOPROLOL SUCCINATE EXT REL 25 MG TABCR PO (08:07)
[2021-10-15 09:00] VITALS: O2SAT 97
[2021-10-15] MEDS: UMECLIDINIUM/VILANTEROL 62.5-25 MCG ELLIPTA 1 PUFF INHALATION (10:07)
[2021-10-15 14:00] VITALS: BP 114/59; PULSE 72; RESP 18; TEMP 36.9; O2SAT 95
[2021-10-15 20:00] VITALS: O2SAT 95
[2021-10-15] MEDS: ATORVASTATIN 40 MG TABLET PO (20:26)
[2021-10-15 22:00] VITALS: BP 109/61; PULSE 78; RESP 18; TEMP 36.4; O2SAT 96
[2021-10-16] VITALS (7 sets, daily range): BP systolic 106–126; BP diastolic 45–81; PULSE 74–88; RESP 16–21; TEMP 36.3–36.8; O2SAT 92–100
[2021-10-16 06:29] LABS: Anion Gap 7 mmol/L (8-16); Blood Urea Nitrogen 26 mg/dL (7-17); Calcium 8.9 mg/dL (8.4-10.2); Carbon Dioxide 31 mmol/L (22-30); Chloride 95 mmol/L (98-107); Estimated Glomerular Filt Rate 38; Glucose 88 mg/dL (65-110); Potassium 4.1 mmol/L (3.4-5.0); Sodium 133 mmol/L (137-145)
[2021-10-16] MEDS: FERROUS SULFATE 324 MG TABLET PO ×2 (08:32→16:02)
[2021-10-16] MEDS: CHOLECALCIFEROL 1,000 UNITS TABLET 5000 UNITS PO (08:32)
[2021-10-16] MEDS: ASPIRIN 81 MG CHEWABLE TABLET PO (08:32)
[2021-10-16] MEDS: METOPROLOL SUCCINATE EXT REL 25 MG TABCR PO (08:33)
[2021-10-16] MEDS: dilTIAZem HCL CD 180 MG CAP.ER.24H 360 MG PO (08:33)
[2021-10-16] MEDS: ACETAMINOPHEN 325 MG TABLET 650 MG PO (08:33)
[2021-10-16] MEDS: UMECLIDINIUM/VILANTEROL 62.5-25 MCG ELLIPTA 1 PUFF INHALATION (08:33)
[2021-10-16] MEDS: ESCITALOPRAM OXALATE 10 MG TABLET PO (08:33)
[2021-10-16] MEDS: ATORVASTATIN 40 MG TABLET PO (20:36)
[2021-10-17 06:00] VITALS: BP 124/62; PULSE 71; RESP 20; TEMP 36.5; O2SAT 98
[2021-10-17] MEDS: dilTIAZem HCL CD 180 MG CAP.ER.24H 360 MG PO (08:20)
[2021-10-17 08:21] VITALS: PULSE 80
[2021-10-17] MEDS: METOPROLOL SUCCINATE EXT REL 25 MG TABCR PO (08:21)
[2021-10-17] MEDS: ASPIRIN 81 MG CHEWABLE TABLET PO (08:21)
[2021-10-17] MEDS: FERROUS SULFATE 324 MG TABLET PO ×2 (08:21→16:00)
[2021-10-17] MEDS: ESCITALOPRAM OXALATE 10 MG TABLET PO (08:21)
[2021-10-17 08:22] VITALS: PULSE 80; RESP 20; O2SAT 98
[2021-10-17] MEDS: UMECLIDINIUM/VILANTEROL 62.5-25 MCG ELLIPTA 1 PUFF INHALATION (08:50)
[2021-10-17 14:02] VITALS: BP 109/59; PULSE 76; RESP 18; TEMP 36.8; O2SAT 99
--- NOTE | 2021-10-17 16:20 | PM.IMPN ---
Progress Note: A&P Assessment and Plan (1) Pneumonia: Qualifiers: Laterality: unspecified laterality Lung location: unspecified part of lung Pneumonia type: due to unspecified organism Qualified Code(s): J18.9 - Pneumonia, unspecified organism Code(s): J18.9 - Pneumonia, unspecified organism Status: Acute Assessment and Plan: Patient is a 60-year-old woman with a history of chronic respiratory failure with hypoxemia and hypercapnia, COPD/emphysema, tobacco dependence, megaloblastic anemia, congestive heart failure, small cell lung cancer who has undergone chemotherapy and radiation in sees Dr. Mendez, who presented to emergency room with worsening shortness of breath. Patient was admitted into the hospital with IV antibiotics for community-acquired pneumonia with Rocephin and azithromycin. Pulmonology was consulted who believed patient's respiratory failure was secondary to congestive heart failure possible anemia. Further workup was completed with a CT of her chest which showed Mild pulmonary edema, small bilateral pleural effusions and some associated atelectasis. Decrease in size of a previously 2.0 x 1.2 cm, now 9 x 7 mm nodules in the superior segment of the left lower lobe which could represent stress response to treatment of metastatic disease in this patient with known small cell lung cancer. Normal heart size with moderate-sized pericardial effusion. Due to the patient's pleural effusions she had a paracentesis on 10/06/2021, which showed clear yellow fluid, elevated neutrophils of 41%, and her albumin, LDH, glucose, amylase are all still pending. Cultures showed no growth of organisms and rare wbc's on smear. Venous Doppler showed no acute DVT. Pulmonology discontinued IV steroids. Patient was COVID PCR tested which was negative. Echocardiogram was completed which showed normal EF 65-70%, mild LVH, diastolic grade 1 dysfunction, moderate pulmonary hypertension, moderate to large pericardial effusion. Patient was started on a BiPAP at night and her fluids were discontinued. She was given IV Lasix 40 mg daily to help with diuresis. She was continued on a total of 7 days of Rocephin and 5 days of azithromycin IV. Patient then had episode of confusion and further workup was completed with a CTA of her chest which showed no PE, moderate size left and small right pleural effusions, moderate pericardial effusion, mild pulmonary edema. MRI brain showed no acute intracranial findings or suspicion of intracranial metastatic disease. Chronic age-related findings. Leave confusion is secondary to underlying dementia with hospital-acquired delirium. Pulmonology has been working on her noninvasive ventilation settings while here. Pulmonology recommends: Anoro Ellipta 62.5-25 at 1 puff q.day. Rescue albuterol 2 puffs q.4 hours p.r.n. shortness of breath or wheezing. If she goes to a facility that can manage noninvasive ventilation with an AVAPS mode she should be on: rate of 14, tidal volume 450, EPAP 5, minimal inspiratory pressure 6, maximal inspiratory pressure 25, inspiratory time 1.0, rise of 5 (slowest), 4 L bleed in. If she goes to a facility that can only administer BiPAP she should be on BiPAP rate of 16, inspiratory pressure 16, expiratory pressure 5 with 4 L bleed in. Moderate size pericardial effusion. Chest CT from May represent the similar sized pericardial effusion also dated back to 03/12/2021 an echocardiogram as far as 07/2020 reveal small to moderate pericardial effusion. Repeat echo with moderate to large pericardial effusion. Cardiology consulted and did not recommend any pericardiocentesis. Otherwise patient is doing well at this time on 2 L of oxygen. She is stable from pulmonology perspective to be discharged. We are currently working on her noninvasive ventilation and SNF placement. Hopefully she can be discharged soon. (2) Acute exacerbation of chronic obstructive pulmonary disease: Code(s):
[2021-10-17] MEDS: ALBUTEROL SULFATE (*SP) AEROSOL 1 PUFF 2 PUFF INHALATION (17:42)
[2021-10-17] MEDS: ATORVASTATIN 40 MG TABLET PO (20:43)
[2021-10-17] MEDS: ACETAMINOPHEN 325 MG TABLET 650 MG PO (20:43)
[2021-10-17 22:00] VITALS: BP 125/63; PULSE 79; RESP 21; TEMP 36.3; O2SAT 100
[2021-10-17 22:28] VITALS: PULSE 73; RESP 16; O2SAT 98
[2021-10-18] VITALS (9 sets, daily range): BP systolic 102–152; BP diastolic 53–72; PULSE 71–79; RESP 16–20; TEMP 36.2–36.5; O2SAT 93–99
[2021-10-18 06:05] LABS: Basophils Percent Auto 0.8 % (0.2-1.2); Eosinophils Absolute Auto 0.1 K/mm3 (0-0.3); Eosinophils Percent Auto 2.2 % (0-4.4); Hematocrit 26.2 % (37.0-47.0); Hemoglobin 8.4 g/dL (12.0-15.0); Immature Granulocyte Absolute 0.06 K/mm3 (0.00-0.031); Immature Granulocyte Percent A 1.2 % (0-0.5); Lymphocytes Absolute Auto 0.39 K/mm3 (0.9-3.2); Lymphocytes Percent Auto 7.8 % (18.3-44.2); Mean Corpuscular HGB Conc 32.1 g/dl (32-36); Mean Corpuscular Hemoglobin 34.7 pg (26-34); Mean Corpuscular Volume 108.3 fl (80-100); Mean Platelet Volume 9.6 fl (7.4-10.4); Monocytes Absolute Auto 0.6 K/mm3 (0.1-0.6); Monocytes Percent Auto 12.6 % (2.6-8.5); Neutrophils Absolute Auto 3.8 K/mm3 (1.3-6.7); Neutrophils Percent Auto 75.4 % (45.5-73.1); Platelet Count Result 166 k/mm3 (150-375); Red Blood Count 2.42 M/mm3 (4.2-5.4); Red Cell Distribution Width 12.7 % (11.5-14.5)
[2021-10-18 06:28] LABS: Alanine Aminotransferase 36 U/L (4-35); Albumin Level 3.2 g/dL (3.5-5.1); Alkaline Phosphatase 75 U/L (38-126); Anion Gap 4 mmol/L (8-16); Aspartate Amino Transferase 41 U/L (14-36); Bilirubin,Total 0.2 mg/dL (0.2-1.3); Blood Urea Nitrogen 21 mg/dL (7-17); Calcium 8.8 mg/dL (8.4-10.2); Carbon Dioxide 34 mmol/L (22-30); Chloride 92 mmol/L (98-107); Estimated Glomerular Filt Rate 38; Glucose 87 mg/dL (65-110); Potassium 4.2 mmol/L (3.4-5.0); Sodium 130 mmol/L (137-145)
[2021-10-18] MEDS: FERROUS SULFATE 324 MG TABLET PO ×2 (08:33→16:50)
[2021-10-18] MEDS: METOPROLOL SUCCINATE EXT REL 25 MG TABCR PO (08:33)
[2021-10-18] MEDS: dilTIAZem HCL CD 180 MG CAP.ER.24H 360 MG PO (08:33)
[2021-10-18] MEDS: ESCITALOPRAM OXALATE 10 MG TABLET PO (08:33)
[2021-10-18] MEDS: ASPIRIN 81 MG CHEWABLE TABLET PO (08:33)
[2021-10-18] MEDS: CHOLECALCIFEROL 1,000 UNITS TABLET 5000 UNITS PO (08:33)
[2021-10-18] MEDS: UMECLIDINIUM/VILANTEROL 62.5-25 MCG ELLIPTA 1 PUFF INHALATION (10:27)
--- NOTE | 2021-10-18 10:35 | PCNWS ---
Weekly nutritional screen. Patient is tolerating heart healthy diet eating, 80-100% of meals. Weight-stable. No further nutritional needs at this time.
--- NOTE | 2021-10-18 10:51 | P.PNIM_ITS ---
Progress Note: A&P Assessment and Plan (1) Pneumonia: Qualifiers: Laterality: unspecified laterality Lung location: unspecified part of lung Pneumonia type: due to unspecified organism Qualified Code(s): J18.9 - Pneumonia, unspecified organism Code(s): J18.9 - Pneumonia, unspecified organism Status: Acute Assessment and Plan: Patient is a 60-year-old woman with a history of chronic respiratory failure with hypoxemia and hypercapnia, COPD/emphysema, tobacco dependence, megaloblastic anemia, congestive heart failure, small cell lung cancer who has undergone chemotherapy and radiation in sees Dr. Mendez, who presented to emergency room with worsening shortness of breath. Patient was admitted into the hospital with IV antibiotics for community-acquired pneumonia with Rocephin and azithromycin. * Pulmonology was consulted who believed patient's respiratory failure was secondary to congestive heart failure possible anemia. Further workup was completed with a CT of her chest which showed Mild pulmonary edema, small bilateral pleural effusions and some associated atelectasis. Decrease in size of a previously 2.0 x 1.2 cm, now 9 x 7 mm nodules in the superior segment of the left lower lobe which could represent stress response to treatment of metastatic disease in this patient with known small cell lung cancer. Normal heart size with moderate-sized pericardial effusion. Due to the patient's pleural effusions she had a paracentesis on 10/06/2021, which showed clear yellow fluid, elevated neutrophils of 41%, and her albumin, LDH, glucose, amylase are all still pending. Cultures showed no growth of organisms and rare wbc's on smear. Venous Doppler showed no acute DVT. Pulmonology discontinued IV steroids. Patient was COVID PCR tested which was negative. Echocardiogram was completed which showed normal EF 65-70%, mild LVH, diastolic grade 1 dysfunction, moderate pulmonary hypertension, moderate to large pericardial effusion. Patient was started on a BiPAP at night and her fluids were discontinued. She was given IV Lasix 40 mg daily to help with diuresis. She was continued on a total of 7 days of Rocephin and 5 days of azithromycin IV. * Patient then had episode of confusion and further workup was completed with a CTA of her chest which showed no PE, moderate size left and small right pleural effusions, moderate pericardial effusion, mild pulmonary edema. MRI brain showed no acute intracranial findings or suspicion of intracranial metastatic disease. Chronic age-related findings. Leave confusion is secondary to underlying dementia with hospital-acquired delirium. * Pulmonology has been working on her noninvasive ventilation settings while here. Pulmonology recommends: Anoro Ellipta 62.5-25 at 1 puff q.day. Rescue albuterol 2 puffs q.4 hours p.r.n. shortness of breath or wheezing. If she goes to a facility that can manage noninvasive ventilation with an AVAPS mode she should be on: rate of 14, tidal volume 450, EPAP 5, minimal inspiratory pressure 6, maximal inspiratory pressure 25, inspiratory time 1.0, rise of 5 (slowest), 4 L bleed in. If she goes to a facility that can only administer BiPAP she should be on BiPAP rate of 16, inspiratory pressure 16, expiratory pressure 5 with 4 L bleed in. * Moderate size pericardial effusion. Chest CT from May represent the similar sized pericardial effusion also dated back to 03/12/2021 an echocardiogram as far as 07/2020 reveal small to moderate pericardial effusion. Repeat echo with moderate to large pericardial effusion. Cardiology consulted and did not recommend any pericardiocentesis. * Otherwise patient is doing well at this time o
[2021-10-18] MEDS: ACETAMINOPHEN 325 MG TABLET 650 MG PO (12:48)
--- NOTE | 2021-10-18 14:04 | PM.DS ---
DS: Admitting Diagnosis Discharge Date 10/20/21 Admitting Diagnosis pneumonia, COPD exacerbation DS: Discharge Diagnosis Discharge Diagnosis (1) Pneumonia: Qualifiers: Laterality: unspecified laterality Lung location: unspecified part of lung Pneumonia type: due to unspecified organism Qualified Code(s): J18.9 - Pneumonia, unspecified organism Code(s): J18.9 - Pneumonia, unspecified organism Status: Acute Assessment and Plan: Patient is a 60-year-old woman with a history of chronic respiratory failure with hypoxemia and hypercapnia, COPD/emphysema, tobacco dependence, megaloblastic anemia, congestive heart failure, small cell lung cancer who has undergone chemotherapy and radiation in sees Dr. Mendez, who presented to emergency room with worsening shortness of breath. Patient was admitted into the hospital with IV antibiotics for community-acquired pneumonia with Rocephin and azithromycin. Pulmonology was consulted who believed patient's respiratory failure was secondary to congestive heart failure possible anemia. Further workup was completed with a CT of her chest which showed Mild pulmonary edema, small bilateral pleural effusions and some associated atelectasis. Decrease in size of a previously 2.0 x 1.2 cm, now 9 x 7 mm nodules in the superior segment of the left lower lobe which could represent stress response to treatment of metastatic disease in this patient with known small cell lung cancer. Normal heart size with moderate-sized pericardial effusion. Due to the patient's pleural effusions she had a paracentesis on 10/06/2021, which showed clear yellow fluid, elevated neutrophils of 41%, and her albumin, LDH, glucose, amylase are all still pending. Cultures showed no growth of organisms and rare wbc's on smear. Venous Doppler showed no acute DVT. Pulmonology discontinued IV steroids. Patient was COVID PCR tested which was negative. Echocardiogram was completed which showed normal EF 65-70%, mild LVH, diastolic grade 1 dysfunction, moderate pulmonary hypertension, moderate to large pericardial effusion. Patient was started on a BiPAP at night and her fluids were discontinued. She was given IV Lasix 40 mg daily to help with diuresis. She was continued on a total of 7 days of Rocephin and 5 days of azithromycin IV. Patient then had episode of confusion and further workup was completed with a CTA of her chest which showed no PE, moderate size left and small right pleural effusions, moderate pericardial effusion, mild pulmonary edema. MRI brain showed no acute intracranial findings or suspicion of intracranial metastatic disease. Chronic age-related findings. Leave confusion is secondary to underlying dementia with hospital-acquired delirium. Pulmonology has been working on her noninvasive ventilation settings while here. Pulmonology recommends: Anoro Ellipta 62.5-25 at 1 puff q.day. Rescue albuterol 2 puffs q.4 hours p.r.n. shortness of breath or wheezing. If she goes to a facility that can manage noninvasive ventilation with an AVAPS mode she should be on: rate of 14, tidal volume 450, EPAP 5, minimal inspiratory pressure 6, maximal inspiratory pressure 25, inspiratory time 1.0, rise of 5 (slowest), 4 L bleed in. If she goes to a facility that can only administer BiPAP she should be on BiPAP rate of 16, inspiratory pressure 16, expiratory pressure 5 with 4 L bleed in. Moderate size pericardial effusion. Chest CT from May represent the similar sized pericardial effusion also dated back to 03/12/2021 an echocardiogram as far as 07/2020 reveal small to moderate pericardial effusion. Repeat echo with moderate to large pericardial effusion. Cardiology consulted and did not recommend any pericardiocentesis. Otherwise patient is doing well at this time on 2 L of oxygen. She is stable from pulmonology perspective to be discharged. We have set up her noninvasive ventilation and SNF placement. Stable for discharge to nursing
[2021-10-18 14:54] LABS: EDCOVIDSCREEN Negative (Negative)
[2021-10-18] MEDS: ATORVASTATIN 40 MG TABLET PO (21:45)
[2021-10-19] VITALS (7 sets, daily range): BP systolic 101–123; BP diastolic 52–62; PULSE 73–82; RESP 18–21; TEMP 36.6–36.8; O2SAT 93–100
[2021-10-19 06:07] LABS: Anion Gap 3 mmol/L (8-16); Blood Urea Nitrogen 20 mg/dL (7-17); Calcium 9.2 mg/dL (8.4-10.2); Carbon Dioxide 34 mmol/L (22-30); Chloride 91 mmol/L (98-107); Estimated Glomerular Filt Rate 35; Glucose 88 mg/dL (65-110); Potassium 4.6 mmol/L (3.4-5.0); Sodium 128 mmol/L (137-145)
[2021-10-19] MEDS: FERROUS SULFATE 324 MG TABLET PO ×2 (08:00→16:37)
[2021-10-19] MEDS: METOPROLOL SUCCINATE EXT REL 25 MG TABCR PO (08:00)
[2021-10-19] MEDS: ASPIRIN 81 MG CHEWABLE TABLET PO (08:00)
[2021-10-19] MEDS: ESCITALOPRAM OXALATE 10 MG TABLET PO (08:02)
[2021-10-19] MEDS: dilTIAZem HCL CD 180 MG CAP.ER.24H 360 MG PO (08:02)
[2021-10-19] MEDS: UMECLIDINIUM/VILANTEROL 62.5-25 MCG ELLIPTA 1 PUFF INHALATION (08:39)
[2021-10-19 10:44] LABS: Creatinine Urine 58.7 mg/dL
[2021-10-19 10:48] LABS: Potassium Urine Random 16.7 meq/L
[2021-10-19] MEDS: ATORVASTATIN 40 MG TABLET PO (20:14)
[2021-10-20 02:52] VITALS: PULSE 78; RESP 18; O2SAT 95
[2021-10-20 04:08] VITALS: BP 100/57; PULSE 72; RESP 20; TEMP 36.3; O2SAT 97
[2021-10-20 05:12] LABS: SARS-CoV-2 RNA PCR Negative
[2021-10-20 06:08] LABS: Anion Gap 2 mmol/L (8-16); Blood Urea Nitrogen 21 mg/dL (7-17); Calcium 8.9 mg/dL (8.4-10.2); Carbon Dioxide 37 mmol/L (22-30); Chloride 92 mmol/L (98-107); Estimated Glomerular Filt Rate 38; Glucose 88 mg/dL (65-110); Potassium 4.4 mmol/L (3.4-5.0); Sodium 131 mmol/L (137-145)
[2021-10-20] MEDS: ASPIRIN 81 MG CHEWABLE TABLET PO (08:18)
[2021-10-20] MEDS: dilTIAZem HCL CD 180 MG CAP.ER.24H 360 MG PO (08:19)
[2021-10-20] MEDS: CHOLECALCIFEROL 1,000 UNITS TABLET 5000 UNITS PO (08:19)
[2021-10-20] MEDS: FERROUS SULFATE 324 MG TABLET PO (08:19)
[2021-10-20 08:20] VITALS: PULSE 78
[2021-10-20] MEDS: METOPROLOL SUCCINATE EXT REL 25 MG TABCR PO (08:20)
[2021-10-20] MEDS: ESCITALOPRAM OXALATE 10 MG TABLET PO (08:20)
[2021-10-20 08:24] VITALS: BP 114/74; PULSE 78; O2SAT 98
[2021-10-20 13:39] VITALS: BP 107/56; PULSE 69; RESP 20; TEMP 36.2; O2SAT 100
[2021-10-21 19:00] LABS: Osmolality, Urine 238 mOsm/kg (50-1200)
== END 2021-10-20 17:14 | DRG 139 ==
LOC: ANHED 17:53 → ANH2MED 10-03 08:31 → ANHIMU 10-04 01:48 → ANH2MED 10-07 01:21
PROVIDERS: Internal Medicine; Internal Medicine Pulmonary Disease; Physician Assistant; Admitting Provider Family Medicine; Emergency Provider Emergency Medicine; PCP Internal Medicine Hematology & Oncology; Visit Provider Physician Assistant
DX: J18.9 Pneumonia, unspecified organism (principal); J43.9 Emphysema, unspecified; Z20.822 Contact with and (suspected) exposure to COVID-19; I13.0 Hypertensive heart and chronic kidney disease with heart failure and stage 1 through stage 4 chronic kidney disease, or unspecified chronic kidney disease; I50.9 Heart failure, unspecified; J96.21 Acute and chronic respiratory failure with hypoxia; J96.22 Acute and chronic respiratory failure with hypercapnia; N18.9 Chronic kidney disease, unspecified; D63.1 Anemia in chronic kidney disease; I31.3 Pericardial effusion (noninflammatory); C34.82 Malignant neoplasm of overlapping sites of left bronchus and lung; N17.9 Acute kidney failure, unspecified; R44.2 Other hallucinations; J81.1 Chronic pulmonary edema; E87.1 Hypo-osmolality and hyponatremia; D53.1 Other megaloblastic anemias, not elsewhere classified; Z87.891 Personal history of nicotine dependence
CPT/HCPCS: 32555; 36415; 36600; 70450; 70553; 71045; 71046; 71250; 71275; 80048; 80053; 80076; 82042; 82150; 82375; 82570; 82746; 82805; 82945; 83050; 83605; 83615; 83735; 83880; 83930; 83935; 83986; 84100; 84133; 84155; 84443; 84484; 85025; 85027; 85055; 85380; 85610; 85730; 86140; 87015; 87040; 87070; 87075; 87102; 87116; 87205; 87206; 87426; 87804; 88104; 88108; 88184; 88305; 89051; 93005; 93306; 93970; 94002; 94003; 94640; 94762; 96361; 96365; 96374; 96375; 96376; 97110; 97116; 97162; 97165; 97530; 99199; 99285; A9270; A9577; C9803; G0378; G0379; J0456; J0696; J1940; J2920; J2930; J7050; J7120; Q9967; U0003; U0005

== ENCOUNTER 2021-11-20 10:01 | Outpatient (CLI) | payer OTHER, SELFPAY ==
--- NOTE | ~2021-11-20 | XR_ITS ---
XR chest 2V DATE: 11/20/2021 10:20 INDICATION: Lung cancer, left pleural effusion TECHNIQUE: PA and lateral views COMPARISON: 10/11/2021 AP and lateral chest 10/05/2021 CT pulmonary scan FINDINGS: Globular enlarged cardiac silhouette is likely secondary to pericardial effusion, which was documented on 10/05/2021 CT chest examination. There is thoracic and abdominal aortic calcification. There is persistent left upper lobe infiltrate/atelectasis. There is patchy infiltrate in the left mid and lower lung zones. There is mild left pleural effusion, considerably diminished since 10/11/2021. No right pleural effusion. The right lung is clear of infilt rate or consolidation but hyperinflated. No pneumothorax. Right Port-A-Cath catheter tip overlies the right atrium. Diffuse osteopenia. There is dextroscoliosis of the thoracic spine. IMPRESSION: Globular enlarged cardiac silhouette likely due to persistent pericardial effusion, which was documented on 10/05/2021 CT pulmonary scan Left upper lobe infiltrate/atelectasis in the mid and lower left lung infiltrate Diminished left pleural effusion since 10/11/2021 Right Port-A-Cath Reviewed, dictated and finalized at location [facility]. [facility] [employer] IMPRESSION: Globular enlarged cardiac silhouette likely due to persistent peric ardial effusion, which was documented on 10/05/2021 CT pulmonary scan Left upper lobe infiltrate/atelectasis in the mid and lower left lung infiltrat e Diminished left pleural effusion since 10/11/2021 Right Port-A-Cath
== END 2021-11-20 10:02 | disposition home or self-care (01) ==
LOC: ANHIMG 10:05
PROVIDERS: PCP Internal Medicine Hematology & Oncology; Visit Provider Internal Medicine Pulmonary Disease
DX: C34.90 Malignant neoplasm of unspecified part of unspecified bronchus or lung (principal); R91.8 Other nonspecific abnormal finding of lung field
CPT/HCPCS: 71046

== ENCOUNTER 2022-01-24 09:49 | Outpatient (CLI) | payer OTHER, SELFPAY ==
--- NOTE | ~2022-01-24 | CT_ITS ---
EXAMINATION:CT diagnostic chest wo con DATE: 01/24/2022 10:10 INDICATION: Small cell lung cancer. TECHNIQUE: Computed tomography (CT) of the chest was performed without intravenous contrast. Automate d exposure control and iterative reconstruction technique were employed. The dose-length product (DLP ) was 121.55 mGy-cm. COMPARISON: Chest CT 10/05/2021 FINDINGS: There is diffuse smooth septal thickening in the lungs. There is mild emphysema. There are patchy airspace and groundglass opacities in right upper lobe. There are mild peripheral airspace and groundglass opacities in left upper lobe. There are airspace and groundglass opacities in left lower lobe with a perihilar predominance. There are mild peripheral airspace opacities in right middle lob e. A calcified right lung nodule and calcified right hilar and mediastinal lymph nodes are consistent with old granulomatous disease. There is a small left pleural effusion. The heart size is normal. Th ere are coronary artery calcifications. There is a large pericardial effusion. There is a right inter nal jugular port with tip in right atrium. There is confluent soft tissue attenuation in the mediasti num that measures 2.4 x 2.1 cm in the right paratracheal region, likely a combination of lymphadenopa thy and changes of radiation therapy. Calcifications at the ximena of the kidneys are likely at least p redominantly vascular. There is thoracic kyphosis and moderate spondylosis. IMPRESSION: 1. Worsened diffuse lung disease, likely a combination of radiation pneumonitis and pulmonary edema w ithout or with superimposed pneumonia. 2. Small left pleural effusion with improvement from 10/05/2021. 3. Large pericardial effusion, mildly worsened from 10/05/2021. 4. Stable confluent soft tissue attenuation in the mediastinum, likely a combination of lymphadenopat hy and changes of radiation therapy. Reviewed, dictated and finalized at location B. IMPRESSION: 1. Worsened diffuse lung disease, likely a combination of radiation pneumonitis and pulmonary edema without or with superimposed pneumonia. 2. Small left pleural effusion with improvement from 10/05/2021. 3. Large pericardial effusion, mildly worsened from 10/05/2021. 4. Stable confluent soft tissue attenuation in the mediastinum, likely a combin ation of lymphadenopathy and changes of radiation therapy.
== END 2022-01-24 09:50 | disposition home or self-care (01) ==
LOC: ANHIMG 09:53
PROVIDERS: PCP Internal Medicine Hematology & Oncology; Visit Provider Internal Medicine Hematology & Oncology
DX: C34.90 Malignant neoplasm of unspecified part of unspecified bronchus or lung (principal); J90 Pleural effusion, not elsewhere classified; I31.3 Pericardial effusion (noninflammatory); R91.8 Other nonspecific abnormal finding of lung field
CPT/HCPCS: 71250

== ENCOUNTER 2022-01-26 07:04 | Inpatient (IN) | payer OTHER, SELFPAY ==
[2022-01-26] VITALS (39 sets, daily range): BP systolic 95–134; BP diastolic 50–93; PULSE 92–131; RESP 12–37; TEMP 36.2–36.7; O2SAT 93–100; BMI 18.1
--- NOTE | ~2022-01-26 | CT_ITS ---
EXAMINATION: CTA chest PE protocol DATE: 01/26/2022 08:30 INDICATION: Shortness of breath. Pneumonia. COPD. Hypoxia and wheezing. TECHNIQUE: Computed tomography (CT) pulmonary angiogram of the chest was performed with 100 mL Omnipa que-350 intravenous contrast. Additional 3D reconstructions utilizing coronal maximum intensity proje ction (MIP) were performed. Automated exposure control and iterative reconstruction technique were em ployed. The dose-length product was 199.23 mGy-cm. COMPARISON: CT dated 01/24/2022 and 10/05/2021 FINDINGS: Good contrast opacification of the pulmonary arteries. There is mild streak artifact from dense contr ast in the superior vena cava and right atrium. Moderate scattered respiratory motion artifact most p rominent at the bilateral lower lung zones where it decreases sensitivity and specificity in the basi lar segmental and subsegmental pulmonary arteries. No pulmonary embolism. Small left and trace right pleural effusions. Patchy consolidation and septal line thickening in the right upper lobe suspicious for pneumonia. Differential would include asymmetric pulmonary edema. Additional consolidation with associated volume loss in the left lower lobe and lingula for which would favor atelectasis over pneu monia. Heart size is normal. Large pericardial effusion. Atherosclerotic coronary artery calcificatio ns. Thoracic aorta is normal in caliber with no dissection. Right internal jugular central venous por t catheter with distal tip in the right atrium. Calcified subcarinal lymph nodes consistent with old granulomatous disease. Persistent ill-defined soft tissue densities in the mediastinum surrounding th e region of the edna likely combination of lymphadenopathy and changes of radiation treatment. Mild upper thoracic dextrocurvature with moderate spondylosis. IMPRESSION: 1. No definitive pulmonary embolism. Sensitivity and specificity decreased primarily in the basilar s egmental and subsegmental pulmonary arteries due to respiratory motion. 2. Increasing airspace disease in the right upper lobe concerning for worsening pneumonia with differ ential including asymmetric pulmonary edema as can be seen with mitral regurgitation. 3. Interval decrease in a small left pleural effusion with associated atelectasis in the lingula and left lower lobe. 4. No significant change in a large pericardial effusion. 5. Stable confluent soft tissue density in the mediastinum likely combination of lymphadenopathy rela rocío to known small cell lung cancer and changes of radiation treatment. Reviewed, dictated and finalized at location A. IMPRESSION: 1. No definitive pulmonary embolism. Sensitivity and specificity decreased prim arily in the basilar segmental and subsegmental pulmonary arteries due to respi ratory motion. 2. Increasing airspace disease in the right upper lobe concerning for worsening pneumonia with differential including asymmetric pulmonary edema as can be see n with mitral regurgitation. 3. Interval decrease in a small left pleural effusion with associated atelectas is in the lingula and left lower lobe. 4. No significant change in a large pericardial effusion. 5. Stable confluent soft tissue density in the mediastinum likely combination o f lymphadenopathy related to known small cell lung cancer and changes of radiat ion treatment.
--- NOTE | ~2022-01-26 | XR_ITS ---
EXAMINATION: XR chest 1V portable DATE: 01/29/2022 09:30 INDICATION: Chronic obstructive pulmonary disease. TECHNIQUE: A single frontal view of the chest was obtained. COMPARISON: Chest single view 01/26/2022, chest CT 01/26/2022 FINDINGS: There is a diffuse interstitial pattern in the lungs. There are airspace opacities in right upper lobe and in left perihilar region and at left lung base. There is a small left pleural effusio n. There is elevation of left hemidiaphragm. No pneumothorax. There is enlargement of the cardiac kaylah houette. There is a right internal jugular port with tip in region. IMPRESSION: 1. Diffuse lung disease with mild improvement on the left, likely a combination of multifocal pneumon ia and mild pulmonary edema. 2. Stable small left pleural effusion. 3. Stable enlargement of the cardiac silhouette, likely secondary to pericardial effusion as seen on the prior CT. Reviewed, dictated and finalized at location A. IMPRESSION: 1. Diffuse lung disease with mild improvement on the left, likely a combination of multifocal pneumonia and mild pulmonary edema. 2. Stable small left pleural effusion. 3. Stable enlargement of the cardiac silhouette, likely secondary to pericardia l effusion as seen on the prior CT.
--- NOTE | ~2022-01-26 | XR_ITS ---
EXAMINATION: XR chest 1V portable INDICATION: Hypoxia TECHNIQUE: Portable AP chest at 1605 hours COMPARISON: 01/29/2022 FINDINGS: The cardiac silhouette remains enlarged. A mild diffuse interstitial pattern persists in th e lungs but has improved. A right internal jugular Port-A-Cath ends with its tip in the right atrium. Right upper lobe and left basilar airspace opacities persist but have improved. There is a small lef t pleural effusion, also decreased in size. No pneumothorax is identified. IMPRESSION: 1. Improving pulmonary edema. 2. Improving opacities of the right upper lobe and left lung base, consistent with resolving atelecta sis versus pneumonia. 3. Persistent enlargement of the cardiac silhouette, likely related to pericardial effusion. Reviewed, dictated and finalized at location F. IMPRESSION: 1. Improving pulmonary edema. 2. Improving opacities of the right upper lobe and left lung base, consistent w ith resolving atelectasis versus pneumonia. 3. Persistent enlargement of the cardiac silhouette, likely related to pericard ial effusion.
--- NOTE | ~2022-01-26 | XR_ITS ---
EXAMINATION: XR chest 1V portable INDICATION: Pneumonia, shortness of breath TECHNIQUE: Portable AP chest at 0744 hours COMPARISON: 02/01/2022 FINDINGS: A small left pleural effusion persists. Airspace opacities of the right upper lobe and left lung base persist but have improved. There is no pneumothorax. The cardiac silhouette remains enlarg ed. A right internal jugular Port-A-Cath ends with its tip in the right atrium. IMPRESSION: 1. Improving opacities of the right upper lobe and left lung base, consistent with atelectasis versus pneumonia. 2. Small left pleural effusion. 3. Persistent enlargement of the cardiac silhouette, likely related to pericardial effusion. Reviewed, dictated and finalized at location A. IMPRESSION: 1. Improving opacities of the right upper lobe and left lung base, consistent w ith atelectasis versus pneumonia. 2. Small left pleural effusion. 3. Persistent enlargement of the cardiac silhouette, likely related to pericard ial effusion.
--- NOTE | ~2022-01-26 | XR_ITS ---
EXAMINATION: XR chest 1V portable EXAM DATE: 01/26/2022 07:36 INDICATION: SOB TECHNIQUE: Portable AP frontal chest x-ray was obtained. Comparison is made to prior examination from 11/20/2021. FINDINGS: There is a right-sided portacatheter, line is intact. Moderately enlarged cardiac silhouette, rounded shape suggests pericardial effusion. There is progres pb in previously seen multi segmental left-sided airspace disease. There is interval development of right upper lobe multi segmental ill-defined airspace disease. Probable moderate left pleural effusi on with adjacent atelectasis. Underlying cancer not excludable. No pneumothorax. There are no osseous abnormalities identified. IMPRESSION: 1. Moderate amount of bilateral pneumonia or edema. 2. Moderate left pleural effusion, adjacent atelectasis. 3. Moderately enlarged cardiac silhouette, cardiomegaly and/or pericardial effusion. Reviewed, dictated and finalized at location A. IMPRESSION: 1. Moderate amount of bilateral pneumonia or edema. 2. Moderate left pleural effusion, adjacent atelectasis. 3. Moderately enlarged cardiac silhouette, cardiomegaly and/or pericardial eff usion.
--- NOTE | 2022-01-26 07:10 | PC.NURSE ---
at bedside to assess pt.
--- NOTE | 2022-01-26 07:16 | PC.NURSE ---
RT at bedside to obtain ABG.
--- NOTE | 2022-01-26 07:16 | ED.GENADULT ---
HPI - General Adult General Chief complaint: Shortness of Breath/Dyspnea Stated complaint: low O2 sat, difficulty breathing Source: patient, EMS, RN notes reviewed and old records reviewed Mode of arrival: EMS Limitations: no limitations History of Present Illness HPI narrative: 61-year-old female with history of COPD emphysema and lung cancer with a recent diagnosis of pneumonia on the presenting [facility] the emergency department [facility] for worsening shortness of breath today. Patient had been started on doxycycline. Patient had worsening shortness of breath today and EMS was called. Patient was hypoxic upon EMS arrival. Patient was treated with a breathing treatment and placed on 15 L by nonrebreather for transport. Patient was also given a breathing treatment Solu-Medrol and IV mag. Upon arrival to the emergency department patient was transitioned to nasal cannula for a brief period of time and had desaturation into the 70s while at rest. Patient denies any chest pain nausea or vomiting. Patient states she does have shortness of breath but states she does feel improved. Patient does have history of small cell cancer and is followed by Dr. Starks. Patient has seen Dr. Velez for pulmonology. Pulmonology note states that patient is on 2 L of oxygen at baseline. Related Data Home Medications Medication Instructions Recorded Confirmed aspirin 81 mg PO DAILY 09/07/20 01/26/22 atorvastatin 80 mg PO HS 09/07/20 01/26/22 cholecalciferol (vitamin D3) 125 mcg PO DAILY 09/07/20 01/26/22 [Vitamin D3] diltiazem HCl 360 mg PO DAILY 09/07/20 01/26/22 escitalopram oxalate 10 mg PO DAILY 09/07/20 01/26/22 mecobalamin (vitamin B12) 1,000 1,000 mcg SUBLINGUAL DAILY 02/01/21 01/26/22 mcg disintegrating tablet,sublingual pyridoxine (vitamin B6) 100 mg 100 mg PO BID tablet 02/01/21 01/26/22 tablet metoprolol succinate 25 mg 25 mg PO DAILY tablet 05/03/21 01/26/22 tablet,extended release 24 hr ferrous sulfate 325 mg (65 mg 325 mg PO BID tablet 09/11/21 01/26/22 iron) tablet levothyroxine 25 mcg capsule 25 mcg PO DAILY 11/20/21 01/26/22 Adult One Daily Multivitamin 1 tablet PO DAILY 01/26/22 01/26/22 acetaminophen 650 mg PO Q4H PRN 01/26/22 01/26/22 albuterol sulfate 2 inh INHALATION Q4H PRN 01/26/22 01/26/22 benzonatate [Tessalon Perles] 100 mg PO Q8H PRN 01/26/22 01/26/22 bisacodyl [Dulcolax (bisacodyl)] 10 mg RECTAL DAILY PRN 01/26/22 01/26/22 hydrocodone-acetaminophen 1 tablet PO Q8H PRN 01/26/22 01/26/22 ipratropium-albuterol 3 ml INHALATION Q6H PRN 01/26/22 01/26/22 magnesium hydroxide [Milk of 30 ml PO DAILY PRN 01/26/22 01/26/22 Magnesia] trazodone 25 mg PO HS PRN 01/26/22 01/26/22 Allergies Allergy/AdvReac Type Severity Reaction Status Date / Time No Known Allergies Allergy Verified 11/20/21 09:08 Review of Systems Review of Systems: CONSTITUTIONAL: Denies fever, chills, or sweats. EYES: Denies visual changes, redness, or discharge. ENT: Denies rhinorrhea, congestion, sore throat, or otalgia. CARDIOVASCULAR: Denies chest pain, palpitations, or edema. RESPIRATORY: Worsening cough and shortness of breath GASTROINTESTINAL: Denies abdominal pain, nausea, vomiting, or diarrhea. GENITOURINARY: Denies dysuria or hematuria. SKIN: Denies rash or itching. MUSCULOSKELETAL: Denies back pain, joint pain, or myalgia. NEUROLOGIC: Denies headache, numbness, or weakness. PSYCHIATRIC: Denies anxiety or depression. [facility] Past Medical History Medical History (Updated 01/26/22 @ 13:56 by Vicki Villalpando PA-C) Anemia in chronic illness Anxiety Chronic hyponatremia Chronic kidney disease Chronic obstructive pulmonary disease Chronic respiratory failure with hypoxia, on home oxygen therapy Deafness Depression Diastolic dysfunction EF 65 to 70%. Grade 1 diastolic dysfunction. Emphysema of lung Hypercholesterolemia Hypertension Hypothyroidism Pulmonary hypertension Moderate pulmonary hypertension on
[2022-01-26 07:24] LABS: Alveolar/Arterial O2 Gradient 328.5 mmHg; Base Excess ABG 8.5 mEq/l (+/-2.0); Fractional Inspired Oxygen 100 %; HCO3 ABG 35.8 mEq/l (22.0-26.0); Oxygen Content ABG 12.9 %vol (16.0-22.0); Oxygen Saturation ABG 99.7 % (95.0-100.0); Oxyhemoglobin 98.4 % THb (90.0-100.0); PO2 ABG 315.6 mmHg (80.0-100.0); PO2 FiO2 Ratio Arterial Blood 3.16 %; Total Hemoglobin 8.7 g/dL (12.0-18.0); pH ABG 7.334 (7.350-7.450)
[2022-01-26 07:26] LABS: Device NON-REBREATHER MASK; Modified Allen's Test Pass; PCO2 ABG 68.9 mmHg (35.0-45.0); Site Drawn RIGHT RADIAL
[2022-01-26] MEDS: ALBUTEROL SULFATE NEB 2.5 MG/0.5 ML INH 5 MG INHALATION ×3 (07:28→20:14)
[2022-01-26 07:29] LABS: Basophils Percent Auto 0.5 % (0.2-1.2); Eosinophils Absolute Auto 0.2 K/mm3 (0-0.3); Eosinophils Percent Auto 2.6 % (0-4.4); Hematocrit 25.3 % (37.0-47.0); Hemoglobin 7.8 g/dL (12.0-15.0); Immature Granulocyte Absolute 0.05 K/mm3 (0.00-0.031); Immature Granulocyte Percent A 0.6 % (0-0.5); Lymphocytes Absolute Auto 0.62 K/mm3 (0.9-3.2); Lymphocytes Percent Auto 7.2 % (18.3-44.2); Mean Corpuscular HGB Conc 30.8 g/dl (32-36); Mean Corpuscular Hemoglobin 31.3 pg (26-34); Mean Corpuscular Volume 101.6 fl (80-100); Monocytes Absolute Auto 1.1 K/mm3 (0.1-0.6); Monocytes Percent Auto 12.3 % (2.6-8.5); Neutrophils Absolute Auto 6.6 K/mm3 (1.3-6.7); Neutrophils Percent Auto 76.8 % (45.5-73.1); Platelet Count Result 250 k/mm3 (150-375); Red Blood Count 2.49 M/mm3 (4.2-5.4); White Blood Count 8.6 K/mm3 (4.5-10.0)
[2022-01-26 07:33] LABS: Alanine Aminotransferase 21 U/L (4-35); Albumin Level 3.2 g/dL (3.5-5.1); Alkaline Phosphatase 93 U/L (38-126); Aspartate Amino Transferase 49 U/L (14-36); Bilirubin,Total 0.4 mg/dL (0.2-1.3); Blood Urea Nitrogen 22 mg/dL (7-17); Calcium 8.6 mg/dL (8.4-10.2); Carbon Dioxide > 40 mmol/L (22-30); Chloride 77 mmol/L (98-107); Estimated CRCL calculation 31 ml/min; Estimated Glomerular Filt Rate 56; Glucose 123 mg/dL (65-110); Potassium 3.6 mmol/L (3.4-5.0); Sodium 123 mmol/L (137-145)
--- NOTE | 2022-01-26 07:40 | PC.NURSE ---
Patient placed on Bipap by RT. Nebulizer treatment initiated.
[2022-01-26 08:19] LABS: Influenza A QL RT-PCR Negative (Negative); Influenza B QL RT-PCR Negative (Negative); SARS-CoV-2 RNA PCR Negative
--- NOTE | 2022-01-26 08:34 | PC.NURSE ---
Patient returned to room from CT. RT notified to place patient back on Bipap.
--- NOTE | 2022-01-26 10:51 | ADMGEN ---
This patient, Stephanie Holt, was admitted to IMU Room 211-01 at unknown time since this RN and any other staff was not notified of patient's arrival to the floor. Report received from Juliette RODRÍGUEZ. Patient/family oriented to hospital policies and general routines including ID bracelet, bed and alarms, visiting hours, pain management, procedures, bathroom and other care routines, personal items, smoking policy, room service/diet, and visiting hours. Information on how to activate the Rapid Response Team has been discussed. Patient/Family are encouraged to report perceived risks to care and to ask questions if they do not understand what they are told or what they should do.
--- NOTE | 2022-01-26 13:00 | PM.IMHP ---
H&P: HPI History of Present Illness Date/Time: 01/26/22 13:00 Chief Complaint: Shortness of breath. Narrative: This is a 61-year-old female with COPD/emphysema, chronic respiratory failure, small cell lung cancer status post radiation and chemotherapy, anemia, hypothyroidism, and other comorbidities who presented to the emergency department via EMS [facility] a local [facility] for evaluation of shortness of breath. She was diagnosed with pneumonia on the at which time she was started on doxycycline. She has not improved since that time and endorses progressive dyspnea, nonproductive cough, and generalized malaise. She was extremely short of breath this morning and hypoxic on EMS arrival. She received a nebulizer and was placed on 15 L non-rebreather for transport. In route she was given IV magnesium as well as Solu-Medrol and upon arrival to the ED she was started on BiPAP. She has since been transferred to AVAPS mode as she uses a Trilogy at nighttime and she is resting comfortably at the time my evaluation. With the change in her settings, she seemed to perk up pretty quickly as when I had entered the room she was minimally responsive with noxious stimulation. When she was awake, she was noted to be alert and following commands and she expressed that she was feeling much better. She denied fever, chills, sweats, headache, chest pain, pleuritic pain, nausea, vomiting, and diarrhea. She also denied dysphagia and concerns for aspiration. No known sick contacts. Review of Systems Review of Systems: Twelve systems were reviewed and are negative except for as per HPI. [facility] Past Medical History Medical History (Updated 01/26/22 @ 23:23 by Vicki Villalpando PA-C) Anemia in chronic illness Anxiety Chronic hyponatremia Chronic kidney disease Chronic obstructive pulmonary disease Chronic respiratory failure with hypoxia, on home oxygen therapy Depression Diastolic dysfunction EF 65 to 70%. Grade 1 diastolic dysfunction. Emphysema of lung Hearing loss Hypercholesterolemia Hypertension Hypothyroidism Pulmonary hypertension Moderate pulmonary hypertension on echocardiogram in September 2021 with an estimated PA SP of 47 mmHg. Small cell lung cancer Limited stage small cell arising in the left hilar region diagnosed in 07/2020. Status post chemoradiotherapy and prophylactic cranial irradiation between 09/2020 and 01/2021. Local recurrence in 06/2021 status post salvage SBRT. Surgical History Surgical History History of section History of esophagogastroduodenoscopy Status post dilatation x2 for stricture. Family History Family History Father Cancer Social History Social History Social History: Surrogate decision maker: Priscilla and Peggy Holt, daughters. Code status: Full code. Smoking packs per day: 2 Smoking cigarettes per day: 40.0 Years smoked: 40 Smoking pack-years: 80.00 Smoking status: Former smoker Tobacco type: cigarettes Alcohol intake: former Alcohol use details: Socially Substance use: former Substance use type: marijuana and crack/cocaine Living arrangements: jail Spiritual care concerns: No Meds Home Medications and Allergies Home Medications Medication Instructions Recorded Confirmed Type aspirin 81 mg PO DAILY 09/07/20 01/26/22 History atorvastatin 80 mg PO HS 09/07/20 01/26/22 History cholecalciferol (vitamin D3) 125 mcg PO DAILY 09/07/20 01/26/22 History [Vitamin D3] diltiazem HCl 360 mg PO DAILY 09/07/20 01/26/22 History escitalopram oxalate 10 mg PO DAILY 09/07/20 01/26/22 History mecobalamin (vitamin B12) 1,000 1,000 mcg SUBLINGUAL DAILY 02/01/21 01/26/22 History mcg disintegrating tablet,sublingual pyridoxine (vitamin B6) 100 mg 100 mg PO BID tablet 02/01/21
[2022-01-26 13:52] LABS: Alveolar/Arterial O2 Gradient 274.1 mmHg; Base Excess ABG 14.1 mEq/l (+/-2.0); Carboxyhemoglobin 0.3 % THb (0-2.0); Fractional Inspired Oxygen 60 %; Methemoglobin ABG 0.4 %THb (0-1.5); Oxygen Content ABG 15.6 %vol (16.0-22.0); Oxygen Saturation ABG 94.2 % (95.0-100.0); Oxyhemoglobin 93.4 % THb (90.0-100.0); PO2 ABG 74.7 mmHg (80.0-100.0); PO2 FiO2 Ratio Arterial Blood 1.25 %; Reduced Hemoglobin 5.9 %THb (0-5.0); Total Hemoglobin 11.8 g/dL (12.0-18.0); pH ABG 7.385 (7.350-7.450)
[2022-01-26 13:54] LABS: Device NON-INVASIVE VENT; Modified Allen's Test Pass; PCO2 ABG 71.8 mmHg (35.0-45.0); Site Drawn RIGHT RADIAL
[2022-01-26 13:56] LABS: Non-Invasive Expiratory Pressure 8 CMH2O; Non-Invasive Inspiratory Pressure 14 CMH2O; Non-Invasive Vent Rate 16 /MIN
[2022-01-26 14:07] LABS: Hematocrit 30.2 % (37.0-47.0); Hemoglobin 9.5 g/dL (12.0-15.0)
[2022-01-26] MEDS: IPRATROPIUM BR 0.02% INH SOLN 0.5 MG/2.5 ML VIAL INHALATION ×2 (14:15→20:14)
[2022-01-26 14:27] LABS: Blood Urea Nitrogen 20 mg/dL (7-17); Calcium 9.3 mg/dL (8.4-10.2); Carbon Dioxide > 40 mmol/L (22-30); Chloride 77 mmol/L (98-107); Estimated Glomerular Filt Rate 56; Glucose 138 mg/dL (65-110); Potassium 4.4 mmol/L (3.4-5.0); Sodium 126 mmol/L (137-145)
[2022-01-26 14:33] LABS: Iron 27 ug/dL (37-170)
[2022-01-26 14:42] LABS: Percent Iron Saturation 14 % (20-50)
--- NOTE | 2022-01-26 14:52 | PM.CNPUL ---
Assessment and Plan Assessment and plan (1) Pneumonia: Qualifiers: Laterality: bilateral Lung location: unspecified part of lung Pneumonia type: due to unspecified organism Qualified Code(s): J18.9 - Pneumonia, unspecified organism Code(s): J18.9 - Pneumonia, unspecified organism Status: Acute Assessment and Plan: She has patchy infiltrates and a left pleural effusion with elevated left darcy-diaphragm. She is more alert now that we are changing her to AVAPS settings that are similar to her home settings; rate 5, tv 450, EPAP min 5, EPAP max 15, PS min 6, PS max 25, ramp 20 min, rise time 3. She had increased shortness of breath but did not have a productive cough or sputum. She has infiltrates on chest CT, this is sufficient to diagnose pneumonia in an altered host. I will check urine antigens for pneumococcus, Legionella, continue her current Rocephin and azithromycin as she has not been in the hospital since mid October, 3 months. She is not able to provide sputum at this point. (2) COPD exacerbation: Code(s): J44.1 - Chronic obstructive pulmonary disease with (acute) exacerbation Status: Acute Assessment and Plan: She has increased shortness of breath, however is not able to give any history as far as increased sputum or change in sputum. Her symptoms may be due to pneumonia but she does not really give symptoms for pneumonia. Infiltrates are seen on the chest CT. We will provide bronchodilator therapy, controller therapy for COPD, and after discharge, possible PFT and f/u in the office. (3) Acute on chronic respiratory failure with hypoxia and hypercapnia: Code(s): J96.21 - Acute and chronic respiratory failure with hypoxia; J96.22 - Acute and chronic respiratory failure with hypercapnia Status: Acute Assessment and Plan: She uses O2 at home 2 L/min in the day, not sure how much with exertion or with sleep. She had mild acute worsening of her hypercapnia, and is able to have her O2 weaned. She will probably not need changes in her home Trilogy settings if she responds to treatment for pneumonia, use of home AVAPS AE settings and treatment of COPD. (4) Small cell lung cancer: Code(s): C34.90 - Malignant neoplasm of unspecified part of unspecified bronchus or lung Status: Acute Assessment and Plan: She is treated by Dr Mendez, and he does not think that she is having any active problems due to this. She completed treatment in Nov 2020. This was in the left lung. (5) Hyponatremia: Code(s): E87.1 - Hypo-osmolality and hyponatremia Status: Acute Assessment and Plan: This is not a new problem, Na+ today is 126, was 123 on arrival today. Her sodium has usually been in the 130 range. Urine osmolality was ordered. I will add urine urea and urine chloride as well as urine Na+ to help with evaluation. She had a low using osmolality in Oct with an episode of hyponatremia. (6) Pulmonary hypertension: Code(s): I27.20 - Pulmonary hypertension, unspecified Status: Inactive Assessment and Plan: Her echo 10/04/2021 : Nl LV size and function, EF 65-70%. Mild increased LV thickness. Grade I diastolic dysfunction. Enlarged LA. Mild MR. Mild to moderate TR. Moderate pulmonary hypertension, estimated pulmonary arterial systolic pressure is 47 mmHg.Mild [place]. There is moderate to large pericardial effusion. Right atrial free wall invagination consistent with elevated pericardial pressures. The pericardium appears thickened pericardium. She has multiple reasons for pulmonary hypertension, COPD, hypoxemia on O2.
[2022-01-26 15:24] LABS: Folic Acid 5.8 ng/mL (2.76->20); Vitamin B12 > 1000.0 pg/mL (239-931)
[2022-01-26 16:14] LABS: Glucose Point of Care 149 mg/dl (65-105)
--- NOTE | 2022-01-26 16:17 | PDONCCN ---
HPI - Date of Consult Date/Time: 01/26/22 16:17 Requesting Physician: Mook Abdi MD Primary Care Provider: Jb Mendez MD - Consult Narrative Reason for consult: Small-cell lung cancer Narrative: Stephanie Holt is a 61 year old female who was diagnosed with limited stage small cell lung cancer status post chemotherapy with Carboplatinum and [employer] 16 completed in November 2020. She also had radiation therapy treatment to the left lower lobe in July 2021. She came into the hospital with worsening of shortness of breath and CTA chest was performed. CTA chest showed no evidence of pulmonary embolism. The was increasing airspace disease in the right upper lobe concerning for worsening of pneumonia. Decreased and small left-sided pleural effusion. No change in large pericardial effusion. Stable mediastinal lymphadenopathy. Labs showed hemoglobin of 7.8. She is currently on BiPAP. She remains short of breath and complaining of tiredness and fatigue. Denies any bleeding and bruising. Denies any fevers and chills. Continues to have shortness of breath and dyspnea on exertion. She is complaining of tiredness and fatigue. Review of Systems - Review of Systems All systems reviewed & are unremarkable except as noted in HPI and [facility] Medical History: Medical History (Last Reviewed 01/26/22 @ 16:15 by Erin Bailon MD) Anemia in chronic illness Anxiety Chronic hyponatremia Chronic kidney disease Chronic obstructive pulmonary disease Chronic respiratory failure with hypoxia, on home oxygen therapy Deafness Depression Diastolic dysfunction EF 65 to 70%. Grade 1 diastolic dysfunction. Emphysema of lung Hypercholesterolemia Hypertension Hypothyroidism Pulmonary hypertension Moderate pulmonary hypertension on echocardiogram in September 2021 with an estimated PA SP of 47 mmHg. Small cell lung cancer Limited stage small cell arising in the left hilar region diagnosed in 07/2020. Status post chemoradiotherapy and prophylactic cranial irradiation between 09/2020 and 01/2021. Local recurrence in 06/2021 status post salvage SBRT. Surgical History: Surgical History (Last Reviewed 01/26/22 @ 16:15 by Erin Bailon MD) History of section History of esophagogastroduodenoscopy Status post dilatation x2 for stricture. Family History: Family History (Last Reviewed 01/26/22 @ 16:16 by Erin Bailon MD) Father Cancer - Social History Social History: Social History (Last Reviewed 01/26/22 @ 16:16 by Erin Bailon MD) Alcohol Use: Alcohol intake: former Alcohol use details: Socially Substance Use: Substance use: former Substance use type: marijuana Substance use type: crack/cocaine Others: Spiritual care concerns: No Living Arrangements: Living arrangements: custodial Smoking Status: Smoking status: Former smoker Tobacco type: cigarettes Approximate Smoking End Date: 2018 Smoking Pack-years: Smoking packs per day: 2 Smoking cigarettes per day: 40.0 Years smoked: 40 Smoking pack-years: 80.00 Meds Home Medications Medication Instructions Recorded Confirmed Type aspirin 81 mg PO DAILY 09/07/20 01/26/22 History atorvastatin 80 mg PO HS 09/07/20 01/26/22 History cholecalciferol (vitamin D3) 125 mcg PO DAILY 09/07/20 01/26/22 History [Vitamin D3] diltiazem HCl 360 mg PO DAILY 09/07/20 01/26/22 History escitalopram oxalate 10 mg PO DAILY 09/07/20 01/26/22 History mecobalamin (vitamin B12) 1,000 1,000 mcg SUBLINGUAL DAILY 02/01/21 01/26/22 History mcg disintegrating tablet,sublingual pyridoxine (vitamin B6) 100 mg 100 mg PO BID tablet 02/01/21 01/26/22 History tablet metoprolol succinate 25 mg 25 mg PO DAILY tablet 05/03/21 01/26/22 History tablet,extended release 24 hr ferrous sulfate 325 mg (65 mg 325 mg PO BID tablet 09/11/21 01/26/22 History iron) tablet
[2022-01-26] MEDS: FERROUS SULFATE 324 MG TABLET PO (17:50)
[2022-01-26 18:14] LABS: Creatinine Urine 23.1 mg/dL
[2022-01-26 18:16] LABS: Sodium Urine Random 7 meq/L
[2022-01-26] MEDS: ACETAMINOPHEN 325 MG TABLET 650 MG PO (21:08)
[2022-01-26] MEDS: ATORVASTATIN 40 MG TABLET 80 MG PO (21:32)
[2022-01-26 23:23] LABS: Free T4 Free Thyroxine Reflex 1.63 ng/dL (0.78-2.19)
[2022-01-27] VITALS (26 sets, daily range): BP systolic 116–149; BP diastolic 53–76; PULSE 90–118; RESP 15–32; TEMP 36.1–36.6; O2SAT 87–98
[2022-01-27 00:12] LABS: Total Triiodothyronine (T3) 0.98 NG/ML (0.97-1.69)
[2022-01-27] MEDS: ALBUTEROL SULFATE NEB 2.5 MG/0.5 ML INH 5 MG INHALATION ×4 (01:47→20:27)
[2022-01-27] MEDS: IPRATROPIUM BR 0.02% INH SOLN 0.5 MG/2.5 ML VIAL INHALATION ×4 (01:47→20:27)
[2022-01-27] MEDS: ACETAMINOPHEN 325 MG TABLET 650 MG PO ×2 (02:47→11:14)
[2022-01-27 06:12] LABS: Hemoglobin 7.7 g/dL (12.0-15.0); Mean Corpuscular HGB Conc 32.1 g/dl (32-36); Mean Corpuscular Hemoglobin 31.4 pg (26-34); Mean Platelet Volume 8.9 fl (7.4-10.4); Platelet Count Result 248 k/mm3 (150-375); Red Blood Count 2.45 M/mm3 (4.2-5.4); Red Cell Distribution Width 13.1 % (11.5-14.5); White Blood Count 5.7 K/mm3 (4.5-10.0)
[2022-01-27] MEDS: LEVOTHYROXINE SODIUM 25 MCG TABLET PO (06:15)
[2022-01-27 07:05] LABS: Alanine Aminotransferase 23 U/L (4-35); Albumin Level 3.4 g/dL (3.5-5.1); Alkaline Phosphatase 91 U/L (38-126); Aspartate Amino Transferase 63 U/L (14-36); Bilirubin,Total 0.5 mg/dL (0.2-1.3); Blood Urea Nitrogen 28 mg/dL (7-17); Carbon Dioxide > 40 mmol/L (22-30); Chloride 81 mmol/L (98-107); Estimated Glomerular Filt Rate > 60; Glucose 108 mg/dL (65-110); Magnesium 2.1 mg/dL (1.6-2.3); Potassium 4.4 mmol/L (3.4-5.0); Sodium 127 mmol/L (137-145)
[2022-01-27] MEDS: ENOXAPARIN 40 MG/0.4 ML SYRINGE SUB-Q (08:45)
[2022-01-27] MEDS: METOPROLOL SUCCINATE EXT REL 25 MG TABCR PO (08:50)
[2022-01-27] MEDS: CYANOCOBALAMIN 1,000 MCG TABLET 1000 MCG PO (08:50)
[2022-01-27] MEDS: PYRIDOXINE HCL 50 MG TABLET 100 MG PO ×2 (08:50→18:11)
[2022-01-27] MEDS: FERROUS SULFATE 324 MG TABLET PO ×2 (08:51→18:12)
[2022-01-27] MEDS: CHOLECALCIFEROL 1,000 UNITS TABLET 5000 UNITS PO (08:51)
[2022-01-27] MEDS: ESCITALOPRAM OXALATE 10 MG TABLET PO (08:51)
[2022-01-27] MEDS: MULTIVITAMINS THERAPEUTIC TAB (*BKC) 1 TABLET PO (08:51)
[2022-01-27] MEDS: dilTIAZem HCL CD 180 MG CAP.ER.24H 360 MG PO (08:51)
[2022-01-27] MEDS: ASPIRIN 81 MG CHEWABLE TABLET PO (08:51)
--- NOTE | 2022-01-27 10:32 | PC.NURSE ---
Multiple complaints that patient feels the urge to urinate without the ability to void. Patient has been assisted to bedpan x4 without any output. Patient still complaining of need to urinate. Bladder scan used with result of 940 mls of urine residing in bladder at 1000 a.m.. Will update MD for further direction.
--- NOTE | 2022-01-27 15:00 | PM.IMPN ---
Progress Note: A&P Assessment and Plan (1) Acute on chronic respiratory failure with hypoxia and hypercapnia: Code(s): J96.21 - Acute and chronic respiratory failure with hypoxia; J96.22 - Acute and chronic respiratory failure with hypercapnia Status: Acute Assessment and Plan: She is on 2 L chronically and is on AVAPS at nighttime. ABG on admission showed mild, acute worsening of hypercapnia, and she was initially hypoxic but her O2 has been weaned. Dr. Bailon has been consulted and her recommendations are greatly appreciated. AVAPS and oxygen as ordered Add Pulmozyme Check BNP If elevated will intermittently does diuretic but no leg swelling noted (2) Pneumonia: Qualifiers: Laterality: bilateral Lung location: unspecified part of lung Pneumonia type: due to unspecified organism Qualified Code(s): J18.9 - Pneumonia, unspecified organism Code(s): J18.9 - Pneumonia, unspecified organism Status: Acute Assessment and Plan: She has infiltrates on her chest CT consistent with pneumonia though she has not really had a productive cough. She has been started on azithromycin and ceftriaxone. Sputum to be attempted for culture. Check urine antigens. WBC normal (3) COPD exacerbation: Code(s): J44.1 - Chronic obstructive pulmonary disease with (acute) exacerbation Status: Acute Assessment and Plan: No significant bronchospasm on exam. Continue scheduled bronchodilators. No indication for steroids at this time. She received a dose of steroid in the ER (4) Small cell lung cancer: Code(s): C34.90 - Malignant neoplasm of unspecified part of unspecified bronchus or lung Status: Acute Assessment and Plan: Patient of Dr. Mendez who has been consulted and his input is appreciated. Completed treatment November 2020 and radiation treatment in July 2021 (5) Pericardial effusion: Code(s): I31.3 - Pericardial effusion (noninflammatory) Status: Acute Assessment and Plan: A chronic problem felt to be related to malignancy. UBALDO pending Echo 09/26 EF 65%% grade 1 diastolic dysfunction moderately in jar large left atrial chamber [id number] TR moderate pulmonary hypertension moderate to large pericardial effusion with thickened pericardium Radiology was consulted last admission and did not recommend any pericardial synthesis (6) Hyponatremia: Code(s): E87.1 - Hypo-osmolality and hyponatremia Status: Acute Assessment and Plan: Chronic but running lower than her baseline. Euvolemic on exam. Serum and urine osmolalities as well as urine sodium, chloride, and urea also ordered and are pending. (7) Hypothyroidism: Code(s): E03.9 - Hypothyroidism, unspecified Status: Acute Assessment and Plan: Continue levothyroxine and stasis within normal limit (8) Anemia in chronic illness: Code(s): D63.8 - Anemia in other chronic diseases classified elsewhere Status: Acute Assessment and Plan: Stable on review of previous labs. Is down today he will continue to monitor no active bleeding (9) Hypertension: Code(s): I10 - Essential (primary) hypertension Status: Acute Assessment and Plan: Blood pressures were reviewed and they are stable. Subjective Date/time seen: 01/27/22 15:00 Interval history: HPI:This is a 61-year-old female with COPD/emphysema, chronic respiratory failure, small cell lung cancer status post radiation and chemotherapy, anemia, hypothyroidism, and other comorbidities who presented to the emergency department via [facility] a local [facility] for evaluation of shortness of breath. She was diagnosed with pneumonia on the at which time she was started on doxycycline. She has not improved since that time and endorses progressive dyspnea, nonproductive cough, and generalized malaise. She was extremely short of breath this morning and hypoxi
[2022-01-27 16:23] LABS: NT Pro B Type Natriuretic Pept 4740 pg/mL (5-100)
[2022-01-27] MEDS: DORNASE ALFA INH SOLN 1 MG/ML 2.5 ML AMP 2.5 MG INHALATION (20:27)
[2022-01-27] MEDS: ATORVASTATIN 40 MG TABLET 80 MG PO (20:50)
[2022-01-28] VITALS (25 sets, daily range): BP systolic 118–160; BP diastolic 53–73; PULSE 77–95; RESP 16–31; TEMP 36.1–36.5; O2SAT 90–99
[2022-01-28] MEDS: ALBUTEROL SULFATE NEB 2.5 MG/0.5 ML INH 5 MG INHALATION ×4 (01:55→21:00)
[2022-01-28] MEDS: IPRATROPIUM BR 0.02% INH SOLN 0.5 MG/2.5 ML VIAL INHALATION ×4 (01:55→21:00)
[2022-01-28 05:08] LABS: Basophils Percent Auto 0.1 % (0.2-1.2); Eosinophils Absolute Auto 0.1 K/mm3 (0-0.3); Eosinophils Percent Auto 0.7 % (0-4.4); Hematocrit 25.6 % (37.0-47.0); Hemoglobin 8.1 g/dL (12.0-15.0); Immature Granulocyte Absolute 0.04 K/mm3 (0.00-0.031); Immature Granulocyte Percent A 0.4 % (0-0.5); Lymphocytes Absolute Auto 0.28 K/mm3 (0.9-3.2); Lymphocytes Percent Auto 2.7 % (18.3-44.2); Mean Corpuscular HGB Conc 31.6 g/dl (32-36); Mean Corpuscular Hemoglobin 31.8 pg (26-34); Mean Corpuscular Volume 100.4 fl (80-100); Monocytes Percent Auto 9.2 % (2.6-8.5); Neutrophils Percent Auto 86.9 % (45.5-73.1); Platelet Count Result 274 k/mm3 (150-375); Red Blood Count 2.55 M/mm3 (4.2-5.4); Red Cell Distribution Width 13.2 % (11.5-14.5); White Blood Count 10.3 K/mm3 (4.5-10.0)
[2022-01-28 05:31] LABS: Alanine Aminotransferase 35 U/L (4-35); Albumin Level 3.1 g/dL (3.5-5.1); Alkaline Phosphatase 89 U/L (38-126); Aspartate Amino Transferase 65 U/L (14-36); Bilirubin,Total 0.4 mg/dL (0.2-1.3); Blood Urea Nitrogen 26 mg/dL (7-17); Calcium 8.8 mg/dL (8.4-10.2); Carbon Dioxide > 40 mmol/L (22-30); Chloride 81 mmol/L (98-107); Estimated Glomerular Filt Rate 56; Glucose 93 mg/dL (65-110); Magnesium 1.8 mg/dL (1.6-2.3); Potassium 3.6 mmol/L (3.4-5.0); Sodium 126 mmol/L (137-145)
[2022-01-28] MEDS: LEVOTHYROXINE SODIUM 25 MCG TABLET PO (06:42)
[2022-01-28] MEDS: ACETAMINOPHEN 325 MG TABLET 650 MG PO (06:42)
[2022-01-28] MEDS: DORNASE ALFA INH SOLN 1 MG/ML 2.5 ML AMP 2.5 MG INHALATION ×2 (08:00→21:00)
[2022-01-28] MEDS: PYRIDOXINE HCL 50 MG TABLET 100 MG PO ×2 (08:31→17:20)
[2022-01-28] MEDS: MULTIVITAMINS THERAPEUTIC TAB (*BKC) 1 TABLET PO (08:31)
[2022-01-28] MEDS: CYANOCOBALAMIN 1,000 MCG TABLET 1000 MCG PO (08:31)
[2022-01-28] MEDS: METOPROLOL SUCCINATE EXT REL 25 MG TABCR PO (08:31)
[2022-01-28] MEDS: ESCITALOPRAM OXALATE 10 MG TABLET PO (08:32)
[2022-01-28] MEDS: ENOXAPARIN 40 MG/0.4 ML SYRINGE SUB-Q (08:32)
[2022-01-28] MEDS: CHOLECALCIFEROL 1,000 UNITS TABLET 5000 UNITS PO (08:32)
[2022-01-28] MEDS: dilTIAZem HCL CD 180 MG CAP.ER.24H 360 MG PO (08:32)
[2022-01-28] MEDS: ASPIRIN 81 MG CHEWABLE TABLET PO (08:33)
[2022-01-28] MEDS: FERROUS SULFATE 324 MG TABLET PO ×2 (08:33→17:20)
--- NOTE | 2022-01-28 15:01 | PM.IMPN ---
Progress Note: A&P Assessment and Plan (1) Acute on chronic respiratory failure with hypoxia and hypercapnia: Code(s): J96.21 - Acute and chronic respiratory failure with hypoxia; J96.22 - Acute and chronic respiratory failure with hypercapnia Status: Acute Assessment and Plan: She is on 2 L chronically and is on AVAPS at nighttime. ABG on admission showed mild, acute worsening of hypercapnia, and she was initially hypoxic but her O2 has been weaned. Dr. Bailon has been consulted and her recommendations are greatly appreciated. AVAPS and oxygen as ordered Add Pulmozyme Check BNP which came back elevated. Will give a dose of Lasix today (2) Pneumonia: Qualifiers: Laterality: bilateral Lung location: unspecified part of lung Pneumonia type: due to unspecified organism Qualified Code(s): J18.9 - Pneumonia, unspecified organism Code(s): J18.9 - Pneumonia, unspecified organism Status: Acute Assessment and Plan: She has infiltrates on her chest CT consistent with pneumonia though she has not really had a productive cough. She has been started on azithromycin and ceftriaxone. Sputum to be attempted for culture. Check urine antigens. WBC normal (3) COPD exacerbation: Code(s): J44.1 - Chronic obstructive pulmonary disease with (acute) exacerbation Status: Acute Assessment and Plan: No significant bronchospasm on exam. Continue scheduled bronchodilators. No indication for steroids at this time. She received a dose of steroid in the ER (4) Small cell lung cancer: Code(s): C34.90 - Malignant neoplasm of unspecified part of unspecified bronchus or lung Status: Acute Assessment and Plan: Patient of Dr. Mendez who has been consulted and his input is appreciated. Completed treatment November 2020 and radiation treatment in July 2021 (5) Pericardial effusion: Code(s): I31.3 - Pericardial effusion (noninflammatory) Status: Acute Assessment and Plan: A chronic problem felt to be related to malignancy. UBALDO pending Echo 09/26 EF 65%% grade 1 diastolic dysfunction moderately in jar large left atrial chamber [id number] TR moderate pulmonary hypertension moderate to large pericardial effusion with thickened pericardium Radiology was consulted last admission and did not recommend any pericardial synthesis (6) Hyponatremia: Code(s): E87.1 - Hypo-osmolality and hyponatremia Status: Acute Assessment and Plan: Chronic but running lower than her baseline. Euvolemic on exam. Serum and urine osmolalities as well as urine sodium, chloride, and urea also ordered and are pending. (7) Hypothyroidism: Code(s): E03.9 - Hypothyroidism, unspecified Status: Acute Assessment and Plan: Continue levothyroxine and stasis within normal limit (8) Anemia in chronic illness: Code(s): D63.8 - Anemia in other chronic diseases classified elsewhere Status: Acute Assessment and Plan: Stable on review of previous labs. Is down today he will continue to monitor no active bleeding (9) Hypertension: Code(s): I10 - Essential (primary) hypertension Status: Acute Assessment and Plan: Blood pressures were reviewed and they are stable. Subjective Date/time seen: 01/28/22 15:01 Interval history: HPI:This is a 61-year-old female with COPD/emphysema, chronic respiratory failure, small cell lung cancer status post radiation and chemotherapy, anemia, hypothyroidism, and other comorbidities who presented to the emergency department via [facility] a local [facility] for evaluation of shortness of breath. She was diagnosed with pneumonia on the at which time she was started on doxycycline. She has not improved since that time and endorses progressive dyspnea, nonproductive cough, and generalized malaise. She was extremely short of breath this morning and hypoxic on EMS arr
[2022-01-28] MEDS: FUROSEMIDE INJ 40 MG/4 ML VIAL 20 MG IV PUSH (15:23)
[2022-01-28] MEDS: traMADol HCL (*CRX) 50 MG TABLET PO (15:24)
[2022-01-28] MEDS: ATORVASTATIN 40 MG TABLET 80 MG PO (20:02)
[2022-01-29] VITALS (21 sets, daily range): BP systolic 109–136; BP diastolic 49–71; PULSE 78–98; RESP 14–18; TEMP 36.5–36.6; O2SAT 92–99; BMI 16.5
[2022-01-29 00:27] LABS: Pneumococcal Antigen Urine Not Detected (Not Detected)
[2022-01-29] MEDS: ALBUTEROL SULFATE NEB 2.5 MG/0.5 ML INH 5 MG INHALATION ×2 (02:30→08:11)
[2022-01-29] MEDS: IPRATROPIUM BR 0.02% INH SOLN 0.5 MG/2.5 ML VIAL INHALATION ×2 (02:30→08:12)
[2022-01-29 06:28] LABS: Basophils Percent Auto 0.2 % (0.2-1.2); Eosinophils Absolute Auto 0.2 K/mm3 (0-0.3); Hematocrit 25.2 % (37.0-47.0); Hemoglobin 8.3 g/dL (12.0-15.0); Immature Granulocyte Absolute 0.06 K/mm3 (0.00-0.031); Immature Granulocyte Percent A 0.6 % (0-0.5); Lymphocytes Absolute Auto 0.25 K/mm3 (0.9-3.2); Lymphocytes Percent Auto 2.7 % (18.3-44.2); Mean Corpuscular HGB Conc 32.9 g/dl (32-36); Mean Corpuscular Hemoglobin 31.3 pg (26-34); Mean Corpuscular Volume 95.1 fl (80-100); Mean Platelet Volume 8.8 fl (7.4-10.4); Monocytes Absolute Auto 0.9 K/mm3 (0.1-0.6); Monocytes Percent Auto 9.3 % (2.6-8.5); Neutrophils Absolute Auto 7.9 K/mm3 (1.3-6.7); Neutrophils Percent Auto 85.2 % (45.5-73.1); Platelet Count Result 256 k/mm3 (150-375); Red Blood Count 2.65 M/mm3 (4.2-5.4); Red Cell Distribution Width 13.2 % (11.5-14.5); White Blood Count 9.3 K/mm3 (4.5-10.0)
[2022-01-29] MEDS: LEVOTHYROXINE SODIUM 25 MCG TABLET PO (06:41)
[2022-01-29 07:17] LABS: Alanine Aminotransferase 32 U/L (4-35); Albumin Level 3.2 g/dL (3.5-5.1); Alkaline Phosphatase 91 U/L (38-126); Aspartate Amino Transferase 52 U/L (14-36); Bilirubin,Total 0.3 mg/dL (0.2-1.3); Blood Urea Nitrogen 20 mg/dL (7-17); Calcium 8.9 mg/dL (8.4-10.2); Carbon Dioxide > 40 mmol/L (22-30); Chloride 77 mmol/L (98-107); Estimated Glomerular Filt Rate 56; Glucose 91 mg/dL (65-110); Magnesium 1.6 mg/dL (1.6-2.3); Potassium 3.8 mmol/L (3.4-5.0); Sodium 120 mmol/L (137-145)
[2022-01-29] MEDS: DORNASE ALFA INH SOLN 1 MG/ML 2.5 ML AMP 2.5 MG INHALATION (08:11)
[2022-01-29] MEDS: PYRIDOXINE HCL 50 MG TABLET 100 MG PO ×2 (08:26→16:39)
[2022-01-29] MEDS: SODIUM CHLORIDE 1 GM TABLET PO ×2 (08:26→16:39)
[2022-01-29] MEDS: MULTIVITAMINS THERAPEUTIC TAB (*BKC) 1 TABLET PO (08:27)
[2022-01-29] MEDS: METOPROLOL SUCCINATE EXT REL 25 MG TABCR PO (08:27)
[2022-01-29] MEDS: ESCITALOPRAM OXALATE 10 MG TABLET PO (08:28)
[2022-01-29] MEDS: dilTIAZem HCL CD 180 MG CAP.ER.24H 360 MG PO (08:28)
[2022-01-29] MEDS: CHOLECALCIFEROL 1,000 UNITS TABLET 5000 UNITS PO (08:28)
[2022-01-29] MEDS: ENOXAPARIN 40 MG/0.4 ML SYRINGE SUB-Q (08:28)
[2022-01-29] MEDS: CYANOCOBALAMIN 1,000 MCG TABLET 1000 MCG PO (08:28)
[2022-01-29] MEDS: FERROUS SULFATE 324 MG TABLET PO ×2 (08:29→16:39)
[2022-01-29] MEDS: ASPIRIN 81 MG CHEWABLE TABLET PO (08:30)
--- NOTE | 2022-01-29 12:22 | PM.PNPUL ---
Progress Note: A&P Assessment and Plan (1) Pneumonia: Qualifiers: Laterality: bilateral Lung location: unspecified part of lung Pneumonia type: due to unspecified organism Qualified Code(s): J18.9 - Pneumonia, unspecified organism Code(s): J18.9 - Pneumonia, unspecified organism Status: Acute Assessment and Plan: Patient with shortness of breath and worsening hypoxemic respiratory failure with new right upper lobe infiltrates after trial of outpatient doxycycline for presumed pneumonia. Her COVID RT PCR test is negative, influenza swab is negative, urine pneumococcal antigen is not detected. Patient is treated for a bacterial infection with ceftriaxone and azithromycin (started 01/26) and she has improved clinically. Her chest x-ray today shows improved left upper in perihilar infiltrate as well as minimally improved right upper lobe infiltrate. She is afebrile. She had no real change in her sputum production or color and no wheezing. I do not believe this is a concurrent COPD exacerbation. she was on Bevespi at home, I will discontinue her nebulizers albuterol and ipratropium and change her to the in-hospital Bevespi equivalent which is Anoro Ellipta. [facility]. (2) Acute on chronic respiratory failure with hypoxia and hypercapnia: Code(s): J96.21 - Acute and chronic respiratory failure with hypoxia; J96.22 - Acute and chronic respiratory failure with hypercapnia Status: Acute Assessment and Plan: patient with a history of chronic hypoxemic and hypercarbic respiratory failure on a home noninvasive ventilator with AVAPS-AE mode. She was doing well as an outpatient and I at her last office visit on 11/20/2021 she had good compliance. Download from 10/20/2021 through 10/28/2021. Patient is on noninvasive ventilator AVAPS AE mode. Breath rate is auto, tidal volume 450, EPAP minimum 5, EPAP maximum 15, pressure support minimum 6, pressure support maximum 25, ramp length 20 minutes, rise time 3. % of the days used greater than or equal to 4 hours was 66.7. Average usage days used was 4 hours and 59 minutes. Average EPAP 5-11, average IPAP 11-22, tidal volumes range from 430-620. Leak ranges from 5-98. Apnea count is listed is 0. Her [place] score today is 11. I encouraged her to use the machine more frequently and she was instructed to tighten her mask to help this leak. of note the patient states that the staff at [facility] does not always hook her up at night. I have attempted to obtain a more recent download From [facility]. We are waiting to hear back from them. (3) Pericardial effusion: Code(s): I31.3 - Pericardial effusion (noninflammatory) Status: Acute Assessment and Plan: Patient has a history of pericardial effusion. UBALDO is pending. Subjective Date/time seen: 01/29/22 12:22 Interval history: 01/26/22 Requesting physician: Vicki Villalpando PA-C Chief complaint: Pneumonia/COPD/hyponatremia/anemia Narrative: NEW CONSULT: Stephanie Holt is a 61 year old female admitted through the ER today with increased shortness of breath. She uses a Trilogy with AVAPS AE settings at her facility. Her home settings recorded at her office visit : Rate = 5 ( this is not breath rate; this is the speed at which the changes in flow occur, ranges from 1-5, 5 is fastest and usual setting )TV 450, EPAP minimum 5, EPAP maximum 15, pressure support minimum 6, pressure support maximum 25, ramp 25 minutes. Rise time 3. She has COPD, uses O2, small cell lung cancer which was treated in 2020, stable. She is not smoking. She had increase shortness of breath, CTA showed patchy bilateral infiltrates, a moderate right-sided effusion. See report and image below. She normally uses 2 L a minute, was hypoxemic on her arrival when EMS found her. She was placed on non-rebreather and given albuterol, Solu-Medrol and IV magnesiu
[2022-01-29 12:25] LABS: Sodium 119 mmol/L (137-145)
--- NOTE | 2022-01-29 12:41 | PM.IMPN ---
Progress Note: A&P Assessment and Plan (1) Acute on chronic respiratory failure with hypoxia and hypercapnia: Code(s): J96.21 - Acute and chronic respiratory failure with hypoxia; J96.22 - Acute and chronic respiratory failure with hypercapnia Status: Acute Assessment and Plan: She is on 2 L chronically and is on AVAPS at nighttime. ABG on admission showed mild, acute worsening of hypercapnia, and she was initially hypoxic but her O2 has been weaned. Dr. Bailon has been consulted and her recommendations are greatly appreciated. AVAPS and oxygen as ordered Add Pulmozyme Check BNP which came back elevated. Received a dose of Lasix 01/28/2022 (2) Pneumonia: Qualifiers: Laterality: bilateral Lung location: unspecified part of lung Pneumonia type: due to unspecified organism Qualified Code(s): J18.9 - Pneumonia, unspecified organism Code(s): J18.9 - Pneumonia, unspecified organism Status: Acute Assessment and Plan: She has infiltrates on her chest CT consistent with pneumonia though she has not really had a productive cough. She has been started on azithromycin and ceftriaxone. Sputum to be attempted for culture. Urine pneumococcal antigen negative Legionella pending. WBC normal (3) COPD exacerbation: Code(s): J44.1 - Chronic obstructive pulmonary disease with (acute) exacerbation Status: Acute Assessment and Plan: No significant bronchospasm on exam. Continue scheduled bronchodilators. No indication for steroids at this time. She received a dose of steroid in the ER (4) Small cell lung cancer: Code(s): C34.90 - Malignant neoplasm of unspecified part of unspecified bronchus or lung Status: Acute Assessment and Plan: Patient of Dr. Mendez who has been consulted and his input is appreciated. Completed treatment November 2020 and radiation treatment in July 2021 (5) Pericardial effusion: Code(s): I31.3 - Pericardial effusion (noninflammatory) Status: Acute Assessment and Plan: A chronic problem felt to be related to malignancy. UBALDO pending Echo 09/26 EF 65%% grade 1 diastolic dysfunction moderately in jar large left atrial chamber [id number] TR moderate pulmonary hypertension moderate to large pericardial effusion with thickened pericardium Radiology was consulted last admission and did not recommend any pericardial synthesis (6) Hyponatremia: Code(s): E87.1 - Hypo-osmolality and hyponatremia Status: Acute Assessment and Plan: Chronic but running lower than her baseline. Euvolemic on exam. Serum osmolality is low. Further urine studies ordered. Sodium level continues to decline. Will consult Nephrology. BNP is elevated and chest x-ray still shows possibility of mild pulmonary edema. May attempt 3% normal saline and monitor sodium level (7) Hypothyroidism: Code(s): E03.9 - Hypothyroidism, unspecified Status: Acute Assessment and Plan: Continue levothyroxine and stasis within normal limit (8) Anemia in chronic illness: Code(s): D63.8 - Anemia in other chronic diseases classified elsewhere Status: Acute Assessment and Plan: Stable on review of previous labs. Is down today he will continue to monitor no active bleeding (9) Hypertension: Code(s): I10 - Essential (primary) hypertension Status: Acute Assessment and Plan: Blood pressures were reviewed and they are stable. Subjective Date/time seen: 01/29/22 12:41 Interval history: HPI:This is a 61-year-old female with COPD/emphysema, chronic respiratory failure, small cell lung cancer status post radiation and chemotherapy, anemia, hypothyroidism, and other comorbidities who presented to the emergency department via EMS from a local care home for evaluation of shortness of breath. She was diagnosed with pneumonia on the at which time she was started on doxy
[2022-01-29 13:17] LABS: Creatinine Urine 47.9 mg/dL
[2022-01-29 13:25] LABS: Sodium Urine Random 9 meq/L
[2022-01-29 13:29] LABS: Urea Random Urine 336 MG/DL
[2022-01-29] MEDS: traMADol HCL (*CRX) 50 MG TABLET PO ×2 (13:44→19:45)
--- NOTE | 2022-01-29 15:08 | PM.CNNEP ---
Assessment and Plan Assessment and plan (1) Hyponatremia: Code(s): E87.1 - Hypo-osmolality and hyponatremia Status: Acute Assessment and Plan: acute on chronic -- has been present since at least 2019 multiple risk factors: severe lung disease/COPD lung cancer medications - SSRI + narcotics check cortisol, SPE, UPE, and follow-up on serum/urine osmolality urine sodium noted to be low suggestive of prerenal azotemia recently started on salt tabs given issues with pulmonary edema, consider adding low dose lasix follow trend of repeat sodium levels (2) Acute on chronic respiratory failure with hypoxia and hypercapnia: Code(s): J96.21 - Acute and chronic respiratory failure with hypoxia; J96.22 - Acute and chronic respiratory failure with hypercapnia Status: Acute Assessment and Plan: due to known lung disease/COPD worsened by acute pneumonia Pulmonary following with recommendations noted continue supportive therapy (3) Pneumonia: Qualifiers: Laterality: bilateral Lung location: unspecified part of lung Pneumonia type: due to unspecified organism Qualified Code(s): J18.9 - Pneumonia, unspecified organism Code(s): J18.9 - Pneumonia, unspecified organism Status: Acute Assessment and Plan: as noted by imaging studies to date continue current therapy Will continue to follow. History of Present Illness Reason for Consult Consult date: 01/29/22 Reason for consult: hyponatremia Chief Complaint Chief complaint: Pneumonia/COPD/hyponatremia/anemia History of Present Illness Narrative: The patient is a 61-year-old female with extensive past medical history as outlined below who presented to [facility] Emergency room via EMS for evaluation of shortness of breath. The patient resides in a retirement and was apparently diagnosed with pneumonia about a week ago. She was started on doxycycline at that time but since then, has not really improved in terms of her shortness of breath. She reports worsening shortness of breath in association with a nonproductive cough and generalized fatigue. On the morning of admission, she was extremely short of breath that resulted in calling EMS for evaluation. She was found to be hypoxic by EMS and she was given nebulizer treatment and subsequently placed on a non-rebreather mask for oxygen support during transport to the ER. Workup and evaluation in the emergency room demonstrated the patient to be quite short of breath and hypoxic. EMS had apparently given her IV magnesium as well as Solu-Medrol while she was in route to the ER. on arrival to the emergency room, she was switched over to BiPAP and subsequently then over to AVAPS which did improve her respiratory status. She clinically improved and the patient confirmed this on questioning. She gave no other systemic complaints with regard to fevers, chills, nausea, vomiting, night sweats, chest pain, palpitations, or syncope. Routine blood tests were significant for hyponatremia was well as an elevated CO2 level and imaging studies including a chest x-ray as well as a CT scan of the chest were concerning for possible pneumonia, mild congestion, and her known history of lung cancer. Appropriate cultures were obtained and the placed was started on IV ceftriaxone and azithromycin for the presumed pneumonia and subsequent admitted to the hospital for further therapy. Since her admission, her sodium level is not really significantly improved and dropped to 120mmol/L by a.m. labs today With subsequent testing showing her sodium level down to 119mmol/L. In spite of this change in her sodium level, her neurological/mental status has remained relatively stable and she does not appear to be any acute distress. Renal consultation was requested due to her hyponatremia. Review of the patient's records indicate that she has had some degree of chronic hyponatremia since
[2022-01-29 16:47] LABS: Sodium 119 mmol/L (137-145)
[2022-01-29 20:05] LABS: Creatinine Urine 73.2 mg/dL
[2022-01-29] MEDS: ATORVASTATIN 40 MG TABLET 80 MG PO (20:22)
[2022-01-29 20:51] LABS: Sodium 119 mmol/L (137-145)
[2022-01-29 21:02] LABS: Pneumococcal Antigen Urine Not Detected (Not Detected)
[2022-01-30] VITALS (7 sets, daily range): BP systolic 110–111; BP diastolic 61–65; PULSE 76–84; RESP 15–20; TEMP 36.4–36.8; O2SAT 90–98
[2022-01-30 00:51] LABS: Sodium 118 mmol/L (137-145)
[2022-01-30 04:13] LABS: Legionella pneumophila Ag Ur Not Detected (Not Detected)
[2022-01-30 04:16] LABS: Legionella pneumophila Ag Ur Not Detected (Not Detected)
[2022-01-30] MEDS: LEVOTHYROXINE SODIUM 25 MCG TABLET PO (05:45)
[2022-01-30 06:29] LABS: Sodium 119 mmol/L (137-145)
[2022-01-30 07:41] LABS: Free T4 Free Thyroxine Reflex 1.34 ng/dL (0.78-2.19)
[2022-01-30] MEDS: CHOLECALCIFEROL 1,000 UNITS TABLET 5000 UNITS PO (08:17)
[2022-01-30] MEDS: SODIUM CHLORIDE 1 GM TABLET PO ×2 (08:18→16:44)
[2022-01-30] MEDS: ESCITALOPRAM OXALATE 10 MG TABLET PO (08:18)
[2022-01-30] MEDS: CYANOCOBALAMIN 1,000 MCG TABLET 1000 MCG PO (08:18)
[2022-01-30] MEDS: FERROUS SULFATE 324 MG TABLET PO ×2 (08:18→16:44)
[2022-01-30] MEDS: PYRIDOXINE HCL 50 MG TABLET 100 MG PO ×2 (08:18→16:45)
[2022-01-30] MEDS: METOPROLOL SUCCINATE EXT REL 25 MG TABCR PO (08:18)
[2022-01-30] MEDS: MULTIVITAMINS THERAPEUTIC TAB (*BKC) 1 TABLET PO (08:18)
[2022-01-30] MEDS: dilTIAZem HCL CD 180 MG CAP.ER.24H 360 MG PO (08:18)
[2022-01-30] MEDS: ENOXAPARIN 40 MG/0.4 ML SYRINGE SUB-Q (08:19)
[2022-01-30] MEDS: SODIUM CHLORIDE 0.9% IV 250 ML 20 ML (08:22)
[2022-01-30] MEDS: ASPIRIN 81 MG CHEWABLE TABLET PO (08:30)
[2022-01-30 09:09] LABS: Total Triiodothyronine (T3) 0.87 NG/ML (0.97-1.69)
[2022-01-30] MEDS: UMECLIDINIUM/VILANTEROL 62.5-25 MCG ELLIPTA 1 PUFF INHALATION (09:17)
[2022-01-30] MEDS: FUROSEMIDE 10 MG TABLET PO ×2 (09:32→16:44)
[2022-01-30 10:01] LABS: Sodium 119 mmol/L (137-145)
--- NOTE | 2022-01-30 10:18 | PM.PNNEP ---
Progress Note: A&P Assessment and Plan (1) Hyponatremia: Code(s): E87.1 - Hypo-osmolality and hyponatremia Status: Acute Assessment and Plan: acute on chronic -- has been present since at least 2019 multiple risk factors: severe lung disease/COPD lung cancer medications - SSRI + narcotics cortisol okay;follow-up on serum/urine osmolality, SPE, UPE urine sodium noted to be low suggestive of prerenal azotemia recently started on salt tabs given issues with pulmonary edema, have added low dose lasix follow trend of repeat sodium levels (2) Acute on chronic respiratory failure with hypoxia and hypercapnia: Code(s): J96.21 - Acute and chronic respiratory failure with hypoxia; J96.22 - Acute and chronic respiratory failure with hypercapnia Status: Acute Assessment and Plan: due to known lung disease/COPD worsened by acute pneumonia Pulmonary following with recommendations noted continue supportive therapy (3) Pneumonia: Qualifiers: Laterality: bilateral Lung location: unspecified part of lung Pneumonia type: due to unspecified organism Qualified Code(s): J18.9 - Pneumonia, unspecified organism Code(s): J18.9 - Pneumonia, unspecified organism Status: Acute Assessment and Plan: as noted by imaging studies to date continue current therapy Will continue to follow. Subjective Date/time seen: 01/30/22 10:18 Respiratory status/breathing appears to be slowly improving if not close to baseline; sodium remains low but stable by serial labs; no other acute issues/events at this time. Exam Narrative: General: Elderly female in NAD Heart: normal S1 and S2; no rub Lungs: coarse breath sounds noted Abdomen: soft, nontender, nondistended, positive bowel sounds Extremities: no cyanosis or clubbing; no edema Skin: warm and dry Objective Data Vital Signs Vital Signs: Vital Signs Temp Pulse Resp BP Pulse Ox 01/30/22 09:18 93 01/30/22 06:21 36.4 C 83 20 110/65 90 01/30/22 04:48 84 15 97 01/29/22 23:14 87 16 97 01/29/22 20:49 36.5 C 84 18 117/63 97 01/29/22 20:10 93 01/29/22 20:00 81 18 97 01/29/22 14:51 36.6 C 81 18 120/49 L 97 01/29/22 14:03 92 01/29/22 12:00 78 Intake/Output Intake/Output: Intake & Output 01/27/22 01/28/22 01/29/22 01/30/22 23:59 23:59 23:59 23:59 Intake Total 3609 721 3586 550 Output Total 1350 1675 1050 400 Balance 340 -935 250 150 Meds/Results Medications: Active Medications Generic Name Dose Route Start Last Admin Trade Name Freq PRN Reason Stop Dose Admin Acetaminophen 650 mg 01/26/22 20:17 01/28/22 06:42 Acetaminophen 325 Mg Tablet PO 650 mg Q6H PRN Administration Mild Pain (1-3) or Fever Albuterol 2 puff 01/26/22 20:49 Albuterol Sulfate (*Sp) Aerosol 1 Puff INHALATION Q4H PRN Shortness Of Breath Aspirin 81 mg 01/27/22 09:00 01/30/22 08:30 Aspirin 81 Mg Chewable Tablet PO 81 mg DAILY ALONA Administration Atorvastatin Calcium 80 mg 01/26/22 21:00 01/29/22 20:22 Atorvastatin 40 Mg Tablet PO 80 mg HS ALONA Administration Cyanocobalamin 1,000 mcg 01/27/22 09:00 01/30/22 08:18 Cyanocobalamin 1,000 Mcg Tablet PO 1,000 mcg DAILY ALONA Administration Diltiazem HCl 360 mg 01/27/22 09:00 01/30/22 08:18 Diltiazem Hcl Cd 180 Mg Cap.Er.24h PO 360 mg DAILY ALONA Administration Enoxaparin Sodium 40 mg 01/27/22 09:00 01/30/22 08:19 Enoxaparin 40 Mg/0.4 Ml Syringe SUB-Q 40 mg DAILY ALONA Administration Escitalopram Oxalate 10 mg 01/27/22 09:00 01/30/22 08:18 Escitalopram Oxalate 10 Mg Tablet PO 10 mg DAILY ALONA Administration Ferrous Sulfate 324 mg 01/26/22 17:00 01/30/22 08:18 Ferrous Sulfate 324 Mg Tablet PO 324 mg BIDWM ALONA Administration Furosemide 10 mg 01/30/22 09:05 01/30/22 09:32 Furosemide 10 Mg Tablet PO 10 mg B
--- NOTE | 2022-01-30 10:36 | PM.PNPUL ---
Progress Note: A&P Assessment and Plan (1) Pneumonia: Qualifiers: Laterality: bilateral Lung location: unspecified part of lung Pneumonia type: due to unspecified organism Qualified Code(s): J18.9 - Pneumonia, unspecified organism Code(s): J18.9 - Pneumonia, unspecified organism Status: Acute Assessment and Plan: 01/29 Patient with shortness of breath and worsening hypoxemic respiratory failure with new right upper lobe infiltrates after trial of outpatient doxycycline for presumed pneumonia. Her COVID RT PCR test is negative, influenza swab is negative, urine pneumococcal antigen is not detected. Patient is treated for a bacterial infection with ceftriaxone and azithromycin (started 01/26) and she has improved clinically. Her chest x-ray today shows improved left upper in perihilar infiltrate as well as minimally improved right upper lobe infiltrate. She is afebrile. She had no real change in her sputum production or color and no wheezing. I do not believe this is a concurrent COPD exacerbation. she was on Bevespi at home, I will discontinue her nebulizers albuterol and ipratropium and change her to the in-hospital Bevespi equivalent which is Anoro Ellipta. her plans are to return to [facility]. 01/30 Patient is doing well from a pulmonary perspective. I will continue ceftriaxone and azithromycin, today is day 5. She is afebrile and has no sputum production. She states she is very close to her baseline. She is on 3 L nasal cannula with saturations 93%. she denies cough or phlegm production. Continue IV antibiotics while she is in house. She wore the hospital noninvasive ventilator with AVAPS mode last night and did well. she is afebrile. She has no wheezes on anoro ellipta. She remains hyponatremic, nephrology is following. From a pulmonary perspective patient is suitable for discharge on these pulmonary medicines. Levaquin 750 MG PO Q day to complete [facility] [place] [facility] Bevespi 9/4.8 at 2 puffs BID Rescue albuterol 2 puffs Q 4 hours p.r.n. shortness of breath or wheezing Rescue DuoNebs q.4 hours p.r.n. shortness of breath or wheezing When she sleeps AVAPS AE mode. Breath rate is auto, tidal volume 450, EPAP minimum 5, EPAP maximum 15, pressure support minimum 6, pressure support maximum 25, ramp length 20 minutes, rise time 3. Administred through [employer]. Daytime oxygen administered per [facility] guidelines, currently she requires 3 L at rest. (2) Acute on chronic respiratory failure with hypoxia and hypercapnia: Code(s): J96.21 - Acute and chronic respiratory failure with hypoxia; J96.22 - Acute and chronic respiratory failure with hypercapnia Status: Acute Assessment and Plan: patient with a history of chronic hypoxemic and hypercarbic respiratory failure on a home noninvasive ventilator with AVAPS-AE mode. She was doing well as an outpatient and I at her last office visit on 11/20/2021 she had good compliance. Download from 10/20/2021 through 10/28/2021. Patient is on noninvasive ventilator AVAPS AE mode. Breath rate is auto, tidal volume 450, EPAP minimum 5, EPAP maximum 15, pressure support minimum 6, pressure support maximum 25, ramp length 20 minutes, rise time 3. % of the days used greater than or equal to 4 hours was 66.7. Average usage days used was 4 hours and 59 minutes. Average EPAP 5-11, average IPAP 11-22, tidal volumes range from 430-620. Leak ranges from 5-98. Apnea count is listed is 0. Her [place] score today is 11. I encouraged her to use the machine more frequently and she was instructed to tighten her mask to help this leak. of note the patient states that the staff at [facility] does not always hook her up at night. I have attempted to obtain a more recent download from [employer]. We are waiting to hear back from them. (3) Pericardial effusion: Code(s): I31.3 - Pericardial effusion (noninf
[2022-01-30] MEDS: traMADol HCL (*CRX) 50 MG TABLET PO ×2 (12:21→20:11)
--- NOTE | 2022-01-30 16:02 | PM.IMPN ---
Progress Note: A&P Assessment and Plan (1) Acute on chronic respiratory failure with hypoxia and hypercapnia: Code(s): J96.21 - Acute and chronic respiratory failure with hypoxia; J96.22 - Acute and chronic respiratory failure with hypercapnia Status: Acute Assessment and Plan: She is on 2 L chronically and is on AVAPS at nighttime. ABG on admission showed mild, acute worsening of hypercapnia, and she was initially hypoxic but her O2 has been weaned. Dr. Bailon has been consulted and her recommendations are greatly appreciated. AVAPS and oxygen as ordered Add Pulmozyme Check BNP which came back elevated. Received a dose of Lasix 01/28/2022 (2) Pneumonia: Qualifiers: Laterality: bilateral Lung location: unspecified part of lung Pneumonia type: due to unspecified organism Qualified Code(s): J18.9 - Pneumonia, unspecified organism Code(s): J18.9 - Pneumonia, unspecified organism Status: Acute Assessment and Plan: She has infiltrates on her chest CT consistent with pneumonia though she has not really had a productive cough. She has been started on azithromycin and ceftriaxone. Sputum to be attempted for culture. Urine pneumococcal antigen negative Legionella pending. WBC normal (3) COPD exacerbation: Code(s): J44.1 - Chronic obstructive pulmonary disease with (acute) exacerbation Status: Acute Assessment and Plan: No significant bronchospasm on exam. Continue scheduled bronchodilators. No indication for steroids at this time. She received a dose of steroid in the ER, no further steroid (4) Small cell lung cancer: Code(s): C34.90 - Malignant neoplasm of unspecified part of unspecified bronchus or lung Status: Acute Assessment and Plan: Patient of Dr. Mendez who has been consulted and his input is appreciated. Completed treatment November 2020 and radiation treatment in July 2021 (5) Pericardial effusion: Code(s): I31.3 - Pericardial effusion (noninflammatory) Status: Acute Assessment and Plan: A chronic problem felt to be related to malignancy. UBALDO pending Echo 09/26 EF 65%% grade 1 diastolic dysfunction moderately in jar large left atrial chamber [id number] TR moderate pulmonary hypertension moderate to large pericardial effusion with thickened pericardium Radiology was consulted last admission and did not recommend any pericardial synthesis (6) Hyponatremia: Code(s): E87.1 - Hypo-osmolality and hyponatremia Status: Acute Assessment and Plan: Chronic but running lower than her baseline. Euvolemic on exam. Serum osmolality is low. Further urine studies ordered. Sodium level continues to decline. Consulted Nephrology. BNP is elevated and chest x-ray still shows possibility of mild pulmonary edema. May attempt 3% normal saline and monitor sodium level Urine sodium low suggestive of prerenal Low-dose Lasix added per nephrology Await improvement in sodium level before plan for discharge (7) Hypothyroidism: Code(s): E03.9 - Hypothyroidism, unspecified Status: Acute Assessment and Plan: Continue levothyroxine and stasis within normal limit (8) Anemia in chronic illness: Code(s): D63.8 - Anemia in other chronic diseases classified elsewhere Status: Acute Assessment and Plan: Stable on review of previous labs. continue to monitor no active bleeding (9) Hypertension: Code(s): I10 - Essential (primary) hypertension Status: Acute Assessment and Plan: Blood pressures were reviewed and they are stable. Subjective Date/time seen: 01/30/22 16:02 Interval history: HPI:This is a 61-year-old female with COPD/emphysema, chronic respiratory failure, small cell lung cancer status post radiation and chemotherapy, anemia, hypothyroidism, and other comorbidities who presented to the emergency department via EMS from a local
[2022-01-30 17:23] LABS: Chloride Rand Ur <20 mmol/L (32-290); Creatinine Random Urine 23 mg/dL (20-275)
[2022-01-30] MEDS: ATORVASTATIN 40 MG TABLET 80 MG PO (20:09)
[2022-01-30 21:59] LABS: Sodium 118 mmol/L (137-145)
[2022-01-31] VITALS (9 sets, daily range): BP systolic 106–117; BP diastolic 48–60; PULSE 69–80; RESP 15–18; TEMP 36.6; O2SAT 90–98
[2022-01-31 05:47] LABS: Basophils Percent Auto 0.5 % (0.2-1.2); Eosinophils Absolute Auto 0.5 K/mm3 (0-0.3); Eosinophils Percent Auto 5.9 % (0-4.4); Hematocrit 24.7 % (37.0-47.0); Hemoglobin 7.6 g/dL (12.0-15.0); Immature Granulocyte Absolute 0.05 K/mm3 (0.00-0.031); Immature Granulocyte Percent A 0.6 % (0-0.5); Lymphocytes Absolute Auto 0.23 K/mm3 (0.9-3.2); Lymphocytes Percent Auto 2.9 % (18.3-44.2); Mean Corpuscular HGB Conc 30.8 g/dl (32-36); Mean Corpuscular Hemoglobin 30.8 pg (26-34); Mean Platelet Volume 9.3 fl (7.4-10.4); Monocytes Percent Auto 12.4 % (2.6-8.5); Neutrophils Absolute Auto 6.1 K/mm3 (1.3-6.7); Neutrophils Percent Auto 77.7 % (45.5-73.1); Platelet Count Result 235 k/mm3 (150-375); Red Blood Count 2.47 M/mm3 (4.2-5.4); Red Cell Distribution Width 13.1 % (11.5-14.5); White Blood Count 7.8 K/mm3 (4.5-10.0)
[2022-01-31 06:00] LABS: Alanine Aminotransferase 39 U/L (4-35); Alkaline Phosphatase 82 U/L (38-126); Anion Gap 4 mmol/L (8-16); Aspartate Amino Transferase 56 U/L (14-36); Bilirubin,Total 0.3 mg/dL (0.2-1.3); Blood Urea Nitrogen 24 mg/dL (7-17); Calcium 9.1 mg/dL (8.4-10.2); Carbon Dioxide 39 mmol/L (22-30); Chloride 78 mmol/L (98-107); Estimated Glomerular Filt Rate 46; Glucose 81 mg/dL (65-110); Magnesium 1.5 mg/dL (1.6-2.3); Potassium 4.6 mmol/L (3.4-5.0); Sodium 121 mmol/L (137-145)
[2022-01-31] MEDS: LEVOTHYROXINE SODIUM 25 MCG TABLET PO (06:09)
[2022-01-31 06:16] LABS: Anisocytosis 1+ (NORMAL); Hypochromasia 2+ (NORMAL); Platelet Estimate Adequate (Adequate)
--- NOTE | 2022-01-31 08:42 | PM.PNPUL ---
Progress Note: A&P Assessment and Plan (1) Pneumonia: Qualifiers: Laterality: bilateral Lung location: unspecified part of lung Pneumonia type: due to unspecified organism Qualified Code(s): J18.9 - Pneumonia, unspecified organism Code(s): J18.9 - Pneumonia, unspecified organism Status: Acute Assessment and Plan: 01/29 Patient with shortness of breath and worsening hypoxemic respiratory failure with new right upper lobe infiltrates after trial of outpatient doxycycline for presumed pneumonia. Her COVID RT PCR test is negative, influenza swab is negative, urine pneumococcal antigen is not detected. Patient is treated for a bacterial infection with ceftriaxone and azithromycin (started 01/26) and she has improved clinically. Her chest x-ray today shows improved left upper in perihilar infiltrate as well as minimally improved right upper lobe infiltrate. She is afebrile. She had no real change in her sputum production or color and no wheezing. I do not believe this is a concurrent COPD exacerbation. she was on Bevespi at home, I will discontinue her nebulizers albuterol and ipratropium and change her to the in-hospital Bevespi equivalent which is Anoro Ellipta. her plans are to return to [facility]. 01/30 Patient is doing well from a pulmonary perspective. I will continue ceftriaxone and azithromycin, today is day 5. She is afebrile and has no sputum production. She states she is very close to her baseline. She is on 3 L nasal cannula with saturations 93%. she denies cough or phlegm production. Continue IV antibiotics while she is in house. She wore the hospital noninvasive ventilator with AVAPS mode last night and did well. she is afebrile. She has no wheezes on anoro ellipta. She remains hyponatremic, nephrology is following. 01/31 She denies cough or phlegm production. She is afebrile. White blood cell count 7.8. currently she is on 3 L nasal cannula with saturations 94%. No wheezes on exam. Continue anoro for now. continue ceftriaxone and azithromycin while in house (will DC azithromycin after today s/p 5 days). Please obtain chest x-ray on the day of discharge to serve as a new baseline. From a pulmonary perspective patient is suitable for discharge on these pulmonary medicines. Levaquin 750 MG PO Q day to complete 10 days (through 02/04/22) Bevespi 9/4.8 at 2 puffs BID Rescue albuterol 2 puffs Q 4 hours p.r.n. shortness of breath or wheezing Rescue DuoNebs q.4 hours p.r.n. shortness of breath or wheezing When she sleeps AVAPS AE mode. Breath rate is auto, tidal volume 450, EPAP minimum 5, EPAP maximum 15, pressure support minimum 6, pressure support maximum 25, ramp length 20 minutes, rise time 3. Administred through [employer]. Daytime oxygen administered per [employer] guidelines, currently she requires 3 L at rest. Follow up in pulmonary at previously scheduled appointment on 02/14/22 at 09:[address] Almeida, will sign off, call with questions. (2) Acute on chronic respiratory failure with hypoxia and hypercapnia: Code(s): J96.21 - Acute and chronic respiratory failure with hypoxia; J96.22 - Acute and chronic respiratory failure with hypercapnia Status: Acute Assessment and Plan: patient with a history of chronic hypoxemic and hypercarbic respiratory failure on a home noninvasive ventilator with AVAPS-AE mode. She was doing well as an outpatient and I at her last office visit on 11/20/2021 she had good compliance. Download from 10/20/2021 through 10/28/2021. Patient is on noninvasive ventilator AVAPS AE mode. Breath rate is auto, tidal volume 450, EPAP minimum 5, EPAP maximum 15, pressure support minimum 6, pressure support maximum 25, ramp length 20 minutes, rise time 3. % of the days used greater than or equal to 4 hours was 66.7. Average usage days used was 4 hours and 59 minutes. Average EPAP 5-11, average IPAP 11-22, tidal v
[2022-01-31] MEDS: UMECLIDINIUM/VILANTEROL 62.5-25 MCG ELLIPTA 1 PUFF INHALATION (08:49)
[2022-01-31] MEDS: dilTIAZem HCL CD 180 MG CAP.ER.24H 360 MG PO (09:06)
[2022-01-31] MEDS: CHOLECALCIFEROL 1,000 UNITS TABLET 5000 UNITS PO (09:06)
[2022-01-31] MEDS: METOPROLOL SUCCINATE EXT REL 25 MG TABCR PO (09:06)
[2022-01-31] MEDS: FERROUS SULFATE 324 MG TABLET PO ×2 (09:07→17:10)
[2022-01-31] MEDS: ASPIRIN 81 MG CHEWABLE TABLET PO (09:07)
[2022-01-31] MEDS: MULTIVITAMINS THERAPEUTIC TAB (*BKC) 1 TABLET PO (09:08)
[2022-01-31] MEDS: ESCITALOPRAM OXALATE 10 MG TABLET PO (09:08)
[2022-01-31] MEDS: PYRIDOXINE HCL 50 MG TABLET 100 MG PO ×2 (09:08→17:09)
[2022-01-31] MEDS: SODIUM CHLORIDE 1 GM TABLET PO ×2 (09:08→17:10)
[2022-01-31] MEDS: FUROSEMIDE 10 MG TABLET PO ×2 (09:08→17:10)
[2022-01-31] MEDS: ENOXAPARIN 40 MG/0.4 ML SYRINGE SUB-Q (09:08)
[2022-01-31] MEDS: CYANOCOBALAMIN 1,000 MCG TABLET 1000 MCG PO (10:03)
[2022-01-31] MEDS: traMADol HCL (*CRX) 50 MG TABLET PO ×2 (10:03→17:10)
--- NOTE | 2022-01-31 10:10 | PM.IMPN ---
Progress Note: A&P Additional Plan (1) Acute on chronic respiratory failure with hypoxia and hypercapnia: Code(s): J96.21 - Acute and chronic respiratory failure with hypoxia; J96.22 - Acute and chronic respiratory failure with hypercapnia Status: Acute Assessment and Plan: She is on 2 L chronically and is on AVAPS at nighttime. ABG on admission showed mild, acute worsening of hypercapnia, and she was initially hypoxic but her O2 has been weaned. Dr. Bailon has been consulted and her recommendations are greatly appreciated. AVAPS and oxygen as ordered BNP was elevated hence she received a dose of Lasix 01/28/2022 (2) Pneumonia: Qualifiers: Laterality: bilateral Lung location: unspecified part of lung Pneumonia type: due to unspecified organism Qualified Code(s): J18.9 - Pneumonia, unspecified organism Code(s): J18.9 - Pneumonia, unspecified organism Status: Acute Assessment and Plan: She has infiltrates on her chest CT consistent with pneumonia though she has not really had a productive cough. -continue ceftriaxone (day 5) -completed 5 days of azithromycin today per machine rough rounder after discussion with him over the phone. -machine rough rounder stated ok to discharge back to [facility], he recommends a total of 10 days treatment and to complete treatment with levofloxacin daily after discharge (3) COPD exacerbation: Code(s): J44.1 - Chronic obstructive pulmonary disease with (acute) exacerbation Status: Acute Assessment and Plan: No significant bronchospasm on exam. Continue scheduled bronchodilators. No indication for steroids at this time. She received a dose of steroid in the ER, no further steroid (4) Small cell lung cancer: Code(s): C34.90 - Malignant neoplasm of unspecified part of unspecified bronchus or lung Status: Acute Assessment and Plan: Patient of Dr. Mendez who has been consulted and his input is appreciated. Completed treatment November 2020 and radiation treatment in July 2021 (5) Pericardial effusion: Code(s): I31.3 - Pericardial effusion (noninflammatory) Status: Acute Assessment and Plan: A chronic problem felt to be related to malignancy. UBALDO pending Echo 09/26 EF 65%% grade 1 diastolic dysfunction moderately in jar large left atrial chamber [id number] TR moderate pulmonary hypertension moderate to large pericardial effusion with thickened pericardium Radiology was consulted last admission and did not recommend any pericardial synthesis (6) Hyponatremia: Code(s): E87.1 - Hypo-osmolality and hyponatremia Status: Acute Assessment and Plan: Chronic but running lower than her baseline. Euvolemic on exam. Serum osmolality is low. Further urine studies ordered. Sodium level continues to decline. Consulted Nephrology. BNP is elevated and chest x-ray still shows possibility of mild pulmonary edema. Urine sodium low suggestive of prerenal Low-dose Lasix added per nephrology Await improvement in sodium level before plan for discharge (7) Hypothyroidism: Code(s): E03.9 - Hypothyroidism, unspecified Status: Acute Assessment and Plan: Continue levothyroxine and stasis within normal limit (8) Anemia in chronic illness: Code(s): D63.8 - Anemia in other chronic diseases classified elsewhere Status: Acute Assessment and Plan: Stable on review of previous labs. continue to monitor no active bleeding (9) Hypertension: Code(s): I10 - Essential (primary) hypertension Status: Acute Assessment and Plan: Blood pressures were reviewed and they are stable. (10) Hypomagnesemia: -Mg of 1.5 -due to IV furosemide given -replace with 4gram of IV MgS -check Mg level tomorrow. Time Spent With Patient Time with patient: 25 - 35 minutes Subjective Date/time seen: 01/31/22 10:10 Patient asleep. No new issues communicated by her RN
[2022-01-31] MEDS: MAGNESIUM SULF 4 GM/WATER100ML 4 GM/100 ML BAG IVPB (11:00)
--- NOTE | 2022-01-31 11:33 | PCPTNOTE ---
Patient refused treatment this session due to feeling nauseous and not well.
[2022-01-31 11:42] LABS: ANA Cascade Screen Negative (Negative)
[2022-01-31] MEDS: ONDANSETRON INJ 4 MG/2 ML VIAL IV PUSH (12:08)
--- NOTE | 2022-01-31 16:47 | PM.PNNEP ---
Progress Note: A&P Assessment and Plan (1) Hyponatremia: Code(s): E87.1 - Hypo-osmolality and hyponatremia Status: Acute Assessment and Plan: acute on chronic -- has been present since at least 2019 multiple risk factors: severe lung disease/COPD lung cancer medications - SSRI + narcotics cortisol okay;follow-up on serum/urine osmolality, SPE, UPE urine sodium noted to be low suggestive of prerenal azotemia recently started on salt tabs given issues with pulmonary edema, have added low dose lasix hesitant to give 3% saline given possible pulmonary edema by recent imaging consider adding demeclocycline given her known lung cancer follow trend of repeat sodium levels (2) Acute on chronic respiratory failure with hypoxia and hypercapnia: Code(s): J96.21 - Acute and chronic respiratory failure with hypoxia; J96.22 - Acute and chronic respiratory failure with hypercapnia Status: Acute Assessment and Plan: due to known lung disease/COPD worsened by acute pneumonia Pulmonary following with recommendations noted continue supportive therapy (3) Pneumonia: Qualifiers: Laterality: bilateral Lung location: unspecified part of lung Pneumonia type: due to unspecified organism Qualified Code(s): J18.9 - Pneumonia, unspecified organism Code(s): J18.9 - Pneumonia, unspecified organism Status: Acute Assessment and Plan: as noted by imaging studies to date continue current therapy Will continue to follow. Subjective Date/time seen: 01/31/22 16:47 Respiratory status/breathing seems to be improving/stabilizing with current therapy; sodium level has improved some with addition of low dose lasix in conjunction with salt tabs as well as fluid restriction; no acute issues or events overnight; no apparent distress at the time of my visit. Exam Narrative: General: Elderly female in NAD Heart: normal S1 and S2; no rub Lungs: coarse breath sounds noted Abdomen: soft, nontender, nondistended, positive bowel sounds Extremities: no cyanosis or clubbing; no edema Skin: warm and intact Objective Data Vital Signs Vital Signs: Vital Signs Temp Pulse Resp BP Pulse Ox 01/31/22 14:28 69 95 01/31/22 14:00 36.6 C 70 18 117/48 L 90 01/31/22 08:49 93 01/31/22 04:35 15 93 01/31/22 02:44 17 94 01/31/22 00:04 36.6 C 75 18 106/60 98 01/30/22 22:33 16 96 01/30/22 21:13 94 01/30/22 20:00 76 18 94 Intake/Output Intake/Output: Intake & Output 01/28/22 01/29/22 01/30/22 01/31/22 23:59 23:59 23:59 23:59 Intake Total 740 1300 1030 1000 Output Total 1675 1050 700 600 Balance -935 250 330 400 Meds/Results Medications: Active Medications Generic Name Dose Route Start Last Admin Trade Name Freq PRN Reason Stop Dose Admin Acetaminophen 650 mg 01/26/22 20:17 01/28/22 06:42 Acetaminophen 325 Mg Tablet PO 650 mg Q6H PRN Administration Mild Pain (1-3) or Fever Albuterol 2 puff 01/26/22 20:49 Albuterol Sulfate (*Sp) Aerosol 1 Puff INHALATION Q4H PRN Shortness Of Breath Aspirin 81 mg 01/27/22 09:00 01/31/22 09:07 Aspirin 81 Mg Chewable Tablet PO 81 mg DAILY ALONA Administration Atorvastatin Calcium 80 mg 01/26/22 21:00 01/30/22 20:09 Atorvastatin 40 Mg Tablet PO 80 mg HS ALONA Administration Cyanocobalamin 1,000 mcg 01/27/22 09:00 01/31/22 10:03 Cyanocobalamin 1,000 Mcg Tablet PO 1,000 mcg DAILY ALONA Administration Diltiazem HCl 360 mg 01/27/22 09:00 01/31/22 09:06 Diltiazem Hcl Cd 180 Mg Cap.Er.24h PO 360 mg DAILY ALONA Administration Enoxaparin Sodium 40 mg 01/27/22 09:00 01/31/22 09:08 Enoxaparin 40 Mg/0.4 Ml Syringe SUB-Q 40 mg DAILY ALONA Administration Escitalopram Oxalate 10 mg 01/27/22 09:00 01/31/22 09:08 Escitalopram Oxalate 10 Mg Tablet PO 10 mg DAILY ALONA Administration Ferrous
[2022-01-31 19:17] LABS: Sodium 120 mmol/L (137-145)
[2022-01-31] MEDS: ATORVASTATIN 40 MG TABLET 80 MG PO (20:35)
[2022-01-31] MEDS: ACETAMINOPHEN 325 MG TABLET 650 MG PO (20:39)
[2022-02-01] VITALS (20 sets, daily range): BP systolic 105–110; BP diastolic 48–80; PULSE 63–85; RESP 15–25; TEMP 35.7–36.7; O2SAT 88–100
[2022-02-01] MEDS: LEVOTHYROXINE SODIUM 25 MCG TABLET PO (05:50)
[2022-02-01 06:27] LABS: Anion Gap 1 mmol/L (8-16); Blood Urea Nitrogen 23 mg/dL (7-17); Calcium 9.1 mg/dL (8.4-10.2); Carbon Dioxide 39 mmol/L (22-30); Chloride 82 mmol/L (98-107); Estimated Glomerular Filt Rate 50; Glucose 89 mg/dL (65-110); Magnesium 2.4 mg/dL (1.6-2.3); Potassium 4.8 mmol/L (3.4-5.0); Sodium 122 mmol/L (137-145)
[2022-02-01] MEDS: UMECLIDINIUM/VILANTEROL 62.5-25 MCG ELLIPTA 1 PUFF INHALATION (08:25)
--- NOTE | 2022-02-01 08:31 | PM.IMPN ---
Progress Note: A&P Additional Plan (1) Acute on chronic respiratory failure with hypoxia and hypercapnia: worsened since 01/31/22 night. Code(s): J96.21 - Acute and chronic respiratory failure with hypoxia; J96.22 - Acute and chronic respiratory failure with hypercapnia Status: Acute Assessment and Plan: She is on 2 L chronically and is on AVAPS at nighttime. ABG on admission showed mild, acute worsening of hypercapnia, and she was initially hypoxic but her O2 has been weaned. Dr. Bailon has been consulted and her recommendations are greatly appreciated. AVAPS and oxygen as ordered BNP was elevated hence she received a dose of Lasix 01/28/2022 The patient was dyspnea last night 01/31/22 and had a rapid response called on her. She was subsequently placed on BiPAP. However, trial of weaning her off BiPAP this morning was unsuccessful as she desaturated to the 70's. Hence she was continued on BiPAP, finance assistant updated about this new worsening and the patient was transferred to IMU for continued care. Appreciate pulmonary recommendations. (2) Pneumonia: Qualifiers: Laterality: bilateral Lung location: unspecified part of lung Pneumonia type: due to unspecified organism Qualified Code(s): J18.9 - Pneumonia, unspecified organism Code(s): J18.9 - Pneumonia, unspecified organism Status: Acute Assessment and Plan: She has infiltrates on her chest CT consistent with pneumonia though she has not really had a productive cough. -continue ceftriaxone (day 6) -completed 5 days of azithromycin on 01/31/22 per finance assistant. -on the finance assistant stated ok to discharge back to [facility], he recommends a total of 10 days treatment and to complete treatment with levofloxacin daily after discharge. He also requested a chest xray be done prior to discharge, this will serve as a baseline for him when he sees the patient in his office. (3) COPD exacerbation: Code(s): J44.1 - Chronic obstructive pulmonary disease with (acute) exacerbation Status: Acute Assessment and Plan: No significant bronchospasm on exam. Continue scheduled bronchodilators. No indication for steroids at this time. She received a dose of steroid in the ER, no further steroid. See treatment above. (4) Small cell lung cancer: Code(s): C34.90 - Malignant neoplasm of unspecified part of unspecified bronchus or lung Status: Acute Assessment and Plan: Patient of Dr. Mendez who has been consulted and his input is appreciated. Completed treatment November 2020 and radiation treatment in July 2021 (5) Pericardial effusion: Code(s): I31.3 - Pericardial effusion (noninflammatory) Status: Acute Assessment and Plan: A chronic problem felt to be related to malignancy. UBALDO pending Echo 09/26 EF 65%% grade 1 diastolic dysfunction moderately in jar large left atrial chamber [id number] TR moderate pulmonary hypertension moderate to large pericardial effusion with thickened pericardium Radiology was consulted last admission and did not recommend any pericardial synthesis (6) Hyponatremia: slowly resolving Code(s): E87.1 - Hypo-osmolality and hyponatremia Status: Acute Assessment and Plan: Chronic but running lower than her baseline. Euvolemic on exam. Serum osmolality is low. Further urine studies ordered. Sodium level continues to decline. Consulted Nephrology. BNP is elevated and chest x-ray still shows possibility of mild pulmonary edema. Urine sodium low suggestive of prerenal Low-dose Lasix added per nephrology. Sodium level is 122 today from 120 Await improvement in sodium level before plan for discharge, appreciate nephrology recs. (7) Hypothyroidism: Code(s): E03.9 - Hypothyroidism, unspecified Status: Acute Assessment and Plan: Continue levothyroxine and stasis within normal limit (8) Anemia in chronic illness: C
[2022-02-01] MEDS: ENOXAPARIN 40 MG/0.4 ML SYRINGE SUB-Q (08:55)
[2022-02-01] MEDS: CHOLECALCIFEROL 1,000 UNITS TABLET 5000 UNITS PO (08:55)
[2022-02-01] MEDS: dilTIAZem HCL CD 180 MG CAP.ER.24H 360 MG PO (08:55)
[2022-02-01] MEDS: PYRIDOXINE HCL 50 MG TABLET 100 MG PO ×2 (08:55→17:04)
[2022-02-01] MEDS: DEMECLOCYCLINE HCL 150 MG TABLET PO ×4 (08:56→20:45)
[2022-02-01] MEDS: MULTIVITAMINS THERAPEUTIC TAB (*BKC) 1 TABLET PO (08:56)
[2022-02-01] MEDS: METOPROLOL SUCCINATE EXT REL 25 MG TABCR PO (08:56)
[2022-02-01] MEDS: ESCITALOPRAM OXALATE 10 MG TABLET PO (08:56)
[2022-02-01] MEDS: ASPIRIN 81 MG CHEWABLE TABLET PO (08:56)
[2022-02-01] MEDS: CYANOCOBALAMIN 1,000 MCG TABLET 1000 MCG PO (08:56)
[2022-02-01] MEDS: SODIUM CHLORIDE 1 GM TABLET PO ×2 (08:56→17:04)
[2022-02-01] MEDS: FUROSEMIDE 10 MG TABLET PO ×2 (08:56→17:03)
[2022-02-01] MEDS: traMADol HCL (*CRX) 50 MG TABLET PO ×3 (09:43→22:48)
[2022-02-01 10:09] LABS: Osmolality, Urine 174 mOsm/kg (50-1200)
--- NOTE | 2022-02-01 10:31 | PC.NURSE ---
This patient, Stephanie Holt, was transferred to [ ] on 02/01/22 at 1032. Personal belongings sent with patient. Report given to [ ]. Appropriate documentation sent with patient.
[2022-02-01 12:22] LABS: Sodium 122 mmol/L (137-145)
--- NOTE | 2022-02-01 12:25 | PCNFU ---
Nutrition Follow-Up Complete: Inadequate oral intake related to decreased appetite as evidenced by reported poor PO intake Goal: Pt to meet >50% of estimated nutritional needs. Pt is not progressing towards goal. Pt current nutrition is heart healthy diet with 1,000 mL fluid restriction. Ensure compact BID: 220 kcals, 9 grams protein per shake. Nutritional ice cream: 290 kcals, 9 grams protein per container. Nutrition recommendation: Continue with current plan of care. Last recorded weight is 40 kg. Weight is stable. Bowel Motility: 1 BM on 01/29 Labs Reviewed: Na:122, GFR:50, BUN:23, Cr:1.1 Meds Noted: Lipitor, Lovenox, Lasix tablet, vitamin B-6 supplement, Vitamin D supplement Skin: WNL Additional Notes: Pt is experiencing confusion. Follow up completed with nurses. Nurses stated they do not know if the pt has been finishing her Ensure compact: 220 kcals, 9 grams protein or nutritional ice cream: 290 kcals, 9 grams protein. Will monitor medications, labs, wt, and reported intake every 1 day.
--- NOTE | 2022-02-01 12:41 | PCPTNOTE ---
Patient transferred from [facility] to IMU for continuous bipap. Will hold PT this date.
--- NOTE | 2022-02-01 12:42 | PCNSR ---
On 02/01/22, the student, Aminata Hargrove, provided care and completed [facility] documentation on this patient. I have reviewed the student's documentation and agree with the findings.
--- NOTE | 2022-02-01 13:16 | PM.PNNEP ---
Progress Note: A&P Assessment and Plan (1) Hyponatremia: Code(s): E87.1 - Hypo-osmolality and hyponatremia Status: Acute Assessment and Plan: acute on chronic -- has been present since at least 2019 multiple risk factors: severe lung disease/COPD lung cancer medications - SSRI + narcotics cortisol okay;follow-up on serum/urine osmolality, SPE, UPE urine sodium noted to be low suggestive of prerenal azotemia on salt tabs as as fluid restriction (just changed to 1000cc/day) given issues with pulmonary edema, have added low dose lasix hesitant to give 3% saline given possible pulmonary edema by recent imaging adding demeclocycline given her known lung cancer follow trend of repeat sodium levels (2) Acute on chronic respiratory failure with hypoxia and hypercapnia: Code(s): J96.21 - Acute and chronic respiratory failure with hypoxia; J96.22 - Acute and chronic respiratory failure with hypercapnia Status: Acute Assessment and Plan: due to known lung disease/COPD worsened by acute pneumonia Pulmonary following with recommendations noted continue supportive therapy (3) Pneumonia: Qualifiers: Laterality: bilateral Lung location: unspecified part of lung Pneumonia type: due to unspecified organism Qualified Code(s): J18.9 - Pneumonia, unspecified organism Code(s): J18.9 - Pneumonia, unspecified organism Status: Acute Assessment and Plan: as noted by imaging studies to date continue current therapy Will continue to follow. Subjective Date/time seen: 02/01/22 13:16 Events noted overnight - rapid response called due to acute worsening shortness of breath associated with hypoxia; placed on BiPAP and given IV steroids with some improvement in clinical status but was transferred to IMU for closer monitoring; no other events reported earlier this AM Exam Narrative: General: Elderly female in NAD Heart: normal S1 and S2; no rub Lungs: coarse breath sounds noted Abdomen: soft, nontender, nondistended, positive bowel sounds Extremities: no cyanosis or clubbing; no edema Skin: warm and intact Objective Data Vital Signs Vital Signs: Vital Signs Temp Pulse Resp BP Pulse Ox 02/01/22 12:17 35.7 C L 77 24 H 110/59 L 100 02/01/22 10:35 81 16 93 02/01/22 08:56 82 02/01/22 08:26 82 16 94 02/01/22 06:39 100 02/01/22 06:31 85 17 96 02/01/22 05:56 36.6 C 83 18 106/80 01/31/22 22:18 16 93 01/31/22 19:51 93 01/31/22 19:43 36.6 C 80 16 106/48 L 97 01/31/22 14:28 69 95 01/31/22 14:00 36.6 C 70 18 117/48 L 90 Intake/Output Intake/Output: Intake & Output 01/29/22 01/30/22 01/31/22 02/01/22 23:59 23:59 23:59 23:59 Intake Total 1300 1030 1000 300 Output Total 1050 700 600 500 Balance 250 330 400 -200 Meds/Results Medications: Active Medications Generic Name Dose Route Start Last Admin Trade Name Freq PRN Reason Stop Dose Admin Acetaminophen 650 mg 01/26/22 20:17 01/31/22 20:39 Acetaminophen 325 Mg Tablet PO 650 mg Q6H PRN Administration Mild Pain (1-3) or Fever Albuterol 2 puff 01/26/22 20:49 Albuterol Sulfate (*Sp) Aerosol 1 Puff INHALATION Q4H PRN Shortness Of Breath Aspirin 81 mg 01/27/22 09:00 02/01/22 08:56 Aspirin 81 Mg Chewable Tablet PO 81 mg DAILY ALONA Administration Atorvastatin Calcium 80 mg 01/26/22 21:00 01/31/22 20:35 Atorvastatin 40 Mg Tablet PO 80 mg HS ALONA Administration Cyanocobalamin 1,000 mcg 01/27/22 09:00 02/01/22 08:56 Cyanocobalamin 1,000 Mcg Tablet PO 1,000 mcg DAILY ALONA Administration Demeclocycline HCl 150 mg 02/01/22 09:00 02/01/22 12:17 Demeclocycline Hcl 150 Mg Tablet PO 150 mg QID ALONA Administration Diltiazem HCl 360 mg 01/27/22 09:00 02/01/22 08:55 Diltiazem Hcl Cd 180 Mg Cap.Er.24h PO 360 mg DAILY ALONA Administration E
[2022-02-01] MEDS: predniSONE 20 MG TABLET 40 MG PO (18:12)
[2022-02-01 18:29] LABS: Sodium 123 mmol/L (137-145)
[2022-02-01] MEDS: ALBUTEROL SULFATE NEB 2.5 MG/0.5 ML INH INHALATION (20:05)
[2022-02-01] MEDS: IPRATROPIUM BR 0.02% INH SOLN 0.5 MG/2.5 ML VIAL INHALATION (20:05)
[2022-02-01] MEDS: ATORVASTATIN 40 MG TABLET 80 MG PO (20:45)
[2022-02-02] VITALS (26 sets, daily range): BP systolic 101–153; BP diastolic 43–67; PULSE 65–94; RESP 15–22; TEMP 36.1–37.1; O2SAT 95–100
[2022-02-02] MEDS: ALBUTEROL SULFATE NEB 2.5 MG/0.5 ML INH INHALATION ×6 (00:01→23:52)
[2022-02-02] MEDS: IPRATROPIUM BR 0.02% INH SOLN 0.5 MG/2.5 ML VIAL INHALATION ×6 (00:01→23:52)
[2022-02-02] MEDS: LEVOTHYROXINE SODIUM 25 MCG TABLET PO (06:01)
[2022-02-02] MEDS: traMADol HCL (*CRX) 50 MG TABLET PO ×2 (06:52→17:35)
--- NOTE | 2022-02-02 08:03 | PM.IMPN ---
Progress Note: A&P Additional Plan (1) Acute on chronic respiratory failure with hypoxia and hypercapnia: Code(s): J96.21 - Acute and chronic respiratory failure with hypoxia; J96.22 - Acute and chronic respiratory failure with hypercapnia Status: Acute Assessment and Plan: She is on 2 L chronically and is on AVAPS at nighttime. ABG on admission showed mild, acute worsening of hypercapnia, and she was initially hypoxic but her O2 has been weaned. Dr. Bailon has been consulted and her recommendations are greatly appreciated. AVAPS and oxygen as ordered BNP was elevated hence she received a dose of Lasix 01/28/2022 The patient was dyspnea last night 01/31/22 and had a rapid response called on her. She was subsequently placed on BiPAP. Chest xray on 02/01/22 reported improving pulmonary edema, improving opacities in the RUL and LLL. Now on 12L [place] oxygen and saturating 95-100%, I met the door framer at the bedside, trying to wean down oxygen. Continue PO prednisone 40mg daily RT to start Acapella/ Chest percussive therapy. Appreciate pulmonary recommendations. (2) Pneumonia: Qualifiers: Laterality: bilateral Lung location: unspecified part of lung Pneumonia type: due to unspecified organism Qualified Code(s): J18.9 - Pneumonia, unspecified organism Code(s): J18.9 - Pneumonia, unspecified organism Status: Acute Assessment and Plan: She has infiltrates on her chest CT consistent with pneumonia though she has not really had a productive cough. -continue ceftriaxone (day 7) -completed 5 days of azithromycin on 01/31/22 per door framer. -on the door framer stated ok to discharge back to [facility], he recommends a total of 10 days treatment and to complete treatment with levofloxacin daily after discharge. He also requested a chest xray be done prior to discharge, this will serve as a baseline for him when he sees the patient in his office. -chest xray on 02/01/22 reported improving pulmonary edema, improving opacities in the RUL and LLL. (3) COPD exacerbation: Code(s): J44.1 - Chronic obstructive pulmonary disease with (acute) exacerbation Status: Acute Assessment and Plan: No significant bronchospasm on exam. Continue scheduled bronchodilators. No indication for steroids at this time. She received a dose of steroid in the ER, no further steroid. See treatment above. (4) Small cell lung cancer: Code(s): C34.90 - Malignant neoplasm of unspecified part of unspecified bronchus or lung Status: Acute Assessment and Plan: Patient of Dr. Mendez who has been consulted and his input is appreciated. Completed treatment November 2020 and radiation treatment in July 2021 (5) Pericardial effusion: Code(s): I31.3 - Pericardial effusion (noninflammatory) Status: Acute Assessment and Plan: A chronic problem felt to be related to malignancy. UBALDO pending Echo 09/26 EF 65%% grade 1 diastolic dysfunction moderately in jar large left atrial chamber [id number] TR moderate pulmonary hypertension moderate to large pericardial effusion with thickened pericardium Radiology was consulted last admission and did not recommend any pericardial synthesis (6) Hyponatremia: slowly resolving Code(s): E87.1 - Hypo-osmolality and hyponatremia Status: Acute Assessment and Plan: Chronic but running lower than her baseline. Euvolemic on exam. Serum osmolality is low. Further urine studies ordered. Sodium level continues to decline. Consulted Nephrology. BNP is elevated and chest x-ray still shows possibility of mild pulmonary edema. Urine sodium low suggestive of prerenal Sodium level is 123 today from 123 -PO demeclocycline started by the chemist internship on 02/01/22. -daily BMP -Await improvement in sodium level before plan for discharge, appreciate nephrology recs. (7) Hypothyroidism: Code(s): E03.9 - Hypothyroidi
[2022-02-02] MEDS: PYRIDOXINE HCL 50 MG TABLET 100 MG PO ×2 (08:37→17:31)
[2022-02-02] MEDS: SODIUM CHLORIDE 1 GM TABLET PO ×2 (08:42→17:31)
[2022-02-02] MEDS: ASPIRIN 81 MG CHEWABLE TABLET PO (08:42)
[2022-02-02] MEDS: FUROSEMIDE 10 MG TABLET PO ×2 (08:43→17:31)
[2022-02-02] MEDS: CYANOCOBALAMIN 1,000 MCG TABLET 1000 MCG PO (08:43)
[2022-02-02] MEDS: DEMECLOCYCLINE HCL 150 MG TABLET PO ×4 (08:43→20:55)
[2022-02-02] MEDS: ENOXAPARIN 40 MG/0.4 ML SYRINGE SUB-Q (08:43)
[2022-02-02] MEDS: ESCITALOPRAM OXALATE 10 MG TABLET PO (08:43)
[2022-02-02] MEDS: CHOLECALCIFEROL 1,000 UNITS TABLET 5000 UNITS PO (08:43)
[2022-02-02] MEDS: predniSONE 20 MG TABLET 40 MG PO (08:43)
[2022-02-02] MEDS: MULTIVITAMINS THERAPEUTIC TAB (*BKC) 1 TABLET PO (08:44)
[2022-02-02] MEDS: METOPROLOL SUCCINATE EXT REL 25 MG TABCR PO (08:45)
[2022-02-02] MEDS: dilTIAZem HCL CD 180 MG CAP.ER.24H 360 MG PO (09:16)
--- NOTE | 2022-02-02 10:31 | PM.PNNEP ---
Progress Note: A&P Assessment and Plan (1) Hyponatremia: Code(s): E87.1 - Hypo-osmolality and hyponatremia Status: Acute Assessment and Plan: acute on chronic -- has been present since at least 2019 multiple risk factors: severe lung disease/COPD lung cancer medications - SSRI + narcotics cortisol okay;follow-up on serum/urine osmolality, SPE, UPE urine sodium noted to be low suggestive of prerenal azotemia on salt tabs as as fluid restriction (1000cc/day) given issues with pulmonary edema, have added low dose lasix hesitant to give 3% saline given possible pulmonary edema by recent imaging however, may consider use if necessary added demeclocycline given her known lung cancer follow trend of repeat sodium levels (2) Acute on chronic respiratory failure with hypoxia and hypercapnia: Code(s): J96.21 - Acute and chronic respiratory failure with hypoxia; J96.22 - Acute and chronic respiratory failure with hypercapnia Status: Acute Assessment and Plan: due to known lung disease/COPD worsened by acute pneumonia Pulmonary following with recommendations noted continue supportive therapy (3) Pneumonia: Qualifiers: Laterality: bilateral Lung location: unspecified part of lung Pneumonia type: due to unspecified organism Qualified Code(s): J18.9 - Pneumonia, unspecified organism Code(s): J18.9 - Pneumonia, unspecified organism Status: Acute Assessment and Plan: as noted by imaging studies to date continue current therapy Will continue to follow. Subjective Date/time seen: 02/02/22 10:31 No apparent distress voiced at the time of my visit; oxygen requirements seems to fluctuate but reliability of oxygen saturations readings at times can alter this issue; respiratory status appears stable at this time. Exam Narrative: General: Elderly female in NAD Heart: normal S1 and S2; no rub Lungs: coarse breath sounds noted Abdomen: soft, nontender, nondistended, positive bowel sounds Extremities: no cyanosis or clubbing; no edema Skin: no rash Objective Data Vital Signs Vital Signs: Vital Signs Temp Pulse Resp BP Pulse Ox 02/02/22 08:13 72 22 H 98 02/02/22 08:00 36.1 C L 75 15 102/54 L 95 02/02/22 06:00 75 02/02/22 04:19 79 20 02/02/22 04:13 78 20 02/02/22 04:00 36.2 C L 77 20 101/45 L 100 02/02/22 02:08 78 19 95 02/02/22 02:00 78 02/02/22 00:10 79 20 02/02/22 00:02 81 20 02/02/22 00:00 36.8 C 76 21 H 102/56 L 99 02/01/22 23:46 98 02/01/22 22:58 77 23 H 94 02/01/22 22:15 76 02/01/22 21:45 95 02/01/22 20:21 76 24 H 02/01/22 20:14 75 16 95 02/01/22 20:05 75 25 H 02/01/22 20:00 36.7 C 72 24 H 105/48 L 88 L 02/01/22 18:00 70 02/01/22 16:26 36.6 C 64 15 105/49 L 100 02/01/22 16:00 63 02/01/22 14:00 65 02/01/22 12:17 35.7 C L 77 24 H 110/59 L 100 02/01/22 12:00 74 02/01/22 10:35 81 16 93 Intake/Output Intake/Output: Intake & Output 01/30/22 01/31/22 02/01/22 02/02/22 23:59 23:59 23:59 23:59 Intake Total 1030 1000 780 200 Output Total 700 600 900 600 Balance 330 400 -120 -400 Meds/Results Medications: Active Medications Generic Name Dose Route Start Last Admin Trade Name Freq PRN Reason Stop Dose Admin Acetaminophen 650 mg 01/26/22 20:17 01/31/22 20:39 Acetaminophen 325 Mg Tablet PO 650 mg Q6H PRN Administration Mild Pain (1-3) or Fever Albuterol 2 puff 01/26/22 20:49 Albuterol Sulfate (*Sp) Aerosol 1 Puff INHALATION Q4H PRN Shortness Of Breath Albuterol 2.5 mg 02/01/22 20:00 02/02/22 08:12 Albuterol Sulfate Neb 2.5 Mg/0.5 Ml Inh INHALATION 2.5 mg Q4HRT ALONA Administration Aspirin 81 mg 01/27/22 09:00 02/02/22 08:42 Aspirin 81 Mg Chewable Tablet PO 81 mg DAILY ALONA Administration Atorvasta
[2022-02-02 11:03] LABS: Albumin Level 3.2 g/dL (3.5-5.1); Anion Gap 5 mmol/L (8-16); Blood Urea Nitrogen 30 mg/dL (7-17); Calcium 8.5 mg/dL (8.4-10.2); Carbon Dioxide 38 mmol/L (22-30); Chloride 80 mmol/L (98-107); Estimated Glomerular Filt Rate 50; Glucose 205 mg/dL (65-110); Phosphorus 4.3 mg/dL (2.5-4.5); Potassium 4.9 mmol/L (3.4-5.0); Sodium 123 mmol/L (137-145)
--- NOTE | 2022-02-02 11:11 | PM.PNPUL ---
Progress Note: A&P Assessment and Plan (1) Pneumonia: Qualifiers: Laterality: bilateral Lung location: unspecified part of lung Pneumonia type: due to unspecified organism Qualified Code(s): J18.9 - Pneumonia, unspecified organism Code(s): J18.9 - Pneumonia, unspecified organism Status: Acute Assessment and Plan: 01/29 Patient with shortness of breath and worsening hypoxemic respiratory failure with new right upper lobe infiltrates after trial of outpatient doxycycline for presumed pneumonia. Her COVID RT PCR test is negative, influenza swab is negative, urine pneumococcal antigen is not detected. Patient is treated for a bacterial infection with ceftriaxone and azithromycin (started 01/26) and she has improved clinically. Her chest x-ray today shows improved left upper in perihilar infiltrate as well as minimally improved right upper lobe infiltrate. She is afebrile. She had no real change in her sputum production or color and no wheezing. I do not believe this is a concurrent COPD exacerbation. she was on Bevespi at home, I will discontinue her nebulizers albuterol and ipratropium and change her to the in-hospital Bevespi equivalent which is Anoro Ellipta. her plans are to return to [facility]. 01/30 Patient is doing well from a pulmonary perspective. I will continue ceftriaxone and azithromycin, today is day 5. She is afebrile and has no sputum production. She states she is very close to her baseline. She is on 3 L nasal cannula with saturations 93%. she denies cough or phlegm production. Continue IV antibiotics while she is in house. She wore the hospital noninvasive ventilator with AVAPS mode last night and did well. she is afebrile. She has no wheezes on anoro ellipta. She remains hyponatremic, nephrology is following. 01/31 She denies cough or phlegm production. She is afebrile. White blood cell count 7.8. currently she is on 3 L nasal cannula with saturations 94%. No wheezes on exam. Continue anoro for now. continue ceftriaxone and azithromycin while in house (will DC azithromycin after today s/p 5 days). Please obtain chest x-ray on the day of discharge to serve as a new baseline. 02/01 The patient tells me that last night her BiPAP was off and her oxygen levels were low. Apparently a rapid response was called and the patient was placed on BiPAP and required 100% FiO2 to maintain her saturations. She was transferred to the IMU [facility] for continuous BiPAP. The hospitalist evaluated the patient this morning and she had wheezes. When I entered the room the patient was on AVAPS mode set rate 14, tidal volume 450, EPAP 5, minimal inspiratory pressure 6, maximal inspiratory pressure 25 with 100% FiO2 and saturations were 100%. The patient was awake alert and stating that she had no respiratory distress. I decreased her FiO2 50% and her saturations remained 100%. I then place the patient on nasal cannula at 3 L and her saturations remained 97%. The patient does not remember much about the event last night but states that she never had any respiratory distress. She denies any vomiting or aspiration events. She denies any trouble coughing up her secretions which are minimal. She denied fever chills or chest pain. I did a stat portable chest x-ray that demonstrated increase improved right upper lobe and lower lobe infiltrates. There was no pneumothorax. There is no lobar collapse. The patient did have bilateral expiratory wheezes. Etiology of the events last night include mucus plug and or COPD exacerbation (new wheezes). Currently she is stable back on her 3 L nasal cannula oxygen. She does have wheezing and I will change her to prednisone 40 mg p.o. q.day and change her to nebulized albuterol and ipratropium q.4 hours. Her pneumonia on her chest x-ray continues to improve and I would continue ceftriaxone at this time. 02/02 Patient intermittently requires higher amou
--- NOTE | 2022-02-02 11:21 | PCNFU ---
Nutrition Follow-Up Complete: Inadequate oral intake related to decreased appetite as evidenced by reported poor PO intake Goal: Pt to meet >50% of estimated nutritional needs. Pt is not progressing towards goal. Pt current nutrition is heart healthy with 1,000mL fluid restriction. Last recorded weight is 40.5 kg. Stable. Bowel Motility: + BM reported 01/29 Labs Reviewed: Na:123, GFR:50, BUN:30, Cr:1.1, Glu:205 Meds Noted: Lipitor, Lovenox, Lasix tablet, vitamin B-6 supplement, Vitamin D supplement Skin: WNL Additional Notes: Pt is experiencing confusion. Follow up completed with nurses. Pt consumed 15% of breakfast this morning. She expressed feeling hungry and wanting villalta instead of sausage. Pt is receiving Ensure compact BID: 220 kcals, 9 grams protein per shake and nutritional ice cream: 290 kcals, 9 grams protein. PO intake encourage. Agree with diet orders. Will monitor medications, labs, wt, and reported intake every 3 days.
--- NOTE | 2022-02-02 12:09 | PCNSR ---
On 02/02/22, the student, Aminata Hargrove, provided care and completed [facility] documentation on this patient. I have reviewed the student's documentation and agree with the findings.
--- NOTE | 2022-02-02 14:05 | PCCCNOTE ---
On 02/02/22, the student, [Rae Sams], provided care and completed [facility] documentation on this patient. I have reviewed the student's documentation and agree with the findings.
[2022-02-02] MEDS: ATORVASTATIN 40 MG TABLET 80 MG PO (20:55)
[2022-02-03] VITALS (30 sets, daily range): BP systolic 117–135; BP diastolic 51–62; PULSE 69–96; RESP 16–22; TEMP 36.3–36.8; O2SAT 90–99
[2022-02-03] MEDS: ALBUTEROL SULFATE NEB 2.5 MG/0.5 ML INH INHALATION ×5 (03:05→19:51)
[2022-02-03] MEDS: IPRATROPIUM BR 0.02% INH SOLN 0.5 MG/2.5 ML VIAL INHALATION ×5 (03:05→19:52)
[2022-02-03 04:58] LABS: Hemoglobin 7.4 g/dL (12.0-15.0); Immature Granulocyte Absolute 0.08 K/mm3 (0.00-0.031); Immature Granulocyte Percent A 0.8 % (0-0.5); Lymphocytes Percent Auto 2.9 % (18.3-44.2); Mean Corpuscular HGB Conc 30.8 g/dl (32-36); Mean Corpuscular Volume 100.4 fl (80-100); Mean Platelet Volume 9.6 fl (7.4-10.4); Monocytes Absolute Auto 0.8 K/mm3 (0.1-0.6); Monocytes Percent Auto 7.3 % (2.6-8.5); Neutrophils Absolute Auto 9.2 K/mm3 (1.3-6.7); Platelet Count Result 256 k/mm3 (150-375); Red Blood Count 2.39 M/mm3 (4.2-5.4); White Blood Count 10.4 K/mm3 (4.5-10.0)
[2022-02-03 05:22] LABS: Anion Gap 4 mmol/L (8-16); Blood Urea Nitrogen 32 mg/dL (7-17); Calcium 9.2 mg/dL (8.4-10.2); Carbon Dioxide 37 mmol/L (22-30); Chloride 84 mmol/L (98-107); Estimated Glomerular Filt Rate 56; Glucose 104 mg/dL (65-110); Magnesium 1.8 mg/dL (1.6-2.3); Potassium 4.7 mmol/L (3.4-5.0); Sodium 125 mmol/L (137-145)
[2022-02-03] MEDS: LEVOTHYROXINE SODIUM 25 MCG TABLET PO (06:29)
--- NOTE | 2022-02-03 08:13 | PM.IMPN ---
Progress Note: A&P Additional Plan (1) Acute on chronic respiratory failure with hypoxia and hypercapnia: She is on 2 L chronically and is on AVAPS at nighttime. ABG on admission showed mild, acute worsening of hypercapnia, and she was initially hypoxic but her O2 has been weaned. Dr. Bailon has been consulted and her recommendations are greatly appreciated. AVAPS and oxygen as ordered BNP was elevated hence she received a dose of Lasix 01/28/2022 The patient was dyspnea last night 01/31/22 and had a rapid response called on her. She was subsequently placed on BiPAP. Chest xray on 02/01/22 reported improving pulmonary edema, improving opacities in the RUL and LLL. Now on 3L [place] oxygen and saturating 97%. Continue PO prednisone 40mg daily (day 3 of 5) and IV ceftriaxone daily (day 9 of 10) per counter attendant recs. RT for Acapella/ Chest percussive therapy. Appreciate pulmonary recommendations. (2) Pneumonia: Qualifiers: Laterality: bilateral Lung location: unspecified part of lung Pneumonia type: due to unspecified organism Qualified Code(s): J18.9 - Pneumonia, unspecified organism Code(s): J18.9 - Pneumonia, unspecified organism Status: Acute Assessment and Plan: She has infiltrates on her chest CT consistent with pneumonia though she has not really had a productive cough. -continue ceftriaxone (day 9 of 10) -completed 5 days of azithromycin on 01/31/22 per counter attendant. -chest xray on 02/01/22 reported improving pulmonary edema, improving opacities in the RUL and LLL. (3) COPD exacerbation: Code(s): J44.1 - Chronic obstructive pulmonary disease with (acute) exacerbation Status: Acute Assessment and Plan: No significant bronchospasm on exam. Continue scheduled bronchodilators. No indication for steroids at this time. She received a dose of steroid in the ER, no further steroid. See treatment above. (4) Small cell lung cancer: Code(s): C34.90 - Malignant neoplasm of unspecified part of unspecified bronchus or lung Status: Acute Assessment and Plan: Patient of Dr. Mendez who has been consulted and his input is appreciated. Completed treatment November 2020 and radiation treatment in July 2021 (5) Pericardial effusion: Code(s): I31.3 - Pericardial effusion (noninflammatory) Status: Acute Assessment and Plan: A chronic problem felt to be related to malignancy. UBALDO pending Echo 09/26 EF 65%% grade 1 diastolic dysfunction moderately in jar large left atrial chamber [id number] TR moderate pulmonary hypertension moderate to large pericardial effusion with thickened pericardium Radiology was consulted last admission and did not recommend any pericardial synthesis (6) Hyponatremia: slowly resolving Code(s): E87.1 - Hypo-osmolality and hyponatremia Status: Acute Assessment and Plan: Chronic but running lower than her baseline. Euvolemic on exam. Serum osmolality is low. Further urine studies ordered. Sodium level continues to decline. Consulted Nephrology. BNP is elevated and chest x-ray still shows possibility of mild pulmonary edema. Urine sodium low suggestive of prerenal Sodium level is 125 today from 123 -PO demeclocycline started by the it compliance analyst on 02/01/22. -daily BMP -appreciate it compliance analyst ro. (7) Hypothyroidism: Code(s): E03.9 - Hypothyroidism, unspecified Status: Acute Assessment and Plan: Continue levothyroxine and stasis within normal limit (8) Anemia in chronic illness: Code(s): D63.8 - Anemia in other chronic diseases classified elsewhere Status: Acute Assessment and Plan: Stable on review of previous labs. continue to monitor no active bleeding (9) Hypertension: Code(s): I10 - Essential (primary) hypertension Status: Acute Assessment and Plan: Blood pressures were reviewed and they are stable. (10) Hypomagnesemia: resolved -Mg of 1.5, d
[2022-02-03] MEDS: MULTIVITAMINS THERAPEUTIC TAB (*BKC) 1 TABLET PO (08:40)
[2022-02-03] MEDS: METOPROLOL SUCCINATE EXT REL 25 MG TABCR PO (08:40)
[2022-02-03] MEDS: PYRIDOXINE HCL 50 MG TABLET 100 MG PO ×2 (08:40→17:44)
[2022-02-03] MEDS: SODIUM CHLORIDE 1 GM TABLET PO ×2 (08:40→17:44)
[2022-02-03] MEDS: dilTIAZem HCL CD 180 MG CAP.ER.24H 360 MG PO (08:41)
[2022-02-03] MEDS: CYANOCOBALAMIN 1,000 MCG TABLET 1000 MCG PO (08:41)
[2022-02-03] MEDS: CHOLECALCIFEROL 1,000 UNITS TABLET 5000 UNITS PO (08:41)
[2022-02-03] MEDS: DEMECLOCYCLINE HCL 150 MG TABLET PO ×4 (08:41→20:55)
[2022-02-03] MEDS: ESCITALOPRAM OXALATE 10 MG TABLET PO (08:41)
[2022-02-03] MEDS: ENOXAPARIN 40 MG/0.4 ML SYRINGE SUB-Q (08:41)
[2022-02-03] MEDS: ASPIRIN 81 MG CHEWABLE TABLET PO (08:41)
[2022-02-03] MEDS: FUROSEMIDE 10 MG TABLET PO ×3 (08:41→17:44)
[2022-02-03] MEDS: predniSONE 20 MG TABLET 40 MG PO (08:42)
--- NOTE | 2022-02-03 09:10 | PM.PNNEP ---
Progress Note: A&P Assessment and Plan (1) Hyponatremia: Code(s): E87.1 - Hypo-osmolality and hyponatremia Status: Acute Assessment and Plan: acute on chronic -- has been present since at least 2019 multiple risk factors: severe lung disease/COPD lung cancer medications - SSRI + narcotics cortisol okay; TSH good on admission. SPEP and UPEP are pending. Serum osmolality was appropriate. Urine osmolality was not very high but not maximally dilute either. Urine sodium and chloride was low. 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 May have a water excretion defect as well. She does take trazodone occasionally at home. 02/03 Na 125. This is coming up slowly. Her baseline sodium level runs about 130. on salt tabs as as fluid restriction (1000cc/day), Lasix and demeclocycline. (2) Acute on chronic respiratory failure with hypoxia and hypercapnia: Code(s): J96.21 - Acute and chronic respiratory failure with hypoxia; J96.22 - Acute and chronic respiratory failure with hypercapnia Status: Acute Assessment and Plan: due to known lung disease/COPD worsened by acute pneumonia Pulmonary following with recommendations noted (3) Pneumonia: Qualifiers: Laterality: bilateral Lung location: unspecified part of lung Pneumonia type: due to unspecified organism Qualified Code(s): J18.9 - Pneumonia, unspecified organism Code(s): J18.9 - Pneumonia, unspecified organism Status: Acute Assessment and Plan: as noted by imaging studies to date continue current therapy Will continue to follow. Subjective Date/time seen: 02/03/22 09:10 Interval history: Patient is feeling okay today. No chest pain. The usual shortness of breath. She is on oxygen. COPD is severe. Exam Narrative: General: Elderly female in NAD Heart: normal S1 and S2; no rub or gallop Lungs: coarse breath sounds noted Abdomen: soft, nontender, nondistended, positive bowel sounds Extremities: no cyanosis or clubbing; no edema Skin: no rash or subQ nodules Objective Data Vital Signs Vital Signs: Vital Signs - 24 hr 02/02/22 10:00 02/02/22 12:00 02/02/22 12:37 Temperature 37.1 C Pulse Rate 73 76 72 Respiratory Rate 15 20 Blood Pressure 107/43 L Pulse Oximetry 100 02/02/22 12:45 02/02/22 14:00 02/02/22 16:00 Temperature 36.8 C Pulse Rate 76 65 65 Respiratory Rate 20 20 Blood Pressure 116/46 L Pulse Oximetry 100 02/02/22 18:00 02/02/22 19:40 02/02/22 19:41 Temperature Pulse Rate 94 67 Respiratory Rate 20 Blood Pressure Pulse Oximetry 99 02/02/22 19:50 02/02/22 20:00 02/02/22 22:00 Temperature 36.2 C L Pulse Rate 73 66 70 Respiratory Rate 20 18 Blood Pressure 112/46 L Pulse Oximetry 96 02/02/22 23:17 02/02/22 23:53 02/02/22 23:55 Temperature 36.6 C Pulse Rate 76 67 68 Respiratory Rate 20 18 18 Blood Pressure 153/67 H Pulse Oximetry 96 97 02/03/22 00:00 02/03/22 00:03 02/03/22 02:00 Temperature Pulse Rate 69 69 71 Respiratory Rate 18 Blood Pressure Pulse Oximetry 96 02/03/22 03:05 02/03/22 03:15 02/03/22 03:20 Temperature 36.4 C L Pulse Rate 79 80 79 Respiratory Rate 21 H 21 H 21 H Blood Pressure 117/51 L Pulse Oximetry 99 98 02/03/22 04:00 02/03/22 06:00 02/03/22 06:10 Temperature Pulse Rate 86 80 Respiratory Rate Blood Pressure Pulse Oximetry 98 96 02/03/22 07:40 02/03/22 07:51 02/03/22 08:00 Temperature 36.6 C Pulse Rate 84 85 81 Respiratory Rate 16 16 20 Blood Pressure 127/51 L Pulse Oximetry 95 95 97 02/03/22 08:40 02/03/22 08:53 Temperature Pulse Rate 88 Respiratory Rate Blood Pressure Pulse Oximetry 97 Intake/Output Intake/Output: Intake & Output 01/31/22 02/01/22 02/02/22 02/03/22 23:59 23:59 23:59 23:59 Intake Total 1000 780 610 Output Total 797 575 7486 350 Balance 400 -120 -440 -350 Meds/R
[2022-02-03] MEDS: traMADol HCL (*CRX) 50 MG TABLET PO ×2 (13:11→21:00)
[2022-02-03 19:59] LABS: Total Protein/Creatinine Ratio 353 mg/g creat (21-161)
[2022-02-03] MEDS: ATORVASTATIN 40 MG TABLET 80 MG PO (20:55)
[2022-02-04] VITALS (30 sets, daily range): BP systolic 122–137; BP diastolic 57–71; PULSE 75–97; RESP 14–22; TEMP 36.2–37; O2SAT 91–100
[2022-02-04] MEDS: IPRATROPIUM BR 0.02% INH SOLN 0.5 MG/2.5 ML VIAL INHALATION ×6 (00:43→20:45)
[2022-02-04] MEDS: ALBUTEROL SULFATE NEB 2.5 MG/0.5 ML INH INHALATION ×6 (00:44→20:45)
[2022-02-04 05:01] LABS: Eosinophils Percent Auto 0.1 % (0-4.4); Hematocrit 22.3 % (37.0-47.0); Hemoglobin 7.1 g/dL (12.0-15.0); Immature Granulocyte Absolute 0.07 K/mm3 (0.00-0.031); Immature Granulocyte Percent A 0.7 % (0-0.5); Lymphocytes Absolute Auto 0.32 K/mm3 (0.9-3.2); Lymphocytes Percent Auto 3.3 % (18.3-44.2); Mean Corpuscular HGB Conc 31.8 g/dl (32-36); Mean Corpuscular Hemoglobin 31.7 pg (26-34); Mean Corpuscular Volume 99.6 fl (80-100); Mean Platelet Volume 8.9 fl (7.4-10.4); Monocytes Absolute Auto 0.8 K/mm3 (0.1-0.6); Monocytes Percent Auto 8.1 % (2.6-8.5); Neutrophils Absolute Auto 8.6 K/mm3 (1.3-6.7); Neutrophils Percent Auto 87.8 % (45.5-73.1); Platelet Count Result 214 k/mm3 (150-375); Red Blood Count 2.24 M/mm3 (4.2-5.4); Red Cell Distribution Width 13.2 % (11.5-14.5); White Blood Count 9.8 K/mm3 (4.5-10.0)
[2022-02-04 05:15] LABS: Albumin Level 3.3 g/dL (3.5-5.1); Blood Urea Nitrogen 27 mg/dL (7-17); Calcium 9.1 mg/dL (8.4-10.2); Carbon Dioxide > 40 mmol/L (22-30); Chloride 82 mmol/L (98-107); Estimated Glomerular Filt Rate > 60; Glucose 88 mg/dL (65-110); Phosphorus 3.5 mg/dL (2.5-4.5); Potassium 4.2 mmol/L (3.4-5.0); Sodium 125 mmol/L (137-145)
[2022-02-04] MEDS: LEVOTHYROXINE SODIUM 25 MCG TABLET PO (05:55)
[2022-02-04] MEDS: MULTIVITAMINS THERAPEUTIC TAB (*BKC) 1 TABLET PO (09:05)
[2022-02-04] MEDS: SODIUM CHLORIDE 1 GM TABLET PO ×2 (09:05→16:44)
[2022-02-04] MEDS: PYRIDOXINE HCL 50 MG TABLET 100 MG PO ×2 (09:05→16:44)
[2022-02-04] MEDS: DEMECLOCYCLINE HCL 150 MG TABLET PO ×4 (09:06→20:34)
[2022-02-04] MEDS: METOPROLOL SUCCINATE EXT REL 25 MG TABCR PO (09:06)
[2022-02-04] MEDS: dilTIAZem HCL CD 180 MG CAP.ER.24H 360 MG PO (09:06)
[2022-02-04] MEDS: FUROSEMIDE 10 MG TABLET PO ×3 (09:06→16:43)
[2022-02-04] MEDS: ESCITALOPRAM OXALATE 10 MG TABLET PO (09:06)
[2022-02-04] MEDS: ENOXAPARIN 40 MG/0.4 ML SYRINGE SUB-Q (09:06)
[2022-02-04] MEDS: predniSONE 20 MG TABLET 40 MG PO (09:07)
[2022-02-04] MEDS: CHOLECALCIFEROL 1,000 UNITS TABLET 5000 UNITS PO (09:07)
[2022-02-04] MEDS: CYANOCOBALAMIN 1,000 MCG TABLET 1000 MCG PO (09:07)
[2022-02-04] MEDS: ASPIRIN 81 MG CHEWABLE TABLET PO (09:07)
--- NOTE | 2022-02-04 09:19 | PM.IMPN ---
Progress Note: A&P Assessment and Plan (1) Acute on chronic respiratory failure with hypoxia and hypercapnia: Code(s): J96.21 - Acute and chronic respiratory failure with hypoxia; J96.22 - Acute and chronic respiratory failure with hypercapnia Status: Acute Assessment and Plan: She is on 2 L chronically and is on AVAPS at nighttime. ABG on admission showed mild, acute worsening of hypercapnia, and she was initially hypoxic but her O2 has been weaned. Dr. Bailon has been consulted and her recommendations are greatly appreciated. AVAPS and oxygen as ordered Add Pulmozyme Check BNP which came back elevated. Received a dose of Lasix 01/28/2022 (2) Pneumonia: Qualifiers: Laterality: bilateral Lung location: unspecified part of lung Pneumonia type: due to unspecified organism Qualified Code(s): J18.9 - Pneumonia, unspecified organism Code(s): J18.9 - Pneumonia, unspecified organism Status: Acute Assessment and Plan: She has infiltrates on her chest CT consistent with pneumonia though she has not really had a productive cough. She has been started on azithromycin and ceftriaxone. Sputum to be attempted for culture. Urine pneumococcal antigen negative Legionella pending. WBC normal, she is on day 10 of antibiotics and will be discontinued tomorrow. (3) COPD exacerbation: Code(s): J44.1 - Chronic obstructive pulmonary disease with (acute) exacerbation Status: Acute Assessment and Plan: No significant bronchospasm on exam. Continue scheduled bronchodilators. No indication for steroids at this time. She received a dose of steroid in the ER, no further steroid, appears to be resolved and she is on her baseline level of oxygenation. She does have continued crackles noted, they are fine and appear chronic. (4) Small cell lung cancer: Code(s): C34.90 - Malignant neoplasm of unspecified part of unspecified bronchus or lung Status: Acute Assessment and Plan: Patient of Dr. Mendez who has been consulted and his input is appreciated. Completed treatment November 2020 and radiation treatment in July 2021 (5) Pericardial effusion: Code(s): I31.3 - Pericardial effusion (noninflammatory) Status: Acute Assessment and Plan: A chronic problem felt to be related to malignancy. UBALDO pending Echo 09/26 EF 65%% grade 1 diastolic dysfunction moderately in jar large left atrial chamber [id number] TR moderate pulmonary hypertension moderate to large pericardial effusion with thickened pericardium Radiology was consulted last admission and did not recommend any pericardiocentesis (6) Hyponatremia: Code(s): E87.1 - Hypo-osmolality and hyponatremia Status: Acute Assessment and Plan: Chronic but running lower than her baseline. Euvolemic on exam. Serum osmolality is low. Further urine studies ordered. Sodium level continues to decline. Consulted Nephrology. BNP is elevated and chest x-ray still shows possibility of mild pulmonary edema. May attempt 3% normal saline and monitor sodium level Urine sodium low suggestive of prerenal Low-dose Lasix added per nephrology Await improvement in sodium level before plan for discharge (7) Hypothyroidism: Code(s): E03.9 - Hypothyroidism, unspecified Status: Acute Assessment and Plan: Continue levothyroxine and stasis within normal limit (8) Anemia in chronic illness: Code(s): D63.8 - Anemia in other chronic diseases classified elsewhere Status: Acute Assessment and Plan: Stable on review of previous labs. continue to monitor no active bleeding (9) Hypertension: Code(s): I10 - Essential (primary) hypertension Status: Acute Assessment and Plan: Blood pressures were reviewed and they are stable. Subjective Date/time seen: 02/04/22 09:19 Interval history: Patient is a bit confused but per daughter
--- NOTE | 2022-02-04 09:44 | P.PNNP_ITS ---
Progress Note: A&P Assessment and Plan (1) Hyponatremia: Code(s): E87.1 - Hypo-osmolality and hyponatremia Status: Acute Assessment and Plan: * acute on chronic -- has been present since at least 2019 * multiple risk factors: * severe lung disease/COPD * lung cancer * medications - SSRI + narcotics * cortisol okay; TSH good on admission. * UPEP is normal. * SPEP pending. * Serum osmolality was appropriate. Urine osmolality was not very high but not maximally dilute either. * Urine sodium and chloride was low. 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 * 02/03 Na 125. * 02/04 Na 125. * on fluid restriction (1000cc/day), Lasix plus salt tabs and demeclocycline. * continue the same. (2) Acute on chronic respiratory failure with hypoxia and hypercapnia: Code(s): J96.21 - Acute and chronic respiratory failure with hypoxia; J96.22 - Acute and chronic respiratory failure with hypercapnia Status: Acute Assessment and Plan: * due to known lung disease/COPD worsened by acute pneumonia * Pulmonary following with recommendations noted (3) Pneumonia: Qualifiers: Laterality: bilateral Lung location: unspecified part of lung Pneumonia type: due to unspecified organism Qualified Code(s): J18.9 - Pneumonia, unspecified organism Code(s): J18.9 - Pneumonia, unspecified organism Status: Acute Assessment and Plan: * as noted by imaging studies to date * continue current therapy Will continue to follow. Subjective Date/time seen: 02/04/22 09:44 Interval history: Patient is feeling okay today. she is sleeping with her CPAP mask. Exam Narrative: General: Elderly female in NAD Heart: normal S1 and S2; no rub or gallop Lungs: coarse breath sounds noted Abdomen: soft, nontender, nondistended, positive bowel sounds Extremities: no cyanosis or clubbing; no edema Skin: no rash. Objective Data Vital Signs Vital Signs: Vital Signs - 24 hr 02/03/22 10:00 02/03/22 11:50 02/03/22 11:59 Temperature Pulse Rate 88 86 87 Respiratory Rate 20 16 Blood Pressure Pulse Oximetry 02/03/22 12:00 02/03/22 14:00 02/03/22 15:55 Temperature 36.8 C Pulse Rate 86 87 84 Respiratory Rate 16 20 Blood Pressure 127/57 L Pulse Oximetry 97 02/03/22 16:00 02/03/22 16:02 02/03/22 18:00 Temperature 36.6 C Pulse Rate 82 81 94 Respiratory Rate 20 20 Blood Pressure 135/60 Pulse Oximetry 94 02/03/22 19:53 02/03/22 19:54 02/03/22 20:00 Temperature 36.3 C L Pulse Rate 84 93 Respiratory Rate 18 20 Blood Pressure 134/62 Pulse Oximetry 92 95 02/03/22 20:02 02/03/22 22:00 02/03/22 22:50 Temperature Pulse Rate 88 90 Respiratory Rate 18 20 Blood Pressure Pulse Oximetry 98 02/03/22 23:03 02/04/22 00:00 02/04/22 00:44 Temperature 36.4 C L Pulse Rate 90 90 80 Respiratory Rate 22 H 21 H Blood Pressure 135/60 Pulse Oximetry 96 97 97 02/04/22 00:58 02/04/22 02:00 02/04/22 02:50 Temperature
--- NOTE | 2022-02-04 09:44 | PM.PNNEP ---
Progress Note: A&P Assessment and Plan (1) Hyponatremia: Code(s): E87.1 - Hypo-osmolality and hyponatremia Status: Acute Assessment and Plan: acute on chronic -- has been present since at least 2019 multiple risk factors: severe lung disease/COPD lung cancer medications - SSRI + narcotics cortisol okay; TSH good on admission. UPEP is normal. SPEP pending. Serum osmolality was appropriate. Urine osmolality was not very high but not maximally dilute either. Urine sodium and chloride was low. 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 02/03 Na 125. 5/1 Na 125. on fluid restriction (1000cc/day), Lasix plus salt tabs and demeclocycline. continue the same. (2) Acute on chronic respiratory failure with hypoxia and hypercapnia: Code(s): J96.21 - Acute and chronic respiratory failure with hypoxia; J96.22 - Acute and chronic respiratory failure with hypercapnia Status: Acute Assessment and Plan: due to known lung disease/COPD worsened by acute pneumonia Pulmonary following with recommendations noted (3) Pneumonia: Qualifiers: Laterality: bilateral Lung location: unspecified part of lung Pneumonia type: due to unspecified organism Qualified Code(s): J18.9 - Pneumonia, unspecified organism Code(s): J18.9 - Pneumonia, unspecified organism Status: Acute Assessment and Plan: as noted by imaging studies to date continue current therapy Will continue to follow. Subjective Date/time seen: 02/04/22 09:44 Interval history: Patient is feeling okay today. she is sleeping with her CPAP mask. Exam Narrative: General: Elderly female in NAD Heart: normal S1 and S2; no rub or gallop Lungs: coarse breath sounds noted Abdomen: soft, nontender, nondistended, positive bowel sounds Extremities: no cyanosis or clubbing; no edema Skin: no rash. Objective Data Vital Signs Vital Signs: Vital Signs - 24 hr 02/03/22 10:00 02/03/22 11:50 02/03/22 11:59 Temperature Pulse Rate 88 86 87 Respiratory Rate 20 16 Blood Pressure Pulse Oximetry 02/03/22 12:00 02/03/22 14:00 02/03/22 15:55 Temperature 36.8 C Pulse Rate 86 87 84 Respiratory Rate 16 20 Blood Pressure 127/57 L Pulse Oximetry 97 02/03/22 16:00 02/03/22 16:02 02/03/22 18:00 Temperature 36.6 C Pulse Rate 82 81 94 Respiratory Rate 20 20 Blood Pressure 135/60 Pulse Oximetry 94 02/03/22 19:53 02/03/22 19:54 02/03/22 20:00 Temperature 36.3 C L Pulse Rate 84 93 Respiratory Rate 18 20 Blood Pressure 134/62 Pulse Oximetry 92 95 02/03/22 20:02 02/03/22 22:00 02/03/22 22:50 Temperature Pulse Rate 88 90 Respiratory Rate 18 20 Blood Pressure Pulse Oximetry 98 02/03/22 23:03 02/04/22 00:00 02/04/22 00:44 Temperature 36.4 C L Pulse Rate 90 90 80 Respiratory Rate 22 H 21 H Blood Pressure 135/60 Pulse Oximetry 96 97 97 02/04/22 00:58 02/04/22 02:00 02/04/22 02:50 Temperature Pulse Rate 84 97 Respiratory Rate 18 22 H Blood Pressure Pulse Oximetry 98 02/04/22 03:23 02/04/22 04:00 02/04/22 04:31 Temperature 36.3 C L Pulse Rate 97 88 81 Respiratory Rate 21 H 20 Blood Pressure 131/68 Pulse Oximetry 97 97 02/04/22 04:38 02/04/22 04:39 02/04/22 06:00 Temperature Pulse Rate 84 91 Respiratory Rate 21 H 18 Blood Pressure Pulse Oximetry 97 02/04/22 06:39 02/04/22 07:44 02/04/22 09:06 Temperature 36.2 C L Pulse Rate 93 82 92 Respiratory Rate 22 H 20 Blood Pressure 129/71 Pulse Oximetry 96 94 Intake/Output Intake/Output: Intake & Output 02/01/22 02/02/22 02/03/22 02/04/22 23:59 23:59 23:59 23:59 Intake Total 780 610 770 150 Output Total 900 1050 1100 1000 Balance -120 -440 -330 -850 Meds/Results Medications: Active Medications Generic Name Dose Route Start Last Admin Trade Name Freq PRN Reason Stop Dose Admin Acetaminophen
[2022-02-04] MEDS: traMADol HCL (*CRX) 50 MG TABLET PO ×2 (13:58→20:40)
[2022-02-04] MEDS: ATORVASTATIN 40 MG TABLET 80 MG PO (20:34)
[2022-02-04 22:30] LABS: Albumin 2.6 g/dL (3.8-4.8); Alpha 1 Globulin 0.5 g/dL (0.2-0.3); Beta 1 Globulin 0.3 g/dL (0.4-0.6); Gamma Globulin 0.6 g/dL (0.8-1.7); Protein, Total 5.3 g/dL (6.1-8.1)
[2022-02-05] VITALS (20 sets, daily range): BP systolic 109–132; BP diastolic 56–66; PULSE 72–88; RESP 14–22; TEMP 36.1–36.5; O2SAT 91–100
[2022-02-05] MEDS: IPRATROPIUM BR 0.02% INH SOLN 0.5 MG/2.5 ML VIAL INHALATION ×3 (00:19→08:00)
[2022-02-05] MEDS: ALBUTEROL SULFATE NEB 2.5 MG/0.5 ML INH INHALATION ×3 (00:19→08:00)
[2022-02-05 05:16] LABS: Albumin Level 3.4 g/dL (3.5-5.1); Blood Urea Nitrogen 26 mg/dL (7-17); Calcium 9.4 mg/dL (8.4-10.2); Carbon Dioxide > 40 mmol/L (22-30); Chloride 83 mmol/L (98-107); Estimated Glomerular Filt Rate 56; Glucose 99 mg/dL (65-110); Phosphorus 4.4 mg/dL (2.5-4.5); Potassium 4.1 mmol/L (3.4-5.0); Sodium 129 mmol/L (137-145)
[2022-02-05] MEDS: LEVOTHYROXINE SODIUM 25 MCG TABLET PO (06:31)
[2022-02-05] MEDS: traMADol HCL (*CRX) 50 MG TABLET PO ×2 (06:35→21:24)
--- NOTE | 2022-02-05 08:48 | P.PNNP_ITS ---
Progress Note: A&P Assessment and Plan (1) Hyponatremia: Code(s): E87.1 - Hypo-osmolality and hyponatremia Status: Acute Assessment and Plan: * acute on chronic -- has been present since at least 2019 * multiple risk factors: * severe lung disease/COPD * lung cancer * medications - SSRI + narcotics * cortisol okay; TSH good on admission. * UPEP is normal. * SPEP pending. * Serum osmolality was appropriate. Urine osmolality was not very high but not maximally dilute either. * Urine sodium and chloride was low. 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 * 02/03 Na 125. * 02/04 Na 125. * 02/05 Na 129 * on fluid restriction (1000cc/day), Lasix plus salt tabs and demeclocycline. * continue the same approach since sodium improved. * check sodium in [place] m. (2) Acute on chronic respiratory failure with hypoxia and hypercapnia: Code(s): J96.21 - Acute and chronic respiratory failure with hypoxia; J96.22 - Acute and chronic respiratory failure with hypercapnia Status: Acute Assessment and Plan: * due to known lung disease/COPD worsened by acute pneumonia * Pulmonary following with recommendations noted * CO2 level is high. Latest blood gases show that this is appropriate considering her pCO2 of 71. This is chronic respiratory acidosis by nomogram. (3) Pneumonia: Qualifiers: Laterality: bilateral Lung location: unspecified part of lung Pneumonia type: due to unspecified organism Qualified Code(s): J18.9 - Pneumonia, unspecified organism Code(s): J18.9 - Pneumonia, unspecified organism Status: Acute Assessment and Plan: * as noted by imaging studies to date * continue current therapy Will continue to follow. Subjective Date/time seen: 02/05/22 08:48 Interval history: Patient is feeling okay today. slept with her CPAP mask last night. Is feeling okay on oxygen today. Exam Narrative: General: Elderly female in NAD Heart: normal S1 and S2; no rub or gallop Lungs: coarse breath sounds noted Abdomen: soft, nontender, nondistended, positive bowel sounds Extremities: no cyanosis or clubbing; no edema Skin: no rash or subcu nodules. Objective Data Vital Signs Vital Signs: Vital Signs - 24 hr 02/04/22 09:06 02/04/22 10:00 02/04/22 12:00 Temperature 37.0 C Pulse Rate 92 85 92 Respiratory Rate 16 Blood Pressure 128/69 Pulse Oximetry 98 02/04/22 12:30 02/04/22 12:39 02/04/22 14:00 Temperature Pulse Rate 80 86 75 Respiratory Rate 20 20 Blood Pressure Pulse Oximetry 02/04/22 15:20 02/04/22 16:00 02/04/22 18:00 Temperature 36.9 C Pulse Rate 83 78 82 Respiratory Rate 20 20 Blood Pressure 122/57 L Pulse Oximetry 92 02/04/22 19:56 02/04/22 20:00 02/04/22 20:45 Temperature 37.0 C Pulse Rate 83 78 87 Respiratory Rate 20 14 Blood Pressure 131/63 Pulse Oximetry 91 91 92 02/04/22 20:52 02/04/22 22:00 02/04/22 22:10 Temperature Pulse Rate 88 78 84 Respiratory Rate 14 17 Blood Pressure Pulse Oximetry 93 02/04/22 23:17 02/05/22 00:00 02/05/22
--- NOTE | 2022-02-05 08:48 | PM.PNNEP ---
Progress Note: A&P Assessment and Plan (1) Hyponatremia: Code(s): E87.1 - Hypo-osmolality and hyponatremia Status: Acute Assessment and Plan: acute on chronic -- has been present since at least 2019 multiple risk factors: severe lung disease/COPD lung cancer medications - SSRI + narcotics cortisol okay; TSH good on admission. UPEP is normal. SPEP pending. Serum osmolality was appropriate. Urine osmolality was not very high but not maximally dilute either. Urine sodium and chloride was low. 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 02/03 Na 125. 5/1 Na 125. 5/2 Na 129 on fluid restriction (1000cc/day), Lasix plus salt tabs and demeclocycline. continue the same approach since sodium improved. check sodium in [place] m. (2) Acute on chronic respiratory failure with hypoxia and hypercapnia: Code(s): J96.21 - Acute and chronic respiratory failure with hypoxia; J96.22 - Acute and chronic respiratory failure with hypercapnia Status: Acute Assessment and Plan: due to known lung disease/COPD worsened by acute pneumonia Pulmonary following with recommendations noted CO2 level is high. Latest blood gases show that this is appropriate considering her pCO2 of 71. This is chronic respiratory acidosis by nomogram. (3) Pneumonia: Qualifiers: Laterality: bilateral Lung location: unspecified part of lung Pneumonia type: due to unspecified organism Qualified Code(s): J18.9 - Pneumonia, unspecified organism Code(s): J18.9 - Pneumonia, unspecified organism Status: Acute Assessment and Plan: as noted by imaging studies to date continue current therapy Will continue to follow. Subjective Date/time seen: 02/05/22 08:48 Interval history: Patient is feeling okay today. slept with her CPAP mask last night. Is feeling okay on oxygen today. Exam Narrative: General: Elderly female in NAD Heart: normal S1 and S2; no rub or gallop Lungs: coarse breath sounds noted Abdomen: soft, nontender, nondistended, positive bowel sounds Extremities: no cyanosis or clubbing; no edema Skin: no rash or subcu nodules. Objective Data Vital Signs Vital Signs: Vital Signs - 24 hr 02/04/22 09:06 02/04/22 10:00 02/04/22 12:00 Temperature 37.0 C Pulse Rate 92 85 92 Respiratory Rate 16 Blood Pressure 128/69 Pulse Oximetry 98 05/01/22 12:30 02/04/22 12:39 02/04/22 14:00 Temperature Pulse Rate 80 86 75 Respiratory Rate 20 20 Blood Pressure Pulse Oximetry 02/04/22 15:20 02/04/22 16:00 02/04/22 18:00 Temperature 36.9 C Pulse Rate 83 78 82 Respiratory Rate 20 20 Blood Pressure 122/57 L Pulse Oximetry 92 02/04/22 19:56 02/04/22 20:00 02/04/22 20:45 Temperature 37.0 C Pulse Rate 83 78 87 Respiratory Rate 20 14 Blood Pressure 131/63 Pulse Oximetry 91 91 92 02/04/22 20:52 02/04/22 22:00 02/04/22 22:10 Temperature Pulse Rate 88 78 84 Respiratory Rate 14 17 Blood Pressure Pulse Oximetry 93 02/04/22 23:17 02/05/22 00:00 02/05/22 00:20 Temperature 36.2 C L Pulse Rate 88 76 73 Respiratory Rate 20 14 Blood Pressure 137/65 Pulse Oximetry 98 94 97 02/05/22 00:30 02/05/22 02:00 02/05/22 04:00 Temperature 36.4 C L Pulse Rate 75 75 72 Respiratory Rate 14 22 H Blood Pressure 121/59 L Pulse Oximetry 94 02/05/22 04:19 02/05/22 04:25 02/05/22 06:00 Temperature Pulse Rate 72 74 78 Respiratory Rate 15 16 Blood Pressure Pulse Oximetry 93 02/05/22 08:00 Temperature 36.2 C L Pulse Rate 88 Respiratory Rate 18 Blood Pressure 132/66 Pulse Oximetry 91 Intake/Output Intake/Output: Intake & Output 02/02/22 02/03/22 02/04/22 02/05/22 23:59 23:59 23:59 23:59 Intake Total 610 770 685 Output Total 1050 1100 1300 550 Balance -440 -330 -615 -550 Meds/Results Medications: Active Medications Generic Name Dose Route Start Last Adm
[2022-02-05] MEDS: SODIUM CHLORIDE 1 GM TABLET PO ×2 (09:34→17:38)
[2022-02-05] MEDS: MULTIVITAMINS THERAPEUTIC TAB (*BKC) 1 TABLET PO (09:35)
[2022-02-05] MEDS: ESCITALOPRAM OXALATE 10 MG TABLET PO (09:35)
[2022-02-05] MEDS: METOPROLOL SUCCINATE EXT REL 25 MG TABCR PO (09:35)
[2022-02-05] MEDS: PYRIDOXINE HCL 50 MG TABLET 100 MG PO ×2 (09:35→17:38)
[2022-02-05] MEDS: FUROSEMIDE 10 MG TABLET PO ×3 (09:35→17:39)
[2022-02-05] MEDS: CHOLECALCIFEROL 1,000 UNITS TABLET 5000 UNITS PO (09:36)
[2022-02-05] MEDS: dilTIAZem HCL CD 180 MG CAP.ER.24H 360 MG PO (09:36)
[2022-02-05] MEDS: DEMECLOCYCLINE HCL 150 MG TABLET PO ×4 (09:36→21:20)
[2022-02-05] MEDS: ENOXAPARIN 40 MG/0.4 ML SYRINGE SUB-Q (09:36)
[2022-02-05] MEDS: CYANOCOBALAMIN 1,000 MCG TABLET 1000 MCG PO (09:36)
[2022-02-05] MEDS: predniSONE 20 MG TABLET 40 MG PO (09:37)
[2022-02-05] MEDS: ASPIRIN 81 MG CHEWABLE TABLET PO (09:37)
--- NOTE | 2022-02-05 10:37 | PCNFU ---
Nutrition Follow-Up Complete: Inadequate oral intake related to decreased appetite as evidenced by reported poor PO intake Goal: Pt to meet >50% of estimated nutritional needs. Pt is progressing towards goal. Pt current nutrition is heart healthy diet with 1,000 mL fluid restriction. Nutrition recommendation: Send Ensure Compact Vanilla TID. Last recorded weight is 40.4 kg. Weight is stable and slightly increasing. Bowel Motility: No BM reported. Labs Reviewed: 02/05/22: Na:129, GFR:56, BUN:26 Meds Noted: Lipitor, Lovenox, Toprol XI, Vitamin B-6, Prednisone, Cardizem Cd, Vitamin B-12 Tablet Skin: WNL Additional Notes: Pt reported enjoying the vanilla ensure compact and has not been receiving her nutritional ice cream. Will notify diet office. Pt meal intake varies throughout the day: 50% lunch 02/04, 25% dinner 02/04, 75% breakfast /. Pt likes prakash crackers and Jell-O. Recommend Ensure Compact vanilla TID: 220 kcals, 9 grams protein per shake and nutritional ice cream once a day: 300 kcals, 9 grams protein. Will continue to follow-up. Agree with current heart healthy diet order. Will monitor medications, labs, wt, and reported intake every 5 days.
--- NOTE | 2022-02-05 15:36 | P.DS_ITS ---
DS: Summary Time Spent with Patient Time attestation: Total time spent providing and/or coordinating discharge ser vices: DS: Data Data Completed and Pending Labs on day of discharge: Labs from last 24 hours 02/05/22 01/30/22 04:25 05:41 Sodium 129 L Potassium 4.1 Chloride 83 L Carbon Dioxide > 40 H Anion Gap BUN 26 H Creatinine 1.00 Estim Creat Clear Calc Not Reportable Estimated GFR 56 L Glucose 99 Calcium 9.4 Phosphorus 4.4 Total Protein 5.3 L Albumin 3.4 L 2.6 L Xxwvk-1-Nrucmkzrk 0.5 H Hyggt-7-Nzjzppbko 1.0 H Yrrj-2-Gkdbqluq 0.3 L Bqth-1-Jrboqcnx 0.3 Gamma Globulins 0.6 L Abnorm Protein Band 1 see below Abnorm Protein Band 3 Not Reportable PEP Interpretation see below A Discharge Plan Discharge Consulting providers: Erin aBilon ; Maged Richey Discharge Medications: No Action atorvastatin 40 mg Tablet 80 mg PO HS RF: 0 diltiazem HCl 360 mg Capsule,Extended Release 24hr 360 mg PO DAILY RF: 0 aspirin 81 mg Tablet 81 mg PO DAILY RF: 0 escitalopram oxalate 10 mg Tablet 10 mg PO DAILY RF: 0 cholecalciferol (vitamin D3) [Vitamin D3] 125 mcg (5,000 unit) Tablet 125 mcg PO DAILY RF: 0 pyridoxine (vitamin B6) 100 mg tablet 100 mg PO BID RF: 0 metoprolol succinate 25 mg tablet extended release 24 hr 25 mg PO DAILY RF: 0 mecobalamin (vitamin B12) 1,000 mcg tablet,disintegrating 1,000 mcg sublingual DAILY RF: 0 ferrous sulfate [iron] 325 mg (65 mg iron) tablet 325 mg PO BID RF: 0 levothyroxine 25 mcg capsule 25 mcg PO DAILY RF: 0 Adult One Daily Multivitamin 1 tablet PO DAILY RF: 0 ipratropium-albuterol 0.5 mg-3 mg(2.5 mg base)/3 mL solution for nebulization 3 ml INHALATION Q6H PRN (Reason: Shortness Of Breath) RF: 0 trazodone 50 mg tablet 25 mg PO HS PRN (Reason: Insomnia) RF: 0 hydrocodone-acetaminophen 5-325 mg tablet 1 tablet PO Q8H PRN (Reason: Pain) RF: 0 acetaminophen 650 mg Tablet 650 mg PO Q4H PRN (Reason: Fever) RF: 0 magnesium hydroxide [Milk of Magnesia] 400 mg/5 mL Suspension 30 ml PO DAILY PRN (Reason: Constipation) RF: 0 benzonatate [Tessalon Perles] 100 mg Capsule 100 mg PO Q8H PRN (Reason: Cough) RF: 0 bisacodyl [Dulcolax (bisacodyl)] 10 mg Suppository 10 mg RECTAL DAILY PRN (Reason: Constipation) RF: 0 albuterol sulfate 90 mcg/actuation HFA aerosol inhaler 2 inh INHALATION Q4H PRN (Reason: Shortness Of Breath) RF: 0 umeclidinium-vilanterol 62.5-25 mcg/actuation blister with device 1 inh inhalation DAILY Qty: 60 RF: 3 glycopyrrolate-formoterol 9-4.8 mcg HFA aerosol inhaler 2 puff inhalation BID Qty: 10.7 RF: 3 Date of admission: 01/27/22 15:24 Primary Care Provider: Jb Mendez Admitting Provider: Mook Abdi M.A. Attending physician on admission: Sue Whitman Condition: Serious Quality VTE Prophylaxis VTE prophylaxis: pharmacologic ordered
--- NOTE | 2022-02-05 15:52 | PCNSR ---
On 02/05/22, the student, Aminata Hargrove, provided care and completed [facility] documentation on this patient. I have reviewed the student's documentation and agree with the findings.
[2022-02-05 16:04] LABS: EDCOVIDSCREEN Negative (Negative)
--- NOTE | 2022-02-05 19:12 | PM.IMPN ---
Progress Note: A&P Assessment and Plan (1) Acute on chronic respiratory failure with hypoxia and hypercapnia: Code(s): J96.21 - Acute and chronic respiratory failure with hypoxia; J96.22 - Acute and chronic respiratory failure with hypercapnia Status: Acute Assessment and Plan: Back to baseline per pulmonology and ready for discharge (2) Pneumonia: Qualifiers: Laterality: bilateral Lung location: unspecified part of lung Pneumonia type: due to unspecified organism Qualified Code(s): J18.9 - Pneumonia, unspecified organism Code(s): J18.9 - Pneumonia, unspecified organism Status: Acute Assessment and Plan: Completed course of antibiotics as well as 5 day burst of prednisone, appears resolved (3) COPD exacerbation: Code(s): J44.1 - Chronic obstructive pulmonary disease with (acute) exacerbation Status: Acute Assessment and Plan: Appears to be at baseline level of functionality, continue home medications per pulmonology (4) Small cell lung cancer: Code(s): C34.90 - Malignant neoplasm of unspecified part of unspecified bronchus or lung Status: Acute Assessment and Plan: Completed treatment November 2020 and radiation treatment in July 2021 (5) Pericardial effusion: Code(s): I31.3 - Pericardial effusion (noninflammatory) Status: Acute Assessment and Plan: A chronic problem felt to be related to malignancy. UBALDO pending Echo 09/26 EF 65%% grade 1 diastolic dysfunction moderately in jar large left atrial chamber [id number] TR moderate pulmonary hypertension moderate to large pericardial effusion with thickened pericardium Radiology was consulted last admission and did not recommend any pericardiocentesis (6) Hyponatremia: Code(s): E87.1 - Hypo-osmolality and hyponatremia Status: Acute Assessment and Plan: Appreciate nephrology consultation, improving, continue fluid restriction, Lasix, salt tabs, demeclocycline, monitor (7) Hypothyroidism: Code(s): E03.9 - Hypothyroidism, unspecified Status: Acute Assessment and Plan: Continue levothyroxine, stable (8) Anemia in chronic illness: Code(s): D63.8 - Anemia in other chronic diseases classified elsewhere Status: Acute Assessment and Plan: Stable, monitor (9) Hypertension: Code(s): I10 - Essential (primary) hypertension Status: Acute Assessment and Plan: Stable, monitor Subjective Date/time seen: 02/05/22 19:12 Patient states she is feeling much better today, no complaints. No events noted overnight. No fevers or chills. No nausea vomiting diarrhea. No chest pain or shortness of breath. Review of Systems Review of Systems: All systems reviewed & are unremarkable except as noted in HPI and below Exam Const: General: no acute distress HENMT: Mouth: Yes moist mucous membranes Eyes: General: appearance normal, both eyes and all related structures Neck: Neck: no JVD Resp: Effort & Inspection: normal respiratory effort Auscultation: crackles and diminished lung sounds Cardio: Rate: regular rate Rhythm: regular rhythm GI: GI Palp: Yes Soft to palpation and No Tenderness to palpation present (GI) Psych: Mental Status: mental status grossly normal Objective Data Vital Signs Vital Signs: Vital Signs - 24 hr 02/04/22 19:56 02/04/22 20:00 02/04/22 20:45 Temperature 98.6 F Pulse Rate 83 78 87 Respiratory Rate 20 14 Blood Pressure 131/63 Pulse Oximetry 91 91 92 02/04/22 20:52 02/04/22 22:00 02/04/22 22:10 Temperature Pulse Rate 88 78 84 Respiratory Rate 14 17 Blood Pressure Pulse Oximetry 93 02/04/22 23:17 02/05/22 00:00 02/05/22 00:20 Temperature 97.1 F L Pulse Rate 88 76 73 Respiratory Rate 20 14 Blood Pressure 137/65 Pulse Oximetry 98 94 97 02/05/22 00:30 02/05/22 02:00 02/05/22 04:00 Temperature 97.5
[2022-02-05] MEDS: ATORVASTATIN 40 MG TABLET 80 MG PO (21:20)
[2022-02-06 02:20] VITALS: PULSE 79; RESP 15; O2SAT 87
[2022-02-06 04:00] VITALS: BP 129/77; PULSE 76; RESP 16; TEMP 36.2; O2SAT 99
[2022-02-06 05:31] VITALS: PULSE 76; RESP 18; O2SAT 92
[2022-02-06] MEDS: LEVOTHYROXINE SODIUM 25 MCG TABLET PO (06:07)
--- NOTE | 2022-02-06 07:17 | P.PNNP_ITS ---
Progress Note: A&P Assessment and Plan (1) Hyponatremia: Code(s): E87.1 - Hypo-osmolality and hyponatremia Status: Acute Assessment and Plan: * acute on chronic -- has been present since at least 2019 * multiple risk factors: * severe lung disease/COPD * lung cancer * medications - SSRI + narcotics * cortisol okay; TSH good on admission. * UPEP is normal. * SPEP is normal. * Serum osmolality was appropriate. Urine osmolality was not very high but not maximally dilute either. * Urine sodium and chloride was low. 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 * 02/03 Na 125. * 02/04 Na 125. * 02/05 Na 129 * 02/06 Na pending * on fluid restriction (1000cc/day), Lasix plus salt tabs and demeclocycline. * continue the same approach since sodium improved. * Await today's sodium. * Once sodium comes up a little bit more I think we can cut back on the Lasix and salt tablets as the demeclocycline kicks in. (2) Acute on chronic respiratory failure with hypoxia and hypercapnia: Code(s): J96.21 - Acute and chronic respiratory failure with hypoxia; J96.22 - Acute and chronic respiratory failure with hypercapnia Status: Acute Assessment and Plan: * due to known lung disease/COPD worsened by acute pneumonia * Pulmonary following with recommendations noted * chronic respiratory acidosis by nomogram. (3) Pneumonia: Qualifiers: Laterality: bilateral Lung location: unspecified part of lung Pneumonia type: due to unspecified organism Qualified Code(s): J18.9 - Pneumonia, unspecified organism Code(s): J18.9 - Pneumonia, unspecified organism Status: Acute Assessment and Plan: * as noted by imaging studies to date * continue current therapy Will continue to follow. Subjective Date/time seen: 02/06/22 07:17 Interval history: Patient is feeling okay today. No chest pain or worsened shortness of breath. Lying flat in bed on oxygen. Exam Narrative: General: Elderly female in NAD Heart: normal S1 and S2; no rub or gallop Lungs: coarse and distant breath sounds bilaterally Abdomen: soft, nontender, nondistended, positive bowel sounds Extremities: no cyanosis or clubbing; no edema Skin: no rash Objective Data Vital Signs Vital Signs: Vital Signs - 24 hr 02/05/22 08:00 02/05/22 09:04 02/05/22 09:35 Temperature 36.2 C L Pulse Rate 81 77 Respiratory Rate 16 Blood Pressure 132/66 Pulse Oximetry 94 93 02/05/22 10:00 02/05/22 12:00 02/05/22 14:00 Temperature 36.1 C L Pulse Rate 76 79 76 Respiratory Rate 16 Blood Pressure 109/56 L Pulse Oximetry 94 02/05/22 16:00 02/05/22 18:00 02/05/22 20:00 Temperature Pulse Rate 79 74 Respiratory Rate Blood Pressure Pulse Oximetry 100 02/05/22 20:05 02/05/22 20:09 02/05/22 22:05 Temperature 36.5 C Pulse Rate 73 85 77 Respiratory Rate 16 16 Blood Pressure 120/56 L Pulse Oximetry 92 100 93 02/06/22 02:20 02/06/22 04:00 02/06/22 05:31 Temperature 36.2 C L Pulse Rate 79 76 76 Respiratory Rate 15 16 18 Blood Pressure 129/77 Pulse Oximetry 87 L 99 92
--- NOTE | 2022-02-06 07:17 | PM.PNNEP ---
Progress Note: A&P Assessment and Plan (1) Hyponatremia: Code(s): E87.1 - Hypo-osmolality and hyponatremia Status: Acute Assessment and Plan: acute on chronic -- has been present since at least 2019 multiple risk factors: severe lung disease/COPD lung cancer medications - SSRI + narcotics cortisol okay; TSH good on admission. UPEP is normal. SPEP is normal. Serum osmolality was appropriate. Urine osmolality was not very high but not maximally dilute either. Urine sodium and chloride was low. 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 02/03 Na 125. 5/1 Na 125. 5/2 Na 129 5/3 Na pending on fluid restriction (1000cc/day), Lasix plus salt tabs and demeclocycline. continue the same approach since sodium improved. Await today's sodium. Once sodium comes up a little bit more I think we can cut back on the Lasix and salt tablets as the demeclocycline kicks in. (2) Acute on chronic respiratory failure with hypoxia and hypercapnia: Code(s): J96.21 - Acute and chronic respiratory failure with hypoxia; J96.22 - Acute and chronic respiratory failure with hypercapnia Status: Acute Assessment and Plan: due to known lung disease/COPD worsened by acute pneumonia Pulmonary following with recommendations noted chronic respiratory acidosis by nomogram. (3) Pneumonia: Qualifiers: Laterality: bilateral Lung location: unspecified part of lung Pneumonia type: due to unspecified organism Qualified Code(s): J18.9 - Pneumonia, unspecified organism Code(s): J18.9 - Pneumonia, unspecified organism Status: Acute Assessment and Plan: as noted by imaging studies to date continue current therapy Will continue to follow. Subjective Date/time seen: 02/06/22 07:17 Interval history: Patient is feeling okay today. No chest pain or worsened shortness of breath. Lying flat in bed on oxygen. Exam Narrative: General: Elderly female in NAD Heart: normal S1 and S2; no rub or gallop Lungs: coarse and distant breath sounds bilaterally Abdomen: soft, nontender, nondistended, positive bowel sounds Extremities: no cyanosis or clubbing; no edema Skin: no rash Objective Data Vital Signs Vital Signs: Vital Signs - 24 hr 02/05/22 08:00 02/05/22 09:04 02/05/22 09:35 Temperature 36.2 C L Pulse Rate 81 77 Respiratory Rate 16 Blood Pressure 132/66 Pulse Oximetry 94 93 02/05/22 10:00 02/05/22 12:00 02/05/22 14:00 Temperature 36.1 C L Pulse Rate 76 79 76 Respiratory Rate 16 Blood Pressure 109/56 L Pulse Oximetry 94 02/05/22 16:00 02/05/22 18:00 02/05/22 20:00 Temperature Pulse Rate 79 74 Respiratory Rate Blood Pressure Pulse Oximetry 100 02/05/22 20:05 02/05/22 20:09 02/05/22 22:05 Temperature 36.5 C Pulse Rate 73 85 77 Respiratory Rate 16 16 Blood Pressure 120/56 L Pulse Oximetry 92 100 93 02/06/22 02:20 02/06/22 04:00 02/06/22 05:31 Temperature 36.2 C L Pulse Rate 79 76 76 Respiratory Rate 15 16 18 Blood Pressure 129/77 Pulse Oximetry 87 L 99 92 Intake/Output Intake/Output: Intake & Output 02/03/22 02/04/22 02/05/22 02/06/22 23:59 23:59 23:59 23:59 Intake Total 770 685 720 Output Total 1100 1300 900 Cqgqwno -330 -615 -180 Meds/Results Medications: Active Medications Generic Name Dose Route Start Last Admin Trade Name Freq PRN Reason Stop Dose Admin Acetaminophen 650 mg 01/26/22 20:17 01/31/22 20:39 Acetaminophen 325 Mg Tablet PO 650 mg Q6H PRN Administration Mild Pain (1-3) or Fever Albuterol 2 puff 01/26/22 20:49 Albuterol Sulfate (*Sp) Aerosol 1 Puff INHALATION Q4H PRN Shortness Of Breath Aspirin 81 mg 01/27/22 09:00 02/05/22 09:37 Aspirin 81 Mg Chewable Tablet PO 81 mg DAILY ALONA Administration Atorvastatin Calcium 80 mg 01/26/22 21:00 02/05/22 21:20 Atorvastatin 40 Mg Tablet PO 8
[2022-02-06 08:00] VITALS: BP 131/73; PULSE 81; RESP 14; TEMP 36.4; O2SAT 93; O2SAT 99
[2022-02-06] MEDS: UMECLIDINIUM/VILANTEROL 62.5-25 MCG ELLIPTA 1 PUFF INHALATION (08:06)
[2022-02-06 08:08] VITALS: O2SAT 92
[2022-02-06 08:44] LABS: Blood Urea Nitrogen 33 mg/dL (7-17); Calcium 9.4 mg/dL (8.4-10.2); Carbon Dioxide > 40 mmol/L (22-30); Chloride 83 mmol/L (98-107); Estimated Glomerular Filt Rate 56; Glucose 100 mg/dL (65-110); Potassium 4.2 mmol/L (3.4-5.0); Sodium 128 mmol/L (137-145)
[2022-02-06] MEDS: PYRIDOXINE HCL 50 MG TABLET 100 MG PO (08:56)
[2022-02-06] MEDS: SODIUM CHLORIDE 1 GM TABLET PO (08:56)
[2022-02-06 08:57] VITALS: PULSE 88
[2022-02-06] MEDS: METOPROLOL SUCCINATE EXT REL 25 MG TABCR PO (08:57)
[2022-02-06] MEDS: FUROSEMIDE 10 MG TABLET PO (08:57)
[2022-02-06] MEDS: MULTIVITAMINS THERAPEUTIC TAB (*BKC) 1 TABLET PO (08:57)
[2022-02-06] MEDS: ESCITALOPRAM OXALATE 10 MG TABLET PO (08:57)
[2022-02-06] MEDS: ENOXAPARIN 40 MG/0.4 ML SYRINGE SUB-Q (08:57)
[2022-02-06] MEDS: DEMECLOCYCLINE HCL 150 MG TABLET PO (08:58)
[2022-02-06] MEDS: dilTIAZem HCL CD 180 MG CAP.ER.24H 360 MG PO (08:58)
[2022-02-06] MEDS: ASPIRIN 81 MG CHEWABLE TABLET PO (08:58)
[2022-02-06] MEDS: CHOLECALCIFEROL 1,000 UNITS TABLET 5000 UNITS PO (08:58)
[2022-02-06] MEDS: CYANOCOBALAMIN 1,000 MCG TABLET 1000 MCG PO (08:58)
[2022-02-06] MEDS: traMADol HCL (*CRX) 50 MG TABLET PO (09:05)
--- NOTE | 2022-02-06 09:25 | PM.DS ---
DS: Admitting Diagnosis Discharge Date 02/06/22 Admitting Diagnosis (1) Acute on chronic respiratory failure with hypoxia and hypercapnia: Code(s): J96.21 - Acute and chronic respiratory failure with hypoxia; J96.22 - Acute and chronic respiratory failure with hypercapnia Status: Acute (2) Pneumonia: Qualifiers: Laterality: bilateral Lung location: unspecified part of lung Pneumonia type: due to unspecified organism Qualified Code(s): J18.9 - Pneumonia, unspecified organism Code(s): J18.9 - Pneumonia, unspecified organism Status: Acute (3) COPD exacerbation: Code(s): J44.1 - Chronic obstructive pulmonary disease with (acute) exacerbation Status: Acute (4) Small cell lung cancer: Code(s): C34.90 - Malignant neoplasm of unspecified part of unspecified bronchus or lung Status: Acute (5) Pericardial effusion: Code(s): I31.3 - Pericardial effusion (noninflammatory) Status: Acute (6) Hyponatremia: Code(s): E87.1 - Hypo-osmolality and hyponatremia Status: Acute (7) Hypothyroidism: Code(s): E03.9 - Hypothyroidism, unspecified Status: Acute (8) Anemia in chronic illness: Code(s): D63.8 - Anemia in other chronic diseases classified elsewhere Status: Acute (9) Hypertension: Code(s): I10 - Essential (primary) hypertension Status: Acute DS: Discharge Diagnosis Discharge Diagnosis (1) COPD exacerbation: Code(s): J44.1 - Chronic obstructive pulmonary disease with (acute) exacerbation Status: Ruled-out (2) Acute on chronic respiratory failure with hypoxia and hypercapnia: Code(s): J96.21 - Acute and chronic respiratory failure with hypoxia; J96.22 - Acute and chronic respiratory failure with hypercapnia Status: Acute (3) Hypothyroidism: Code(s): E03.9 - Hypothyroidism, unspecified Status: Acute (4) Chronic respiratory failure with hypoxia, on home oxygen therapy: Code(s): J96.11 - Chronic respiratory failure with hypoxia; Z99.81 - Dependence on supplemental oxygen Status: Acute (5) Chronic kidney disease: Code(s): N18.9 - Chronic kidney disease, unspecified Status: Acute (6) Anemia in chronic illness: Code(s): D63.8 - Anemia in other chronic diseases classified elsewhere Status: Acute (7) Hypertension: Code(s): I10 - Essential (primary) hypertension Status: Acute (8) Acute exacerbation of chronic obstructive pulmonary disease: Code(s): J44.1 - Chronic obstructive pulmonary disease with (acute) exacerbation Status: Acute (9) Small cell lung cancer: Code(s): C34.90 - Malignant neoplasm of unspecified part of unspecified bronchus or lung Status: Acute (10) Pericardial effusion: Code(s): I31.3 - Pericardial effusion (noninflammatory) Status: Acute (11) Acute hyponatremia: Code(s): E87.1 - Hypo-osmolality and hyponatremia Status: Acute (12) Pneumonia: Qualifiers: Laterality: bilateral Lung location: unspecified part of lung Pneumonia type: due to unspecified organism Qualified Code(s): J18.9 - Pneumonia, unspecified organism Code(s): J18.9 - Pneumonia, unspecified organism Status: Acute DS: Summary Hospital Course Hospital Course: 61 yo F presented to [place] w c/o shortness of breath and worsening hypoxemic respiratory failure. She was found to have a new right upper lobe infiltrates despite outpatient tx w doxycycline for presumed pneumonia. Her COVID RT PCR test was negative, influenza swab was negative, urine pneumococcal antigen was not detected. Patient was treated empirically for bacterial infection with ceftriaxone and azithromycin (started 01/26) and improved clinically. COPD was considered to be ruled out based on clinical findings. Pt required BiPAP at night to lexis
== END 2022-02-06 12:08 | DRG 139 ==
LOC: ANHED 10:18 → ANHIMU 10:18 → ANH3MED 01-29 13:14 → ANHIMU 02-01 10:27
PROVIDERS: Internal Medicine; Internal Medicine Critical Care Medicine; Internal Medicine Nephrology; Physician Assistant; Admitting Provider Internal Medicine; Emergency Provider Emergency Medicine; PCP Internal Medicine Hematology & Oncology; Visit Provider Student in an Organized Health Care Education/Training Program
DX: J18.9 Pneumonia, unspecified organism (principal); J96.21 Acute and chronic respiratory failure with hypoxia; Z99.81 Dependence on supplemental oxygen; Z20.822 Contact with and (suspected) exposure to COVID-19; C34.90 Malignant neoplasm of unspecified part of unspecified bronchus or lung; I31.3 Pericardial effusion (noninflammatory); E03.9 Hypothyroidism, unspecified; D63.8 Anemia in other chronic diseases classified elsewhere; I10 Essential (primary) hypertension; J96.22 Acute and chronic respiratory failure with hypercapnia; I27.20 Pulmonary hypertension, unspecified; E22.2 Syndrome of inappropriate secretion of antidiuretic hormone; Z87.891 Personal history of nicotine dependence; Z80.9 Family history of malignant neoplasm, unspecified; E78.00 Pure hypercholesterolemia, unspecified; J43.9 Emphysema, unspecified; F41.9 Anxiety disorder, unspecified; Z92.21 Personal history of antineoplastic chemotherapy; Z79.899 Other long term (current) drug therapy; Z92.3 Personal history of irradiation; Z79.82 Long term (current) use of aspirin
CPT/HCPCS: 36415; 36600; 71045; 71275; 80048; 80053; 80069; 82375; 82436; 82533; 82570; 82607; 82728; 82746; 82805; 82948; 83050; 83540; 83550; 83735; 83880; 83930; 83935; 84155; 84156; 84165; 84166; 84295; 84300; 84439; 84443; 84480; 84540; 85014; 85018; 85025; 85027; 86038; 87040; 87426; 87449; 87502; 87899; 94002; 94003; 94640; 94660; 94667; 96365; 96367; 96368; 96372; 97110; 97116; 97161; 97165; 97530; 99285; A9270; C9803; G0378; G0379; J0456; J0696; J1650; J1940; J2405; J3475; J7050; J7512; Q9967; U0003; U0005

== ENCOUNTER 2022-03-20 08:35 | Inpatient (IN) | payer OTHER, SELFPAY ==
[2022-03-20] VITALS (80 sets, daily range): BP systolic 65–123; BP diastolic 46–94; PULSE 73–163; RESP 10–28; TEMP 36.4–36.7; O2SAT 90–100; BMI 18.6
--- NOTE | ~2022-03-20 | CT_ITS ---
EXAMINATION: CT cervical spine wo con DATE: 03/20/2022 09:31 INDICATION: Head injury. TECHNIQUE: Computed tomography (CT) of the cervical spine was performed without intravenous contrast. Automated exposure control and iterative reconstruction technique were employed. The dose-length pro duct was 99.71 mGy-cm. COMPARISON: Chest CT 01/26/2022 FINDINGS: There is paramediastinal scarring in right lung upper lobe. Again seen is a left pleural ef fusion. There are bilateral mastoid effusions. Partially visualized is a right internal jugular port. There is 4 degrees levocurvature of cervical spine. Vertebral body heights are normal. There is mode rately decreased disc height at C5-C6 and severely decreased disc height at C6-C7. The following disc levels are specifically discussed: C2-C3: There is no uncovertebral joint osteoarthritis. There is moderate bilateral facet joint osteoa rthritis. There is no neural foraminal stenosis. There is no central canal stenosis. C3-C4: There is no uncovertebral joint osteoarthritis. There is mild bilateral facet joint osteoarthr itis. There is no neural foraminal stenosis. There is no central canal stenosis. C4-C5: There is no uncovertebral joint osteoarthritis. There is mild bilateral facet joint osteoarthr itis. There is no neural foraminal stenosis. There is mild central canal stenosis. C5-C6: There is severe bilateral uncovertebral joint osteoarthritis. There is moderate bilateral face t joint osteoarthritis. There is mild bilateral neural foraminal stenosis. There is mild central raymon l stenosis. C6-C7: There is severe bilateral uncovertebral joint osteoarthritis. There is moderate bilateral face t joint osteoarthritis. There is mild bilateral neural foraminal stenosis. There is mild central raymon l stenosis. C7-T1: There is no uncovertebral joint osteoarthritis. There is mild bilateral facet joint osteoarthr itis. There is no neural foraminal stenosis. There is no central canal stenosis. IMPRESSION: 1. No fracture. 2. Severe cervical spondylosis. Reviewed, dictated and finalized at location B.
--- NOTE | ~2022-03-20 | US_ITS ---
EXAMINATION: US carotid duplex BI DATE: 03/23/2022 17:28 INDICATION: Syncope. TECHNIQUE: Grayscale, color Doppler, and pulsed Doppler images of the cervical carotid arteries were obtained. The degree of vessel stenosis is placed in one of the following categories: normal, <50%, 5 0-69%, >=70% but less than near-occlusion, near-occlusion, or total occlusion. Note that percent sten osis relative to normal distal artery lumen diameter is indirectly measured from velocity measurement s as described by Filiberto, et al. Radiology 2003; 229:[id number]. COMPARISON: None. FINDINGS: RIGHT: The right common carotid artery (CCA) peak systolic velocity (PSV) is 72 cm/s. The right internal car otid artery (ICA) PSV is 80 cm/s. The right ICA end-diastolic velocity (EDV) is 18 cm/s. The right IC A/CCA PSV ratio is 1.1. Grayscale and color Doppler images yield an estimate of <50% diameter reducti on from plaque in the ICA. There is antegrade flow in the right vertebral artery. LEFT: The left CCA PSV is 73 cm/s. The left ICA PSV is 161 cm/s. The left ICA EDV is 31 cm/s. The left ICA/ CCA PSV ratio is 2.2. Grayscale and color Doppler images yield an estimate of <50% diameter reduction from plaque in the ICA. There is antegrade flow in the left vertebral artery. IMPRESSION: 1. <50% stenosis in the right internal carotid artery. 2. <50% stenosis in the left internal carotid artery. Reviewed, dictated and finalized at location B.
--- NOTE | ~2022-03-20 | XR_ITS ---
EXAMINATION: XR chest 2V DATE: 03/20/2022 14:13 INDICATION: Tachycardia TECHNIQUE: frontal and lateral views of the chest were obtained. COMPARISON: Chest radiograph dated 02/05/2022 FINDINGS: Cardiomegaly. Opacification of the left lower lung zone due in part to persistent small left pleural effusion with associated atelectasis and/or pneumonia. Residual mild opacities in the lateral right m idlung zone which are significantly decreased since 02/01/2022 consistent with resolving pneumonia. No pneumothorax or right-sided pleural effusion. Right internal jugular central venous port catheter wi th distal tip at the superior cavoatrial junction. Mild thoracic dextrocurvature with moderate spondy losis. IMPRESSION: 1. Persistent small left pleural effusion with associated atelectasis and/or pneumonia. 2. Mild residual opacities in the periphery of the right mid lung zone improved since 01/24/2022 consi stent with resolving pneumonia. 3. Cardiomegaly. Reviewed, dictated and finalized at location A. IMPRESSION: 1. Persistent small left pleural effusion with associated atelectasis and/or pn eumonia. 2. Mild residual opacities in the periphery of the right mid lung zone improved since 01/24/2022 consistent with resolving pneumonia. 3. Cardiomegaly.
--- NOTE | ~2022-03-20 | XR_ITS ---
XR chest 1V portable 03/22/2022 05:21 Indication: Pneumonia Procedure: AP portable chest Comparison: AP portable chest Findings: Moderate cardiomegaly with interstitial edema. Portacatheter tip in the right atrium. Small left pleural effusion. No pneumothorax. No acute osseous abnormality. Impression: 1: Cardiomegaly with interstitial edema. Superimposed pneumonia not excluded. 2: Small left effusion. Reviewed, dictated and finalized at location A. Impression: 1: Cardiomegaly with interstitial edema. Superimposed pneumonia not excluded. 2: Small left effusion.
--- NOTE | ~2022-03-20 | XR_ITS ---
XR elbow RT min 3V DATE: 03/20/2022 09:29 INDICATION: Injury TECHNIQUE: 4 views COMPARISON: None FINDINGS: No recent fracture or dislocation or joint effusion is detected. IMPRESSION: No recent fracture or dislocation is detected Reviewed, dictated and finalized at location A.
--- NOTE | ~2022-03-20 | CT_ITS ---
EXAMINATION: CT brain wo con DATE: 03/20/2022 09:31 INDICATION: Fall. Struck head on floor. Laceration. History of multiple falls over past 3 weeks. TECHNIQUE: Computed tomography (CT) of the head was performed without intravenous contrast. The mA wa s adjusted according to patient size. Iterative reconstruction technique was employed. Exam dose: 13 62.00 mGy-cm total exam DLP. COMPARISON: 10/06/2021 MRI brain 10/05/2021 CT brain FINDINGS: Bilateral carotid siphon internal carotid artery calcifications. There is nonspecific dimin ished attenuation of the cerebral white matter, likely due to chronic small vessel ischemic changes. Moderate cerebral volume loss. No intracranial mass lesion or hemorrhage or cerebrovascular accident is evident. No midline shift or mass effect. No subdural or epidural hematoma. Bilateral mastoid effusions are again noted. The paranasal sinuses are unremarkable. No fracture or bone destruction of the cranial vault. IMPRESSION: Cerebral atherosclerosis and chronic small vessel ischemic changes of the cerebral white matter No acute intracranial finding Chronic bilateral mastoid effusions Reviewed, dictated and finalized at Location A. Reviewed, dictated and finalized at location A.
--- NOTE | 2022-03-20 08:50 | PC.NURSE ---
Per EMS patient id cdiff positive. Patient noted to arrive to ER with an adult diaper in place but leaking cdiff stool through the diaper. Patient noted to have dried stool on bottom. Patient cleaned and new diaper and linen placed.
--- NOTE | 2022-03-20 08:53 | ED.HEATRA ---
HPI - Head Injury General Chief complaint: Wound/Laceration Stated complaint: fall, head lac Time Seen by Provider: 03/20/22 08:48 History of Present Illness HPI Narrative: pt fell at ID lac to head pt very [place] no loc or blood thinners but very poor historian unsure last tdap pt has no c/o but says yes to mild [place]/neck soreness no right elbow pain but skin tear there as well Related Data Home Medications Medication Instructions Recorded Confirmed aspirin 81 mg tablet 81 mg PO DAILY 09/07/20 01/26/22 atorvastatin 40 mg tablet 80 mg PO HS 09/07/20 01/26/22 cholecalciferol (vitamin D3) 125 125 mcg PO DAILY 09/07/20 01/26/22 mcg (5,000 unit) tablet (Vitamin D3) diltiazem HCl 360 mg 360 mg PO DAILY 09/07/20 01/26/22 capsule,extended release 24 hr escitalopram oxalate 10 mg tablet 10 mg PO DAILY 09/07/20 01/26/22 mecobalamin (vitamin B12) 1,000 1,000 mcg sublingual DAILY 02/01/21 01/26/22 mcg disintegrating tablet,sublingual pyridoxine (vitamin B6) 100 mg 100 mg PO BID 02/01/21 01/26/22 tablet metoprolol succinate 25 mg 25 mg PO DAILY 05/03/21 01/26/22 tablet,extended release 24 hr ferrous sulfate 325 mg (65 mg 325 mg PO BID 09/11/21 01/26/22 iron) tablet (iron) levothyroxine 25 mcg capsule 25 mcg PO DAILY 11/20/21 01/26/22 Adult One Daily Multivitamin 1 tablet PO DAILY 01/26/22 01/26/22 acetaminophen 650 mg tablet 650 mg PO Q4H PRN Fever 01/26/22 01/26/22 albuterol sulfate 90 mcg/actuation 2 inh inhalation Q4H PRN Shortness 01/26/22 01/26/22 aerosol inhaler Of Breath benzonatate 100 mg capsule 100 mg PO Q8H PRN Cough 01/26/22 01/26/22 bisacodyl 10 mg rectal suppository 10 mg RECTAL DAILY PRN Constipation 01/26/22 01/26/22 (Dulcolax (bisacodyl)) hydrocodone 5 mg-acetaminophen 325 1 tablet PO Q8H PRN Pain 01/26/22 01/26/22 mg tablet ipratropium 0.5 mg-albuterol 3 mg 3 ml inhalation Q6H PRN Shortness 01/26/22 01/26/22 (2.5 mg base)/3 mL nebulization Of Breath soln magnesium hydroxide 400 mg/5 mL 30 ml PO DAILY PRN Constipation 01/26/22 01/26/22 oral suspension (Milk of Magnesia) trazodone 50 mg tablet 25 mg PO HS PRN Insomnia 01/26/22 01/26/22 Allergies Allergy/AdvReac Type Severity Reaction Status Date / Time No Known Allergies Allergy Verified 03/20/22 08:52 Review of Systems Review of Systems: CONSTITUTIONAL: Denies fever, chills, or sweats. EYES: Denies visual changes, redness, or discharge. ENT: Denies rhinorrhea, congestion, sore throat, or otalgia. CARDIOVASCULAR: Denies chest pain, palpitations, or edema. RESPIRATORY: Denies cough or dyspnea. GASTROINTESTINAL: Denies abdominal pain, nausea, vomiting, or diarrhea. GENITOURINARY: Denies dysuria or hematuria. SKIN: Denies rash or itching. MUSCULOSKELETAL: Denies back pain, joint pain, or myalgia. NEUROLOGIC: Denies headache, numbness, or weakness. PSYCHIATRIC: Denies anxiety or depression. [facility] Past Medical History Medical History Anemia in chronic illness Anxiety Chronic hyponatremia Chronic kidney disease Chronic obstructive pulmonary disease Chronic respiratory failure with hypoxia, on home oxygen therapy Depression Diastolic dysfunction EF 65 to 70%. Grade 1 diastolic dysfunction. Emphysema of lung Hearing loss Hypercholesterolemia Hypertension Hypothyroidism Pulmonary hypertension Moderate pulmonary hypertension on echocardiogram in September 2021 with an estimated PA SP of 47 mmHg. Small cell lung cancer Limited stage small cell arising in the left hilar region diagnosed in 07/2020. Status post chemoradiotherapy and prophylactic cranial irradiation between 09/2020 and 01/2021. Local recurrence in 06/2021 status post salvage SBRT. Surgical History Surgical History History of section History of esophagogastroduodenoscopy Status post dilatation x2 for stricture. Family History Family History (Review
--- NOTE | 2022-03-20 09:07 | PC.NURSE ---
Patient off unit to radiology.
[2022-03-20] MEDS: TETANUS,DIPHTHERIA,AC PERTUSSIS ADULT (0.5 ML) BOOSTRIX IM (09:27)
[2022-03-20] MEDS: LIDOCAINE, EPINEPHRINE, TETRACAINE VISCOUS SOLN 3 ML TOPICAL (09:28)
[2022-03-20] MEDS: ACETAMINOPHEN 325 MG TABLET 650 MG PO (12:00)
--- NOTE | 2022-03-20 12:06 | ECG_ITS ---
Measurements Intervals [place] Rate: 135 P: 29 [place]: 112 QRS: 28 QRSD: 91 T: 72 QT: 331 QTc: 497 Interpretive Statements SINUS TACHYCARDIA WITH SHORT [place] INTERVAL LOW QRS VOLTAGE Electronically Signed On 03-20-2022 12:19:39 CDT by Noe Hernadez M.D.
[2022-03-20] MEDS: SODIUM CHLORIDE 0.9% IV 1,000 ML 999 ML IV CONT (13:00)
[2022-03-20 13:14] LABS: Basophils Absolute Auto 0.1 K/mm3 (0.0-0.1); Basophils Percent Auto 0.2 % (0.2-1.2); Eosinophils Absolute Auto 0.1 K/mm3 (0-0.3); Eosinophils Percent Auto 0.1 % (0-4.4); Hematocrit 24.7 % (37.0-47.0); Hemoglobin 7.9 g/dL (12.0-15.0); Immature Granulocyte Absolute 0.79 K/mm3 (0.00-0.031); Immature Granulocyte Percent A 2.2 % (0-0.5); Lymphocytes Absolute Auto 0.35 K/mm3 (0.9-3.2); Mean Platelet Volume 9.2 fl (7.4-10.4); Monocytes Absolute Auto 2.3 K/mm3 (0.1-0.6); Monocytes Percent Auto 6.2 % (2.6-8.5); Neutrophils Percent Auto 90.3 % (45.5-73.1); Platelet Count Result 306 k/mm3 (150-375); Red Blood Count 2.47 M/mm3 (4.2-5.4); Red Cell Distribution Width 15.9 % (11.5-14.5); White Blood Count 36.6 K/mm3 (4.5-10.0)
[2022-03-20] MEDS: LEVALBUTEROL NEB 1.25 MG/3 ML 0.63 MG INHALATION (13:23)
[2022-03-20 13:24] LABS: Alanine Aminotransferase 28 U/L (6-35); Albumin Level 2.5 g/dL (3.5-5.1); Alkaline Phosphatase 68 U/L (38-126); Anion Gap -1 mmol/L (8-16); Aspartate Amino Transferase 46 U/L (14-36); Bilirubin,Total 0.1 mg/dL (0.2-1.3); Blood Urea Nitrogen 11 mg/dL (7-17); Calcium 7.8 mg/dL (8.4-10.2); Carbon Dioxide 34 mmol/L (22-30); Chloride 90 mmol/L (98-107); Estimated Glomerular Filt Rate > 60; Glucose 100 mg/dL (65-110); Magnesium 1.5 mg/dL (1.6-2.3); Potassium 3.7 mmol/L (3.4-5.0); Sodium 123 mmol/L (137-145)
[2022-03-20] MEDS: IPRATROPIUM BR 0.02% INH SOLN 0.5 MG/2.5 ML VIAL INHALATION (13:24)
--- NOTE | 2022-03-20 13:24 | PC.NURSE ---
RT at bedside to provide breathing tx.
[2022-03-20] MEDS: carvediloL 12.5 MG TABLET PO (13:53)
--- NOTE | 2022-03-20 14:00 | PM.IMHP ---
H&P: HPI History of Present Illness Date/Time: 03/20/22 14:00 Chief Complaint: Fall Narrative: Patient is a 61-year-old female with a past medical history of anemia, COPD, CKD, chronic hyponatremia who presented to the ED after a fall. Patient was noted to have a heart rate in the 160s. Patient was given p.o. carvedilol and IV fluids. Patient is a poor historian probably related to her inability to hear. However whenever I would ask for any questions she would tell me that she gets very short of breath and she needs a lot of air and she also stated that she was scared she is going to get a feeding tube because she does not eat all lot which she does not relate to her breathing issue. Patient does deny any chest pain, or palpitations. She also denies any visual changes headache. Patient did state that she does not know how she fell or remembers why she fell. She can be really remember if she fell today. She does have a laceration to her right forehead. She also states that she has pain everywhere. She denies any numbness and tingling, nausea, vomiting, diarrhea, constipation, weakness or fatigue. He was noted the patient's WBCs are 36,000 however patient was diagnosed recently with C diff. Chest x-ray did show some opacities. Blood pressure has been an issue and very labile. Blood pressure is currently in the 60 systolic likely patient does have a port port will be accessed in the vital be started. Denies any visual changes. Patient is alert oriented x3. Patient did state that she does have bilateral lower extremity swelling however that is something that is normal to her. She wears 2 L nasal cannula at home. Currently her nasal cannula is at 3 L. Patient was noted to be hypotensive regardless of fluid bolus. Port was accessed and levophed was started. Dr. Bustos consulted and agreed to this plan. Hypotension probably related to the carvedilol that was given to slow the heart rate. 60 minutes of critical care time Review of Systems Review of Systems: All systems reviewed & are unremarkable except as noted in HPI and below [facility] Past Medical History Medical History Anemia in chronic illness Anxiety Chronic hyponatremia Chronic kidney disease Chronic obstructive pulmonary disease Chronic respiratory failure with hypoxia, on home oxygen therapy Depression Diastolic dysfunction EF 65 to 70%. Grade 1 diastolic dysfunction. Emphysema of lung Hearing loss Hypercholesterolemia Hypertension Hypothyroidism Pulmonary hypertension Moderate pulmonary hypertension on echocardiogram in September 2021 with an estimated PA SP of 47 mmHg. Small cell lung cancer Limited stage small cell arising in the left hilar region diagnosed in 07/2020. Status post chemoradiotherapy and prophylactic cranial irradiation between 09/2020 and 01/2021. Local recurrence in 06/2021 status post salvage SBRT. Surgical History Surgical History History of section History of esophagogastroduodenoscopy Status post dilatation x2 for stricture. Family History Family History (Updated 03/20/22 @ 16:52 by JESSIE Do) Father Cancer Mother Heart disease Hypertension Acute myocardial infarction Social History Social History (Updated 03/20/22 @ 16:55 by JESSIE Do) Social History: Surrogate decision maker: Priscilla and Peggypayotn Holt, daughters. Code status: Full code. Smoking packs per day: 2 Smoking cigarettes per day: 40.0 Years smoked: 40 Smoking pack-years: 80.00 Smoking status: Former smoker Alcohol intake: former Alcohol use details: Socially Substance use: former Substance use type: marijuana and crack/cocaine Living arrangements: custodial Occupation/Education: retired Gender identity (if verbalized by the patient): Female Sexual Orientation (if [place]
--- NOTE | 2022-03-20 14:08 | PC.NURSE ---
Patient off unit to Radiology.
[2022-03-20] MEDS: HYDROcodone/acetaminophen (*CRX) 5-325 MG TABLET 1 TAB PO ×2 (14:26→19:33)
--- NOTE | 2022-03-20 14:47 | PC.NURSE ---
Hospitalist FLATLOCK SEWING MACHINE OPERATOR at bedside to assess pt.
[2022-03-20] MEDS: MAGNESIUM SULF 2 GM/WATER 50ML 2 GM/50 ML BAG IVPB (15:03)
[2022-03-20 15:22] LABS: CRP 7.1 mg/dL (<1.0)
--- NOTE | 2022-03-20 15:26 | PC.NURSE ---
Patient report called to MARCOS Gillespie at [facility]. Updated on change in plan of care and admission.
[2022-03-20] MEDS: SODIUM CHLORIDE 0.9% IV 500 ML IV CONT (16:09)
--- NOTE | 2022-03-20 16:14 | PC.NURSE ---
Hospitalist WRAPPING CHECKER notified of patient's systolic BP. Discussion made to admit patient to ICU, access port and start levophed.
[2022-03-20] MEDS: NOREPINEPHRINE 8 MG/D5W 250 ML 8 MG/250 ML BAG 9.38 MG IV CONT (17:12)
--- NOTE | 2022-03-20 17:41 | ADMGEN ---
This patient, Stephanie Holt, was admitted to Intensive Care Unit-6. Patient/family oriented to hospital policies and general routines including ID bracelet, bed and alarms, visiting hours, pain management, procedures, bathroom and other care routines, personal items, smoking policy, room service/diet, and visiting hours. Information on how to activate the Rapid Response Team has been discussed. Patient/Family are encouraged to report perceived risks to care and to ask questions if they do not understand what they are told or what they should do.
[2022-03-20] MEDS: VANCOMYCIN ORAL 125 MG/2.5 ML SYRUP PO ×2 (17:49→23:21)
[2022-03-20] MEDS: LACTATED RINGERS 500 ML 999 ML IV CONT (18:32)
[2022-03-20] MEDS: LACTATED RINGERS 1,000 ML 50 ML IV CONT (18:36)
[2022-03-20 18:37] LABS: Appearance Urine Clear (Clear); Bilirubin Urine Negative (Negative); Blood Urine Negative (Negative); Color Urine Yellow (Yellow); Glucose Urine UA Negative (Negative); Ketones Urine Negative (Negative); Leukocyte Esterase Ur Trace LEU/UL (Negative); Nitrate Urine Negative (Negative); Protein Urine Trace mg/dL (Negative); Urobilinogen Urine 0.2 mg/dL (<2.0); pH Urine 5.5 (5.0-9.0)
[2022-03-20 18:38] LABS: INR 1.4; Prothrombin Time 17.1 Seconds (11.1-14.7)
[2022-03-20 18:40] LABS: Partial Thromboplastin Time 76.6 SECONDS (22.3-36.8)
--- NOTE | 2022-03-20 18:41 | PC.NURSE ---
Addendum entered by Adore Eugene RN 03/20/22 18:43: Phone call was placed at [id number] Original Note: Notified Dr. Bustos of patient arrival to unit. Requesting parameters for Levophed and rdz catheter. New orders to maintain MAP of >65 and ok to insert rdz catheter, d/t pt being incontinent and at risk for skin breakdown. Also new order to start patient on maintenance fluids of LR @ 50ml/hr. Send urine for UA and culture
[2022-03-20 18:49] LABS: Bacteria Urine Trace /hpf; Mucus Urine Rare /lpf; RBC Urine 0-2 /hpf (0-2); Squamous Epithelial Cell Urine Many /hpf (Few)
[2022-03-20 18:50] LABS: Add Urine Microscopic? YES
[2022-03-20] MEDS: ATORVASTATIN 40 MG TABLET 80 MG PO (19:37)
[2022-03-20] MEDS: PYRIDOXINE HCL 50 MG TABLET 100 MG PO (19:37)
[2022-03-20] MEDS: SODIUM CHLORIDE 1 GM TABLET PO (19:37)
[2022-03-20] MEDS: FERROUS SULFATE 324 MG TABLET PO (19:37)
[2022-03-20] MEDS: traZODone HCL 25 MG TABLET PO (19:38)
[2022-03-20] MEDS: CENTRAL LINE FLUSH 10 ML IV PUSH (19:38)
[2022-03-20] MEDS: MEGESTROL ACETATE (*CHEMO) 40 MG TABLET PO (19:38)
[2022-03-21] VITALS (28 sets, daily range): BP systolic 100–126; BP diastolic 52–92; PULSE 79–101; RESP 11–29; TEMP 36.4–36.9; O2SAT 91–100
[2022-03-21] MEDS: HYDROcodone/acetaminophen (*CRX) 5-325 MG TABLET 1 TAB PO ×4 (04:05→20:57)
[2022-03-21] MEDS: LACTATED RINGERS 1,000 ML 50 ML IV CONT (04:08)
[2022-03-21 05:06] LABS: Basophils Absolute Auto 0.1 K/mm3 (0.0-0.1); Basophils Percent Auto 0.3 % (0.2-1.2); Eosinophils Absolute Auto 0.2 K/mm3 (0-0.3); Eosinophils Percent Auto 0.4 % (0-4.4); Hematocrit 22.2 % (37.0-47.0); Immature Granulocyte Absolute 0.93 K/mm3 (0.00-0.031); Immature Granulocyte Percent A 2.4 % (0-0.5); Lymphocytes Absolute Auto 0.42 K/mm3 (0.9-3.2); Lymphocytes Percent Auto 1.1 % (18.3-44.2); Mean Corpuscular HGB Conc 31.1 g/dl (32-36); Mean Corpuscular Hemoglobin 31.8 pg (26-34); Mean Corpuscular Volume 102.3 fl (80-100); Mean Platelet Volume 9.3 fl (7.4-10.4); Monocytes Absolute Auto 1.7 K/mm3 (0.1-0.6); Monocytes Percent Auto 4.2 % (2.6-8.5); Neutrophils Absolute Auto 35.6 K/mm3 (1.3-6.7); Neutrophils Percent Auto 91.6 % (45.5-73.1); Platelet Count Result 316 k/mm3 (150-375); Red Blood Count 2.17 M/mm3 (4.2-5.4); Red Cell Distribution Width 16.1 % (11.5-14.5); White Blood Count 38.9 K/mm3 (4.5-10.0)
[2022-03-21 05:23] LABS: Alanine Aminotransferase 23 U/L (6-35); Albumin Level 2.3 g/dL (3.5-5.1); Alkaline Phosphatase 59 U/L (38-126); Anion Gap 0 mmol/L (8-16); Aspartate Amino Transferase 35 U/L (14-36); Bilirubin,Total 0.1 mg/dL (0.2-1.3); Blood Urea Nitrogen 12 mg/dL (7-17); Calcium 7.7 mg/dL (8.4-10.2); Carbon Dioxide 31 mmol/L (22-30); Chloride 93 mmol/L (98-107); Estimated Glomerular Filt Rate > 60; Glucose 91 mg/dL (65-110); Potassium 3.6 mmol/L (3.4-5.0); Sodium 124 mmol/L (137-145)
[2022-03-21 05:49] LABS: Hemoglobin 6.9 g/dL (12.0-15.0)
[2022-03-21] MEDS: VANCOMYCIN ORAL 125 MG/2.5 ML SYRUP PO ×4 (06:31→23:24)
[2022-03-21] MEDS: LEVOTHYROXINE SODIUM 25 MCG TABLET PO (06:32)
[2022-03-21] MEDS: ACETAMINOPHEN 325 MG TABLET 650 MG PO (06:34)
[2022-03-21] MEDS: SODIUM CHLORIDE 0.9% IV 250 ML 30 ML IV CONT (07:53)
--- NOTE | 2022-03-21 08:31 | WPDCNINT ---
Assessment and Plan Assessment and plan (1) Shock: Code(s): R57.9 - Shock, unspecified Status: Acute Assessment and Plan: Patient presented with a fall, unknown if it was secondary to syncope, mechanical fall, hyponatremia, anemia/infection, medication (patient on [facility]iazem at a [facility]) -CT scan of the brain did not show any acute intracranial abnormalities -echocardiogram and carotid Dopplers have been ordered -PT/OT when patient is able -patient has received adequate amount of IV fluids -continue Levophed to maintain mean arterial pressure > 65 mmHg for adequate end organ perfusion -patient has been started on empiric cefepime and vancomycin IV -blood and urine cultures have been obtained Echocardiogram on 10/04/2021: EF 65-70%, grade 1 diastolic dysfunction, mild to moderate tricuspid regurg, moderate pulmonary hypertension RVSP of 47 mmHg, moderate to large pericardial effusion (2) C. difficile colitis: Code(s): A04.72 - Enterocolitis due to Clostridium difficile, not specified as recurrent Status: Acute Assessment and Plan: Patient has recent history of C diff at the [facility], -on p.o. vancomycin -continue isolation -C diff has been ordered (3) Anemia: Code(s): D64.9 - Anemia, unspecified Status: Acute Assessment and Plan: Patient dropped hemoglobin morning to 6.9 (7.9 on admission) could be dilutional, possible GI bleed, anemia of chronic disease as she has a history of it -will transfuse 1 unit of packed RBCs -will obtain stool for Hemoccult -will check haptoglobin, LDH, retic count -iron panel -will start patient on PPI hours -hold Lovenox (4) Hyponatremia: Code(s): E87.1 - Hypo-osmolality and hyponatremia Status: Acute Assessment and Plan: Patient has a history of chronic hyponatremia, will continue to monitor -patient is awake, alert, oriented x3 -could be related to SIADH secondary to her lung cancer (5) Fall: Code(s): W19.XXXA - Unspecified fall, initial encounter Status: Acute Assessment and Plan: Mechanical fall versus syncope, echo and carotid Dopplers have been ordered (6) COPD (chronic obstructive pulmonary disease): Code(s): J44.9 - Chronic obstructive pulmonary disease, unspecified Status: Acute Assessment and Plan: Continue bronchodilators, currently on 3 L nasal cannula (7) Hypothyroidism: Code(s): E03.9 - Hypothyroidism, unspecified Status: Acute Assessment and Plan: Continue levothyroxine (8) Congestive heart failure: Qualifiers: Heart failure chronicity: unspecified Heart failure type: unspecified Qualified Code(s): I50.9 - Heart failure, unspecified Code(s): I50.9 - Heart failure, unspecified Status: Acute Assessment and Plan: Patient has grade 1 diastolic dysfunction, chest x-ray reviewed (9) DVT prophylaxis: Code(s): Z29.9 - Encounter for prophylactic measures, unspecified Status: Acute Assessment and Plan: SCDs Plan DVT prophylaxis: SCDs Stress ulcer prophylaxis: Ppi IV q.12 hours Stool for Hemoccult -iron panel and other labs for anemia -echocardiogram and carotid Doppler Additional Plan Code status: Full code Critical care time spent: 47 minutes This dictation may have been done utilizing a voice recognition system. Attempts have been made to correct errors. However, there may be uncorrected grammatical, spelling, and recognition errors present. Due to a high probability of clinically significant, life threatening deterioration, the patient required my highest level of preparedness to intervene emergently and I personally spent this critical care time directly and personally managing the patient. This critical care time included obtaining a history; examining the patient; pulse oximetry; ordering and review of studies; arranging urgent treatment with development of a managemen
[2022-03-21] MEDS: UMECLIDINIUM/VILANTEROL 62.5-25 MCG ELLIPTA 1 PUFF INHALATION (08:34)
[2022-03-21] MEDS: CHOLECALCIFEROL 1,000 UNITS TABLET 5000 UNITS PO (08:56)
[2022-03-21] MEDS: ESCITALOPRAM OXALATE 10 MG TABLET PO (08:56)
[2022-03-21] MEDS: MULTIVITAMIN HEMATINIC (*BKC) TABLET 1 TABLET PO (08:56)
[2022-03-21] MEDS: CYANOCOBALAMIN 1,000 MCG TABLET 1000 MCG PO (08:57)
[2022-03-21] MEDS: ASPIRIN 81 MG ENTERIC TABLET PO (08:57)
[2022-03-21] MEDS: PYRIDOXINE HCL 50 MG TABLET 100 MG PO ×2 (08:57→17:23)
[2022-03-21] MEDS: MEGESTROL ACETATE (*CHEMO) 40 MG TABLET PO (08:57)
[2022-03-21] MEDS: FERROUS SULFATE 324 MG TABLET PO ×2 (08:57→17:23)
[2022-03-21] MEDS: SODIUM CHLORIDE 1 GM TABLET PO ×2 (08:58→17:22)
[2022-03-21] MEDS: PANTOPRAZOLE SODIUM IV 40 MG VIAL IV PUSH ×2 (09:40→20:54)
[2022-03-21 10:06] LABS: Immature Reticulocyte Fraction 23.2 % (3.0-15.9); Reticulocyte Hemoglobin Conten 33.7 pg (28.2-35.7); Reticulocyte Percent 2.97 % (0.7-4.3); Reticulocytes Absolute 0.07 B/L (32.2-175.7)
[2022-03-21 10:14] LABS: Lactate Dehydrogenase 461 U/L (313-618)
[2022-03-21 10:22] LABS: Iron 22 ug/dL (37-170)
[2022-03-21 10:31] LABS: Percent Iron Saturation 18 % (20-50)
[2022-03-21 10:34] LABS: IFOB Positive Control Positive; Immunochemical Fecal Occult Bl Positive (N)
[2022-03-21] MEDS: CENTRAL LINE FLUSH 10 ML IV PUSH ×2 (12:52→20:56)
--- NOTE | 2022-03-21 16:47 | PM.IMPN ---
Progress Note: A&P Assessment and Plan (1) Shock: Code(s): R57.9 - Shock, unspecified Status: Acute Assessment and Plan: Patient presented with a fall, unknown if it was secondary to syncope, mechanical fall, hyponatremia, anemia/infection, medication ([facility]) -CT scan of the brain did not show any acute intracranial abnormalities -echocardiogram and carotid Dopplers pending -PT/OT when patient is able -patient has received adequate amount of IV fluids -continue Levophed to maintain mean arterial pressure > 65 mmHg for adequate end organ perfusion -patient has been started on empiric cefepime and vancomycin IV -blood and urine cultures have been obtained Echocardiogram on 10/04/2021: EF 65-70%, grade 1 diastolic dysfunction, mild to moderate tricuspid regurg, moderate pulmonary hypertension RVSP of 47 mmHg, moderate to large pericardial effusion (2) C. difficile colitis: Code(s): A04.72 - Enterocolitis due to Clostridium difficile, not specified as recurrent Status: Acute Assessment and Plan: Patient has recent history of C diff [facility] the [facility], Started on p.o. vancomycin -continue isolation -C diff has been ordered (3) Anemia: Code(s): D64.9 - Anemia, unspecified Status: Acute Assessment and Plan: Patient dropped hemoglobin morning to 6.9 (7.9 on admission) could be dilutional, possible GI bleed, anemia of chronic disease as she has a history of it transfused 1 unit of packed RBCs stool for Hemoccult check haptoglobin, LDH, retic count -iron panel -will start patient on PPI hours -hold Lovenox (4) Hyponatremia: Code(s): E87.1 - Hypo-osmolality and hyponatremia Status: Acute Assessment and Plan: Patient has a history of chronic hyponatremia, will continue to monitor -patient is awake, alert, oriented x3 -could be related to SIADH secondary to her lung cancer (5) Fall: Code(s): W19.XXXA - Unspecified fall, initial encounter Status: Acute Assessment and Plan: Mechanical fall versus syncope, echo and carotid Dopplers have been ordered (6) COPD (chronic obstructive pulmonary disease): Code(s): J44.9 - Chronic obstructive pulmonary disease, unspecified Status: Acute Assessment and Plan: Continue bronchodilators, currently on 3 L nasal cannula (7) Hypothyroidism: Code(s): E03.9 - Hypothyroidism, unspecified Status: Acute Assessment and Plan: Continue levothyroxine (8) Congestive heart failure: Qualifiers: Heart failure chronicity: unspecified Heart failure type: unspecified Qualified Code(s): I50.9 - Heart failure, unspecified Code(s): I50.9 - Heart failure, unspecified Status: Acute Assessment and Plan: Patient has grade 1 diastolic dysfunction, chest x-ray reviewed (9) DVT prophylaxis: Code(s): Z29.9 - Encounter for prophylactic measures, unspecified Status: Acute Assessment and Plan: SCDs (10) Small cell lung cancer: Code(s): C34.90 - Malignant neoplasm of unspecified part of unspecified bronchus or lung Status: Acute Plan DVT prophylaxis: SCDs Stress ulcer prophylaxis: Ppi IV q.12 hours Stool for Hemoccult -iron panel and other labs for anemia -echocardiogram and carotid Doppler Additional Plan Code status: Full code Subjective Date/time seen: 03/21/22 16:47 Interval history: HPI:Patient is a 61-year-old female with a past medical history of anemia, COPD, CKD, chronic hyponatremia who presented to the ED after a fall.? Patient was noted to have a heart rate in the 160s.? Patient was given p.o. carvedilol and IV fluids.? Patient is a poor historian probably related to her inability to hear.? However whenever I would ask for any questions she would tell me that she gets very short of breath and she needs a lot of air and she also stated that she was scared she
[2022-03-21] MEDS: ATORVASTATIN 40 MG TABLET 80 MG PO (20:54)
[2022-03-22] VITALS (14 sets, daily range): BP systolic 93–132; BP diastolic 54–77; PULSE 79–90; RESP 8–28; TEMP 35.8–37.1; O2SAT 92–100
[2022-03-22 05:46] LABS: Basophils Absolute Auto 0.1 K/mm3 (0.0-0.1); Basophils Percent Auto 0.3 % (0.2-1.2); Eosinophils Absolute Auto 0.3 K/mm3 (0-0.3); Eosinophils Percent Auto 1.1 % (0-4.4); Hemoglobin 8.7 g/dL (12.0-15.0); Immature Granulocyte Absolute 0.29 K/mm3 (0.00-0.031); Immature Granulocyte Percent A 1.2 % (0-0.5); Lymphocytes Absolute Auto 0.41 K/mm3 (0.9-3.2); Lymphocytes Percent Auto 1.7 % (18.3-44.2); Mean Corpuscular HGB Conc 32.2 g/dl (32-36); Mean Corpuscular Hemoglobin 32.5 pg (26-34); Mean Corpuscular Volume 100.7 fl (80-100); Monocytes Percent Auto 4.1 % (2.6-8.5); Neutrophils Absolute Auto 22.7 K/mm3 (1.3-6.7); Neutrophils Percent Auto 91.6 % (45.5-73.1); Platelet Count Result 282 k/mm3 (150-375); Red Blood Count 2.68 M/mm3 (4.2-5.4); Red Cell Distribution Width 17.5 % (11.5-14.5); White Blood Count 24.7 K/mm3 (4.5-10.0)
[2022-03-22 05:59] LABS: Alanine Aminotransferase 20 U/L (6-35); Albumin Level 2.2 g/dL (3.5-5.1); Alkaline Phosphatase 63 U/L (38-126); Anion Gap -2 mmol/L (8-16); Aspartate Amino Transferase 29 U/L (14-36); Bilirubin,Total 0.1 mg/dL (0.2-1.3); Blood Urea Nitrogen 11 mg/dL (7-17); Calcium 7.7 mg/dL (8.4-10.2); Carbon Dioxide 32 mmol/L (22-30); Chloride 100 mmol/L (98-107); Estimated Glomerular Filt Rate 56; Glucose 81 mg/dL (65-110); Magnesium 1.9 mg/dL (1.6-2.3); Phosphorus 3.2 mg/dL (2.5-4.5); Potassium 3.5 mmol/L (3.4-5.0); Sodium 130 mmol/L (137-145)
[2022-03-22 06:11] LABS: Lactic Acid Reflex < 0.5 mmol/L (0.7-2.0)
[2022-03-22] MEDS: VANCOMYCIN ORAL 125 MG/2.5 ML SYRUP PO ×3 (06:17→18:40)
[2022-03-22] MEDS: CENTRAL LINE FLUSH 10 ML IV PUSH ×3 (06:17→21:33)
[2022-03-22] MEDS: LEVOTHYROXINE SODIUM 25 MCG TABLET PO (06:17)
[2022-03-22 06:27] LABS: Platelet Estimate Adequate (Adequate)
[2022-03-22 06:28] LABS: Anisocytosis 1+ (NORMAL); Hypochromasia 3+ (NORMAL); Poikilocytosis 1+ (NORMAL)
[2022-03-22] MEDS: SODIUM CHLORIDE 1 GM TABLET PO ×2 (08:30→21:28)
[2022-03-22] MEDS: PANTOPRAZOLE SODIUM IV 40 MG VIAL IV PUSH ×2 (08:30→21:28)
[2022-03-22] MEDS: ESCITALOPRAM OXALATE 10 MG TABLET PO (08:30)
[2022-03-22] MEDS: CYANOCOBALAMIN 1,000 MCG TABLET 1000 MCG PO (08:30)
[2022-03-22] MEDS: ASPIRIN 81 MG ENTERIC TABLET PO (08:30)
[2022-03-22] MEDS: CHOLECALCIFEROL 1,000 UNITS TABLET 5000 UNITS PO (08:31)
[2022-03-22] MEDS: MEGESTROL ACETATE (*CHEMO) 40 MG TABLET PO (08:31)
[2022-03-22] MEDS: HYDROcodone/acetaminophen (*CRX) 5-325 MG TABLET 1 TAB PO ×3 (08:31→21:27)
[2022-03-22] MEDS: PYRIDOXINE HCL 50 MG TABLET 100 MG PO ×2 (08:31→18:40)
[2022-03-22] MEDS: MULTIVITAMIN HEMATINIC (*BKC) TABLET 1 TABLET PO (08:31)
[2022-03-22] MEDS: FERROUS SULFATE 324 MG TABLET PO ×2 (08:31→18:40)
[2022-03-22] MEDS: UMECLIDINIUM/VILANTEROL 62.5-25 MCG ELLIPTA 1 PUFF INHALATION (08:45)
--- NOTE | 2022-03-22 11:21 | WPDCDIQUERY2 ---
CDI Query Clarification Request Congestive heart failure: ?Qualifiers: ?Heart failure chronicity:?unspecified??Heart failure type:?unspecified? Qualified Code(s):?I50.9 - Heart failure, unspecified ?Code(s): I50.9 - Heart failure, unspecified ?Status:?Acute ?Assessment and Plan: Patient has grade 1 diastolic dysfunction, chest x-ray reviewed 03/22 Hospitalist documented: Diagnosis Congestive Heart Failure, please clarify if Diastolic, Systolic, combined, other or unable to determine. For coding purposes lab or procedure results can not be used. <Diana Epperson - Last Filed: 03/22/22 11:26> Provider Comments Updated the note <Angel Mcarthur MD - Last Filed: 03/22/22 14:38>
--- NOTE | 2022-03-22 11:26 | WPDINTPN ---
Progress Note: A&P Assessment and Plan (1) Shock: Code(s): R57.9 - Shock, unspecified Status: Acute Assessment and Plan: Patient presented with a fall, unknown if it was secondary to syncope, mechanical fall, hyponatremia, anemia/infection, medication ([facility]) -CT scan of the brain did not show any acute intracranial abnormalities -echocardiogram and carotid Dopplers have been ordered -PT/OT when patient is able -patient has received adequate amount of IV fluids -OFF Levophed Since the afternoon on 03/21/2022 -patient has been started on empiric cefepime and vancomycin IV -03/20/2022: Urine and blood cultures are negative Echocardiogram on 10/04/2021: EF 65-70%, grade 1 diastolic dysfunction, mild to moderate tricuspid regurg, moderate pulmonary hypertension RVSP of 47 mmHg, moderate to large pericardial effusion (2) C. difficile colitis: Code(s): A04.72 - Enterocolitis due to Clostridium difficile, not specified as recurrent Status: Acute Assessment and Plan: Patient has recent history of C diff at the [facility], -on p.o. vancomycin -continue isolation (3) Anemia: Code(s): D64.9 - Anemia, unspecified Status: Acute Assessment and Plan: Patient dropped hemoglobin morning to 6.9 (7.9 on admission) could be dilutional, possible GI bleed, anemia of chronic disease as she has a history of it -Hemoglobin 8.7 this morning, after 1 unit of packed RBCs -Screen for occult blood was positive -LDH is within normal limits, haptoglobin is pending, retic count is normal -iron panel reflective of anemia of chronic disease -Continue PPI IV q.12 hours -consult GI -hold Lovenox (4) Hyponatremia: Code(s): E87.1 - Hypo-osmolality and hyponatremia Status: Acute Assessment and Plan: Patient has a history of chronic hyponatremia, will continue to monitor -patient is awake, alert, oriented x3 -could be related to SIADH secondary to her lung cancer -sodium levels improving, continue to monitor (5) Fall: Code(s): W19.XXXA - Unspecified fall, initial encounter Status: Acute Assessment and Plan: Mechanical fall versus syncope (6) COPD (chronic obstructive pulmonary disease): Code(s): J44.9 - Chronic obstructive pulmonary disease, unspecified Status: Acute Assessment and Plan: Continue bronchodilators, currently on 3 L nasal cannula (7) Hypothyroidism: Code(s): E03.9 - Hypothyroidism, unspecified Status: Acute Assessment and Plan: Continue levothyroxine (8) Congestive heart failure: Qualifiers: Heart failure chronicity: unspecified Heart failure type: unspecified Qualified Code(s): I50.9 - Heart failure, unspecified Code(s): I50.9 - Heart failure, unspecified Status: Acute Assessment and Plan: Patient has grade 1 diastolic dysfunction, chest x-ray reviewed (9) DVT prophylaxis: Code(s): Z29.9 - Encounter for prophylactic measures, unspecified Status: Acute Assessment and Plan: SCDs, No chemoprophylaxis secondary to anemia requiring 1 unit of packed RBC and positive Hemoccult (10) Small cell lung cancer: Code(s): C34.90 - Malignant neoplasm of unspecified part of unspecified bronchus or lung Status: Acute Plan DVT prophylaxis: SCDs Stress ulcer prophylaxis: Protonix IV q.12 hours Additional Plan Code status: Full code Critical care time spent: 32 minutes Patient may transfer out of ICU This dictation may have been done utilizing a voice recognition system. Attempts have been made to correct errors. However, there may be uncorrected grammatical, spelling, and recognition errors present. Due to a high probability of clinically significant, life threatening deterioration, the patient required my highest level of preparedness to intervene emergently and I personally spent this critical care time di
--- NOTE | 2022-03-22 12:28 | PM.IMPN ---
Progress Note: A&P Assessment and Plan (1) Shock: Code(s): R57.9 - Shock, unspecified Status: Acute Assessment and Plan: Patient presented with a fall, unknown if it was secondary to syncope, mechanical fall, hyponatremia, anemia/infection, medication ([facility]em at [facility]) -CT scan of the brain did not show any acute intracranial abnormalities -echocardiogram and carotid Dopplers pending -PT/OT when patient is able -patient has received adequate amount of IV fluids -continue Levophed to maintain mean arterial pressure > 65 mmHg for adequate end organ perfusion -patient has been started on empiric cefepime and vancomycin IV -blood and urine cultures have been obtained Was started on Levophed on admission off since afternoon 03/21/2022 Echocardiogram on 10/04/2021: EF 65-70%, grade 1 diastolic dysfunction, mild to moderate tricuspid regurg, moderate pulmonary hypertension RVSP of 47 mmHg, moderate to large pericardial effusion (2) C. difficile colitis: Code(s): A04.72 - Enterocolitis due to Clostridium difficile, not specified as recurrent Status: Acute Assessment and Plan: Patient has recent history of C diff at the [facility], Started on p.o. vancomycin -continue isolation -C diff has been ordered which is pending (3) Anemia: Code(s): D64.9 - Anemia, unspecified Status: Acute Assessment and Plan: Patient dropped hemoglobin morning to 6.9 (7.9 on admission) could be dilutional, possible GI bleed, anemia of chronic disease as she has a history of it transfused 1 unit of packed RBCs 03/21/2022 with appropriate rise. stool for Hemoccult came back positive, consulted GI check haptoglobin, LDH, retic count -iron panel PPI twice a day -hold Lovenox (4) Hyponatremia: Code(s): E87.1 - Hypo-osmolality and hyponatremia Status: Acute Assessment and Plan: Patient has a history of chronic hyponatremia, will continue to monitor -patient is awake, alert, oriented x3 -could be related to SIADH secondary to her lung cancer (5) Fall: Code(s): W19.XXXA - Unspecified fall, initial encounter Status: Acute Assessment and Plan: Mechanical fall versus syncope, echo and carotid Dopplers have been ordered (6) COPD (chronic obstructive pulmonary disease): Code(s): J44.9 - Chronic obstructive pulmonary disease, unspecified Status: Acute Assessment and Plan: Continue bronchodilators, currently on 3 L nasal cannula (7) Hypothyroidism: Code(s): E03.9 - Hypothyroidism, unspecified Status: Acute Assessment and Plan: Continue levothyroxine (8) Congestive heart failure: Qualifiers: Heart failure chronicity: unspecified Heart failure type: unspecified Qualified Code(s): I50.9 - Heart failure, unspecified Code(s): I50.9 - Heart failure, unspecified Status: Acute Assessment and Plan: Patient has grade 1 diastolic dysfunction, chest x-ray reviewed Chronic diastolic congestive heart failure (9) DVT prophylaxis: Code(s): Z29.9 - Encounter for prophylactic measures, unspecified Status: Acute Assessment and Plan: SCDs (10) Small cell lung cancer: Code(s): C34.90 - Malignant neoplasm of unspecified part of unspecified bronchus or lung Status: Acute Plan DVT prophylaxis: SCDs Stress ulcer prophylaxis: Ppi IV q.12 hours Additional Plan Code status: Full code Subjective Date/time seen: 03/22/22 12:28 Interval history: HPI:Patient is a 61-year-old female with a past medical history of anemia, COPD, CKD, chronic hyponatremia who presented to the ED after a fall.? Patient was noted to have a heart rate in the 160s.? Patient was given p.o. carvedilol and IV fluids.? Patient is a poor historian probably related to her inability to hear.? However whenever I would ask for any questions she would tell me that she gets very moreno
--- NOTE | 2022-03-22 15:45 | WPDGICN ---
Assessment and Plan Assessment and plan (1) Anemia: Code(s): D64.9 - Anemia, unspecified Status: Acute Assessment and Plan: Patient has underlying chronic anemia. Appears to decline after admission hospital 1 IV fluid rehydration and was instituted to treat her hypotension. Suspect this is related to her chronic medical conditions including history of lung cancer ongoing: Infection and comorbid diseases. At the present time because patient is very frail I would defer any other further invasive testing. Stool occult blood is noted be noted likely on the basis of her establish C difficile colitis. (2) C. difficile colitis: Code(s): A04.72 - Enterocolitis due to Clostridium difficile, not specified as recurrent Status: Acute Assessment and Plan: Patient has ongoing diarrhea. This appears to be related to recently identified C difficile infection. She is on vancomycin therapy. At the present time attempts to confirm this diagnosis in the duration of her infection. Would continue vancomycin for now. Alternate antibiotic therapies may be required if she fails to respond to this. This likely is the explanation for occult blood in stool. No further investigation is warranted also would be very high risk given her general debility. (3) Fall from ground level: Code(s): W18.30XA - Fall on same level, unspecified, initial encounter Status: Acute (4) Facial laceration: Code(s): S01.81XA - Laceration without foreign body of other part of head, initial encounter Status: Acute (5) COPD (chronic obstructive pulmonary disease): Qualifiers: COPD type: unspecified COPD Qualified Code(s): J44.9 - Chronic obstructive pulmonary disease, unspecified Code(s): J44.9 - Chronic obstructive pulmonary disease, unspecified Status: Acute (6) Acute hyponatremia: Code(s): E87.1 - Hypo-osmolality and hyponatremia Status: Acute (7) Small cell lung cancer: Code(s): C34.90 - Malignant neoplasm of unspecified part of unspecified bronchus or lung Status: Acute GI Consult Note Consult date/time: 03/22/22 15:45 Reason for consult: Chronic anemia and occult blood in stool. HPI: Stephanie Holt is a 61 year old female I am asked to see at the request of the banking services officer service. Patient admitted several days ago through the ER. She isn't prison patient is very frail. Has a history of substance abuse chronic anemia, COPD, lung cancer, congestive heart failure. She apparently has had diarrhea for some time recently diagnosed with C difficile enteritis. She she fell and apparently had injury to her right forehead which is currently bandaged. She was found to be hypotensive in the emergency room. Patient subsequently admitted to the intensive care unit. Patient does have chronic anemia but because of a slight decline in hemoglobin after IV rehydration I have been consulted. Stools confirmed to be Hemoccult-positive. No overt bleeding as described by the patient or the staff. Family history is noncontributory. At the time admission patient was noted have marked electrolyte imbalance including very low serum sodium. Review of Systems Review of Systems: Noncontributory review of systems [facility] Past Medical History Medical History Anemia in chronic illness Anxiety Chronic hyponatremia Chronic kidney disease Chronic obstructive pulmonary disease Chronic respiratory failure with hypoxia, on home oxygen therapy Depression Diastolic dysfunction EF 65 to 70%. Grade 1 diastolic dysfunction. Emphysema of lung Hearing loss Hypercholesterolemia Hypertension Hypothyroidism Pulmonary hypertension Moderate pulmonary hypertension on echocardiogram in September 2021 with an estimated PA SP of 47 mmHg. Small cell lung cancer Limited stage small cell arising in the left hilar region
--- NOTE | 2022-03-22 15:56 | PC.NURSE ---
This patient, Stephanie Holt, was transferred to [ [id number]] on 03/22/22 at 1556. Personal belongings sent with patient. Report given to [MARCOS Garcia @ [phone] ]. Appropriate documentation sent with patient.
[2022-03-22] MEDS: ATORVASTATIN 40 MG TABLET 80 MG PO (21:27)
[2022-03-23] VITALS (7 sets, daily range): BP systolic 131–143; BP diastolic 59–79; PULSE 85–103; RESP 14–21; TEMP 36.6–36.8; O2SAT 96–100
[2022-03-23] MEDS: VANCOMYCIN ORAL 125 MG/2.5 ML SYRUP PO ×4 (01:15→18:20)
[2022-03-23] MEDS: LEVOTHYROXINE SODIUM 25 MCG TABLET PO (05:33)
[2022-03-23] MEDS: CENTRAL LINE FLUSH 10 ML IV PUSH ×3 (05:33→20:24)
[2022-03-23 05:51] LABS: Hematocrit 27.2 % (37.0-47.0); Hemoglobin 8.4 g/dL (12.0-15.0); Mean Corpuscular HGB Conc 30.9 g/dl (32-36); Mean Corpuscular Hemoglobin 31.7 pg (26-34); Mean Corpuscular Volume 102.6 fl (80-100); Mean Platelet Volume 9.2 fl (7.4-10.4); Platelet Count Result 295 k/mm3 (150-375); Red Blood Count 2.65 M/mm3 (4.2-5.4); Red Cell Distribution Width 16.9 % (11.5-14.5); White Blood Count 12.5 K/mm3 (4.5-10.0)
[2022-03-23 06:02] LABS: Alanine Aminotransferase 20 U/L (6-35); Albumin Level 2.1 g/dL (3.5-5.1); Alkaline Phosphatase 62 U/L (38-126); Anion Gap 0 mmol/L (8-16); Aspartate Amino Transferase 35 U/L (14-36); Bilirubin,Total 0.3 mg/dL (0.2-1.3); Blood Urea Nitrogen 12 mg/dL (7-17); Calcium 7.7 mg/dL (8.4-10.2); Carbon Dioxide 31 mmol/L (22-30); Chloride 97 mmol/L (98-107); Estimated Glomerular Filt Rate 56; Glucose 81 mg/dL (65-110); Magnesium 1.8 mg/dL (1.6-2.3); Potassium 3.4 mmol/L (3.4-5.0); Sodium 128 mmol/L (137-145)
--- NOTE | 2022-03-23 08:22 | WPDGIPROGNO ---
Progress Note: A&P Assessment and Plan (1) Anemia: Code(s): D64.9 - Anemia, unspecified Status: Acute Assessment and Plan: Patient with chronic anemia. Likely secondary to her multiple prior medical problems. No significant bleeding noted. Occult blood in stool likely related to C difficile colitis. Would defer any investigation now. As patient is too frail for investigation unless active bleeding develops. (2) C. difficile colitis: Code(s): A04.72 - Enterocolitis due to Clostridium difficile, not specified as recurrent Status: Acute Assessment and Plan: Patient found to have C diff at [facility]. Now on antibiotic therapy. Clinically improving. Would continue least a 10 day course. She may need pulse therapy or tapering doses after discharge if this relapses. Repeat stool culture to confirm this diagnosis is pending. (3) COPD (chronic obstructive pulmonary disease): Code(s): J44.9 - Chronic obstructive pulmonary disease, unspecified Status: Acute (4) Facial laceration: Code(s): S01.81XA - Laceration without foreign body of other part of head, initial encounter Status: Acute (5) Chronic kidney disease: Code(s): N18.9 - Chronic kidney disease, unspecified Status: Acute (6) Small cell lung cancer: Code(s): C34.90 - Malignant neoplasm of unspecified part of unspecified bronchus or lung Status: Acute Subjective Date/time seen: 03/23/22 08:22 Patient reports diarrhea has lessened with current antibiotic therapy. No obvious bleeding reported. She denies abdominal pain. Review of Systems Review of Systems: Review of systems is noncontributory. Exam Narrative: Physical exam reveals patient be alert she remains hard hearing. HEENT exam reveals no icterus. Lungs are clear. Heart without murmur. Abdomen bowel sounds present soft nontender with no organomegaly. Objective Data Vital Signs Vital Signs: Vital Signs - 24 hr 03/22/22 10:00 03/22/22 10:00 03/22/22 12:27 Temperature 98.4 F Pulse Rate 90 87 84 Respiratory Rate 13 17 Blood Pressure 93/57 L 113/66 Pulse Oximetry 94 97 Oxygen Delivery Oxygen Flow Rate 03/22/22 13:35 03/22/22 13:50 03/22/22 16:00 Temperature 96.5 F L Pulse Rate 81 Respiratory Rate 18 Blood Pressure 118/63 Pulse Oximetry 100 Oxygen Delivery Nasal Cannula Nasal Cannula Oxygen Flow Rate 2 2 03/22/22 21:55 03/22/22 22:01 03/22/22 22:16 Temperature Pulse Rate 79 90 Respiratory Rate 28 H Blood Pressure Pulse Oximetry 97 97 Oxygen Delivery Nasal Cannula BiPAP Oxygen Flow Rate 1 03/22/22 21:00 03/23/22 02:20 03/22/22 20:00 Temperature 98.8 F Pulse Rate 85 88 Respiratory Rate 18 20 Blood Pressure 132/62 Pulse Oximetry 92 96 95 Oxygen Delivery BiPAP Nasal Cannula Oxygen Flow Rate 2 03/23/22 06:36 Temperature 98.3 F Pulse Rate 85 Respiratory Rate 14 Blood Pressure 131/78 Pulse Oximetry 100 Oxygen Delivery Oxygen Flow Rate Intake/Output Intake/Output: Intake & Output 03/20/22 03/21/22 03/22/22 03/23/22 23:59 23:59 23:59 23:59 Intake Total 2350 3645 1950 250 Output Total 1700 2350 1000 Balance 2350 1945 400 750 Meds/Results Medications: Active Medications Generic Name Dose Route Start Last Admin Trade Name Freq PRN Reason Stop Dose Admin Acetaminophen 650 mg 03/20/22 18:15 03/21/22 06:34 Acetaminophen 325 Mg Tablet PO 650 mg Q4H PRN Administration Pain (Scale Score 1-3) Hydrocodone Bitart/Acetaminophen 1 tab 03/21/22 08:33 03/22/22 21:27 Hydrocodone/Acetaminophen (*Crx) 5-325 Mg Tablet PO 1 tab Q6H PRN Administration Pain (Scale Score 4-6) Aspirin 81 mg 03/21/22 09:00 03/22/22 08:30 Aspirin 81 Mg Enteric Tablet PO 81 mg QAM ALONA Administration Atorvastatin Calcium 80 mg 03/20/22 21:00 03/22/22 21:27 Atorvastatin 40 Mg Tablet PO 80 mg HS SC
[2022-03-23] MEDS: CHOLECALCIFEROL 1,000 UNITS TABLET 5000 UNITS PO (08:26)
[2022-03-23] MEDS: ASPIRIN 81 MG ENTERIC TABLET PO (08:26)
[2022-03-23] MEDS: CYANOCOBALAMIN 1,000 MCG TABLET 1000 MCG PO (08:28)
[2022-03-23] MEDS: ESCITALOPRAM OXALATE 10 MG TABLET PO (08:28)
[2022-03-23] MEDS: FERROUS SULFATE 324 MG TABLET PO ×2 (08:28→16:10)
[2022-03-23] MEDS: MEGESTROL ACETATE (*CHEMO) 40 MG TABLET PO (08:29)
[2022-03-23] MEDS: MULTIVITAMIN HEMATINIC (*BKC) TABLET 1 TABLET PO (08:29)
[2022-03-23] MEDS: PANTOPRAZOLE SODIUM IV 40 MG VIAL IV PUSH ×2 (08:29→20:21)
[2022-03-23] MEDS: PYRIDOXINE HCL 50 MG TABLET 100 MG PO ×2 (08:30→16:09)
[2022-03-23] MEDS: SODIUM CHLORIDE 1 GM TABLET PO ×2 (08:30→16:09)
[2022-03-23 08:32] LABS: Band Neutrophils Percent 10 % (0-6); Eosinophils Absolute Manual 0.37 K/mm3 (0.02-0.5); Eosinophils Percent Manual 3 % (0-4); Lymphocytes Absolute Manual 0.25 K/mm3 (1.1-4.5); Metamyelocytes Percent 1 %; Monocytes Percent Manual 4 % (3-9); Neutrophils Absolute Manual 11.25 K/mm3 (1.7-7.2); Neutrophils Percent Manual 80 % (46-73); Total Cells Counted 100
[2022-03-23 08:34] LABS: Acanthocytes 1+ (NORMAL); Anisocytosis 1+ (NORMAL); Macrocytosis 1+ (NORMAL); Microcytosis 1+ (NORMAL); Poikilocytosis 1+ (NORMAL)
[2022-03-23 08:35] LABS: Crenated RBC 1+ (NORMAL); Platelet Estimate Adequate (Adequate); Rouleaux 1+ (NORMAL)
[2022-03-23] MEDS: UMECLIDINIUM/VILANTEROL 62.5-25 MCG ELLIPTA 1 PUFF INHALATION (09:01)
[2022-03-23] MEDS: HYDROcodone/acetaminophen (*CRX) 5-325 MG TABLET 1 TAB PO ×3 (09:21→20:21)
--- NOTE | 2022-03-23 14:43 | PM.IMPN ---
Progress Note: A&P Assessment and Plan (1) Shock: Code(s): R57.9 - Shock, unspecified Status: Acute Assessment and Plan: Patient presented with a fall, unknown if it was secondary to syncope, mechanical fall, hyponatremia, anemia/infection, medication (patient on [facility]ix and diltiazem at a [facility]) -echo and carotid Doppler pending - CT scan of the brain did not show any acute intracranial abnormalities -PT/OT when patient is able -patient has received adequate amount of IV fluids -continue Levophed to maintain mean arterial pressure > 65 mmHg for adequate end organ perfusion -patient has been started on empiric cefepime and vancomycin IV -blood and urine cultures have been obtained Was started on Levophed on admission off since afternoon 03/21/2022 Blood cultures been negative will stop vancomycin today Echocardiogram on 10/04/2021: EF 65-70%, grade 1 diastolic dysfunction, mild to moderate tricuspid regurg, moderate pulmonary hypertension RVSP of 47 mmHg, moderate to large pericardial effusion (2) C. difficile colitis: Code(s): A04.72 - Enterocolitis due to Clostridium difficile, not specified as recurrent Status: Acute Assessment and Plan: Patient has recent history of C diff at the senior care, Started on p.o. vancomycin -continue isolation -C diff has been ordered which came back positive in the senior care. Continue to monitor bowel movements fidaxomicin if not improving (3) Anemia: Code(s): D64.9 - Anemia, unspecified Status: Acute Assessment and Plan: Patient dropped hemoglobin morning to 6.9 (7.9 on admission) could be dilutional, possible GI bleed, anemia of chronic disease as she has a history of it transfused 1 unit of packed RBCs 03/21/2022 with appropriate rise. stool for Hemoccult came back positive, consulted GI. Appreciate GI help and recommendation H&H remained stable check haptoglobin, LDH, retic count -iron panel PPI twice a day -hold Lovenox (4) Hyponatremia: Code(s): E87.1 - Hypo-osmolality and hyponatremia Status: Acute Assessment and Plan: Patient has a history of chronic hyponatremia, will continue to monitor -patient is awake, alert, oriented x3 -could be related to SIADH secondary to her lung cancer (5) Fall: Code(s): W19.XXXA - Unspecified fall, initial encounter Status: Acute Assessment and Plan: Mechanical fall versus syncope, echo and carotid Dopplers have been ordered which is pending (6) COPD (chronic obstructive pulmonary disease): Code(s): J44.9 - Chronic obstructive pulmonary disease, unspecified Status: Acute Assessment and Plan: Continue bronchodilators, currently on 3 L nasal cannula (7) Hypothyroidism: Code(s): E03.9 - Hypothyroidism, unspecified Status: Acute Assessment and Plan: Continue levothyroxine (8) Congestive heart failure: Qualifiers: Heart failure chronicity: unspecified Heart failure type: unspecified Qualified Code(s): I50.9 - Heart failure, unspecified Code(s): I50.9 - Heart failure, unspecified Status: Acute Assessment and Plan: Patient has grade 1 diastolic dysfunction, chest x-ray reviewed Chronic diastolic congestive heart failure (9) DVT prophylaxis: Code(s): Z29.9 - Encounter for prophylactic measures, unspecified Status: Acute Assessment and Plan: SCDs (10) Small cell lung cancer: Code(s): C34.90 - Malignant neoplasm of unspecified part of unspecified bronchus or lung Status: Acute Plan DVT prophylaxis: SCDs Stress ulcer prophylaxis: Ppi IV q.12 hours Additional Plan Code status: Full code Subjective Date/time seen: 03/23/22 14:43 Interval history: HPI:Patient is a 61-year-old female with a past medical history of anemia, COPD, CKD, chronic hyponatremia who presented to the ED after a fall.? Patient was noted to have a heart rate in
[2022-03-23] MEDS: ATORVASTATIN 40 MG TABLET 80 MG PO (20:21)
[2022-03-24] VITALS (10 sets, daily range): BP systolic 107–152; BP diastolic 59–82; PULSE 89–102; RESP 16–22; TEMP 36.8; O2SAT 94–100
[2022-03-24] MEDS: LEVOTHYROXINE SODIUM 25 MCG TABLET PO (05:16)
[2022-03-24] MEDS: CENTRAL LINE FLUSH 10 ML IV PUSH ×3 (05:16→23:00)
[2022-03-24] MEDS: VANCOMYCIN ORAL 125 MG/2.5 ML SYRUP PO ×4 (05:17→23:00)
[2022-03-24 05:39] LABS: Basophils Absolute Auto 0.2 K/mm3 (0.0-0.1); Basophils Percent Auto 1.7 % (0.2-1.2); Eosinophils Absolute Auto 0.3 K/mm3 (0-0.3); Eosinophils Percent Auto 3.3 % (0-4.4); Hematocrit 28.5 % (37.0-47.0); Hemoglobin 9.3 g/dL (12.0-15.0); Immature Granulocyte Absolute 0.71 K/mm3 (0.00-0.031); Immature Granulocyte Percent A 7.5 % (0-0.5); Lymphocytes Absolute Auto 0.58 K/mm3 (0.9-3.2); Lymphocytes Percent Auto 6.1 % (18.3-44.2); Mean Corpuscular HGB Conc 32.6 g/dl (32-36); Mean Corpuscular Hemoglobin 32.3 pg (26-34); Monocytes Absolute Auto 0.9 K/mm3 (0.1-0.6); Monocytes Percent Auto 9.5 % (2.6-8.5); Neutrophils Absolute Auto 6.8 K/mm3 (1.3-6.7); Neutrophils Percent Auto 71.9 % (45.5-73.1); Platelet Count Result 335 k/mm3 (150-375); Red Blood Count 2.88 M/mm3 (4.2-5.4); Red Cell Distribution Width 15.8 % (11.5-14.5); White Blood Count 9.5 K/mm3 (4.5-10.0)
[2022-03-24 05:50] LABS: Alanine Aminotransferase 26 U/L (6-35); Albumin Level 2.2 g/dL (3.5-5.1); Alkaline Phosphatase 72 U/L (38-126); Anion Gap -1 mmol/L (8-16); Aspartate Amino Transferase 41 U/L (14-36); Bilirubin,Total 0.3 mg/dL (0.2-1.3); Blood Urea Nitrogen 13 mg/dL (7-17); Calcium 7.6 mg/dL (8.4-10.2); Carbon Dioxide 36 mmol/L (22-30); Chloride 95 mmol/L (98-107); Estimated Glomerular Filt Rate 50; Glucose 87 mg/dL (65-110); Magnesium 1.7 mg/dL (1.6-2.3); Potassium 3.6 mmol/L (3.4-5.0); Sodium 130 mmol/L (137-145)
[2022-03-24] MEDS: HYDROcodone/acetaminophen (*CRX) 5-325 MG TABLET 1 TAB PO ×2 (08:03→16:35)
[2022-03-24] MEDS: SODIUM CHLORIDE 1 GM TABLET PO ×2 (08:07→16:36)
[2022-03-24] MEDS: MEGESTROL ACETATE (*CHEMO) 40 MG TABLET PO (08:07)
[2022-03-24] MEDS: PYRIDOXINE HCL 50 MG TABLET 100 MG PO ×2 (08:07→16:36)
[2022-03-24] MEDS: ESCITALOPRAM OXALATE 10 MG TABLET PO (08:08)
[2022-03-24] MEDS: CHOLECALCIFEROL 1,000 UNITS TABLET 5000 UNITS PO (08:08)
[2022-03-24] MEDS: MULTIVITAMIN HEMATINIC (*BKC) TABLET 1 TABLET PO (08:08)
[2022-03-24] MEDS: FERROUS SULFATE 324 MG TABLET PO ×2 (08:09→16:36)
[2022-03-24] MEDS: CYANOCOBALAMIN 1,000 MCG TABLET 1000 MCG PO (08:09)
[2022-03-24] MEDS: UMECLIDINIUM/VILANTEROL 62.5-25 MCG ELLIPTA 1 PUFF INHALATION (08:47)
[2022-03-24] MEDS: ASPIRIN 81 MG ENTERIC TABLET PO (09:46)
[2022-03-24] MEDS: PANTOPRAZOLE SODIUM IV 40 MG VIAL IV PUSH ×2 (09:46→23:00)
--- NOTE | 2022-03-24 10:26 | PCOTNOTE ---
Per nursing, patient experiencing episodes of orthostatic hypotension this date and recommended patient remain in bed. Patient declined ADL's and BUE exercises this date due to c/o pain and fatigue.
[2022-03-24 11:14] LABS: Haptoglobin 264 mg/dL (43-212)
--- NOTE | 2022-03-24 11:45 | PC.NURSE ---
Dr Maradiaga on floor and notified of pt c/o dizziness during therapy and was orthostaic positive when bp was checked.
[2022-03-24] MEDS: ACETAMINOPHEN 325 MG TABLET 650 MG PO (12:37)
--- NOTE | 2022-03-24 13:07 | PM.IMPN ---
Progress Note: A&P Assessment and Plan (1) Shock: Code(s): R57.9 - Shock, unspecified Status: Acute Assessment and Plan: Patient presented with a fall, unknown if it was secondary to syncope, mechanical fall, hyponatremia, anemia/infection, medication (patient on Lasix and diltiazem at a [facility]) -echo and carotid Doppler pending - CT scan of the brain did not show any acute intracranial abnormalities -PT/OT when patient is able -patient has received adequate amount of IV fluids -continue Levophed to maintain mean arterial pressure > 65 mmHg for adequate end organ perfusion -patient has been started on empiric cefepime and vancomycin IV -blood and urine cultures have been obtained Was started on Levophed on admission off since afternoon 03/21/2022 Blood cultures been negative. Vancomycin Will stop cefepime as well since C diff is positive Echocardiogram on 10/04/2021: EF 65-70%, grade 1 diastolic dysfunction, mild to moderate tricuspid regurg, moderate pulmonary hypertension RVSP of 47 mmHg, moderate to large pericardial effusion (2) C. difficile colitis: Code(s): A04.72 - Enterocolitis due to Clostridium difficile, not specified as recurrent Status: Acute Assessment and Plan: Patient has recent history of C diff at the longterm, Started on p.o. vancomycin -continue isolation -C diff has been ordered which came back positive in the longterm. Continue to monitor bowel movements fidaxomicin if not improving C diff diarrhea (3) Anemia: Code(s): D64.9 - Anemia, unspecified Status: Acute Assessment and Plan: Patient dropped hemoglobin morning to 6.9 (7.9 on admission) could be dilutional, possible GI bleed, anemia of chronic disease as she has a history of it transfused 1 unit of packed RBCs 03/21/2022 with appropriate rise. stool for Hemoccult came back positive, consulted GI. Appreciate GI help and recommendation H&H remained stable check haptoglobin, LDH, retic count -iron panel PPI twice a day -hold Lovenox (4) Hyponatremia: Code(s): E87.1 - Hypo-osmolality and hyponatremia Status: Acute Assessment and Plan: Patient has a history of chronic hyponatremia, will continue to monitor -patient is awake, alert, oriented x3 -could be related to SIADH secondary to her lung cancer (5) Fall: Code(s): W19.XXXA - Unspecified fall, initial encounter Status: Acute Assessment and Plan: Mechanical fall versus syncope, echo and carotid Dopplers have been ordered which is pending (6) COPD (chronic obstructive pulmonary disease): Code(s): J44.9 - Chronic obstructive pulmonary disease, unspecified Status: Acute Assessment and Plan: Continue bronchodilators, currently on 3 L nasal cannula (7) Hypothyroidism: Code(s): E03.9 - Hypothyroidism, unspecified Status: Acute Assessment and Plan: Continue levothyroxine (8) Congestive heart failure: Qualifiers: Heart failure chronicity: unspecified Heart failure type: unspecified Qualified Code(s): I50.9 - Heart failure, unspecified Code(s): I50.9 - Heart failure, unspecified Status: Acute Assessment and Plan: Patient has grade 1 diastolic dysfunction, chest x-ray reviewed Chronic diastolic congestive heart failure (9) DVT prophylaxis: Code(s): Z29.9 - Encounter for prophylactic measures, unspecified Status: Acute Assessment and Plan: SCDs (10) Small cell lung cancer: Code(s): C34.90 - Malignant neoplasm of unspecified part of unspecified bronchus or lung Status: Acute Plan DVT prophylaxis: SCDs Stress ulcer prophylaxis: Ppi IV q.12 hours Additional Plan Code status: Full code Subjective Date/time seen: 03/24/22 13:07 Interval history: HPI:Patient is a 61-year-old female with a past medical history of anemia, COPD, CKD, chronic hyponatremia who presented to the ED
[2022-03-24] MEDS: ATORVASTATIN 40 MG TABLET 80 MG PO (23:00)
[2022-03-25] VITALS (12 sets, daily range): BP systolic 92–155; BP diastolic 61–90; PULSE 93–99; RESP 20–22; TEMP 36.6–36.7; O2SAT 96–100
[2022-03-25] MEDS: CENTRAL LINE FLUSH 10 ML IV PUSH ×3 (04:48→21:18)
[2022-03-25] MEDS: LEVOTHYROXINE SODIUM 25 MCG TABLET PO (04:48)
[2022-03-25] MEDS: VANCOMYCIN ORAL 125 MG/2.5 ML SYRUP PO ×3 (04:48→17:45)
[2022-03-25 05:03] LABS: Basophils Absolute Auto 0.1 K/mm3 (0.0-0.1); Basophils Percent Auto 1.5 % (0.2-1.2); Eosinophils Absolute Auto 0.3 K/mm3 (0-0.3); Eosinophils Percent Auto 3.2 % (0-4.4); Hematocrit 29.6 % (37.0-47.0); Hemoglobin 9.4 g/dL (12.0-15.0); Immature Granulocyte Absolute 0.87 K/mm3 (0.00-0.031); Lymphocytes Absolute Auto 0.61 K/mm3 (0.9-3.2); Mean Corpuscular HGB Conc 31.8 g/dl (32-36); Mean Corpuscular Hemoglobin 31.6 pg (26-34); Mean Corpuscular Volume 99.7 fl (80-100); Mean Platelet Volume 8.7 fl (7.4-10.4); Monocytes Percent Auto 11.5 % (2.6-8.5); Neutrophils Absolute Auto 5.8 K/mm3 (1.3-6.7); Neutrophils Percent Auto 66.8 % (45.5-73.1); Platelet Count Result 333 k/mm3 (150-375); Red Blood Count 2.97 M/mm3 (4.2-5.4); Red Cell Distribution Width 15.9 % (11.5-14.5); White Blood Count 8.7 K/mm3 (4.5-10.0)
[2022-03-25 05:22] LABS: Albumin Level 2.3 g/dL (3.5-5.1); Aspartate Amino Transferase 64 U/L (14-36); Bilirubin,Total < 0.1 mg/dL (0.2-1.3); Blood Urea Nitrogen 11 mg/dL (7-17); Calcium 7.7 mg/dL (8.4-10.2); Carbon Dioxide 36 mmol/L (22-30); Estimated Glomerular Filt Rate > 60; Glucose 87 mg/dL (65-110)
[2022-03-25 05:45] LABS: Anisocytosis 1+ (NORMAL); Hypochromasia 1+ (NORMAL); Platelet Estimate Adequate (Adequate)
[2022-03-25 05:46] LABS: Basophilic Stippling 1+ (NORMAL)
[2022-03-25 06:04] LABS: Alanine Aminotransferase 40 U/L (6-35); Alkaline Phosphatase 79 U/L (38-126); Anion Gap -2 mmol/L (8-16); Chloride 94 mmol/L (98-107); Magnesium 1.7 mg/dL (1.6-2.3); Potassium 3.9 mmol/L (3.4-5.0); Sodium 128 mmol/L (137-145)
[2022-03-25] MEDS: UMECLIDINIUM/VILANTEROL 62.5-25 MCG ELLIPTA 1 PUFF INHALATION (07:44)
[2022-03-25] MEDS: HYDROcodone/acetaminophen (*CRX) 5-325 MG TABLET 1 TAB PO ×3 (09:04→22:13)
[2022-03-25] MEDS: FERROUS SULFATE 324 MG TABLET PO ×2 (09:05→16:37)
[2022-03-25] MEDS: ESCITALOPRAM OXALATE 10 MG TABLET PO (09:05)
[2022-03-25] MEDS: MEGESTROL ACETATE (*CHEMO) 40 MG TABLET PO (09:05)
[2022-03-25] MEDS: PYRIDOXINE HCL 50 MG TABLET 100 MG PO ×2 (09:05→16:37)
[2022-03-25] MEDS: MULTIVITAMIN HEMATINIC (*BKC) TABLET 1 TABLET PO (09:05)
[2022-03-25] MEDS: CHOLECALCIFEROL 1,000 UNITS TABLET 5000 UNITS PO (09:05)
[2022-03-25] MEDS: ASPIRIN 81 MG ENTERIC TABLET PO (09:05)
[2022-03-25] MEDS: CYANOCOBALAMIN 1,000 MCG TABLET 1000 MCG PO (09:06)
[2022-03-25] MEDS: SODIUM CHLORIDE 1 GM TABLET PO ×2 (09:06→16:37)
[2022-03-25] MEDS: PANTOPRAZOLE SODIUM IV 40 MG VIAL IV PUSH ×2 (09:06→21:18)
--- NOTE | 2022-03-25 12:49 | PM.IMPN ---
Progress Note: A&P Assessment and Plan (1) Shock: Code(s): R57.9 - Shock, unspecified Status: Acute Assessment and Plan: Patient presented with a fall, unknown if it was secondary to syncope, mechanical fall, hyponatremia, anemia/infection, medication (patient on [facility]ix and [facility]iltiazem at a [facility]) -echo and carotid Doppler pending - CT scan of the brain did not show any acute intracranial abnormalities -PT/OT when patient is able -patient has received adequate amount of IV fluids -continue Levophed to maintain mean arterial pressure > 65 mmHg for adequate end organ perfusion -patient has been started on empiric cefepime and vancomycin IV -blood and urine cultures have been obtained Was started on Levophed on admission off since afternoon 03/21/2022 Blood cultures been negative. Vancomycin Stopped cefepime 03/24/2022 as well since C diff is positive Echocardiogram on 10/04/2021: EF 65-70%, grade 1 diastolic dysfunction, mild to moderate tricuspid regurg, moderate pulmonary hypertension RVSP of 47 mmHg, moderate to large pericardial effusion (2) C. difficile colitis: Code(s): A04.72 - Enterocolitis due to Clostridium difficile, not specified as recurrent Status: Acute Assessment and Plan: Patient has recent history of C diff at the [facility], Started on p.o. vancomycin -continue isolation -C diff has been ordered which came back positive in the [facility]. Continue to monitor bowel movements fidaxomicin if not improving C diff diarrhea (3) Anemia: Code(s): D64.9 - Anemia, unspecified Status: Acute Assessment and Plan: Patient dropped hemoglobin morning to 6.9 (7.9 on admission) could be dilutional, possible GI bleed, anemia of chronic disease as she has a history of it transfused 1 unit of packed RBCs 03/21/2022 with appropriate rise. stool for Hemoccult came back positive, consulted GI. Appreciate GI help and recommendation H&H remained stable check haptoglobin, LDH, retic count -iron panel PPI twice a day -hold Lovenox (4) Hyponatremia: Code(s): E87.1 - Hypo-osmolality and hyponatremia Status: Acute Assessment and Plan: Patient has a history of chronic hyponatremia, will continue to monitor -patient is awake, alert, oriented x3 -could be related to SIADH secondary to her lung cancer (5) Fall: Code(s): W19.XXXA - Unspecified fall, initial encounter Status: Acute Assessment and Plan: Mechanical fall versus syncope, echo and carotid Dopplers have been ordered which is pending (6) COPD (chronic obstructive pulmonary disease): Code(s): J44.9 - Chronic obstructive pulmonary disease, unspecified Status: Acute Assessment and Plan: Continue bronchodilators, currently on 3 L nasal cannula (7) Hypothyroidism: Code(s): E03.9 - Hypothyroidism, unspecified Status: Acute Assessment and Plan: Continue levothyroxine (8) Congestive heart failure: Qualifiers: Heart failure chronicity: unspecified Heart failure type: unspecified Qualified Code(s): I50.9 - Heart failure, unspecified Code(s): I50.9 - Heart failure, unspecified Status: Acute Assessment and Plan: Patient has grade 1 diastolic dysfunction, chest x-ray reviewed Chronic diastolic congestive heart failure (9) DVT prophylaxis: Code(s): Z29.9 - Encounter for prophylactic measures, unspecified Status: Acute Assessment and Plan: SCDs (10) Small cell lung cancer: Code(s): C34.90 - Malignant neoplasm of unspecified part of unspecified bronchus or lung Status: Acute Assessment and Plan: Follow-up as an outpatient basis Plan DVT prophylaxis: SCDs Stress ulcer prophylaxis: Ppi IV q.12 hours Additional Plan Code status: Full code Subjective Date/time seen: 03/25/22 12:49 Interval history: HPI:Patient is a 61-year-old female with a past medical his
[2022-03-25] MEDS: ATORVASTATIN 40 MG TABLET 80 MG PO (21:18)
--- NOTE | 2022-03-26 | ECHO_ITS ---
Patient Info Name: Stephanie Holt Age: 61 years : 1960 Gender: Female BP: 155 / 90 mmHg Heart Rhythm: Sinus Rhythm Technical Quality: Fair Exam Date: 03/26/2022 12:13 PM Exam Location: [facility] Patient Status: Inpatient Admit Date: 03/20/2022 Staff Ordering Physician: Angel Mcarthur MD Sterilisation Technician: Nancy Pichardo RDCS Attending Provider: Angel Mcarthur MD Exam Type: CA echo doppler color flow Study Info Indications - syncope Complete two-dimensional, color flow and Doppler transthoracic echocardiogram is performed. Summary 1. Complete two-dimensional, color flow and Doppler transthoracic echocardiogram is performed. 2. Left ventricular chamber dimension is normal. 3. Left ventricular systolic function is normal, estimated at 60-65%. 4. There is no increased left ventricular wall thickness. 5. The left ventricular diastolic function is grade I diastolic dysfunction. 6. There is a large pericardial effusion with fibrinous material within the pericardial space. Right atrial free wall invagination consistent with elevated intrapericardial pressures. TV inflow velocity variation does not meet criteria for tamponade physiology, however, MV inflow velocity variation is borderline consistent. IVC is not dilated and has normal collapse. Clinical correlation advised. 7. Normal inferior vena cava with >50% collapse upon inspiration consistent with normal right atrial pressure, 5 mmHg. 8. Compared to prior study performed 10/04/2021, no significant change although pericardial effusion anteriorly might be slightly larger. Left Ventricle Left ventricular chamber dimension is normal. Left ventricular systolic function is normal, estimated at 60-65%. There is no increased left ventricular wall thickness. The left ventricular diastolic function is grade I diastolic dysfunction. Right Ventricle Right ventricular chamber dimension is normal. Right ventricular systolic function is normal. Left Atria Left atrial chamber dimension is normal. Right Atria Right atrial chamber dimension is normal. Aortic Valve The aortic valve is trileaflet. There is mild aortic valve sclerosis. There is no aortic valve stenosis. There is trace aortic valve regurgitation. Pulmonic Valve The pulmonic valve is normal. There is trace pulmonic regurgitation. Mitral Valve The mitral valve has normal leaflets. There is no mitral valve regurgitation. Tricuspid Valve The tricuspid valve leaflets are normal. There is trace tricuspid valve regurgitation. No pulmonary hypertension, estimated pulmonary arterial systolic pressure is 29 mmHg. Pericardium/Pleural The pericardium appears normal. There is a large pericardial effusion with fibrinous material within the pericardial space. Right atrial free wall invagination consistent with elevated intrapericardial pressures. TV inflow velocity variation does not meet criteria for tamponade physiology, however, MV inflow velocity variation is borderline consistent. IVC is not dilated and has normal collapse. Clinical correlation advised. Inferior Vena Cava Normal inferior vena cava with >50% collapse upon inspiration consistent with normal right atrial pressure, 5 mmHg. Aorta The aortic root size at the sinus of Valsalva is normal. The prox ascending aorta size is normal. There is mild aortic atherosclerosis. Left Ventricular Outflow Tract Name
[2022-03-26 00:27] VITALS: PULSE 98; RESP 25; O2SAT 95
[2022-03-26] MEDS: VANCOMYCIN ORAL 125 MG/2.5 ML SYRUP PO ×3 (01:04→12:31)
[2022-03-26 04:26] LABS: Basophils Absolute Auto 0.1 K/mm3 (0.0-0.1); Basophils Percent Auto 1.2 % (0.2-1.2); Eosinophils Absolute Auto 0.4 K/mm3 (0-0.3); Eosinophils Percent Auto 3.7 % (0-4.4); Hematocrit 27.8 % (37.0-47.0); Hemoglobin 8.8 g/dL (12.0-15.0); Immature Granulocyte Absolute 1.04 K/mm3 (0.00-0.031); Immature Granulocyte Percent A 9.5 % (0-0.5); Lymphocytes Absolute Auto 0.62 K/mm3 (0.9-3.2); Lymphocytes Percent Auto 5.6 % (18.3-44.2); Mean Corpuscular HGB Conc 31.7 g/dl (32-36); Mean Corpuscular Hemoglobin 31.5 pg (26-34); Mean Corpuscular Volume 99.6 fl (80-100); Mean Platelet Volume 8.4 fl (7.4-10.4); Monocytes Absolute Auto 1.2 K/mm3 (0.1-0.6); Monocytes Percent Auto 11.2 % (2.6-8.5); Neutrophils Absolute Auto 7.6 K/mm3 (1.3-6.7); Neutrophils Percent Auto 68.8 % (45.5-73.1); Platelet Count Result 311 k/mm3 (150-375); Red Blood Count 2.79 M/mm3 (4.2-5.4); Red Cell Distribution Width 15.5 % (11.5-14.5)
[2022-03-26 04:36] LABS: Alanine Aminotransferase 44 U/L (6-35); Albumin Level 2.3 g/dL (3.5-5.1); Alkaline Phosphatase 77 U/L (38-126); Anion Gap -5 mmol/L (8-16); Aspartate Amino Transferase 63 U/L (14-36); Bilirubin,Total < 0.1 mg/dL (0.2-1.3); Blood Urea Nitrogen 12 mg/dL (7-17); Calcium 7.6 mg/dL (8.4-10.2); Carbon Dioxide 38 mmol/L (22-30); Chloride 94 mmol/L (98-107); Estimated Glomerular Filt Rate > 60; Glucose 83 mg/dL (65-110); Magnesium 1.7 mg/dL (1.6-2.3); Potassium 3.8 mmol/L (3.4-5.0); Sodium 127 mmol/L (137-145)
[2022-03-26 04:51] LABS: Anisocytosis 1+ (NORMAL); Hypochromasia 1+ (NORMAL); Platelet Estimate Adequate (Adequate)
[2022-03-26 06:00] VITALS: BP 133/58; PULSE 87; RESP 21; TEMP 37.4; O2SAT 100
[2022-03-26] MEDS: CENTRAL LINE FLUSH 10 ML IV PUSH ×2 (06:06→14:21)
[2022-03-26] MEDS: LEVOTHYROXINE SODIUM 25 MCG TABLET PO (06:06)
[2022-03-26] MEDS: UMECLIDINIUM/VILANTEROL 62.5-25 MCG ELLIPTA 1 PUFF INHALATION (08:06)
[2022-03-26 08:07] VITALS: O2SAT 97
[2022-03-26 08:22] VITALS: O2SAT 97
[2022-03-26] MEDS: HYDROcodone/acetaminophen (*CRX) 5-325 MG TABLET 1 TAB PO (08:43)
[2022-03-26] MEDS: FERROUS SULFATE 324 MG TABLET PO (08:44)
[2022-03-26] MEDS: MULTIVITAMIN HEMATINIC (*BKC) TABLET 1 TABLET PO (08:44)
[2022-03-26] MEDS: SODIUM CHLORIDE 1 GM TABLET PO (08:44)
[2022-03-26] MEDS: ASPIRIN 81 MG ENTERIC TABLET PO (08:44)
[2022-03-26] MEDS: PYRIDOXINE HCL 50 MG TABLET 100 MG PO (08:44)
[2022-03-26] MEDS: CHOLECALCIFEROL 1,000 UNITS TABLET 5000 UNITS PO (08:44)
[2022-03-26] MEDS: CYANOCOBALAMIN 1,000 MCG TABLET 1000 MCG PO (08:44)
[2022-03-26] MEDS: ESCITALOPRAM OXALATE 10 MG TABLET PO (08:44)
[2022-03-26] MEDS: PANTOPRAZOLE SODIUM IV 40 MG VIAL IV PUSH (08:44)
[2022-03-26] MEDS: MEGESTROL ACETATE (*CHEMO) 40 MG TABLET PO (08:44)
--- NOTE | 2022-03-26 11:38 | PM.DS ---
DS: Admitting Diagnosis Discharge Date 03/26/2022 Admitting Diagnosis shock DS: Discharge Diagnosis Discharge Diagnosis (1) Shock: Code(s): R57.9 - Shock, unspecified Status: Acute Assessment and Plan: Patient presented with a fall, unknown if it was secondary to syncope, mechanical fall, hyponatremia, anemia/infection, medication (patient on Lasix and diltiazem at a group home) carotid Doppler with no significant stenosis bilaterally - CT scan of the brain did not show any acute intracranial abnormalities -PT/OT when patient is able -patient has received adequate amount of IV fluids -continue Levophed to maintain mean arterial pressure > 65 mmHg for adequate end organ perfusion -patient has been started on empiric cefepime and vancomycin IV -blood and urine cultures have been obtained Was started on Levophed on admission off since afternoon 03/21/2022 Blood cultures been negative. Vancomycin was subsequently stopped Stopped cefepime 03/24/2022 as well since C diff is positive and only maintained on oral vancomycin for C diff colitis Echocardiogram on 10/04/2021: EF 65-70%, grade 1 diastolic dysfunction, mild to moderate tricuspid regurg, moderate pulmonary hypertension RVSP of 47 mmHg, moderate to large pericardial effusion (2) C. difficile colitis: Code(s): A04.72 - Enterocolitis due to Clostridium difficile, not specified as recurrent Status: Acute Assessment and Plan: Patient has recent history of C diff at the group home, Started on p.o. vancomycin -continue isolation -C diff has been ordered which came back positive in the group home. Continue to monitor bowel movements fidaxomicin if not improving C diff diarrhea resolved by the time of discharge Will continue vancomycin for 5 more days to complete 10 days course (3) Anemia: Code(s): D64.9 - Anemia, unspecified Status: Acute Assessment and Plan: Patient dropped hemoglobin morning to 6.9 (7.9 on admission) could be dilutional, possible GI bleed, anemia of chronic disease as she has a history of it transfused 1 unit of packed RBCs 03/21/2022 with appropriate rise. stool for Hemoccult came back positive, consulted GI. Appreciate GI help and recommendation H&H remained stable check haptoglobin, LDH, retic count -iron panel PPI twice a day -hold Lovenox H&H remained stable throughout the hospital stay (4) Hyponatremia: Code(s): E87.1 - Hypo-osmolality and hyponatremia Status: Acute Assessment and Plan: Patient has a history of chronic hyponatremia, will continue to monitor -patient is awake, alert, oriented x3 -could be related to SIADH secondary to her lung cancer (5) Fall: Code(s): W19.XXXA - Unspecified fall, initial encounter Status: Acute Assessment and Plan: Mechanical fall versus syncope, carotid Doppler with no significant stenosis bilaterally (6) COPD (chronic obstructive pulmonary disease): Code(s): J44.9 - Chronic obstructive pulmonary disease, unspecified Status: Acute Assessment and Plan: Continue bronchodilators, currently on 3 L nasal cannula (7) Hypothyroidism: Code(s): E03.9 - Hypothyroidism, unspecified Status: Acute Assessment and Plan: Continue levothyroxine (8) Congestive heart failure: Qualifiers: Heart failure chronicity: unspecified Heart failure type: unspecified Qualified Code(s): I50.9 - Heart failure, unspecified Code(s): I50.9 - Heart failure, unspecified Status: Acute Assessment and Plan: Patient has grade 1 diastolic dysfunction, chest x-ray reviewed Chronic diastolic congestive heart failure Mild congestion noted later during the course of admission. Plan to restart her Lasix on a smaller dose 10 mg b.i.d. at the time of discharge (9) DVT prophylaxis: Code(s): Z29.9 - Encounter for prophylactic measures, unspecified Status: Acute Assessm
[2022-03-26 12:54] LABS: EDCOVIDSCREEN Negative (Negative)
--- NOTE | 2022-03-26 12:59 | PC.NURSE ---
Daughter called and asked about patients weight. Previous recorded was around 122 lbs. Daughter states she is normal between 80 and 90 lbs. We rezeroed bed and checked the weight to be 40.2 kg.
[2022-03-26] MEDS: HEPARIN SODIUM LOCK FLUSH 500 UNITS/5 ML VIAL IV PUSH (14:21)
== END 2022-03-26 14:40 | DRG 710 ==
LOC: ANHED 10:22 → ANHICU 03-21 08:19 → ANH2MED 03-26 11:37 → ANHICU 03-27 14:46 → ANHIMU 03-27 14:46
PROVIDERS: Internal Medicine; Nurse Practitioner; Admitting Provider Chiropractor; Emergency Provider Emergency Medicine; Visit Provider Internal Medicine
DX: A41.9 Sepsis, unspecified organism (principal); R65.21 Severe sepsis with septic shock; A04.72 Enterocolitis due to Clostridium difficile, not specified as recurrent; E22.2 Syndrome of inappropriate secretion of antidiuretic hormone; R55 Syncope and collapse; Z20.822 Contact with and (suspected) exposure to COVID-19; I13.0 Hypertensive heart and chronic kidney disease with heart failure and stage 1 through stage 4 chronic kidney disease, or unspecified chronic kidney disease; I50.32 Chronic diastolic (congestive) heart failure; N18.9 Chronic kidney disease, unspecified; E03.9 Hypothyroidism, unspecified; J44.0 Chronic obstructive pulmonary disease with (acute) lower respiratory infection; C34.90 Malignant neoplasm of unspecified part of unspecified bronchus or lung; E83.42 Hypomagnesemia; D63.8 Anemia in other chronic diseases classified elsewhere; D63.0 Anemia in neoplastic disease; D50.0 Iron deficiency anemia secondary to blood loss (chronic); J96.11 Chronic respiratory failure with hypoxia; S01.81XA Laceration without foreign body of other part of head, initial encounter; S51.011A Laceration without foreign body of right elbow, initial encounter; S09.90XA Unspecified injury of head, initial encounter; W18.30XA Fall on same level, unspecified, initial encounter; H91.90 Unspecified hearing loss, unspecified ear; Z79.82 Long term (current) use of aspirin; Z87.891 Personal history of nicotine dependence; Z99.81 Dependence on supplemental oxygen
CPT/HCPCS: 12011; 36415; 36430; 70450; 71045; 71046; 72125; 73080; 80053; 81001; 82274; 83010; 83540; 83550; 83605; 83615; 83735; 84100; 85025; 85046; 85610; 85730; 86140; 86850; 86900; 86901; 86920; 87040; 87086; 87088; 87426; 90471; 90715; 93005; 93306; 93880; 94002; 94003; 94640; 96360; 97110; 97161; 97165; 97530; 97535; 99285; A9270; C9113; C9803; J0692; J1642; J3370; J3475; J7030; J7040; J7050; J7120; P9016

== ENCOUNTER 2022-04-24 07:58 | Outpatient (CLI) | payer OTHER, SELFPAY ==
--- NOTE | ~2022-04-24 | CT_ITS ---
EXAMINATION:CT diagnostic chest wo con DATE: 04/24/2022 08:37 INDICATION: Small cell lung cancer. TECHNIQUE: Computed tomography (CT) of the chest was performed without intravenous contrast. Automate d exposure control and iterative reconstruction technique were employed. The dose-length product (DLP ) was 117.78 mGy-cm. COMPARISON: Chest CT 01/26/2022, 12/05/2020 FINDINGS: There are small right and moderate-sized left pleural effusions. There is smooth septal thi ckening in the lungs bilaterally. There is paramediastinal radiation fibrosis. There are dependent ai rspace opacities in the lungs, left worse than right, likely atelectasis. There is a right internal j ugular port with tip in inferior vena cava. The heart size is normal. There are coronary artery calci fications. There is a large pericardial effusion. There is soft tissue attenuation in the mediastinum . Calcifications at the ximena of the kidneys may be vascular. There is moderate thoracic spondylosis. IMPRESSION: 1. Small right and moderate-sized left pleural effusions with interval worsening on the right. 2. Septal thickening in the lungs, consistent with mild pulmonary edema and/or chronic lung disease. 3. Stable large pericardial effusion. 4. Stable diffuse soft tissue attenuation in the mediastinum, which may be anatoly metastatic disease a nd/or changes of radiation therapy. Reviewed, dictated and finalized at location [facility]. IMPRESSION: 1. Small right and moderate-sized left pleural effusions with interval worsenin g on the right. 2. Septal thickening in the lungs, consistent with mild pulmonary edema and/or chronic lung disease. 3. Stable large pericardial effusion. 4. Stable diffuse soft tissue attenuation in the mediastinum, which may be fabien l metastatic disease and/or changes of radiation therapy.
== END 2022-04-24 07:59 | disposition home or self-care (01) ==
PROVIDERS: Visit Provider Internal Medicine Hematology & Oncology
DX: C34.90 Malignant neoplasm of unspecified part of unspecified bronchus or lung (principal); I31.3 Pericardial effusion (noninflammatory); J90 Pleural effusion, not elsewhere classified; R91.8 Other nonspecific abnormal finding of lung field
CPT/HCPCS: 71250

== ENCOUNTER 2022-05-09 14:10 | Inpatient (IN) | payer OTHER, SELFPAY ==
[2022-05-09] VITALS (38 sets, daily range): BP systolic 91–131; BP diastolic 44–68; PULSE 54–74; RESP 9–21; TEMP 36.9–37; O2SAT 90–100
--- NOTE | ~2022-05-09 | XR_ITS ---
EXAMINATION: [id number] Exam Date/Time: 05/13/2022 13:30 CDT HISTORY: Post-thoracentesis Comparison: 05/09/2022. RESULT: Lines, tubes, and devices: Right chest port terminating in the right atrium. Lungs and pleura: Similar scattered reticular opacities. Decreased left costophrenic angle blunting. Relative decreased shunting on the right be related to different degrees of rotation. No pneumothora x. Cardiothymic silhouette: Stable. Other: No acute osseous or upper abdominal finding. IMPRESSION: Decreased size of the left effusion. No pneumothorax. Reviewed, dictated and finalized at location [facility].
--- NOTE | ~2022-05-09 | XR_ITS ---
EXAMINATION: XR chest 2V DATE: 05/09/2022 15:24 INDICATION: Shortness of breath. Right-sided swelling. TECHNIQUE: PA and lateral views of the chest were obtained. COMPARISON: Chest radiograph dated 03/22/[address] dated 04/24/2022 FINDINGS: Right internal jugular central venous port catheter with distal tip in the right atrium. Small right and moderate left pleural effusions with basilar atelectasis. Additional airspace opacities in the bi lateral mid lung zones with appearance of the right left hilum suggesting radiation fibrosis with dif ferential including atelectasis/scarring or pneumonia. No pneumothorax. Enlarged cardiac silhouette w ith radial cookie sign at the anterior heart on the lateral projection consistent with at a persisten t large pericardial effusion. IMPRESSION: 1. Small right and moderate-sized left pleural effusions. 2. Opacities in the bilateral mid lung zones, likely radiation fibrosis on the left with differential including atelectasis and pneumonia. 3. Enlarged cardiac silhouette likely due to persistent large pericardial effusion. Reviewed, dictated and finalized at location A. IMPRESSION: 1. Small right and moderate-sized left pleural effusions. 2. Opacities in the bilateral mid lung zones, likely radiation fibrosis on the left with differential including atelectasis and pneumonia. 3. Enlarged cardiac silhouette likely due to persistent large pericardial effus ion.
--- NOTE | ~2022-05-09 | US_ITS ---
US thoracentesis DATE: 05/13/2022 13:50 INDICATION: Left pleural effusion TECHNIQUE: The purpose of the procedure, technique and potential complications including pneumothorax were discussed with the patient. The patient verbalized understanding and gave consent. Using ultrasound, a site for percutaneous access was identified in a posterior lower right intercosta l space. The skin was prepared with sterile Betadine solution. Sterile drape was applied. 1% lidocain e local anesthetic was a development disability specialist to the skin and underlying subcutaneous tissues. A single stick nee dle/catheter apparatus was introduced into the pleural space, yielding clear pleural fluid at the hub . The catheter was advanced over the needle and the needle withdrawn. A small sample was obtained for diagnostic purposes. 525 CC was drained into a vacuum bottle. IMPRESSION: Successful apparently uncomplicated ultrasound-guided percutaneous left thoracentesis pro cedure yielding 525 CC clear yellow pleural fluid Reviewed, dictated and finalized at [facility]. Reviewed, dictated and finalized at location A. IMPRESSION: Successful apparently uncomplicated ultrasound-guided percutaneous left thoracentesis procedure yielding 525 CC clear yellow pleural fluid
--- NOTE | 2022-05-09 14:32 | ECG_ITS ---
Measurements Intervals [place] Rate: 70 P: 10 [place]: 215 QRS: 64 QRSD: 77 T: 85 QT: 383 QTc: 414 Interpretive Statements SINUS RHYTHM WITH FIRST DEGREE AV BLOCK LOW QRS VOLTAGE IN PRECORDIAL LEADS BORDERLINE ECG COMPARED TO ECG 03/20/2022 12:13:57 HEART RATE HAS DECREASED FIRST DEGREE AV BLOCK NOW PRESENT Electronically Signed On 05-09-2022 16:10:52 CDT by Agustin Lynne M.D.
[2022-05-09 14:55] LABS: Basophils Absolute Auto 0.1 K/mm3 (0.0-0.1); Basophils Percent Auto 1.7 % (0.2-1.2); Eosinophils Absolute Auto 0.3 K/mm3 (0-0.3); Eosinophils Percent Auto 9.8 % (0-4.4); Hematocrit 26.2 % (37.0-47.0); Hemoglobin 8.1 g/dL (12.0-15.0); Immature Granulocyte Absolute 0.01 K/mm3 (0.00-0.031); Immature Granulocyte Percent A 0.3 % (0-0.5); Lymphocytes Percent Auto 14.4 % (18.3-44.2); Mean Corpuscular HGB Conc 30.9 g/dl (32-36); Mean Corpuscular Hemoglobin 33.6 pg (26-34); Mean Corpuscular Volume 108.7 fl (80-100); Mean Platelet Volume 8.7 fl (7.4-10.4); Monocytes Absolute Auto 0.6 K/mm3 (0.1-0.6); Neutrophils Percent Auto 56.8 % (45.5-73.1); Platelet Count Result 239 k/mm3 (150-375); Red Blood Count 2.41 M/mm3 (4.2-5.4); Red Cell Distribution Width 15.9 % (11.5-14.5); White Blood Count 3.5 K/mm3 (4.5-10.0)
[2022-05-09 15:16] LABS: Alanine Aminotransferase 20 U/L (6-35); Alkaline Phosphatase 69 U/L (38-126); Aspartate Amino Transferase 36 U/L (14-36); Bilirubin,Total 0.2 mg/dL (0.2-1.3); Blood Urea Nitrogen 12 mg/dL (7-17); Calcium 8.3 mg/dL (8.4-10.2); Carbon Dioxide > 40 mmol/L (22-30); Chloride 88 mmol/L (98-107); Estimated CRCL calculation 34 ml/min; Estimated Glomerular Filt Rate 50; Glucose 96 mg/dL (65-110); Potassium 3.5 mmol/L (3.4-5.0); Sodium 133 mmol/L (137-145)
[2022-05-09 15:18] LABS: Macrocytosis 1+ (NORMAL); Platelet Estimate Adequate (Adequate)
[2022-05-09 15:19] LABS: Anisocytosis 1+ (NORMAL)
[2022-05-09 18:20] LABS: Alveolar/Arterial O2 Gradient 107.9 mmHg; Base Excess ABG 9.1 mEq/l (+/-2.0); Carboxyhemoglobin 0.3 % THb (0-2.0); Fractional Inspired Oxygen 34 %; HCO3 ABG 36.3 mEq/l (22.0-26.0); Oxygen Content ABG 11.5 %vol (16.0-22.0); PO2 ABG 56.6 mmHg (80.0-100.0); PO2 FiO2 Ratio Arterial Blood 1.66 %; Reduced Hemoglobin 12.1 %THb (0-5.0); Total Hemoglobin 9.3 g/dL (12.0-18.0); pH ABG 7.352 (7.350-7.450)
[2022-05-09 18:24] LABS: Device NASAL CANNULA; Modified Allen's Test Pass; Site Drawn RIGHT RADIAL
[2022-05-09 18:25] LABS: Liters per Minute 4.5 LPM
[2022-05-09 18:26] LABS: Oxyhemoglobin 87.6 % THb (90.0-100.0); PCO2 ABG 66.9 mmHg (35.0-45.0)
[2022-05-09 19:10] LABS: NT Pro B Type Natriuretic Pept 2410 pg/mL (5-100); Troponin I < 0.012 ng/mL (0.000-0.034)
[2022-05-09] MEDS: ALBUTEROL SULFATE NEB 2.5 MG/3 ML INH 5 MG INHALATION (19:57)
[2022-05-09] MEDS: IPRATROPIUM BR 0.02% INH SOLN 0.5 MG/2.5 ML VIAL INHALATION (19:58)
[2022-05-09 20:29] LABS: SARS-CoV-2 RNA PCR Negative
[2022-05-09 23:47] LABS: Alveolar/Arterial O2 Gradient 127.5 mmHg; Base Excess ABG 10.5 mEq/l (+/-2.0); Carboxyhemoglobin 0.3 % THb (0-2.0); Fractional Inspired Oxygen 40 %; HCO3 ABG 37.8 mEq/l (22.0-26.0); Methemoglobin ABG 0.1 %THb (0-1.5); Oxygen Content ABG 11.8 %vol (16.0-22.0); Oxygen Saturation ABG 94.2 % (95.0-100.0); Oxyhemoglobin 93.8 % THb (90.0-100.0); PO2 ABG 77.1 mmHg (80.0-100.0); PO2 FiO2 Ratio Arterial Blood 1.93 %; Reduced Hemoglobin 5.8 %THb (0-5.0); Total Hemoglobin 8.9 g/dL (12.0-18.0)
[2022-05-09 23:49] LABS: Device NASAL CANNULA; Modified Allen's Test Pass; PCO2 ABG 70.1 mmHg (35.0-45.0); Site Drawn RIGHT RADIAL
--- NOTE | 2022-05-09 23:58 | ED.SOB ---
HPI - SOB/Dyspnea General Chief Complaint: Shortness of Breath/Dyspnea Stated Complaint: xray revealed fluid on lungs - rales Time Seen by Provider: 05/09/22 19:08 History of Present Illness HPI Narrative: Patient is a 61-year-old female who presents ER with shortness of breath. Apparently at her [facility] she had an x-ray that showed possible fluid on her lungs. Patient is unsure what that means. She reports over the last couple days she has had increased edema in her lower extremities. No chest pain or chest pressure. She reports she has been using breathing treatments at home with mild improvement. Denies sinus congestion or sore throat or productive cough. No fevers or chills or sweats. Patient is chronically O2 dependent on 5 L of oxygen. Related Data Home Medications Medication Instructions Recorded Confirmed aspirin 81 mg tablet 81 mg PO DAILY 09/07/20 05/10/22 atorvastatin 40 mg tablet 80 mg PO HS 09/07/20 05/10/22 diltiazem HCl 360 mg 360 mg PO DAILY 09/07/20 05/10/22 capsule,extended release 24 hr escitalopram oxalate 10 mg tablet 10 mg PO DAILY 09/07/20 05/10/22 pyridoxine (vitamin B6) 100 mg 100 mg PO BID 02/01/21 05/10/22 tablet metoprolol succinate 25 mg 25 mg PO DAILY 05/03/21 05/10/22 tablet,extended release 24 hr ferrous sulfate 325 mg (65 mg 325 mg PO BID 09/11/21 05/10/22 iron) tablet (iron) albuterol sulfate 90 mcg/actuation 2 inh inhalation Q4H PRN Shortness 01/26/22 05/10/22 aerosol inhaler Of Breath benzonatate 100 mg capsule 100 mg PO Q8H PRN Cough 01/26/22 05/10/22 bisacodyl 10 mg rectal suppository 10 mg RECTAL DAILY PRN Constipation 01/26/22 05/10/22 (Dulcolax (bisacodyl)) ipratropium 0.5 mg-albuterol 3 mg 3 ml inhalation Q6H PRN Shortness 01/26/22 05/10/22 (2.5 mg base)/3 mL nebulization Of Breath soln trazodone 50 mg tablet 25 mg PO HS PRN Insomnia 01/26/22 05/10/22 acetaminophen 325 mg capsule 650 mg PO Q4H PRN Pain (Scale 03/20/22 05/10/22 Score 1-3) Saccharomyces boulardii 250 mg 250 mg PO BID 05/10/22 05/10/22 capsule carvedilol 12.5 mg tablet 12.5 mg PO BID 05/10/22 05/10/22 cyanocobalamin (vitamin B-12) 1,000 mcg sublingual DAILY 05/10/22 05/10/22 1,000 mcg sublingual tablet epoetin [id number]-epbx 20,000 unit/mL 20,000 unit subcut [id number] 05/10/22 05/10/22 injection solution (Retacrit) ergocalciferol (vitamin D2) 50 mcg 25 mcg PO DAILY 05/10/22 05/10/22 (2,000 unit) tablet hydrocodone 7.5 mg-acetaminophen 1 tablet PO Q6H PRN Moderate Pain 05/10/22 05/10/22 325 mg tablet (Scale Score 5-6) levothyroxine 25 mcg tablet 50 mcg PO DAILY 05/10/22 05/10/22 lidocaine 5 % topical patch 1 patch topical DAILY 05/10/22 05/10/22 multivitamin with minerals 1 tablet PO DAILY 05/10/22 05/10/22 sucralfate 1 gram tablet 1,000 mg PO TID 05/10/22 05/10/22 Allergies Allergy/AdvReac Type Severity Reaction Status Date / Time No Known Allergies Allergy Verified 03/20/22 08:52 Review of Systems Review of Systems: All systems reviewed & are unremarkable except as noted in HPI and below Constitutional: Constitutional: Denies chills and Denies fever(s) ENT: Denies nasal congestion and Denies sore throat Cardiovascular: Cardiovascular: Denies chest pain, Denies rapid heart rate and Denies radiating jaw, neck or arm pain Respiratory: Respiratory: Reports cough (chronic) and Reports dyspnea Gastrointestinal: Gastrointestinal: Denies abdominal pain, Denies nausea and Denies vomiting Musculoskeletal: Musculoskeletal: Denies arthralgias and Denies joint swelling Comments: leg swelling PMFSH Past Medical History Medical History (Updated 05/10/22 @ 04:28 by Mando Rey MD) Anemia in chronic illness Anxiety C. difficile colitis (03/21/22) Resulting in shock Chronic hypercapnic respiratory failure Chronic hyponatremia Chronic kidney disease Chronic obstructive pulmonary disease Chronic respiratory failure with hypoxia, on home oxygen therapy Depression Diastolic
[2022-05-10] VITALS (38 sets, daily range): BP systolic 125–144; BP diastolic 51–81; PULSE 55–108; RESP 12–27; TEMP 36.4–36.9; O2SAT 91–100; BMI 17.7; BMI 17.9
[2022-05-10] MEDS: FUROSEMIDE INJ 40 MG/4 ML VIAL 20 MG IV PUSH ×2 (00:25→09:31)
[2022-05-10] MEDS: methylPREDNISolone SOD SUCC 125 MG VIAL IV PUSH (01:03)
--- NOTE | 2022-05-10 01:43 | PM.IMHP ---
H&P: HPI History of Present Illness Date/Time: 05/10/22 01:43 Chief Complaint: Increased shortness of breath Narrative: 61-year-old female with a past medical history of COPD/emphysema with chronic hypoxic hypercapnic respiratory failure on home O2, pulmonary hypertension, diastolic congestive heart failure, and a small cell lung cancer status post radiation therapy and chemotherapy who presented to the ER with increased lower extremity swelling and shortness of breath for the last 5 days. She reports that she has had swelling all the way up into her hips. She denies any chest pain or palpitations. She has not noticed herself wheezing more than usual. She denies any increased cough. She has not had any fevers or chills. She is supposed be on BiPAP at home but she states that the nursing staff tells her that they will does not mess with putting that on her. The patient reports that she is not comfortable taking the BiPAP on and off for self and needs nursing assistance to apply the BiPAP. She has had increased urinary frequency since she received Lasix in the ER. Prior to that she was not having any increased urinary frequency or dysuria. She denies any constipation or diarrhea. She recently was treated for C diff but has not had any diarrhea in the last couple of weeks. She states that [facility] that also [facility] at this time. She is still on a titrating dose of p.o. vancomycin for the next couple of weeks. She has been complaining of edema up into her hips and flanks for the last couple of days. She is complaining of her chronic back pain and is requesting her home [place]. Review of Systems Review of Systems: 12 systems were reviewed with pertinent positives and negatives per HPI. Except as documented in the HPI, all other systems were reviewed and are negative. [facility] Past Medical History Medical History (Updated 05/10/22 @ 05:19 by Sharee Glass DO) Anemia in chronic illness Anxiety C. difficile colitis (03/21/22) Resulting in shock Chronic hypercapnic respiratory failure Chronic hyponatremia Chronic kidney disease Chronic obstructive pulmonary disease Chronic respiratory failure with hypoxia, on home oxygen therapy Depression Diastolic dysfunction EF 65 to 70%. Grade 1 diastolic dysfunction. Most recent echo March 2022 Emphysema of lung Hearing loss Hypercholesterolemia Hypertension Hypothyroidism Pericardial effusion without cardiac tamponade Patient has had a chronic pericardial effusion since at least September 2021. Large pericardial effusion with fibrinous material within the pericardial space with right atrial free wall invagination consistent with elevated intrapericardial pressures. Flow velocity criteria does not be tamponade physiology. MV inflow velocity variation is borderline consistent. IVC is not dilated and has normal collapse. Pulmonary hypertension Moderate pulmonary hypertension on echocardiogram in September 2021 with an estimated PA SP of 47 mmHg. Small cell lung cancer Limited stage small cell arising in the left hilar region diagnosed in 07/2020. Status post chemoradiotherapy and prophylactic cranial irradiation between 09/2020 and 01/2021. Local recurrence in 06/2021 status post salvage SBRT. Surgical History Surgical History History of section History of esophagogastroduodenoscopy Status post dilatation x2 for stricture. Family History Family History Father Cancer Mother Heart disease Hypertension Acute myocardial infarction Social History Social History (Updated 05/10/22 @ 05:26 by Sharee Glass DO) Social History: Surrogate decision maker: Priscilla and Peggy Holt, daughters. Code status: Full code. (she states she would not want to be on a ventilator long-term but is ?willing to give it a try?) Smoking pa
--- NOTE | 2022-05-10 02:15 | ADMGEN ---
This patient, Stephanie Holt, was admitted to IMU Room 207-01. Patient/family oriented to hospital policies and general routines including ID bracelet, bed and alarms, visiting hours, pain management, procedures, bathroom and other care routines, personal items, smoking policy, room service/diet, and visiting hours. Information on how to activate the Rapid Response Team has been discussed. Patient/Family are encouraged to report perceived risks to care and to ask questions if they do not understand what they are told or what they should do.
[2022-05-10] MEDS: IPRATROPIUM BR 0.02% INH SOLN 0.5 MG/2.5 ML VIAL INHALATION ×4 (02:30→20:06)
[2022-05-10] MEDS: ALBUTEROL SULFATE NEB 2.5 MG/3 ML INH 5 MG INHALATION ×4 (02:30→20:05)
[2022-05-10] MEDS: HYDROcodone/acetaminophen (*CRX) 7.5-325 MG TABLET 1 TAB PO ×4 (03:38→23:42)
[2022-05-10 05:59] LABS: Alveolar/Arterial O2 Gradient 93.7 mmHg; Base Excess ABG 11.1 mEq/l (+/-2.0); Carboxyhemoglobin 0.3 % THb (0-2.0); Fractional Inspired Oxygen 35 %; HCO3 ABG 38.1 mEq/l (22.0-26.0); Methemoglobin ABG 0.3 %THb (0-1.5); Oxygen Content ABG 13.5 %vol (16.0-22.0); Oxygen Saturation ABG 95.1 % (95.0-100.0); Oxyhemoglobin 94.2 % THb (90.0-100.0); PO2 ABG 79.4 mmHg (80.0-100.0); PO2 FiO2 Ratio Arterial Blood 2.27 %; Reduced Hemoglobin 5.2 %THb (0-5.0); Total Hemoglobin 10.1 g/dL (12.0-18.0); pH ABG 7.381 (7.350-7.450)
[2022-05-10 06:00] LABS: Device NON-INVASIVE VENT; PCO2 ABG 65.8 mmHg (35.0-45.0); Site Drawn RIGHT BRACHIAL
[2022-05-10 06:01] LABS: Non-Invasive Expiratory Pressure 8 CMH2O; Non-Invasive Inspiratory Pressure 14 CMH2O; Non-Invasive Vent Rate 20 /MIN
[2022-05-10] MEDS: methylPREDNISolone SOD SUCC 40 MG VIAL IV PUSH ×3 (06:24→21:54)
[2022-05-10] MEDS: LEVOTHYROXINE SODIUM 50 MCG TABLET PO (06:24)
[2022-05-10 08:11] LABS: Hematocrit 31.2 % (37.0-47.0); Hemoglobin 9.7 g/dL (12.0-15.0); Mean Corpuscular HGB Conc 31.1 g/dl (32-36); Mean Corpuscular Hemoglobin 32.8 pg (26-34); Mean Corpuscular Volume 105.4 fl (80-100); Mean Platelet Volume 8.8 fl (7.4-10.4); Platelet Count Result 233 k/mm3 (150-375); Red Blood Count 2.96 M/mm3 (4.2-5.4); Red Cell Distribution Width 15.9 % (11.5-14.5); White Blood Count 2.1 K/mm3 (4.5-10.0)
[2022-05-10 08:28] LABS: Blood Urea Nitrogen 13 mg/dL (7-17); Calcium 8.7 mg/dL (8.4-10.2); Carbon Dioxide > 40 mmol/L (22-30); Chloride 85 mmol/L (98-107); Estimated CRCL calculation 36 ml/min; Estimated Glomerular Filt Rate 56; Glucose 123 mg/dL (65-110); Potassium 3.6 mmol/L (3.4-5.0); Sodium 134 mmol/L (137-145)
[2022-05-10] MEDS: UMECLIDINIUM/VILANTEROL 62.5-25 MCG ELLIPTA 1 PUFF INHALATION (09:09)
[2022-05-10] MEDS: SACCHAROMYCES BOULARDII 250 MG CAPSULE PO ×2 (09:29→17:25)
[2022-05-10] MEDS: FERROUS SULFATE 324 MG TABLET PO ×2 (09:29→17:25)
[2022-05-10] MEDS: SODIUM CHLORIDE 1 GM TABLET PO ×2 (09:30→17:25)
[2022-05-10] MEDS: SUCRALFATE 1 GM TABLET PO ×3 (09:30→17:25)
[2022-05-10] MEDS: ASPIRIN 81 MG ENTERIC TABLET PO (09:30)
[2022-05-10] MEDS: ESCITALOPRAM OXALATE 10 MG TABLET PO (09:30)
[2022-05-10] MEDS: METOPROLOL SUCCINATE EXT REL 25 MG TABCR PO (09:30)
[2022-05-10] MEDS: CYANOCOBALAMIN 1,000 MCG TABLET 1000 MCG PO (09:30)
[2022-05-10] MEDS: PYRIDOXINE HCL 50 MG TABLET 100 MG PO ×2 (09:30→17:25)
[2022-05-10] MEDS: THERAPEUTIC MULTIVITAMINS/MINERALS TAB (*BKC) 1 TABLET PO (09:30)
[2022-05-10] MEDS: dilTIAZem HCL CD 180 MG CAP.ER.24H 360 MG PO (09:30)
[2022-05-10] MEDS: carvediloL 12.5 MG TABLET PO ×2 (09:30→20:25)
[2022-05-10] MEDS: LIDOCAINE 5% PATCH 1 PATCH TOPICAL (09:31)
[2022-05-10] MEDS: ENOXAPARIN 30 MG/0.3 ML SYRINGE SUB-Q (09:31)
[2022-05-10] MEDS: VANCOMYCIN ORAL 125 MG/2.5 ML SYRUP PO (09:32)
[2022-05-10 09:43] LABS: Magnesium 1.3 mg/dL (1.6-2.3)
[2022-05-10] MEDS: ATORVASTATIN 40 MG TABLET 80 MG PO (20:25)
[2022-05-10] MEDS: traZODone HCL 25 MG TABLET PO (23:41)
[2022-05-11] VITALS (22 sets, daily range): BP systolic 105–139; BP diastolic 52–84; PULSE 54–80; RESP 12–26; TEMP 36.2–36.8; O2SAT 90–100
--- NOTE | 2022-05-11 | ECHOL_ITS ---
Patient Info Name: Stephanie Holt Age: 61 years : 1960 Gender: Female Ht: 62 in Wt: 94 lbs BSA: 1.36 m2 HR: 70 bpm BP: 107 / 52 mmHg Heart Rhythm: Sinus Rhythm Technical Quality: Fair Exam Date: 05/11/2022 11:48 AM Exam Location: [facility] Pul[facility] Patient Status: Outpatient Admit Date: 05/10/2022 Staff Ordering Physician: Sue Whitman DO Manager Clinical Services: Nancy Pichardo RDCS Attending Provider: Sue Whitman DO Referring Physician: J Carlos TIAN; Exam Type: CA echo limited Study Info Indications I31.3 - Pericardial effusion (noninflammatory) Limited two-dimensional transthoracic echocardiogram is performed. Summary 1. Left ventricular chamber dimension is normal. 2. Left ventricular systolic function is hyperdynamic, estimated at >70%. 3. There is no increased left ventricular wall thickness. 4. There is a large posterior pericardial effusion up to 2.8cm and moderate anteriorly up to 1.5cm. Tamponade physiology with mitral and tricuspid inflow velocities. However, there is clearly evidence of increased intrapericardial pressure with invagination of the right atrial free wall and delayed right ventricular free wall relaxation. Clinical correlation advised. Left Ventricle Left ventricular chamber dimension is normal. Left ventricular systolic function is hyperdynamic, estimated at >70%. There is no increased left ventricular wall thickness. Right Ventricle Right ventricular chamber dimension is normal. Right ventricular systolic function is normal. Left Atria Left atrial chamber dimension is normal. Right Atria Right atrial chamber dimension is normal. Aortic Valve The aortic valve is not well visualized. Pulmonic Valve The pulmonic valve is not well visualized. Mitral Valve The mitral valve has normal leaflets. Tricuspid Valve The tricuspid valve leaflets are normal. Pericardium/Pleural The pericardium appears normal. There is a large posterior pericardial effusion up to 2.8cm and moderate anteriorly up to 1.5cm. Tamponade physiology with mitral and tricuspid inflow velocities. However, there is clearly evidence of increased intrapericardial pressure with invagination of the right atrial free wall and delayed right ventricular free wall relaxation. Clinical correlation advised. Ventricles Name Value Normal LV Dimensions 2D/MM IVS Diastolic Thickness (2D) 0.7 cm 0.6-1.0 LVID Diastole (2D) 4.8 cm 3.8-5.2 LVIW Diastolic Thickness (2D) 0.6 cm 0.6-0.9 LVID Systole (2D) 2.1 cm 2.2-3.5 LV Mass (2D Cubed) 100.96 g 67.00-162.00 LV Mass Index (2D Cubed) 74 g/m2 43-95 Relative Wall Thickness (2D) 0.27 LV Fractional Shortening/Ejection Fraction 2D/MM LV Fractional Shortening (2D) 55 % 27-45 LV EF (2D Teicholz) 86 % 54-74 LV Diastolic Volume (4C MOD) 49 ml LV EF (4C MOD) 74 % LV Diastolic Volume (2C MOD) 39 ml LV EF (2C MOD)
[2022-05-11] MEDS: IPRATROPIUM BR 0.02% INH SOLN 0.5 MG/2.5 ML VIAL INHALATION ×4 (02:04→20:29)
[2022-05-11] MEDS: ALBUTEROL SULFATE NEB 2.5 MG/3 ML INH 5 MG INHALATION ×4 (02:04→20:29)
[2022-05-11] MEDS: methylPREDNISolone SOD SUCC 40 MG VIAL IV PUSH (05:51)
[2022-05-11] MEDS: LEVOTHYROXINE SODIUM 50 MCG TABLET PO (05:51)
[2022-05-11] MEDS: UMECLIDINIUM/VILANTEROL 62.5-25 MCG ELLIPTA 1 PUFF INHALATION (08:49)
[2022-05-11] MEDS: PYRIDOXINE HCL 50 MG TABLET 100 MG PO ×2 (09:03→16:29)
[2022-05-11] MEDS: FUROSEMIDE INJ 40 MG/4 ML VIAL 20 MG IV PUSH (09:03)
[2022-05-11] MEDS: FERROUS SULFATE 324 MG TABLET PO ×2 (09:04→16:29)
[2022-05-11] MEDS: SACCHAROMYCES BOULARDII 250 MG CAPSULE PO ×2 (09:04→16:29)
[2022-05-11] MEDS: dilTIAZem HCL CD 180 MG CAP.ER.24H 360 MG PO (09:04)
[2022-05-11] MEDS: THERAPEUTIC MULTIVITAMINS/MINERALS TAB (*BKC) 1 TABLET PO (09:04)
[2022-05-11] MEDS: METOPROLOL SUCCINATE EXT REL 25 MG TABCR PO (09:04)
[2022-05-11] MEDS: carvediloL 12.5 MG TABLET PO ×2 (09:04→20:02)
[2022-05-11] MEDS: SUCRALFATE 1 GM TABLET PO ×3 (09:04→16:29)
[2022-05-11] MEDS: ENOXAPARIN 30 MG/0.3 ML SYRINGE SUB-Q (09:05)
[2022-05-11] MEDS: ESCITALOPRAM OXALATE 10 MG TABLET PO (09:05)
[2022-05-11] MEDS: CYANOCOBALAMIN 1,000 MCG TABLET 1000 MCG PO (09:05)
[2022-05-11] MEDS: SODIUM CHLORIDE 1 GM TABLET PO ×2 (09:05→16:29)
[2022-05-11] MEDS: ASPIRIN 81 MG ENTERIC TABLET PO (09:05)
[2022-05-11] MEDS: HYDROcodone/acetaminophen (*CRX) 7.5-325 MG TABLET 1 TAB PO ×2 (09:08→20:01)
[2022-05-11] MEDS: VANCOMYCIN ORAL 125 MG/2.5 ML SYRUP PO (09:10)
[2022-05-11 10:38] LABS: Basophils Percent Auto 0.2 % (0.2-1.2); Hemoglobin 9.5 g/dL (12.0-15.0); Immature Granulocyte Absolute 0.03 K/mm3 (0.00-0.031); Immature Granulocyte Percent A 0.7 % (0-0.5); Lymphocytes Absolute Auto 0.23 K/mm3 (0.9-3.2); Lymphocytes Percent Auto 5.1 % (18.3-44.2); Mean Corpuscular HGB Conc 30.6 g/dl (32-36); Mean Corpuscular Volume 107.6 fl (80-100); Mean Platelet Volume 9.2 fl (7.4-10.4); Monocytes Absolute Auto 0.1 K/mm3 (0.1-0.6); Monocytes Percent Auto 3.1 % (2.6-8.5); Neutrophils Absolute Auto 4.1 K/mm3 (1.3-6.7); Neutrophils Percent Auto 90.9 % (45.5-73.1); Platelet Count Result 248 k/mm3 (150-375); Red Blood Count 2.88 M/mm3 (4.2-5.4); Red Cell Distribution Width 15.8 % (11.5-14.5); White Blood Count 4.5 K/mm3 (4.5-10.0)
[2022-05-11 10:56] LABS: Alanine Aminotransferase 20 U/L (6-35); Albumin Level 3.4 g/dL (3.5-5.1); Alkaline Phosphatase 69 U/L (38-126); Aspartate Amino Transferase 36 U/L (14-36); Bilirubin,Total 0.5 mg/dL (0.2-1.3); Blood Urea Nitrogen 17 mg/dL (7-17); Calcium 8.3 mg/dL (8.4-10.2); Carbon Dioxide > 40 mmol/L (22-30); Chloride 81 mmol/L (98-107); Estimated CRCL calculation 35 ml/min; Estimated Glomerular Filt Rate 56; Glucose 151 mg/dL (65-110); Potassium 3.7 mmol/L (3.4-5.0); Sodium 130 mmol/L (137-145)
[2022-05-11 10:59] LABS: Platelet Estimate Adequate (Adequate)
[2022-05-11 11:00] LABS: Anisocytosis 1+ (NORMAL); Hypochromasia 1+ (NORMAL)
--- NOTE | 2022-05-11 11:30 | PM.CNPUL ---
Assessment and Plan Assessment and plan (1) Acute and chronic respiratory failure with hypercapnia: Code(s): J96.22 - Acute and chronic respiratory failure with hypercapnia Status: Acute Assessment and Plan: 61-year-old female with a history of severe COPD with the last FEV1 being in the range of a 0.66 L or 32% predicted and DLCO 17% predicted, chronically on supplemental oxygen and noninvasive ventilatory support at home, with history of limited small cell lung cancer diagnosed about 2 years ago status post chemoradiation in early 2020, with chronic pericardial effusion and chronic left pleural effusion both present since March of 2021, presented with shortness of breath, lower extremity edema, new right pleural effusion, slightly larger left pleural effusion than before, elevated BNP, and also pericardial effusion which is more or less unchanged from previous studies. The patient did not have signs of hypotension to suggest tamponade. The patient's shortness of breath and lower extremity edema and also the new right pleural effusion are probably related to worsening right ventricular function. The patient has responded to treatment with diuretics and BiPAP support. She has no evidence of COPD exacerbation. The patient's pleural effusion and relatively large pericardial effusion have been present at least since March of 2021. 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 The only thoracentesis done in September of 2021 showed no clear-cut evidence of malignant cells. Analysis of pleural fluid was limited and it is unclear whether the fluid was exudative or transudative. Again the chronicity of these effusions and the fact that the patient is still alive following their first detection more than one year ago favors a non malignant etiology. Plan: I would continue with conservative treatment. In view of the relatively large pericardial effusion, I would discontinue Lasix as volume depletion may lead to hypotension ( on physical exam the patient has very prominent JVD). patient has already responded to diuretics and noninvasive ventilatory support with clearing of lower extremity edema. I would also discontinue steroids. Patient is scheduled for echocardiogram. I would consider discontinuing beta-blockers and other medications that decrease the patient's heart rate as these medications will interfere with the patient's ability to increase cardiac output if there is an increase in the volume of pericardial fluid. The patient will need left thoracentesis to characterize left pleural effusion. Continue with DVT prophylaxis. continue with BiPAP support at night. (2) COPD (chronic obstructive pulmonary disease): Qualifiers: COPD type: unspecified COPD Qualified Code(s): J44.9 - Chronic obstructive pulmonary disease, unspecified Code(s): J44.9 - Chronic obstructive pulmonary disease, unspecified Status: Acute (3) Pericardial effusion: Code(s): I31.3 - Pericardial effusion (noninflammatory) Status: Acute (4) Small cell lung cancer: Code(s): C34.90 - Malignant neoplasm of unspecified part of unspecified bronchus or lung Status: Acute (5) Pleural effusion: Code(s): J90 - Pleural effusion, not elsewhere classified Status: Acute History of Present Illness History of Present Illness Consult date: 05/11/22 Chief complaint: COPD Exacerbation,Acute on Chronic Hypercapnia Narrative: This 61-year-old female presented with a several day history of increasing shortness of breath and lower extremity edema. The patient has multiple medical problems including severe COPD with a history of a hypoxic hypercapnic respiratory failure on noninvasive ventilatory support and supplemental oxygen at home, history of limited small cell arpita
[2022-05-11 11:43] LABS: NT Pro B Type Natriuretic Pept 6380 pg/mL (5-100)
[2022-05-11] MEDS: ACETAMINOPHEN 325 MG TABLET 650 MG PO ×2 (13:23→17:53)
--- NOTE | 2022-05-11 14:24 | PM.CNCAR ---
Assessment and Plan Assessment and plan (1) Acute and chronic respiratory failure with hypercapnia: Code(s): J96.22 - Acute and chronic respiratory failure with hypercapnia Status: Acute Assessment and Plan: Secondary to COPD, CHF. She also does have a new right pleural effusion and a chronic left pleural effusion that is slightly larger than before. Improved after administration steroids for presumed COPD exacerbation, diuretics for CHF/pleural effusion, and noninvasive ventilatory support with BiPAP. She is being followed by pulmonology. Appreciate the recommendations and input. (2) Pericardial effusion: Code(s): I31.3 - Pericardial effusion (noninflammatory) Status: Acute Assessment and Plan: Chronic pericardial effusion that has been present since at least March of 2021. Repeat echocardiogram is pending. Not currently experiencing any hemodynamic compromise or any signs suggestive of tamponade. Further recommendations to follow review of repeat echocardiogram. (3) Congestive heart failure: Qualifiers: Heart failure chronicity: unspecified Heart failure type: unspecified Qualified Code(s): I50.9 - Heart failure, unspecified Code(s): I50.9 - Heart failure, unspecified Status: Acute Assessment and Plan: Acute on chronic diastolic heart failure. Improved with IV furosemide and noninvasive ventilation with BiPAP.. Now back to baseline in terms of her respiratory status. Trace lower extremity edema persists. History of Present Illness History of Present Illness Consult date/time: 05/11/22 14:24 Requesting physician: Sue Whitman DO Consult reason: congestive heart failure and Other (pericardial effusion) Reason For Visit: COPD Exacerbation,Acute on Chronic Hypercapnia Narrative: Ms. Holt is a 61-year-old female with a medical history hypertension, hyperlipidemia, small cell lung cancer, and left ventricular diastolic dysfunction. This is a patient who is followed in our office by Dr. Menendez for her diastolic noncompliance. She enters the hospital with complaints worsening shortness of breath and lower extremity edema the several days. Cardiology has been asked to see her for heart failure exacerbation and because of concern about a large pericardial effusion which is has been chronic since March 2021. Currently, she is feeling much improved from a symptomatic standpoint after receiving diuretics as well as IV steroids for possible COPD exacerbation. At the present, her breathing is at baseline and she reports that her swelling is significantly improved. Her only complaint is of some lower back pain which is chronic. Review of Systems Constitutional: Constitutional: Denies chills, Denies fever(s), Denies headache(s) and Denies malaise Eyes: Eyes: Denies change in vision ENT: Reports Normal hearing present, Denies dizziness, Denies headache(s) and Denies hearing loss Cardiovascular: Cardiovascular: Denies chest pain, Denies chest pain at rest, Denies chest pain with activity, Denies syncope, Reports pedal edema, Reports leg edema, Denies palpitations, Reports dyspnea and Reports dyspnea on exertion Respiratory: Respiratory: Denies cough, Denies dyspnea, Denies dyspnea on exertion and Denies wheezing Gastrointestinal: Gastrointestinal: Denies abdominal pain, Denies constipation and Denies diarrhea Genitourinary: Genitourinary: Denies hematuria and Denies dysuria Musculoskeletal: Musculoskeletal: Denies myalgias, Denies arthralgias and Denies muscle cramps Integumentary/Breasts: Skin/Breast: Denies wounds Neurologic: Denies Normal hearing present, Denies confusion, Denies dizziness, Denies syncope and Denies headache(s) Psychiatric: Psychiatric: Denies anxiety, Denies confusion and Denies depression Endocrine: Endocrine: Denies cold intolerance, Denies flushing, Denies heat intolerance and Denies palpitations Hematologic/Lymphatic: Hematol
--- NOTE | 2022-05-11 15:33 | PC.NURSE ---
This patient, Stephanie Holt, was transferred to [[id number] ] on 05/11/22 at 1534. Personal belongings sent with patient. Report given to [ MARCOS Hernandez @ [id number]]. Appropriate documentation sent with patient.
--- NOTE | 2022-05-11 18:35 | PM.IMPN ---
Progress Note: A&P Assessment and Plan (1) Acute and chronic respiratory failure with hypercapnia: Code(s): J96.22 - Acute and chronic respiratory failure with hypercapnia Status: Acute Assessment and Plan: Secondary to COPD, CHF. She also does have a new right pleural effusion and a chronic left pleural effusion that is slightly larger than before. Improved after administration steroids for presumed COPD exacerbation, diuretics for CHF/pleural effusion, and noninvasive ventilatory support with BiPAP May need thoracentesis (2) Pericardial effusion: Code(s): I31.3 - Pericardial effusion (noninflammatory) Status: Acute Assessment and Plan: Follow repeat echo to assess for tamponade (3) Congestive heart failure: Qualifiers: Heart failure chronicity: unspecified Heart failure type: unspecified Qualified Code(s): I50.9 - Heart failure, unspecified Code(s): I50.9 - Heart failure, unspecified Status: Acute Assessment and Plan: Appears to be at baseline level of functioning despite continued fluid overload Steroids and IV diuretics discontinued, monitor on home meds Subjective Date/time seen: 05/11/22 18:35 Interval history: Still short of breath, feels back to baseline though. Denies chest pain. No overnight events noted. No nausea, vomiting or diarrhea. No fevers or chills. Review of Systems Review of Systems: 12 point review of systems was assessed and was negative except as noted in the HPI Exam Narrative: General: No acute distress, alert and oriented per baseline HEENT: Atraumatic, normocephalic, mucous membranes moist CV: Regular rate and rhythm, S1, S2 Lungs: Clear to auscultation bilaterally, somewhat diminished on the left and at bases Abdomen: Soft, nontender, nondistended Extremities: Normal to inspection Skin: No rashes noted, no lesions or wounds seen Psych: Euthymic, normal affect Objective Data Vital Signs Vital Signs: Vital Signs - 24 hr 05/10/22 20:07 05/10/22 20:08 05/10/22 20:19 Temperature Pulse Rate 76 79 Respiratory Rate 22 H 22 H Blood Pressure Pulse Oximetry 96 Oxygen Delivery Nasal Cannula Oxygen Flow Rate 3 05/10/22 20:25 05/10/22 20:00 05/10/22 20:00 Temperature 98.5 F Pulse Rate 87 75 Respiratory Rate 22 H Blood Pressure 130/65 Pulse Oximetry 100 100 Oxygen Delivery Nasal Cannula Oxygen Flow Rate 3 05/10/22 20:00 05/10/22 22:00 05/11/22 00:00 Temperature Pulse Rate 75 88 Respiratory Rate Blood Pressure Pulse Oximetry 94 Oxygen Delivery BiPAP Oxygen Flow Rate 05/11/22 00:00 05/11/22 00:00 05/10/22 23:48 Temperature 97.3 F L Pulse Rate 72 80 81 Respiratory Rate 20 24 H Blood Pressure 139/56 L Pulse Oximetry 90 95 Oxygen Delivery BiPAP Oxygen Flow Rate 05/11/22 02:00 05/11/22 02:04 05/11/22 02:16 Temperature Pulse Rate 76 69 74 Respiratory Rate 26 H 26 H Blood Pressure Pulse Oximetry Oxygen Delivery Oxygen Flow Rate 05/11/22 02:16 05/11/22 03:49 05/11/22 04:00 Temperature Pulse Rate 69 54 L Respiratory Rate 26 H Blood Pressure Pulse Oximetry 94 93 Oxygen Delivery BiPAP BiPAP Oxygen Flow Rate 05/11/22 04:00 05/11/22 06:00 05/11/22 08:00 Temperature 98.3 F 97.6 F Pulse Rate 66 74 72 Respiratory Rate 22 H 14 Blood Pressure 105/60 115/57 L Pulse Oximetry 93 97 Oxygen Delivery Oxygen Flow Rate 05/11/22 08:43 05/11/22 08:43 05/11/22 08:58 Temperature Pulse Rate 76 68 Respiratory Rate 20 20 Blood Pressure Pulse Oximetry 94 Oxygen Delivery Nasal Cannula Oxygen Flow Rate 3 05/11/22 09:04 05/11/22 09:04 05/11/22 11:50 Temperature 97.9 F Pulse Rate 70 70 67 Respiratory Rate 12 Blood Pressure 107/52 L Pulse Oximetry 98 Oxygen Delivery Oxygen Flow Rate 05/11/22 08:00 05/11/22 08:00 05/11/22 10:00 Temperature Pu
[2022-05-11] MEDS: ATORVASTATIN 40 MG TABLET 80 MG PO (20:03)
[2022-05-12] VITALS (16 sets, daily range): BP systolic 119–156; BP diastolic 61–68; PULSE 68–73; RESP 14–23; TEMP 36.3–36.8; O2SAT 93–100
[2022-05-12] MEDS: IPRATROPIUM BR 0.02% INH SOLN 0.5 MG/2.5 ML VIAL INHALATION ×4 (02:50→20:11)
[2022-05-12] MEDS: ALBUTEROL SULFATE NEB 2.5 MG/3 ML INH 5 MG INHALATION ×4 (02:51→20:11)
[2022-05-12] MEDS: LEVOTHYROXINE SODIUM 50 MCG TABLET PO (06:10)
[2022-05-12 06:28] LABS: Hematocrit 27.9 % (37.0-47.0); Hemoglobin 8.6 g/dL (12.0-15.0); Immature Granulocyte Absolute 0.02 K/mm3 (0.00-0.031); Immature Granulocyte Percent A 0.3 % (0-0.5); Lymphocytes Absolute Auto 0.24 K/mm3 (0.9-3.2); Lymphocytes Percent Auto 3.7 % (18.3-44.2); Mean Corpuscular HGB Conc 30.8 g/dl (32-36); Mean Corpuscular Hemoglobin 32.3 pg (26-34); Mean Corpuscular Volume 104.9 fl (80-100); Monocytes Absolute Auto 0.4 K/mm3 (0.1-0.6); Monocytes Percent Auto 5.7 % (2.6-8.5); Neutrophils Absolute Auto 5.9 K/mm3 (1.3-6.7); Neutrophils Percent Auto 90.3 % (45.5-73.1); Platelet Count Result 263 k/mm3 (150-375); Red Blood Count 2.66 M/mm3 (4.2-5.4); Red Cell Distribution Width 15.3 % (11.5-14.5); White Blood Count 6.5 K/mm3 (4.5-10.0)
[2022-05-12 07:12] LABS: Alanine Aminotransferase 17 U/L (6-35); Albumin Level 2.8 g/dL (3.5-5.1); Alkaline Phosphatase 63 U/L (38-126); Aspartate Amino Transferase 26 U/L (14-36); Bilirubin,Total 0.3 mg/dL (0.2-1.3); Blood Urea Nitrogen 25 mg/dL (7-17); Calcium 8.4 mg/dL (8.4-10.2); Carbon Dioxide > 40 mmol/L (22-30); Chloride 80 mmol/L (98-107); Estimated CRCL calculation 29 ml/min; Estimated Glomerular Filt Rate 46; Glucose 105 mg/dL (65-110); Potassium 3.1 mmol/L (3.4-5.0); Sodium 127 mmol/L (137-145)
[2022-05-12] MEDS: FERROUS SULFATE 324 MG TABLET PO ×2 (08:37→17:49)
[2022-05-12] MEDS: SODIUM CHLORIDE 1 GM TABLET PO ×2 (08:37→17:49)
[2022-05-12] MEDS: PYRIDOXINE HCL 50 MG TABLET 100 MG PO ×2 (08:37→17:49)
[2022-05-12] MEDS: ASPIRIN 81 MG ENTERIC TABLET PO (08:38)
[2022-05-12] MEDS: METOPROLOL SUCCINATE EXT REL 25 MG TABCR PO (08:38)
[2022-05-12] MEDS: carvediloL 12.5 MG TABLET PO ×2 (08:38→20:00)
[2022-05-12] MEDS: SUCRALFATE 1 GM TABLET PO ×2 (08:38→17:49)
[2022-05-12] MEDS: ESCITALOPRAM OXALATE 10 MG TABLET PO (08:38)
[2022-05-12] MEDS: CYANOCOBALAMIN 1,000 MCG TABLET 1000 MCG PO (08:38)
[2022-05-12] MEDS: dilTIAZem HCL CD 180 MG CAP.ER.24H 360 MG PO (08:38)
[2022-05-12] MEDS: THERAPEUTIC MULTIVITAMINS/MINERALS TAB (*BKC) 1 TABLET PO (08:39)
[2022-05-12] MEDS: SACCHAROMYCES BOULARDII 250 MG CAPSULE PO ×2 (08:39→17:49)
[2022-05-12] MEDS: ENOXAPARIN 30 MG/0.3 ML SYRINGE SUB-Q (08:39)
[2022-05-12] MEDS: HYDROcodone/acetaminophen (*CRX) 7.5-325 MG TABLET 1 TAB PO ×3 (08:40→22:21)
[2022-05-12] MEDS: UMECLIDINIUM/VILANTEROL 62.5-25 MCG ELLIPTA 1 PUFF INHALATION (08:47)
[2022-05-12] MEDS: VANCOMYCIN ORAL 125 MG/2.5 ML SYRUP PO (10:32)
--- NOTE | 2022-05-12 10:49 | PM.PNCARD ---
Progress Note: A&P Assessment and Plan (1) Pericardial effusion: Code(s): I31.3 - Pericardial effusion (noninflammatory) Status: Acute Plan This patient has a chronic moderate to large pericardial effusion that by physical exam is not causing evidence of tamponade. 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 There is still no hemodynamic indication for a draining this effusion from what I can see. She is not hypotensive/tachycardic and has no evidence of pulsus paradoxus William Menendez MD [facility] Subjective Date/time seen: Date of service: 05/12/22 10:49 Interval history: Follow-up visit in this 61-year-old lady with: History of small cell lung cancer status post chemo and radiation therapy. Patient has chronic lung disease and has chronic large pericardial effusion. This effusion has been seen on echocardiogram since at least September of 2021. She is not by physical exam in state of cardiac tamponade. She feels relatively well this morning and offers no other complaints. Exam Const: General: comfortable and no acute distress Other: Frail chronically ill-appearing lady comfortable no distress HENMT: Mouth: Yes moist mucous membranes Eyes: Sclera: sclerae normal Neck: Neck: supple Other: About 3 cm of JVD. Resp: Effort & Inspection: normal respiratory effort Cardio: Rate: regular rate Rhythm: regular rhythm GI: GI Palp: Yes Soft to palpation Auscultation: normal bowel sounds Skin: General skin exam: normal color Extrem: General: normal to inspection Objective Data Vital Signs Vital Signs: Vital Signs - 24 hr 05/11/22 11:50 05/11/22 12:00 05/11/22 12:00 Temperature 36.6 C Pulse Rate 67 62 Respiratory Rate 12 Blood Pressure 107/52 L Pulse Oximetry 98 99 Oxygen Delivery Nasal Cannula Oxygen Flow Rate 3 05/11/22 14:04 05/11/22 14:07 05/11/22 14:17 Temperature Pulse Rate 67 68 Respiratory Rate 20 20 Blood Pressure Pulse Oximetry 95 Oxygen Delivery Nasal Cannula Oxygen Flow Rate 2 05/11/22 16:00 05/11/22 20:02 05/11/22 20:33 Temperature 36.2 C L Pulse Rate 70 72 63 Respiratory Rate 16 18 Blood Pressure 116/84 Pulse Oximetry 92 100 Oxygen Delivery Nasal Cannula Oxygen Flow Rate 2 05/11/22 20:33 05/11/22 21:27 05/11/22 20:00 Temperature 36.3 C L Pulse Rate 63 70 Respiratory Rate 18 14 Blood Pressure 136/62 Pulse Oximetry 93 93 Oxygen Delivery Nasal Cannula Oxygen Flow Rate 2 05/12/22 00:00 05/12/22 02:50 05/12/22 02:50 Temperature Pulse Rate 69 71 70 Respiratory Rate 20 23 H 18 Blood Pressure Pulse Oximetry 98 99 Oxygen Delivery BiPAP BiPAP Oxygen Flow Rate 05/12/22 03:00 05/12/22 06:00 05/12/22 08:02 Temperature 36.3 C L Pulse Rate 70 69 68 Respiratory Rate 18 14 16 Blood Pressure 119/61 Pulse Oximetry 93 Oxygen Delivery Oxygen Flow Rate 05/12/22 08:02 05/12/22 08:13 Temperature Pulse Rate 70 Respiratory Rate 16 Blood Pressure Pulse Oximetry 93 Oxygen Delivery Nasal Cannula Oxygen Flow Rate 4 Intake/Output Intake/Output: Intake & Output 05/09/22 05/10/22 05/11/22 05/12/22 23:59 23:59 23:59 23:59 Intake Total 770 1110 620 Output Total 1300 200 900 Balance -530 910 -280 Meds/Results Medications: Active Medications Generic Name Dose Route Start Last Admin Trade Name Freq PRN Reason Stop Dose Admin Acetaminophen 650 mg 05/10/22 00:21 05/11/22 17:53 Acetaminophen 325 Mg Tablet PO 650 mg Q4H PRN Administration Mild Pain (1-3) or Fever Hydrocodone Bitart/Acetaminophen 1 tab 05/10/22 03:15 05/12/22 08:40 Hydrocodone/Acetaminophen (*Crx) 7.5-325 Mg Tablet PO 1 tab Q6H PRN Administration Pain Rated 7-10 Hydrocodone Bitart/Acetaminophen 1 tab 05/10/22 04:33 Hydrocodone/Acetaminophen (*Crx) 7.5-325 Mg Tablet PO Q6H PRN Pain Rated 4-6 Albuterol 5 mg 08
--- NOTE | 2022-05-12 12:53 | PM.PNPUL ---
Progress Note: A&P Assessment and Plan (1) Acute and chronic respiratory failure with hypercapnia: Code(s): J96.22 - Acute and chronic respiratory failure with hypercapnia Status: Acute (2) Acute on chronic respiratory failure with hypoxia and hypercapnia: Code(s): J96.21 - Acute and chronic respiratory failure with hypoxia; J96.22 - Acute and chronic respiratory failure with hypercapnia Status: Acute (3) COPD (chronic obstructive pulmonary disease): Qualifiers: COPD type: unspecified COPD Qualified Code(s): J44.9 - Chronic obstructive pulmonary disease, unspecified Code(s): J44.9 - Chronic obstructive pulmonary disease, unspecified Status: Acute (4) Congestive heart failure: Qualifiers: Heart failure chronicity: unspecified Heart failure type: unspecified Qualified Code(s): I50.9 - Heart failure, unspecified Code(s): I50.9 - Heart failure, unspecified Status: Acute (5) Small cell lung cancer: Code(s): C34.90 - Malignant neoplasm of unspecified part of unspecified bronchus or lung Status: Acute Plan ?Acute and chronic respiratory failure with hypercapnia: ?Code(s): J96.22 - Acute and chronic respiratory failure with hypercapnia ?Status:?Acute ?Assessment and Plan: ?61-year-old female with a history of severe COPD with the last FEV1 being in the range of a 0.66 L or 32% predicted and? DLCO 17% predicted, chronically on supplemental oxygen and noninvasive ventilatory support at home, with history of limited small cell lung cancer diagnosed about 2 years ago status post chemoradiation in early 2020, with chronic pericardial effusion and chronic left pleural effusion both present since March of 2021,? presented with shortness of breath, lower extremity edema, new right pleural effusion, slightly larger left pleural effusion than before, elevated BNP,? and also pericardial effusion which is more or less unchanged from previous studies.? The patient did not have signs of hypotension to suggest tamponade.? The patient's shortness of breath and lower extremity edema and also the new right pleural effusion are probably related to worsening right ventricular function.? The patient has responded to treatment with diuretics and BiPAP support.? She has no evidence of COPD exacerbation. ? Plan:? Respiratory status improved. continue with BiPAP support at night. The patient will need left thoracentesis to characterize left pleural effusion.? Continue with DVT prophylaxis.?Qualifiers: ?COPD type:?unspecified COPD? Qualified Code(s):?J44.9 - Chronic obstructive pulmonary disease, unspecified ?Code(s): J44.9 - Chronic obstructive pulmonary disease, unspecified ?Status:?Acute (3) Pericardial effusion: ?Code(s): I31.3 - Pericardial effusion (noninflammatory) ?Status:?Acute (4) Small cell lung cancer: ?Code(s): C34.90 - Malignant neoplasm of unspecified part of unspecified bronchus or lung ?Status:?Acute (5) Pleural effusion: ?Code(s): J90 - Pleural effusion, not elsewhere classified ?Status:?Acute Subjective Date/time seen: 05/12/22 12:53 patient has no new respiratory symptoms; she was on BiPAP support last night. She thinks she is back at baseline as far as respiratory status. Review of Systems Review of Systems: 12 point review of systems was assessed and was negative except as noted in the HPI Exam Narrative: GENERAL APPEARANCE: Well developed, cachectic elderly woman, alert and cooperative, appears to be mild respiratory distress while on supplemental oxygen SKIN: Inspection of the skin reveals no rashes, ulcerations or petechiae. HEENT: Sclerae anicteric and conjunctivae pink and moist. Extraocular movements were intact and pupils were equal, round, and reactive to light. The oral mucosa, hard and soft palate, tongue and posterior pharynx were normal. edentulous NECK: Supple. marked
--- NOTE | 2022-05-12 15:03 | PM.IMPN ---
Progress Note: A&P Assessment and Plan (1) Acute and chronic respiratory failure with hypercapnia: Code(s): J96.22 - Acute and chronic respiratory failure with hypercapnia Status: Acute Assessment and Plan: Secondary to COPD, CHF. She also does have a new right pleural effusion and a chronic left pleural effusion that is slightly larger than before. Improved after administration steroids for presumed COPD exacerbation, diuretics for CHF/pleural effusion, and noninvasive ventilatory support with BiPAP Hold Lovenox, therapeutic thoracentesis tomorrow then discharge with hospice per patient request (2) Pericardial effusion: Code(s): I31.3 - Pericardial effusion (noninflammatory) Status: Acute Assessment and Plan: Follow repeat echo to assess for tamponade (3) Congestive heart failure: Qualifiers: Heart failure chronicity: unspecified Heart failure type: unspecified Qualified Code(s): I50.9 - Heart failure, unspecified Code(s): I50.9 - Heart failure, unspecified Status: Acute Assessment and Plan: Appears to be at baseline level of functioning despite continued fluid overload Steroids and IV diuretics discontinued, monitor on home meds Additional Plan Hospice consult requested Subjective Date/time seen: 05/12/22 15:03 Interval history: Still SOB, appears at baseline. No overnight events noted. No chest pain. No nausea, vomiting or diarrhea. No fevers or chills. Review of Systems Review of Systems: 12 point review of systems was assessed and was negative except as noted in the HPI Exam Narrative: General: No acute distress, alert and oriented per baseline HEENT: Atraumatic, normocephalic, mucous membranes moist CV: Regular rate and rhythm, S1, S2 Lungs: Clear to auscultation bilaterally, somewhat diminished on the left and at bases Abdomen: Soft, nontender, nondistended Extremities: Normal to inspection Skin: No rashes noted, no lesions or wounds seen Psych: Euthymic, normal affect Objective Data Vital Signs Vital Signs: Vital Signs - 24 hr 05/11/22 16:00 05/11/22 20:02 05/11/22 20:33 Temperature 97.2 F L Pulse Rate 70 72 63 Respiratory Rate 16 18 Blood Pressure 116/84 Pulse Oximetry 92 100 Oxygen Delivery Nasal Cannula Oxygen Flow Rate 2 05/11/22 20:33 05/11/22 21:27 05/11/22 20:00 Temperature 97.4 F L Pulse Rate 63 70 Respiratory Rate 18 14 Blood Pressure 136/62 Pulse Oximetry 93 93 Oxygen Delivery Nasal Cannula Oxygen Flow Rate 2 05/12/22 00:00 05/12/22 02:50 05/12/22 02:50 Temperature Pulse Rate 69 71 70 Respiratory Rate 20 23 H 18 Blood Pressure Pulse Oximetry 98 99 Oxygen Delivery BiPAP BiPAP Oxygen Flow Rate 05/12/22 03:00 05/12/22 06:00 05/12/22 08:02 Temperature 97.4 F L Pulse Rate 70 69 68 Respiratory Rate 18 14 16 Blood Pressure 119/61 Pulse Oximetry 93 Oxygen Delivery Oxygen Flow Rate 05/12/22 08:02 05/12/22 08:13 05/12/22 08:37 Temperature Pulse Rate 70 Respiratory Rate 16 Blood Pressure Pulse Oximetry 93 93 Oxygen Delivery Nasal Cannula Nasal Cannula Oxygen Flow Rate 4 4 05/12/22 14:17 05/12/22 14:24 Temperature Pulse Rate 70 68 Respiratory Rate 16 16 Blood Pressure Pulse Oximetry Oxygen Delivery Oxygen Flow Rate Intake/Output Intake/Output: Intake & Output 05/09/22 05/10/22 05/11/22 05/12/22 23:59 23:59 23:59 23:59 Intake Total 770 1110 860 Output Total 1300 200 900 Balance -530 910 -40 Meds/Results Medications: Active Medications Generic Name Dose Route Start Last Admin Trade Name Freq PRN Reason Stop Dose Admin Acetaminophen 650 mg 05/10/22 00:21 05/11/22 17:53 Acetaminophen 325 Mg Tablet PO 650 mg Q4H PRN Administration Mild Pain (1-3) or Fever Hydrocodone Bitart/Acetaminophen 1 tab 05/10/22 03:15 05/12/22 08:40 Hydrocodone/Acetaminophen (*Crx) 7.5
[2022-05-12] MEDS: ATORVASTATIN 40 MG TABLET 80 MG PO (20:00)
[2022-05-13] VITALS (16 sets, daily range): BP systolic 150–163; BP diastolic 62–76; PULSE 69–80; RESP 12–22; TEMP 36.3–36.6; O2SAT 97–100
[2022-05-13] MEDS: ALBUTEROL SULFATE NEB 2.5 MG/3 ML INH 5 MG INHALATION ×4 (03:19→21:10)
[2022-05-13] MEDS: IPRATROPIUM BR 0.02% INH SOLN 0.5 MG/2.5 ML VIAL INHALATION ×4 (03:20→21:10)
[2022-05-13 06:30] LABS: Eosinophils Absolute Auto 0.1 K/mm3 (0-0.3); Eosinophils Percent Auto 0.7 % (0-4.4); Hematocrit 26.7 % (37.0-47.0); Hemoglobin 8.3 g/dL (12.0-15.0); Immature Granulocyte Absolute 0.03 K/mm3 (0.00-0.031); Immature Granulocyte Percent A 0.4 % (0-0.5); Lymphocytes Absolute Auto 0.53 K/mm3 (0.9-3.2); Lymphocytes Percent Auto 7.8 % (18.3-44.2); Mean Corpuscular HGB Conc 31.1 g/dl (32-36); Mean Corpuscular Hemoglobin 32.8 pg (26-34); Mean Corpuscular Volume 105.5 fl (80-100); Mean Platelet Volume 8.9 fl (7.4-10.4); Monocytes Absolute Auto 0.8 K/mm3 (0.1-0.6); Monocytes Percent Auto 11.4 % (2.6-8.5); Neutrophils Absolute Auto 5.4 K/mm3 (1.3-6.7); Neutrophils Percent Auto 79.7 % (45.5-73.1); Platelet Count Result 244 k/mm3 (150-375); Red Blood Count 2.53 M/mm3 (4.2-5.4); Red Cell Distribution Width 15.2 % (11.5-14.5); White Blood Count 6.8 K/mm3 (4.5-10.0)
[2022-05-13 06:44] LABS: Prothrombin Time 13.2 Seconds (11.1-14.7)
[2022-05-13 06:45] LABS: Partial Thromboplastin Time 32.3 SECONDS (22.3-36.8)
[2022-05-13 06:48] LABS: Alanine Aminotransferase 34 U/L (6-35); Albumin Level 2.8 g/dL (3.5-5.1); Alkaline Phosphatase 60 U/L (38-126); Aspartate Amino Transferase 57 U/L (14-36); Bilirubin,Total 0.3 mg/dL (0.2-1.3); Blood Urea Nitrogen 23 mg/dL (7-17); Calcium 7.9 mg/dL (8.4-10.2); Carbon Dioxide > 40 mmol/L (22-30); Chloride 81 mmol/L (98-107); Estimated CRCL calculation 34 ml/min; Estimated Glomerular Filt Rate 56; Glucose 84 mg/dL (65-110); Potassium 3.4 mmol/L (3.4-5.0); Sodium 130 mmol/L (137-145)
[2022-05-13 07:56] LABS: Anisocytosis 1+ (NORMAL); Hypochromasia 1+ (NORMAL); Microcytosis 1+ (NORMAL); Ovalocytes 1+ (NORMAL); Platelet Estimate Adequate (Adequate)
[2022-05-13] MEDS: UMECLIDINIUM/VILANTEROL 62.5-25 MCG ELLIPTA 1 PUFF INHALATION (08:19)
[2022-05-13] MEDS: HYDROcodone/acetaminophen (*CRX) 7.5-325 MG TABLET 1 TAB PO ×3 (09:51→20:30)
--- NOTE | 2022-05-13 12:00 | PM.PNPUL ---
Progress Note: A&P Assessment and Plan (1) Acute and chronic respiratory failure with hypercapnia: Code(s): J96.22 - Acute and chronic respiratory failure with hypercapnia Status: Acute (2) Acute on chronic respiratory failure with hypoxia and hypercapnia: Code(s): J96.21 - Acute and chronic respiratory failure with hypoxia; J96.22 - Acute and chronic respiratory failure with hypercapnia Status: Acute (3) COPD (chronic obstructive pulmonary disease): Qualifiers: COPD type: unspecified COPD Qualified Code(s): J44.9 - Chronic obstructive pulmonary disease, unspecified Code(s): J44.9 - Chronic obstructive pulmonary disease, unspecified Status: Acute (4) Congestive heart failure: Qualifiers: Heart failure chronicity: unspecified Heart failure type: unspecified Qualified Code(s): I50.9 - Heart failure, unspecified Code(s): I50.9 - Heart failure, unspecified Status: Acute (5) Small cell lung cancer: Code(s): C34.90 - Malignant neoplasm of unspecified part of unspecified bronchus or lung Status: Acute Plan ?Acute and chronic respiratory failure with hypercapnia: ?Code(s): J96.22 - Acute and chronic respiratory failure with hypercapnia ?Status:?Acute ?Assessment and Plan: ?61-year-old female with a history of severe COPD with the last FEV1 being in the range of a 0.66 L or 32% predicted and? DLCO 17% predicted, chronically on supplemental oxygen and noninvasive ventilatory support at home via with Astral ventilator with settings RR 15, EPAP 5, PS 4-25, non compliant with vent use as last download, with history of limited small cell lung cancer diagnosed about 2 years ago status post chemoradiation in early 2020, with chronic pericardial effusion and chronic left pleural effusion both present since March of 2021,? presented with shortness of breath, lower extremity edema, new right pleural effusion, slightly larger left pleural effusion than before, elevated BNP,? and also pericardial effusion which is more or less unchanged from previous studies.? The patient did not have signs of hypotension to suggest tamponade.? The patient's shortness of breath and lower extremity edema and also the new right pleural effusion are probably related to worsening right ventricular function.? The patient has responded to treatment with diuretics and BiPAP support.? She has no evidence of COPD exacerbation. ? Plan:? Respiratory status improved. Patient is scheduled to undergo left thoracentesis today. Pleural fluid tests ordered. She will have a chest x-ray post thoracentesis. Continue with BiPAP support at night, settings modified. ApneaLink on new BIPAP setting and post-thoracentesis. ? Continue with DVT prophylaxis.?Qualifiers: ?COPD type:?unspecified COPD? Qualified Code(s):?J44.9 - Chronic obstructive pulmonary disease, unspecified ?Code(s): J44.9 - Chronic obstructive pulmonary disease, unspecified ?Status:?Acute (3) Pericardial effusion: ?Code(s): I31.3 - Pericardial effusion (noninflammatory) ?Status:?Acute (4) Small cell lung cancer: ?Code(s): C34.90 - Malignant neoplasm of unspecified part of unspecified bronchus or lung ?Status:?Acute (5) Pleural effusion: ?Code(s): J90 - Pleural effusion, not elsewhere classified ?Status:?Acute Subjective Date/time seen: 05/13/22 12:00 Patient has no new respiratory symptoms. She still on BiPAP support 20/05 at night, supplemental oxygen 4 liters/minute. Scheduled to undergo left thoracentesis today. Shortness of breath about baseline. She no longer has lower extremity edema. Review of Systems Review of Systems: 12 point review of systems was assessed and was negative except as noted in the HPI Exam Narrative: GENERAL APPEARANCE: Well developed, cachectic elderly woman, alert and cooperative, appears to be mild respiratory distress while on suppleme
[2022-05-13 12:13] LABS: Albumin Level 2.7 g/dL (3.5-5.1); Lactate Dehydrogenase 458 U/L (313-618)
[2022-05-13 14:15] LABS: pH Pleural Fluid 7.498 (7.210-7.500)
[2022-05-13 14:19] LABS: Appearance Pleural Fluid Clear (Clear); Color Pleural Fluid Yellow (Colorless); Nucleated Cell Pleural Fluid 118 /uL (0-1000); Pleural fluid source Pleural fluid; RBC Pleural Fluid 160 /uL (0-0)
[2022-05-13 14:20] LABS: Lymphocytes Pleural Fluid 21 %; Macrophages Pleural Fluid 47 %; Mesothelial Cells Pleural Flui 32 %
[2022-05-13 16:37] LABS: EDCOVIDSCREEN Negative (Negative)
[2022-05-13] MEDS: SUCRALFATE 1 GM TABLET PO (17:01)
[2022-05-13] MEDS: SODIUM CHLORIDE 1 GM TABLET PO (17:01)
[2022-05-13] MEDS: PYRIDOXINE HCL 50 MG TABLET 100 MG PO (17:01)
[2022-05-13] MEDS: SACCHAROMYCES BOULARDII 250 MG CAPSULE PO (17:01)
[2022-05-13] MEDS: FERROUS SULFATE 324 MG TABLET PO (17:01)
--- NOTE | 2022-05-13 17:54 | PC.NURSE ---
Respiratory therapist reminded RN patient has apnea link study ordered for tonight per automotive engineering technician. RN contacted hospitalist, Dr. Whitman and informed her of the order. Dr. Whitman stated if patient was agreeable to sleep study she was agreeable to cancel discharge for now. RN spoke with patient and she stated she was agreeable to staying tonight to complete the study.
[2022-05-13] MEDS: ATORVASTATIN 40 MG TABLET 80 MG PO (20:28)
[2022-05-13] MEDS: carvediloL 12.5 MG TABLET PO (20:29)
[2022-05-14] VITALS (7 sets, daily range): BP systolic 148; BP diastolic 70; PULSE 72–90; RESP 18–22; TEMP 36.6; O2SAT 96–100
--- NOTE | 2022-05-14 04:40 | PCRCNOTE ---
Patient's 0200 updraft treatment was omitted due to pt being on an overnight pulse oximetry study. Pt's treatments will resume at 0800.
[2022-05-14 06:45] LABS: Basophils Percent Auto 0.2 % (0.2-1.2); Eosinophils Absolute Auto 0.4 K/mm3 (0-0.3); Eosinophils Percent Auto 7.3 % (0-4.4); Hematocrit 29.1 % (37.0-47.0); Hemoglobin 9.1 g/dL (12.0-15.0); Immature Granulocyte Absolute 0.01 K/mm3 (0.00-0.031); Immature Granulocyte Percent A 0.2 % (0-0.5); Lymphocytes Absolute Auto 0.51 K/mm3 (0.9-3.2); Lymphocytes Percent Auto 10.3 % (18.3-44.2); Mean Corpuscular HGB Conc 31.3 g/dl (32-36); Mean Corpuscular Hemoglobin 32.6 pg (26-34); Mean Corpuscular Volume 104.3 fl (80-100); Mean Platelet Volume 8.6 fl (7.4-10.4); Monocytes Absolute Auto 0.8 K/mm3 (0.1-0.6); Monocytes Percent Auto 16.8 % (2.6-8.5); Neutrophils Absolute Auto 3.2 K/mm3 (1.3-6.7); Neutrophils Percent Auto 65.2 % (45.5-73.1); Platelet Count Result 252 k/mm3 (150-375); Red Blood Count 2.79 M/mm3 (4.2-5.4); White Blood Count 4.9 K/mm3 (4.5-10.0)
[2022-05-14] MEDS: HYDROcodone/acetaminophen (*CRX) 7.5-325 MG TABLET 1 TAB PO (06:48)
[2022-05-14] MEDS: LEVOTHYROXINE SODIUM 50 MCG TABLET PO (06:49)
[2022-05-14 06:53] LABS: Alanine Aminotransferase 56 U/L (6-35); Albumin Level 2.6 g/dL (3.5-5.1); Alkaline Phosphatase 61 U/L (38-126); Aspartate Amino Transferase 69 U/L (14-36); Bilirubin,Total 0.2 mg/dL (0.2-1.3); Blood Urea Nitrogen 20 mg/dL (7-17); Calcium 8.1 mg/dL (8.4-10.2); Carbon Dioxide > 40 mmol/L (22-30); Chloride 80 mmol/L (98-107); Estimated CRCL calculation 35 ml/min; Estimated Glomerular Filt Rate > 60; Glucose 86 mg/dL (65-110); Potassium 3.3 mmol/L (3.4-5.0); Sodium 129 mmol/L (137-145)
[2022-05-14] MEDS: SODIUM CHLORIDE 1 GM TABLET PO (08:31)
[2022-05-14] MEDS: SACCHAROMYCES BOULARDII 250 MG CAPSULE PO (08:31)
[2022-05-14] MEDS: THERAPEUTIC MULTIVITAMINS/MINERALS TAB (*BKC) 1 TABLET PO (08:31)
[2022-05-14] MEDS: METOPROLOL SUCCINATE EXT REL 25 MG TABCR PO (08:31)
[2022-05-14] MEDS: PYRIDOXINE HCL 50 MG TABLET 100 MG PO (08:31)
[2022-05-14] MEDS: CYANOCOBALAMIN 1,000 MCG TABLET 1000 MCG PO (08:31)
[2022-05-14] MEDS: carvediloL 12.5 MG TABLET PO (08:32)
[2022-05-14] MEDS: dilTIAZem HCL CD 180 MG CAP.ER.24H 360 MG PO (08:32)
[2022-05-14] MEDS: FERROUS SULFATE 324 MG TABLET PO (08:32)
[2022-05-14] MEDS: ENOXAPARIN 30 MG/0.3 ML SYRINGE SUB-Q (08:32)
[2022-05-14] MEDS: ASPIRIN 81 MG ENTERIC TABLET PO (08:32)
[2022-05-14] MEDS: ESCITALOPRAM OXALATE 10 MG TABLET PO (08:32)
[2022-05-14] MEDS: SUCRALFATE 1 GM TABLET PO (08:32)
[2022-05-14] MEDS: VANCOMYCIN ORAL 125 MG/2.5 ML SYRUP PO (08:38)
--- NOTE | 2022-05-14 09:07 | PM.PNPUL ---
Progress Note: A&P Assessment and Plan (1) Acute and chronic respiratory failure with hypercapnia: Code(s): J96.22 - Acute and chronic respiratory failure with hypercapnia Status: Acute (2) Acute on chronic respiratory failure with hypoxia and hypercapnia: Code(s): J96.21 - Acute and chronic respiratory failure with hypoxia; J96.22 - Acute and chronic respiratory failure with hypercapnia Status: Acute (3) COPD (chronic obstructive pulmonary disease): Qualifiers: COPD type: unspecified COPD Qualified Code(s): J44.9 - Chronic obstructive pulmonary disease, unspecified Code(s): J44.9 - Chronic obstructive pulmonary disease, unspecified Status: Acute (4) Congestive heart failure: Qualifiers: Heart failure chronicity: unspecified Heart failure type: unspecified Qualified Code(s): I50.9 - Heart failure, unspecified Code(s): I50.9 - Heart failure, unspecified Status: Acute (5) Small cell lung cancer: Code(s): C34.90 - Malignant neoplasm of unspecified part of unspecified bronchus or lung Status: Acute Plan ?Acute and chronic respiratory failure with hypercapnia: ?Code(s): J96.22 - Acute and chronic respiratory failure with hypercapnia ?Status:?Acute ?Assessment and Plan: ?61-year-old female with a history of severe COPD with the last FEV1 being in the range of a 0.66 L or 32% predicted and? DLCO 17% predicted, chronically on supplemental oxygen and noninvasive ventilatory support at home via with Astral ventilator with settings RR 15, EPAP 5, PS 4-25, non compliant with vent use as last download, with history of limited small cell lung cancer diagnosed about 2 years ago status post chemoradiation in early 2020, with chronic pericardial effusion and chronic left pleural effusion both present since March of 2021,? presented with shortness of breath, lower extremity edema, new right pleural effusion, slightly larger left pleural effusion than before, elevated BNP,? and also pericardial effusion which is more or less unchanged from previous studies.? The patient did not have signs of hypotension to suggest tamponade.? The patient's shortness of breath and lower extremity edema and also the new right pleural effusion are probably related to worsening right ventricular function.? The patient has responded to treatment with diuretics and BiPAP support.? She has no evidence of COPD exacerbation. ? Plan:? Respiratory status improved. Chest x-ray done post thoracentesis showed clearing of a right pleural effusion and significant decrease in size of a left pleural effusion. Pleural fluid analysis pending. Patient underwent ApneaLink last night but recording of oxyhemoglobin saturation was incomplete. Patient is willing to go back to alf. Okay to discharge patient today. Patient will continue with a home ventilatory support using her own home ventilator, supplemental oxygen and and same maintenance bronchodilators for her COPD. Patient needs to return to pulmonary clinic for follow-up in approximately 3-4 weeks. ?Qualifiers: ?COPD type:?unspecified COPD? Qualified Code(s):?J44.9 - Chronic obstructive pulmonary disease, unspecified ?Code(s): J44.9 - Chronic obstructive pulmonary disease, unspecified ?Status:?Acute (3) Pericardial effusion: ?Code(s): I31.3 - Pericardial effusion (noninflammatory) ?Status:?Acute (4) Small cell lung cancer: ?Code(s): C34.90 - Malignant neoplasm of unspecified part of unspecified bronchus or lung ?Status:?Acute (5) Pleural effusion: ?Code(s): J90 - Pleural effusion, not elsewhere classified ?Status:?Acute Subjective Date/time seen: 05/14/22 09:07 Patient has no new respiratory symptoms. She underwent left thoracentesis with removal of over 500 mL of clear fluid yesterday. Apnealink last night but incomplete recording. Review of Systems Review of Systems:
[2022-05-14] MEDS: ALBUTEROL SULFATE NEB 2.5 MG/3 ML INH 5 MG INHALATION (09:08)
[2022-05-14] MEDS: IPRATROPIUM BR 0.02% INH SOLN 0.5 MG/2.5 ML VIAL INHALATION (09:08)
[2022-05-14] MEDS: UMECLIDINIUM/VILANTEROL 62.5-25 MCG ELLIPTA 1 PUFF INHALATION (09:09)
--- NOTE | 2022-05-14 09:13 | PM.DS ---
DS: Admitting Diagnosis Discharge Date May 14, 2022 Admitting Diagnosis Shortness of breath DS: Discharge Diagnosis Discharge Diagnosis (1) Acute and chronic respiratory failure with hypercapnia: Code(s): J96.22 - Acute and chronic respiratory failure with hypercapnia Status: Acute Assessment and Plan: Secondary to COPD, CHF. She also does have a new right pleural effusion and a chronic left pleural effusion that is slightly larger than before. Improved after administration steroids for presumed COPD exacerbation, diuretics for CHF/pleural effusion, and noninvasive ventilatory support with BiPAP Hold Lovenox, therapeutic thoracentesis tomorrow then discharge with hospice per patient request (2) Pericardial effusion: Code(s): I31.3 - Pericardial effusion (noninflammatory) Status: Acute Assessment and Plan: Follow repeat echo to assess for tamponade (3) Congestive heart failure: Qualifiers: Heart failure chronicity: unspecified Heart failure type: unspecified Qualified Code(s): I50.9 - Heart failure, unspecified Code(s): I50.9 - Heart failure, unspecified Status: Acute Assessment and Plan: Appears to be at baseline level of functioning despite continued fluid overload Steroids and IV diuretics discontinued, monitor on home meds DS: Summary Hospital Course Hospital Course: 61-year-old female past medical history significant for COPD with chronic hypoxic hypercapnic respiratory failure on home O2, pulmonary hypertension, diastolic heart failure and small cell lung cancer status post radiation and chemotherapy presented to the ER with shortness of breath. She was noted to have a pleural effusion as well as a relatively large pericardial effusion with no tamponade. Cardiology was consulted and recommended no further treatment for this effusion. Pulmonology was consulted and recommended continued diuresis and BiPAP titration. These were performed and patient felt significantly better. Hospice was discussed and patient initially was in agreement, later she decided she just wanted to go back to the facility without further discussion regarding code status or hospice. Time Spent with Patient Time attestation: Total time spent providing and/or coordinating discharge services: Exam Narrative: General: No acute distress, alert and oriented per baseline HEENT: Atraumatic, normocephalic, mucous membranes moist CV: Regular rate and rhythm, S1, S2 Lungs: Clear to auscultation bilaterally, somewhat diminished on the left and at bases Abdomen: Soft, nontender, nondistended Extremities: Normal to inspection Skin: No rashes noted, no lesions or wounds seen Psych: Euthymic, normal affect DS: Data Data Completed and Pending Pending studies at discharge: Pending at discharge 05/13/22 11:57 Cytology [PTH] Routine Labs on day of discharge: Labs from last 24 hours 05/14/22 05/14/22 05/13/22 06:27 06:27 15:58 WBC 4.9 RBC 2.79 L Hgb 9.1 L Hct 29.1 L MCV 104.3 H MCH 32.6 MCHC 31.3 L RDW 15.0 H Plt Count 252 MPV 8.6 Immature Gran % (Auto) 0.2 Neut % (Auto) 65.2 Lymph % (Auto) 10.3 L [place] % (Auto) 16.8 H Eos % (Auto) 7.3 H Baso % (Auto) 0.2 Lymph # (Auto) 0.51 L [place] # (Auto) 0.8 H Eos # (Auto) 0.4 H Baso # (Auto) 0.0 Abs Immat Gran (auto) 0.01 Absolute Neuts (auto) 3.2 Absolute Nucleated RBC 0.0 Nucleated RBC % 0.0 Sodium 129 L Potassium 3.3 L Chloride 80 L Carbon Dioxide > 40 H Anion Gap BUN 20 H Creatinine 0.90 Estim Creat Clear Calc 35 Estimated GFR > 60 Glucose 86 Calcium 8.1 L Total Bilirubin 0.2 AST 69 H ALT 56 H Alkaline Phosphatase 61 Lactate Dehydrogenase Total Protein 5.0 L Albumin 2.6 L Pleural Fluid Source Pleural Color Pleural Appearance Pleural pH Pleural RBC Pleural
[2022-05-15 11:48] LABS: Albumin Pleural Fluid 1.6 g/dL
[2022-05-16 18:06] LABS: Glucose Pleural Fluid 86 mg/dL; LDH Pleural Fluid 99 U/L; Total Protein Pleural Fluid <3.0 g/dL
== END 2022-05-14 13:00 | DRG 194 ==
LOC: ANHED 19:08 → ANHIMU 05-10 01:18 → ANH3MEDSUR 05-11 15:40
PROVIDERS: Emergency Medicine; Internal Medicine Pulmonary Disease; Admitting Provider Internal Medicine; Emergency Provider Emergency Medicine; Visit Provider Student in an Organized Health Care Education/Training Program
DX: I13.0 Hypertensive heart and chronic kidney disease with heart failure and stage 1 through stage 4 chronic kidney disease, or unspecified chronic kidney disease (principal); I50.33 Acute on chronic diastolic (congestive) heart failure; J96.22 Acute and chronic respiratory failure with hypercapnia; J96.21 Acute and chronic respiratory failure with hypoxia; J43.9 Emphysema, unspecified; Z20.822 Contact with and (suspected) exposure to COVID-19; D63.8 Anemia in other chronic diseases classified elsewhere; E87.1 Hypo-osmolality and hyponatremia; E78.00 Pure hypercholesterolemia, unspecified; E03.9 Hypothyroidism, unspecified; F32.A Depression, unspecified; F41.9 Anxiety disorder, unspecified; J90 Pleural effusion, not elsewhere classified; H91.90 Unspecified hearing loss, unspecified ear; I31.3 Pericardial effusion (noninflammatory); R64 Cachexia; R35.0 Frequency of micturition; N18.9 Chronic kidney disease, unspecified; Z79.82 Long term (current) use of aspirin; Z99.81 Dependence on supplemental oxygen; Z87.891 Personal history of nicotine dependence; Z92.3 Personal history of irradiation; Z92.21 Personal history of antineoplastic chemotherapy; Z91.19 Patient's noncompliance with other medical treatment and regimen; Z68.1 Body mass index [BMI] 19.9 or less, adult; Z85.118 Personal history of other malignant neoplasm of bronchus and lung
CPT/HCPCS: 32555; 36415; 36600; 71046; 80048; 80053; 82040; 82042; 82375; 82805; 82945; 83050; 83615; 83735; 83880; 83986; 84155; 84157; 84484; 85025; 85027; 85610; 85730; 87426; 88108; 88184; 88305; 89051; 93005; 93308; 94002; 94003; 94640; 94762; 96372; 96374; 96375; 96376; 99285; A9270; C9803; G0378; G0379; J1650; J1940; J2920; J2930; U0003; U0005

== ENCOUNTER 2022-06-20 12:03 | Inpatient (IN) | payer OTHER, SELFPAY ==
[2022-06-20] VITALS (33 sets, daily range): BP systolic 62–103; BP diastolic 38–73; PULSE 49–92; RESP 8–18; TEMP 34.8–36.5; O2SAT 91–100
--- NOTE | 2022-06-20 | ECHO_ITS ---
Patient Info Name: Stephanie Holt Age: 61 years : 1960 Gender: Female HR: 49 bpm BP: 62 / 40 mmHg Heart Rhythm: Sinus Rhythm, Bradycardia Technical Quality: Fair Exam Date: 06/20/2022 1:27 PM Exam Location: [facility] Pulmonary Patient Status: Emergency Admit Date: 06/20/2022 Staff Ordering Physician: Linda Joya MD Watch Crystal Cutter: Nancy Pichardo RDCS Attending Provider: Linda Joya MD Referring Physician: Mahnaz SURESH; Exam Type: CA echo doppler color flow Study Info Indications - acute chf Complete two-dimensional, color flow and Doppler transthoracic echocardiogram is performed. Summary 1. Complete two-dimensional, color flow and Doppler transthoracic echocardiogram is performed. 2. Left ventricular chamber dimension is normal. 3. Left ventricular systolic function is normal, estimated at >70%. 4. There is no increased left ventricular wall thickness. 5. The left ventricular diastolic function is grade II diastolic dysfunction. 6. Filamentous mobile echodensity within the right atrium with suggestion of extension toward the tricuspid valve and into the right ventricle concerning for vegetation, thrombus, or mass. Clinical correlation advised. 7. There is trace mitral valve regurgitation. 8. There is mild tricuspid valve regurgitation. 9. No pulmonary hypertension, estimated pulmonary arterial systolic pressure is 29 mmHg. 10. There is no aortic valve stenosis. 11. There is trace aortic valve regurgitation. 12. Normal inferior vena cava with >50% collapse upon inspiration consistent with normal right atrial pressure, 5 mmHg. 13. There is moderate to large circumferential pericardial effusion measuring from 1.3-1.7 cm with extensive fibrinous material within the pericardial space. No evidence of tamponade physiology by mitral or tricuspid valve inflow velocity variation, however, there is evidence of increased intrapericardial pressure with slight invagination of the right atrial free wall. 14. Consider transesophageal echocardiogram. Recommendations * Consider transesophageal echocardiogram. Left Ventricle Left ventricular chamber dimension is normal. Left ventricular systolic function is normal, estimated at >70%. There is no increased left ventricular wall thickness. The left ventricular diastolic function is grade II diastolic dysfunction. Right Ventricle Right ventricular chamber dimension is normal. Right ventricular systolic function is normal. Left Atria Left atrial chamber dimension is normal. Right Atria Right atrial chamber dimension is normal. Filamentous mobile echodensity within the right atrium with suggestion of extension toward the tricuspid valve and into the right ventricle concerning for vegetation, thrombus, or mass. Clinical correlation advised. Aortic Valve The aortic valve is trileaflet. There is no aortic valve stenosis. There is trace aortic valve regurgitation. There is mild aortic valve calcification. Pulmonic Valve The pulmonic valve is normal. There is trace pulmonic regurgitation. Mitral Valve The mitral valve has normal leaflets. There is trace mitral valve regurgitation. The mitral valve annulus is mildly calcified. Tricuspid Valve The tricuspid valve leaflets are normal. There is mild tricuspid valve regurgitation. No pulmonary hypertension, estimated pulmonary arterial systolic pressure is 29 mmHg. Pericardium/Pleural The pericardium appears normal. There is moderate to large circumfere
--- NOTE | ~2022-06-20 | XR_ITS ---
EXAMINATION: XR chest 1V portable DATE: 06/23/2022 05:55 INDICATION: Pericardial effusion. Pleural effusion. TECHNIQUE: A single frontal view of the chest was obtained. COMPARISON: Chest single view 06/22/2022 FINDINGS: There are small pleural effusions. There are interstitial opacities in the lungs with inter yayo improvement. There are airspace opacities in all right lung zones. Airspace opacities in right mi d and upper lung zones may be partially radiation pneumonitis. There are airspace opacities in left m id and lower lung zones with a perihilar predominance. No pneumothorax. There is enlargement of the c ardiac silhouette. The endotracheal tube tip is 2.8 cm above the edna. The nasogastric tube tip is in the stomach. There is a right internal jugular port with tip in right atrium. IMPRESSION: 1. Diffuse lung disease with mild improvement, likely a combination of mild pulmonary edema and treat ment changes without or with pneumonia. 2. Stable small pleural effusions. 3. Enlargement of the cardiac silhouette correlating with a large pericardial effusion by CT. Reviewed, dictated and finalized at location A. IMPRESSION: 1. Diffuse lung disease with mild improvement, likely a combination of mild pul monary edema and treatment changes without or with pneumonia. 2. Stable small p leural effusions. 3. Enlargement of the cardiac silhouette correlating with a large pericardial e ffusion by CT.
--- NOTE | ~2022-06-20 | XR_ITS ---
EXAMINATION: XR chest 1V portable DATE: 06/26/2022 05:19 INDICATION: Pericardial effusion. Pleural effusion. TECHNIQUE: A single frontal view of the chest was obtained. COMPARISON: Chest single view 06/25/2022 FINDINGS: There is a moderate-sized left pleural effusion. There are airspace opacities in all lung z ones bilaterally with a perihilar predominance. No pneumothorax. There is enlargement of the cardiac silhouette. The endotracheal tube tip is 2.0 cm above the edna. The nasogastric tube tip is in the stomach. There is a right internal jugular port with tip in right atrium. A left upper extremity saqib pherally inserted central venous catheter (PICC) is seen with tip in the superior vena cava. IMPRESSION: 1. Stable moderate-sized left pleural effusion. 2. Diffuse lung disease with worsening in left upper lobe, consistent with pulmonary edema versus pne umonia and new partial left upper lobe collapse. 3. Enlargement of the cardiac silhouette correlating with a pericardial effusion by CT. Reviewed, dictated and finalized at location A. IMPRESSION: 1. Stable moderate-sized left pleural effusion. 2. Diffuse lung disease with worsening in left upper lobe, consistent with pulm onary edema versus pneumonia and new partial left upper lobe collapse. 3. Enlargement of the cardiac silhouette correlating with a pericardial effusio n by CT.
--- NOTE | ~2022-06-20 | XR_ITS ---
EXAMINATION: XR chest 1V portable DATE: 06/22/2022 06:06 INDICATION: Pericardial effusion. Pleural effusion. Sepsis. TECHNIQUE: frontal view of the chest was obtained. COMPARISON: Chest radiograph and CT dated 06/20/22 FINDINGS: Right internal jugular central venous port catheter with distal tip in the right atrium. Diffuse incr eased interstitial pattern consistent with mild pulmonary edema. Small bilateral pleural effusions, l eft greater than right. Additional mild scattered airspace opacities throughout both lungs which coul d represent more focal edema, atelectasis or pneumonia. Enlarged cardiac silhouette which on prior CT appears to result from a large pericardial effusion with normal underlying heart size. IMPRESSION: 1. Enlarged cardiac silhouette resulting from a large pericardial effusion on prior CT. 2. Bilateral diffuse interstitial and mild airspace opacities consistent with mild pulmonary edema an d atelectasis although superimposed pneumonia is not excludable. 2. Small bilateral pleural effusions, left greater than right.. Reviewed, dictated and finalized at location A. IMPRESSION: 1. Enlarged cardiac silhouette resulting from a large pericardial effusion on p rior CT. 2. Bilateral diffuse interstitial and mild airspace opacities consistent with m ild pulmonary edema and atelectasis although superimposed pneumonia is not excl udable. 2. Small bilateral pleural effusions, left greater than right..
--- NOTE | ~2022-06-20 | XR_ITS ---
EXAMINATION: XR abdomen NG/feed tube insert DATE: 06/22/2022 21:21 INDICATION: Nasogastric tube placement. TECHNIQUE: A semiupright view of the abdomen was obtained. COMPARISON: None. FINDINGS: There are no dilated loops of bowel. The nasogastric tube tip is in the stomach. IMPRESSION: 1. Nasogastric tube tip in the stomach. Reviewed, dictated and finalized at location A.
--- NOTE | ~2022-06-20 | XR_ITS ---
EXAMINATION: XR chest 1V portable DATE: 06/24/2022 05:54 INDICATION: Pericardial effusion. Pleural effusions. TECHNIQUE: A single frontal view of the chest was obtained. COMPARISON: Chest single view 06/23/2022, chest CT 06/20/2022 FINDINGS: There is a moderate-sized left pleural effusion. There are airspace opacities in all lung z ones bilaterally with a perihilar predominance. No pneumothorax. There is enlargement of the cardiac silhouette. Calcified right hilar lymph nodes are consistent with old granulomatous disease. The endo tracheal tube tip is 2.9 cm above the edna. The nasogastric tube tip is in the stomach. There is a right internal jugular port with tip in right atrium. A left upper extremity peripherally inserted ce ntral venous catheter (PICC) is seen with tip in the superior vena cava. IMPRESSION: 1. Stable moderate-sized left pleural effusion. 2. Stable diffuse lung disease with a perihilar predominance, consistent with pulmonary edema versus pneumonia. 3. Enlargement of the cardiac silhouette correlate with a pericardial effusion by CT. Reviewed, dictated and finalized at location A. IMPRESSION: 1. Stable moderate-sized left pleural effusion. 2. Stable diffuse lung disease with a perihilar predominance, consistent with p ulmonary edema versus pneumonia. 3. Enlargement of the cardiac silhouette correlate with a pericardial effusion by CT.
--- NOTE | ~2022-06-20 | XR_ITS ---
EXAMINATION: XR abdomen obstructive series DATE: 06/25/2022 09:13 INDICATION: Abdominal tenderness TECHNIQUE: Supine and upright views of the abdomen. FINDINGS: 06/22/2022 The visualized lung parenchyma is normal.. There is a nonspecific bowel gas pattern. The bowel is rel atively gasless. NG tube in the stomach. There is no free air. There is moderate left pleural effusi on. There is bilateral airspace disease which may represent edema or pneumonia. Central venous cathet er tip in the right atrium. Endotracheal tube partially visualized. IMPRESSION: 1. Nonspecific bowel gas pattern. Relatively gasless abdomen. Reviewed, dictated and finalized at location A.
--- NOTE | ~2022-06-20 | US_ITS ---
EXAMINATION: US renal BI DATE: 06/21/2022 09:37 INDICATION: Acute on chronic renal failure TECHNIQUE: Multiple grayscale and Doppler ultrasound images of the kidneys were obtained. COMPARISON: None. FINDINGS: The right kidney measures 8.6 x 3.2 x 4.6 cm. The left kidney measures 9.0 x 4.5 x 4.9 cm. The kidneys demonstrate normal parenchymal echogenicity. There is a small volume of pelvic ascites. T here is no hydronephrosis. The bladder is not distended and not well evaluated. IMPRESSION: 1. Normal kidneys without hydronephrosis. Reviewed, dictated and finalized at location B.
--- NOTE | ~2022-06-20 | CT_ITS ---
EXAMINATION: CT brain wo con DATE: 06/20/2022 14:10 INDICATION: Altered mental status TECHNIQUE: Computed tomography (CT) of the head was performed without intravenous contrast. Sagittal and coronal reconstructions were performed. The mA was adjusted according to patient size. Iterative reconstruction technique was employed. The dose-length product was 529.67 mGy-cm. COMPARISON: head CT dated 03/20/2022 FINDINGS: Anterior left frontal scalp hematoma. No fracture. No acute intracranial hemorrhage, acute infarction or abnormal extra axial fluid collection. There is mild scattered white matter hypoattenuation consi stent with chronic small vessel ischemic disease. Ventricles are normal and symmetric. No mass/mass effect. Small bilateral mastoid effusions. The orbits, paranasal sinuses and mastoid air cells are no rmal. IMPRESSION: 1. Anterior left frontal scalp hematoma. No fracture or acute intracranial process. 2. Mild scattered white matter hypoattenuation consistent with chronic small vessel ischemic disease. Reviewed, dictated and finalized at location A. IMPRESSION: 1. Anterior left frontal scalp hematoma. No fracture or acute intracranial proc ess. 2. Mild scattered white matter hypoattenuation consistent with chronic small ve ssel ischemic disease.
--- NOTE | ~2022-06-20 | XR_ITS ---
EXAMINATION: XR chest PICC line Exam Date/Time: 06/23/2022 14:55 CDT HISTORY: PICC insertion Comparison: 06/23/2022. RESULT: Lines, tubes, and devices: New left upper extremity PICC, terminating in the proximal right atrium, 2 cm beyond the cavoatrial junction. Slightly low positioned endotracheal tube, 2 cm above the edna . NG tube side port may terminate at the gastroesophageal junction, tip not in the field of view. Lungs and pleura: Improving right basilar aeration. Persistent right upper lung opacities and left c ostophrenic angle blunting. Cardiomediastinal silhouette: Stable. Other: No acute osseous or upper abdominal finding. IMPRESSION: New left upper extremity PICC, consider 2 cm retraction. Low positioned ETT and slightly shallow posi tioned NG tube, correlate with tube function. Improved right basilar aeration. Persistent left effusi on and right upper lobe opacities. Reviewed, dictated and finalized at location K. IMPRESSION: New left upper extremity PICC, consider 2 cm retraction. Low positioned ETT and slightly shallow positioned NG tube, correlate with tube function. Improved ri ght basilar aeration. Persistent left effusion and right upper lobe opacities.
--- NOTE | ~2022-06-20 | CT_ITS ---
EXAMINATION: CT chest abdomen pelvis wo con DATE: 06/20/2022 15:26 INDICATION: Sepsis. Shortness of breath. TECHNIQUE: Computed tomography (CT) of the chest, abdomen, and pelvis was performed without intraveno us contrast. Automated exposure control and iterative reconstruction technique were employed. The dos e-length product was 275.07 mGy-cm. COMPARISON: Chest CT 04/24/2022, PET/CT 05/30/21 FINDINGS: CHEST CT: The lungs demonstrate widespread smooth septal thickening. There are peripheral groundglass opacities in right lower lobe. There are airspace opacities in the lungs with a peripheral and dependent predo minance. There is paramediastinal radiation fibrosis in right lung. There is a 1.6 cm nodule in nisha ediastinal left upper lobe. Calcified pulmonary nodules and calcified hilar and mediastinal lymph nod es are consistent with old granulomatous disease. Again seen is soft tissue attenuation in the medias tinum. There are small right and moderate-sized left pleural effusions. The heart size is normal. The re are coronary artery calcifications. There is a large pericardial effusion. There is a right biology intern al jugular port with tip in right atrium. Body wall edema is noted. There is moderate thoracic spondy losis. ABDOMEN/PELVIS CT: The liver is normal. The gallbladder, spleen, pancreas, and adrenal glands are normal. There are vasc ular calcifications in the kidneys. There is a 2 mm stone in left kidney. There is a 6.3 cm calcified mass in right adnexa. There are no dilated loops of bowel. There is a small volume of ascites. There is widespread body wall edema and edema of the intra-abdominal fat, which decreases sensitivity. The re are no pathologically enlarged lymph nodes. There is mild lumbar spondylosis. IMPRESSION: 1. Small right and moderate-sized left pleural effusions. 2. Diffuse lung disease, likely a combination of mild pulmonary edema and atelectasis and radiation p neumonitis. 3. 1.6 cm nodule in paramediastinal left lung upper lobe, which may be scarring or metastatic disease . 4. Stable diffuse soft tissue attenuation in the mediastinum, which may be anatoly metastatic disease a nd/or changes of radiation therapy. 5. Chronic large pericardial effusion. 6. Small volume of ascites. 7. Chronic calcified mass in right adnexa, likely a pedunculated fibroid. Reviewed, dictated and finalized at location A. IMPRESSION: 1. Small right and moderate-sized left pleural effusions. 2. Diffuse lung disease, likely a combination of mild pulmonary edema and atele ctasis and radiation pneumonitis. 3. 1.6 cm nodule in paramediastinal left lung upper lobe, which may be scarring or metastatic disease. 4. Stable diffuse soft tissue attenuation in the mediastinum, which may be fabien l metastatic disease and/or changes of radiation therapy. 5. Chronic large pericardial effusion. 6. Small volume of ascites. 7. Chronic calcified mass in right adnexa, likely a pedunculated fibroid.
--- NOTE | ~2022-06-20 | XR_ITS ---
EXAMINATION: XR chest ET placement DATE: 06/22/2022 21:21 INDICATION: Intubation. TECHNIQUE: A single frontal view of the chest was obtained. COMPARISON: Chest single view 5:39 AM, chest CT 06/20/2022 FINDINGS: There are small pleural effusions. There is a diffuse interstitial pattern in the lungs. Th ere are airspace opacities in right midlung zone, consistent with scarring. No pneumothorax. The card iac silhouette is enlarged. The endotracheal tube tip is 3.1 cm above the edna. The nasogastric tub e tip is in the stomach. There is a right internal jugular port with tip in right atrium. IMPRESSION: 1. Small pleural effusions. 2. Diffuse interstitial pattern in the lungs, likely a combination of mild pulmonary edema and chroni c lung disease. 3. Enlargement of the cardiac silhouette correlating with a large pericardial effusion by CT. Reviewed, dictated and finalized at location A. IMPRESSION: 1. Small pleural effusions. 2. Diffuse interstitial pattern in the lungs, likely a combination of mild pulm onary edema and chronic lung disease. 3. Enlargement of the cardiac silhouette correlating with a large pericardial e ffusion by CT.
--- NOTE | ~2022-06-20 | XR_ITS ---
EXAMINATION: XR chest 1V portable INDICATION: Pericardial effusion TECHNIQUE: Portable AP chest at 1254 hours COMPARISON: 05/09/2022 FINDINGS: The cardiac silhouette remains enlarged but not significantly changed. There are small righ t and moderate-sized left pleural effusions. There is no pneumothorax. Unchanged left perihilar opaci ties likely reflect treated malignancy. A right internal jugular Port-A-Cath ends with its tip in the right atrium. IMPRESSION: 1. Moderate-sized left and small right pleural effusions. 2. Persistent enlargement of the cardiac silhouette, likely due to pericardial effusion. Reviewed, dictated and finalized at location B.
--- NOTE | ~2022-06-20 | XR_ITS ---
EXAMINATION: XR chest 1V portable DATE: 06/25/2022 05:29 INDICATION: Pericardial effusion. Pleural effusions. TECHNIQUE: A single frontal view of the chest was obtained. COMPARISON: Chest single view 06/24/2022 FINDINGS: There are airspace opacities in all lung zones bilaterally, worst in right upper lobe and l eft mid and lower lung zones. There is a moderate-sized left pleural effusion. No pneumothorax. The c ardiac silhouette is enlarged. The endotracheal tube tip is 4 mm above the edna. The nasogastric tu be tip is beyond the inferior margin of the radiograph, but at least to the stomach. There is a right internal jugular port with tip in right atrium. A left upper extremity peripherally inserted central venous catheter (PICC) is seen with tip in the superior vena cava. IMPRESSION: 1. Endotracheal tube tip 4 mm above the edna. 2. Stable moderate-sized left pleural effusion. 3. Stable diffuse lung disease, consistent with pulmonary edema versus pneumonia. 4. Enlargement of the cardiac silhouette correlating with a pericardial effusion by CT. Reviewed, dictated and finalized at location A. IMPRESSION: 1. Endotracheal tube tip 4 mm above the edna. 2. Stable moderate-sized left pleural effusion. 3. Stable diffuse lung disease, consistent with pulmonary edema versus pneumoni a. 4. Enlargement of the cardiac silhouette correlating with a pericardial effusio n by CT.
--- NOTE | 2022-06-20 12:11 | ED.AMS ---
HPI - Altered Mental Status General Chief Complaint: Altered Mental Status Stated Complaint: SOB Time Seen by Provider: 06/20/22 12:11 Source: patient Mode of arrival: EMS Limitations: clinical condition and dementia History of Present Illness HPI narrative: Patient is a 61-year-old female with a history of COPD, chronic respiratory failure, congestive heart failure, pulmonary hypertension, small cell lung cancer, recent diagnosis of pericardial effusion with admission in May, presenting to the emergency department for evaluation of shortness of breath, low blood pressure. Patient apparently found at facility this morning with oxygen saturation in the 80 percentile despite being on her regular amount of oxygen via nasal cannula. Patient denies any acute complaints at this time but history is limited, is not a terribly reliable historian. Is alert and oriented to person, place, can identify the year after prompting. Patient is significantly hypotensive, she is mildly bradycardic. Related Data Home Medications Medication Instructions Recorded Confirmed aspirin 81 mg tablet 81 mg PO DAILY 09/07/20 05/10/22 atorvastatin 40 mg tablet 80 mg PO HS 09/07/20 05/10/22 diltiazem HCl 360 mg 360 mg PO DAILY 09/07/20 05/10/22 capsule,extended release 24 hr escitalopram oxalate 10 mg tablet 10 mg PO DAILY 09/07/20 05/10/22 pyridoxine (vitamin B6) 100 mg 100 mg PO BID 02/01/21 05/10/22 tablet metoprolol succinate 25 mg 25 mg PO DAILY 05/03/21 05/10/22 tablet,extended release 24 hr ferrous sulfate 325 mg (65 mg 325 mg PO BID 09/11/21 05/10/22 iron) tablet (iron) albuterol sulfate 90 mcg/actuation 2 inh inhalation Q4H PRN Shortness 01/26/22 05/10/22 aerosol inhaler Of Breath benzonatate 100 mg capsule 100 mg PO Q8H PRN Cough 01/26/22 05/10/22 bisacodyl 10 mg rectal suppository 10 mg RECTAL DAILY PRN Constipation 01/26/22 05/10/22 (Dulcolax (bisacodyl)) ipratropium 0.5 mg-albuterol 3 mg 3 ml inhalation Q6H PRN Shortness 01/26/22 05/10/22 (2.5 mg base)/3 mL nebulization Of Breath soln trazodone 50 mg tablet 25 mg PO HS PRN Insomnia 01/26/22 05/10/22 acetaminophen 325 mg capsule 650 mg PO Q4H PRN Pain (Scale 03/20/22 05/10/22 Score 1-3) Saccharomyces boulardii 250 mg 250 mg PO BID 05/10/22 05/10/22 capsule carvedilol 12.5 mg tablet 12.5 mg PO BID 05/10/22 05/10/22 cyanocobalamin (vitamin B-12) 1,000 mcg sublingual DAILY 05/10/22 05/10/22 1,000 mcg sublingual tablet epoetin [id number] 20,000 unit/mL 20,000 unit subcut [id number] 05/10/22 05/10/22 injection solution (Retacrit) ergocalciferol (vitamin D2) 50 mcg 25 mcg PO DAILY 05/10/22 05/10/22 (2,000 unit) tablet hydrocodone 7.5 mg-acetaminophen 1 tablet PO Q6H PRN Moderate Pain 05/10/22 05/10/22 325 mg tablet (Scale Score 5-6) levothyroxine 25 mcg tablet 50 mcg PO DAILY 05/10/22 05/10/22 lidocaine 5 % topical patch 1 patch topical DAILY 05/10/22 05/10/22 multivitamin with minerals 1 tablet PO DAILY 05/10/22 05/10/22 sucralfate 1 gram tablet 1,000 mg PO TID 05/10/22 05/10/22 vancomycin 125 mg capsule 125 mg PO DAILY 05/10/22 05/10/22 Allergies Allergy/AdvReac Type Severity Reaction Status Date / Time No Known Allergies Allergy Verified 03/20/22 08:52 Review of Systems Review of Systems: ROS unobtainable: Yes unobtainable due to mental status PMFSH Past Medical History Medical History Anemia in chronic illness Anxiety C. difficile colitis (03/21/22) Resulting in shock Chronic hypercapnic respiratory failure Chronic hyponatremia Chronic kidney disease Chronic obstructive pulmonary disease Chronic respiratory failure with hypoxia, on home oxygen therapy Depression Diastolic dysfunction EF 65 to 70%. Grade 1 diastolic dysfunction. Most recent echo March 2022 Emphysema of lung Hearing loss Hypercholesterolemia Hypertension Hypothyroidism Pericardial effusion without cardiac tamponade Patient has
--- NOTE | 2022-06-20 12:41 | ECG_ITS ---
Measurements Intervals [place] Rate: 54 P: 7 [place]: 189 QRS: 28 QRSD: 83 T: 58 QT: 428 QTc: 407 Interpretive Statements SINUS BRADYCARDIA LOW QRS VOLTAGE IN PRECORDIAL LEADS CANNOT RULE OUT SEPTAL INFARCT, AGE INDETERMINATE NONSPECIFIC T-WAVE ABNORMALITY- INFERIOR LEADS BASELINE ARTIFACT- I, II, III, AVR, AVL, AVF, V6 ABNORMAL ECG COMPARED TO ECG 05/09/2022 14:44:36 SINUS BRADYCARDIA NOW PRESENT T-WAVE ABNORMALITY NOW PRESENT Electronically Signed On 06-20-2022 14:35:58 CDT by Darrell Norris D.O.
[2022-06-20 13:03] LABS: Alveolar/Arterial O2 Gradient 102.2 mmHg; Base Excess ABG 1.1 mEq/l (+/-2.0); Carboxyhemoglobin 0.6 % THb (0-2.0); Fractional Inspired Oxygen 32 %; HCO3 ABG 26.8 mEq/l (22.0-26.0); Methemoglobin ABG 0.2 %THb (0-1.5); Oxygen Content ABG 15.4 %vol (16.0-22.0); Oxygen Saturation ABG 93.7 % (95.0-100.0); Oxyhemoglobin 93.3 % THb (90.0-100.0); PCO2 ABG 47.3 mmHg (35.0-45.0); PO2 ABG 70.6 mmHg (80.0-100.0); PO2 FiO2 Ratio Arterial Blood 2.21 %; Reduced Hemoglobin 5.9 %THb (0-5.0); Total Hemoglobin 11.7 g/dL (12.0-18.0); pH ABG 7.371 (7.350-7.450)
[2022-06-20 13:05] LABS: Device NASAL CANNULA; Modified Allen's Test Pass; Site Drawn RIGHT RADIAL
[2022-06-20] MEDS: SODIUM CHLORIDE 0.9% IV 500 ML 999 ML IV CONT (13:06)
[2022-06-20 13:13] LABS: Basophils Absolute Auto 0.2 K/mm3 (0.0-0.1); Basophils Percent Auto 0.4 % (0.2-1.2); Hematocrit 34.4 % (37.0-47.0); Hemoglobin 10.7 g/dL (12.0-15.0); Immature Granulocyte Absolute 0.75 K/mm3 (0.00-0.031); Immature Granulocyte Percent A 1.7 % (0-0.5); Immature Platelet Fraction Pct 6.5 % (0.9-11.2); Lymphocytes Absolute Auto 0.32 K/mm3 (0.9-3.2); Lymphocytes Percent Auto 0.7 % (18.3-44.2); Mean Corpuscular HGB Conc 31.1 g/dl (32-36); Mean Corpuscular Volume 106.2 fl (80-100); Monocytes Percent Auto 2.3 % (2.6-8.5); Neutrophils Absolute Auto 41.7 K/mm3 (1.3-6.7); Neutrophils Percent Auto 94.9 % (45.5-73.1); Nucleated Red Blood Cells Perc 0.1 % (0.0-0.2); Platelet Count Result 144 k/mm3 (150-375); Red Blood Count 3.24 M/mm3 (4.2-5.4); Red Cell Distribution Width 17.1 % (11.5-14.5)
[2022-06-20 13:22] LABS: Alanine Aminotransferase 53 U/L (6-35); Albumin Level 2.4 g/dL (3.5-5.1); Alkaline Phosphatase 386 U/L (38-126); Anion Gap 9 mmol/L (8-16); Aspartate Amino Transferase 130 U/L (14-36); Bilirubin,Total 0.9 mg/dL (0.2-1.3); Blood Urea Nitrogen 20 mg/dL (7-17); Calcium 8.4 mg/dL (8.4-10.2); Carbon Dioxide 27 mmol/L (22-30); Chloride 90 mmol/L (98-107); Estimated Glomerular Filt Rate 21; Glucose 67 mg/dL (65-110); Lactic Acid Reflex 1.4 mmol/L (0.7-2.0); Potassium 2.9 mmol/L (3.4-5.0); Sodium 126 mmol/L (137-145)
[2022-06-20] MEDS: DOPamine 400 MG/D5W 250 ML 400 MG/250 ML BAG 8.21 MG IV CONT (13:23)
[2022-06-20 13:24] LABS: INR 1.4; Prothrombin Time 16.6 Seconds (11.1-14.7)
[2022-06-20] MEDS: CALCIUM GLUC 1,000 MG/NS 100ML 1,000 MG/100 ML BAG 200 MG IVPB (13:24)
[2022-06-20] MEDS: GLUCAGON FOR INJ 1 MG VIAL IV PUSH (13:24)
[2022-06-20] MEDS: ONDANSETRON INJ 4 MG/2 ML VIAL IV PUSH (13:24)
[2022-06-20 13:34] LABS: Appearance Urine Clear (Clear); Bilirubin Urine 1+ (Negative); Color Urine Yellow (Yellow); Glucose Urine UA Negative (Negative); Ketones Urine Trace mg/dL (Negative); Leukocyte Esterase Ur Negative LEU/UL (Negative); Nitrate Urine Negative (Negative); Protein Urine 1+ mg/dL (Negative); Specific Grav Ur 1.025 (1.001-1.035); Troponin I < 0.012 ng/mL (0.000-0.034); Urobilinogen Urine 0.2 mg/dL (<2.0); pH Urine 5.5 (5.0-9.0)
[2022-06-20 13:38] LABS: NT Pro B Type Natriuretic Pept 8400 pg/mL (5-100)
--- NOTE | 2022-06-20 13:46 | PC.NURSE ---
Per Dr. Bustos, start dopamine at 5mcg
[2022-06-20 13:53] LABS: Mucus Urine Rare /lpf; RBC Urine 0-2 /hpf (0-2); Squamous Epithelial Cell Urine Rare /hpf (Few); WBC Urine 0-3 /hpf
[2022-06-20 14:03] LABS: Add Urine Microscopic? YES; Blood Urine Trace-Intact (Negative)
--- NOTE | 2022-06-20 14:19 | WPDCNINT ---
Assessment and Plan Assessment and plan (1) Shock: Code(s): R57.9 - Shock, unspecified Status: Acute Assessment and Plan: Patient presented with shock, likely infectious given her WBC count is 44 with 94% neutrophilia. Patient also has moderate to large pericardial effusion, patient could have some tamponade physiology. -lactic acid 1.4 -patient started on vancomycin and cefepime in the ER (06/20) -given a bradycardia and hypotension patient was started on dopamine, maintain MAP > 65 mmHg -acute kidney injury with elevated creatinine, monitor urine output -patient has received 30 mL/kg of IV fluids -will continue maintenance IV fluids with normal saline at 100 mL/hr -discussed with ER physician, will perform CT abdomen and pelvis without contrast to check for any abdominal infectious process, also will start on stress dose steroids in give IV levothyroxine and albumin -May require Levophed (2) Acute and chronic respiratory failure with hypercapnia: Code(s): J96.22 - Acute and chronic respiratory failure with hypercapnia Status: Acute Assessment and Plan: Patient currently on 6 L nasal cannula, O2 sats have been adequate -06/20 chest x-ray: Moderate-sized left and small right pleural effusions.. Persistent enlargement of the cardiac silhouette, likely due to pericardial effusion. -patient may require thoracentesis once she is more stable -patient has history of COPD and is on home oxygen -will order bronchodilators (3) Altered mental status: Code(s): R41.82 - Altered mental status, unspecified Status: Acute Assessment and Plan: Altered mental status could be multifactorial related to hyponatremia, hypotension/bradycardia due to patient being on diltiazem as well as metoprolol -will start maintenance IV fluids with normal saline -06/20/2022 CT brain; Anterior left frontal scalp hematoma. No fracture or acute intracranial process.. Mild scattered white matter hypoattenuation consistent with chronic small vessel ischemic disease. -continue to monitor (4) Hyponatremia: Code(s): E87.1 - Hypo-osmolality and hyponatremia Status: Acute Assessment and Plan: Hyponatremia could be to hypothyroidism, hypovolemia -continue IV fluids with normal saline -will monitor sodium levels (5) Pericardial effusion: Code(s): I31.3 - Pericardial effusion (noninflammatory) Status: Acute Assessment and Plan: Moderate to large Pericardial effusion -echocardiogram done in the ER, Cardiology was present, stated the pericardial effusion is moderate to large, unchanged from the previous echocardiogram done in May 2022. -cardiology to continue to follow -troponins negative x1 -proBNP of 8400 (6) Pleural effusion: Code(s): J90 - Pleural effusion, not elsewhere classified Status: Acute Assessment and Plan: 06/20/2022 chest x-ray: Moderate-sized left and small right pleural effusions.. Persistent enlargement of the cardiac silhouette, likely due to pericardial effusion -patient may require thoracentesis when she is more stable (7) Acute kidney injury: Code(s): N17.9 - Acute kidney failure, unspecified Status: Acute Assessment and Plan: Acute on chronic kidney disease, likely related to hypotension, infection, hypovolemia -will check urine lytes, from a renal ultrasound -patient adequately fluid-resuscitated -will start maintenance IV fluids -maintain mean arterial pressures greater than 65 mm Hg -continue to monitor renal function, electrolytes and urine output (8) Anemia in CKD (chronic kidney disease): Qualifiers: Chronic kidney disease stage: unspecified stage Qualified Code(s): N18.9 - Chronic kidney disease, unspecified; D63.1 - Anemia in chronic kidney disease Code(s): N18.9 - Chronic kidney disease, unspecified; D63.1 - Anemia in chronic kidney disease Status: Acute Assessment and Plan: Hemoglobin is
--- NOTE | 2022-06-20 14:40 | PM.CNCAR ---
Assessment and Plan Assessment and plan (1) Acute hypotension: Code(s): I95.9 - Hypotension, unspecified Status: Acute (2) Pericardial effusion: Code(s): I31.3 - Pericardial effusion (noninflammatory) Status: Acute Plan 1. Fluid resuscitation, recommend starting Dopamine 2. Echocardiogram does not show tamponade physiology. Size of pericardial effusion is unchanged compared to prior study. No indication for pericardiocentesis at this time. 3. Hold beta-blockers and antihypertensives. 4. Check TSH 5. If concern that patient develops tamponade, please call on-call Interventional Cardiolgist. History of Present Illness History of Present Illness Consult date/time: 06/20/22 14:40 Requesting physician: Linda Joya MD Consult reason: Other (Possible tamponade) Reason For Visit: SOB Narrative: Patient is a 61-year-old female with a history of chronic moderate-large pericardial effusion, history of COPD on home oxygen, history of small cell lung cancer s/p chemoradiation, chronic kidney disease, hypertension who presented to the ED for shortness of breath. Upon arrival to the ED, patient noted to be hypotensive with SBP in the 60s with heart rate in the high 40s-50s (on beta-maryanne therapy at home). ED concerned for possible tamponade, therefore, Cardiology consulted. Patient reports shortness of breath, but denies chest pain, palpitations, lightheadedness/dizziness. Patient [facility] reported [facility] CXR showed significantly enlarged cardiac silhouette. Patient noted to have bruises on her face - CT head showed anterior left scalp hematoma. Review of Systems Constitutional: Constitutional: Denies body ache(s), Denies chills and Reports weakness Cardiovascular: Cardiovascular: Denies chest pain, Reports leg edema, Denies lightheadedness and Denies palpitations Respiratory: Respiratory: Reports dyspnea Gastrointestinal: Gastrointestinal: Denies abdominal pain Hematologic/Lymphatic: Hematologic/Lymphatic: Reports easy bruising PMFSH Past Medical History Medical History Anemia in chronic illness Anxiety C. difficile colitis (03/21/22) Resulting in shock Chronic hypercapnic respiratory failure Chronic hyponatremia Chronic kidney disease Chronic obstructive pulmonary disease Chronic respiratory failure with hypoxia, on home oxygen therapy Depression Diastolic dysfunction EF 65 to 70%. Grade 1 diastolic dysfunction. Most recent echo March 2022 Emphysema of lung Hearing loss Hypercholesterolemia Hypertension Hypothyroidism Pericardial effusion without cardiac tamponade Patient has had a chronic pericardial effusion since at least September 2021. Large pericardial effusion with fibrinous material within the pericardial space with right atrial free wall invagination consistent with elevated intrapericardial pressures. Flow velocity criteria does not be tamponade physiology. MV inflow velocity variation is borderline consistent. IVC is not dilated and has normal collapse. Pulmonary hypertension Moderate pulmonary hypertension on echocardiogram in September 2021 with an estimated PA SP of 47 mmHg. Small cell lung cancer Limited stage small cell arising in the left hilar region diagnosed in 07/2020. Status post chemoradiotherapy and prophylactic cranial irradiation between 09/2020 and 01/2021. Local recurrence in 06/2021 status post salvage SBRT. Surgical History Surgical History History of section History of esophagogastroduodenoscopy Status post dilatation x2 for stricture. Family History Family History Father Cancer Mother Heart disease Hypertension Acute myocardial infarction Social History Social History Social History: Surrogate decision simona
[2022-06-20] MEDS: SODIUM CHLORIDE 0.9% IV 1,000 ML 999 ML IV CONT (14:54)
--- NOTE | 2022-06-20 15:01 | PC.NURSE ---
Per EDP Mahnaz, increase DOpamine to 7.5mcg/kg/min
[2022-06-20 15:15] LABS: Alveolar/Arterial O2 Gradient 187.8 mmHg; Base Excess ABG -3.2 mEq/l (+/-2.0); Carboxyhemoglobin 0.4 % THb (0-2.0); Fractional Inspired Oxygen 44 %; HCO3 ABG 23.2 mEq/l (22.0-26.0); Methemoglobin ABG 0.3 %THb (0-1.5); Oxygen Content ABG 14.9 %vol (16.0-22.0); Oxyhemoglobin 92.9 % THb (90.0-100.0); PCO2 ABG 47.2 mmHg (35.0-45.0); PO2 ABG 72.1 mmHg (80.0-100.0); PO2 FiO2 Ratio Arterial Blood 1.64 %; Reduced Hemoglobin 6.4 %THb (0-5.0); Total Hemoglobin 11.4 g/dL (12.0-18.0); pH ABG 7.309 (7.350-7.450)
[2022-06-20 15:16] LABS: Device NASAL CANNULA; Modified Allen's Test Pass; Site Drawn RIGHT RADIAL
[2022-06-20] MEDS: DOPamine 400 MG/D5W 250 ML 400 MG/250 ML BAG 16.43 MG IV CONT (15:45)
--- NOTE | 2022-06-20 15:45 | ADMGEN ---
This patient, Stephanie Holt, was admitted to Intensive Care Unit-9. Patient/family oriented to hospital policies and general routines including ID bracelet, bed and alarms, visiting hours, pain management, procedures, bathroom and other care routines, personal items, smoking policy, room service/diet, and visiting hours. Information on how to activate the Rapid Response Team has been discussed. Patient/Family are encouraged to report perceived risks to care and to ask questions if they do not understand what they are told or what they should do.
[2022-06-20] MEDS: SODIUM CHLORIDE 0.9% IV 1,000 ML 100 ML IV CONT (15:55)
[2022-06-20] MEDS: ALBUMIN HUMAN 25% 25 GM/100 ML 100 ML IVPB ×2 (16:02→23:47)
[2022-06-20] MEDS: LEVOTHYROXINE SODIUM INJ 100 MCG/5 ML VIAL IV PUSH (16:11)
[2022-06-20] MEDS: POTASSIUM CHLORIDE INJ 40 MEQ in SODIUM CHLORIDE 0.9% IV 500 ML 130 MEQ IVPB (16:11)
[2022-06-20 16:18] LABS: Glucose Point of Care 77 mg/dl (65-105)
--- NOTE | 2022-06-20 17:12 | PM.IMHP ---
H&P: HPI History of Present Illness Date/Time: 06/20/22 17:12 Chief Complaint: Altered mental status Narrative: This is a 61-year-old female patient who has chronic respiratory failure and is on oxygen at home. She has a history of COPD, congestive heart failure, pulmonary hypertension, and small cell lung cancer. The patient was recently here at [facility] and discharged on 05/14/2022. The patient has a chronic left pleural effusion and a new right pleural effusion. The patient had an echo performed today that was read as a following. 1. Complete two-dimensional, color flow and Doppler transthoracic echocardiogram is performed. ? 2. Left ventricular chamber dimension is normal. ? 3. Left ventricular systolic function is normal, estimated at >70%. ? 4. There is no increased left ventricular wall thickness. ? 5. The left ventricular diastolic function is grade II diastolic dysfunction. ? 6. Filamentous mobile echodensity within the right atrium with suggestion of extension toward the tricuspid valve and into the right ventricle concerning for vegetation, thrombus, or mass.? Clinical correlation advised. ? 7. There is trace mitral valve regurgitation. ? 8. There is mild tricuspid valve regurgitation. ? 9. No pulmonary hypertension, estimated pulmonary arterial systolic pressure is 29 mmHg. ? 10. There is no aortic valve stenosis. ? 11. There is trace aortic valve regurgitation. ? 12. Normal inferior vena cava with >50% collapse upon inspiration consistent with normal right atrial pressure, 5 mmHg. ? 13. There is moderate to large circumferential pericardial effusion measuring from 1.3-1.7 cm with extensive fibrinous material within the pericardial space.? No evidence of tamponade physiology by mitral or tricuspid valve inflow velocity variation, however, there is evidence of increased intrapericardial pressure with slight invagination of the right atrial free wall. ? 14. Consider transesophageal echocardiogram. The patient came to the emergency room for evaluation of shortness of breath and low blood pressure. Patient was found at the facility this morning to have and of to level of 80% regardless of her regular amount of oxygen that she received via nasal cannula. The patient is not a reliable historian. Her Port-A-Cath was accessed and the patient was started on a dopamine drip and given albumin. She was started on vancomycin and cefepime. She was given IV fluids, calcium gluconate, Zofran, and Solu-Cortef. She was also started on Levophed. Her white count was noted to be 44.0. Hemoglobin 10.7 and 34.4 which is her baseline. Platelet count 144. Her pH is 7.309 CO2 was 47.2. PO2 was 72.1. The anthropology and archeology instructor has been consulted and cardiology has been consulted. The patient is being admitted to ICU inpatient on the date of service of 06/20/2022. Review of Systems Review of Systems: The patient is a very poor historian see HPi All systems reviewed & are unremarkable except as noted in HPI and below Constitutional: Constitutional: Reports as per HPI and Reports no additional constitutional complaints Eyes: Eyes: Reports as per HPI and Reports no additional eye complaints ENT: Reports system reviewed and no additional complaints, except as documented and Reports Normal hearing present Cardiovascular: Cardiovascular: Reports no additional cardiovascular complaints Respiratory: Respiratory: Reports no additional respiratory complaints and Reports no additional respiratory complaints Gastrointestinal: Gastrointestinal: Reports as per HPI and Reports no additional gastrointestinal complaints Musculoskeletal: Musculoskeletal: Reports no additional musculoskeletal complaints Integumentary/Breasts: Skin/Breast: Reports system reviewed and no additional complaints, except as docu and Reports as per HPI Neurologic: Reports system reviewed and no additional complaints, except as documented, Reports as per HPI and Reports Normal hearing pr
[2022-06-20] MEDS: HYDROCORTISONE SODIUM SUCCINATE 100 MG/2 ML VIAL IV PUSH ×2 (17:41→21:03)
[2022-06-20 18:41] LABS: Anion Gap 10 mmol/L (8-16); Blood Urea Nitrogen 20 mg/dL (7-17); Calcium 7.6 mg/dL (8.4-10.2); Carbon Dioxide 24 mmol/L (22-30); Chloride 95 mmol/L (98-107); Estimated Glomerular Filt Rate 23; Glucose 106 mg/dL (65-110); Potassium 3.4 mmol/L (3.4-5.0); Sodium 129 mmol/L (137-145)
[2022-06-20 20:59] LABS: Anion Gap 12 mmol/L (8-16); Blood Urea Nitrogen 21 mg/dL (7-17); Calcium 7.7 mg/dL (8.4-10.2); Carbon Dioxide 24 mmol/L (22-30); Chloride 94 mmol/L (98-107); Estimated Glomerular Filt Rate 23; Glucose 130 mg/dL (65-110); Potassium 3.8 mmol/L (3.4-5.0); Sodium 130 mmol/L (137-145)
[2022-06-20 21:00] LABS: Lactic Acid Reflex 0.8 mmol/L (0.7-2.0)
[2022-06-20] MEDS: ATORVASTATIN 40 MG TABLET 80 MG PO (21:02)
[2022-06-20] MEDS: HEPARIN SODIUM 5,000 UNITS/ML VIAL 5000 UNITS SUB-Q (21:03)
[2022-06-20] MEDS: ALBUTEROL SULFATE NEB 2.5 MG/3 ML INH 5 MG INHALATION (21:09)
[2022-06-20 21:32] LABS: Sodium Urine Random 13 meq/L
[2022-06-20 21:56] LABS: SARS-CoV-2 RNA PCR Negative
[2022-06-20] MEDS: DOPamine 400 MG/D5W 250 ML 400 MG/250 ML BAG 26.28 MG IV CONT (23:46)
[2022-06-21] VITALS (35 sets, daily range): BP systolic 92–120; BP diastolic 43–69; PULSE 65–97; RESP 10–100; TEMP 35.7–36.8; O2SAT 15–100
[2022-06-21] MEDS: SODIUM CHLORIDE 0.9% IV 1,000 ML 100 ML IV CONT ×2 (01:16→11:57)
[2022-06-21] MEDS: ALBUTEROL SULFATE NEB 2.5 MG/3 ML INH 5 MG INHALATION ×4 (02:37→20:26)
[2022-06-21 04:58] LABS: Basophils Absolute Auto 0.1 K/mm3 (0.0-0.1); Basophils Percent Auto 0.2 % (0.2-1.2); Eosinophils Percent Auto 0.1 % (0-4.4); Hematocrit 30.9 % (37.0-47.0); Hemoglobin 9.7 g/dL (12.0-15.0); Immature Granulocyte Absolute 1.11 K/mm3 (0.00-0.031); Immature Granulocyte Percent A 2.6 % (0-0.5); Immature Platelet Fraction Pct 6.7 % (0.9-11.2); Lymphocytes Absolute Auto 0.16 K/mm3 (0.9-3.2); Lymphocytes Percent Auto 0.4 % (18.3-44.2); Mean Corpuscular HGB Conc 31.4 g/dl (32-36); Mean Corpuscular Hemoglobin 33.3 pg (26-34); Mean Corpuscular Volume 106.2 fl (80-100); Mean Platelet Volume 10.3 fl (7.4-10.4); Monocytes Absolute Auto 0.3 K/mm3 (0.1-0.6); Monocytes Percent Auto 0.7 % (2.6-8.5); Neutrophils Absolute Auto 40.3 K/mm3 (1.3-6.7); Nucleated Red Blood Cells Perc 0.1 % (0.0-0.2); Platelet Count Result 129 k/mm3 (150-375); Red Blood Count 2.91 M/mm3 (4.2-5.4); Red Cell Distribution Width 16.8 % (11.5-14.5)
[2022-06-21 05:05] LABS: Lactic Acid Reflex 0.8 mmol/L (0.7-2.0)
[2022-06-21 05:15] LABS: Alanine Aminotransferase 43 U/L (6-35); Alkaline Phosphatase 279 U/L (38-126); Anion Gap 12 mmol/L (8-16); Aspartate Amino Transferase 91 U/L (14-36); Bilirubin,Total 1.2 mg/dL (0.2-1.3); Blood Urea Nitrogen 22 mg/dL (7-17); Carbon Dioxide 21 mmol/L (22-30); Chloride 94 mmol/L (98-107); Estimated Glomerular Filt Rate 23; Glucose 136 mg/dL (65-110); Lactate Dehydrogenase 378 U/L (120-246); Magnesium 1.5 mg/dL (1.6-2.3); Phosphorus 1.9 mg/dL (2.5-4.5); Potassium 3.7 mmol/L (3.4-5.0); Sodium 127 mmol/L (137-145)
[2022-06-21 05:27] LABS: CRP 14.3 mg/dL (<1.0)
[2022-06-21] MEDS: HYDROCORTISONE SODIUM SUCCINATE 100 MG/2 ML VIAL IV PUSH ×3 (06:49→21:23)
[2022-06-21] MEDS: ALBUMIN HUMAN 25% 25 GM/100 ML 100 ML IVPB ×3 (06:50→18:12)
[2022-06-21] MEDS: LEVOTHYROXINE SODIUM INJ 100 MCG/5 ML VIAL 50 MCG IV PUSH (06:50)
[2022-06-21 07:31] LABS: Anisocytosis 2+ (NORMAL); Microcytosis 1+ (NORMAL); Platelet Estimate Adequate (Adequate)
[2022-06-21 07:32] LABS: Hypochromasia 1+ (NORMAL)
--- NOTE | 2022-06-21 07:54 | PM.IMPN ---
Progress Note: A&P Assessment and Plan (1) Shock: Code(s): R57.9 - Shock, unspecified Status: Acute Assessment and Plan: Appreciate critical care consultation, continue supportive care with IV fluids, pressors as needed, source of infection currently unknown, blood in urine cultures pending, continue broad-spectrum antibiotics with vancomycin and cefepime EUSEBIO planned to look for source of infection d/t chronic pericardial effusion w/o tamponade physiology noted Elevated LFTs likely secondary to hypoperfusion and sepsis, may need further workup for intrinsic hepatic pathology once stable Received a dose of Solu-Cortef, continue this for stress dosing per Critical Care Management (2) Pleural effusion: Code(s): J90 - Pleural effusion, not elsewhere classified Status: Acute Assessment and Plan: Stable, monitor, may need thoracentesis (3) Hypothyroidism: Code(s): E03.9 - Hypothyroidism, unspecified Status: Acute Assessment and Plan: Continue home medications (4) Chronic respiratory failure with hypoxia, on home oxygen therapy: Code(s): J96.11 - Chronic respiratory failure with hypoxia; Z99.81 - Dependence on supplemental oxygen Status: Acute Assessment and Plan: Continue supportive care with supplemental oxygen, currently stable on 6 L nasal cannula (5) Hypertension: Code(s): I10 - Essential (primary) hypertension Status: Acute (6) Altered mental status: Code(s): R41.82 - Altered mental status, unspecified Status: Acute (7) Hyponatremia: Code(s): E87.1 - Hypo-osmolality and hyponatremia Status: Acute (8) Pericardial effusion: Code(s): I31.3 - Pericardial effusion (noninflammatory) Status: Acute Assessment and Plan: No tamponade physiology seen now, appreciate Cardiology consultation, will hold beta-blockers and antihypertensives (9) Acute kidney injury: Code(s): N17.9 - Acute kidney failure, unspecified Status: Acute Assessment and Plan: Renal ultrasound pending, creatinine 2.2 today, baseline appears closer to 1 (10) Anemia in CKD (chronic kidney disease): Qualifiers: Chronic kidney disease stage: unspecified stage Qualified Code(s): N18.9 - Chronic kidney disease, unspecified; D63.1 - Anemia in chronic kidney disease Code(s): N18.9 - Chronic kidney disease, unspecified; D63.1 - Anemia in chronic kidney disease Status: Acute Assessment and Plan: Hemoglobin appears closer to 8-9 at baseline, 9.7 today (11) Hypokalemia: Code(s): E87.6 - Hypokalemia Status: Acute Assessment and Plan: Replete and recheck Plan DVT prophylaxis with SCDs GI prophylaxis with PPI Code status full code Subjective Date/time seen: 06/21/22 07:54 Exam Narrative: General: No acute distress HEENT: Atraumatic, normocephalic CV: Regular rate and rhythm, S1, S2 Lungs: Unlabored breath sounds, no audible wheeze heard Abdomen: Non distended Extremities: Normal to inspection, edema B/L Skin: Scattered bruising noted Objective Data Vital Signs Vital Signs: Vital Signs - 24 hr 06/20/22 12:03 06/20/22 12:15 06/20/22 13:12 Temperature 97.4 F L 97.7 F Pulse Rate 52 L 52 L Respiratory Rate 18 16 Blood Pressure 63/38 L 62/38 L Pulse Oximetry 99 93 Oxygen Delivery Oxygen Flow Rate 06/20/22 13:23 06/20/22 12:34 06/20/22 14:55 Temperature Pulse Rate 49 L 75 50 L Respiratory Rate 12 Blood Pressure 62/40 L 69/39 L Pulse Oximetry 96 Oxygen Delivery Oxygen Flow Rate 06/20/22 14:55 06/20/22 14:15 06/20/22 15:00 Temperature Pulse Rate 52 L 52 L Respiratory Rate 12 Blood Pressure 78/47 L 71/42 L Pulse Oximetry 91 93 Oxygen Delivery Nasal Cannula Oxygen Flow Rate 6 06/20/22 15:50 06/20/22 15:45 06/20/22 15:53 Temperature 97.4 F L Pulse Rate 56 L 56 L 58 L Respiratory Rate 13
[2022-06-21] MEDS: MAGNESIUM SULF 2 GM/WATER 50ML 2 GM/50 ML BAG IVPB (09:20)
[2022-06-21] MEDS: HEPARIN SODIUM 5,000 UNITS/ML VIAL 5000 UNITS SUB-Q ×2 (09:21→20:41)
[2022-06-21] MEDS: ASPIRIN 81 MG CHEWABLE TABLET PO (09:22)
[2022-06-21] MEDS: SODIUM CHLORIDE 1 GM TABLET PO ×2 (09:22→18:13)
[2022-06-21] MEDS: CYANOCOBALAMIN 1,000 MCG TABLET 1000 MCG BY MOUTH (09:22)
[2022-06-21] MEDS: PANTOPRAZOLE SODIUM IV 40 MG VIAL IV PUSH (09:22)
[2022-06-21] MEDS: DOPamine 400 MG/D5W 250 ML 400 MG/250 ML BAG 24.64 MG IV CONT (10:12)
[2022-06-21] MEDS: NOREPINEPHRINE 8 MG/D5W 250 ML 8 MG/250 ML BAG 9.38 MG IV CONT (11:00)
--- NOTE | 2022-06-21 11:26 | PC.NURSE ---
Discussed plan of care and patient condition with Caitlyn, patient's cjcpyion-in-tlk and point of contact.
--- NOTE | 2022-06-21 12:21 | WPDINTPN ---
Progress Note: A&P Assessment and Plan (1) Shock: Code(s): R57.9 - Shock, unspecified Status: Acute Assessment and Plan: Patient presented with shock, likely infectious given her WBC count is 44 with 94% neutrophilia. Patient also has moderate to large pericardial effusion, patient could have some tamponade physiology. -lactic acid 0.8 this morning on 06/21 -patient started on vancomycin and cefepime in the ER (06/20) -given a bradycardia and hypotension patient was started on dopamine, maintain MAP > 65 mmHg -now that the bradycardia has resolved which was likely secondary to Coreg and diltiazem at the [facility], will place patient on Levophed -acute kidney injury with elevated creatinine, continues to have low urine output -she did receive adequate IV fluids in the ER on admission -continue maintenance IV fluids with normal saline at 50 mL/hr along with albumin -continue stress dose steroids and IV levothyroxine -06/20/2022 blood cultures: No growth so far 11/08 bottles -06/20/2022 urine cultures: Pending -06/20 echocardiogram: With possible endocarditis and vegetations on tricuspid valve CT scan of the abdomen and pelvis on 06/20/2022 MPRESSION: 1. Small right and moderate-sized left pleural effusions. 2. Diffuse lung disease, likely a combination of mild pulmonary edema and atelectasis and radiation pneumonitis. 3. 1.6 cm nodule in paramediastinal left lung upper lobe, which may be scarring or metastatic disease. 4. Stable diffuse soft tissue attenuation in the mediastinum, which may be anatoly metastatic disease and/or changes of radiation therapy. 5. Chronic large pericardial effusion. 6. Small volume of ascites. 7. Chronic calcified mass in right adnexa, likely a pedunculated fibroid. (2) Acute and chronic respiratory failure with hypercapnia: Code(s): J96.22 - Acute and chronic respiratory failure with hypercapnia Status: Acute Assessment and Plan: Patient currently on 6 L nasal cannula, O2 sats have been adequate -06/20 chest x-ray: Moderate-sized left and small right pleural effusions.. Persistent enlargement of the cardiac silhouette, likely due to pericardial effusion. -patient may require thoracentesis once she is more stable -patient has history of COPD and is on home oxygen -continue bronchodilators -oxygen requirements are trending down, currently on 3 L nasal cannula (3) Endocarditis: Code(s): I38 - Endocarditis, valve unspecified Status: Acute Assessment and Plan: 06/20/2022 Echocardiogram: Showed normal LV chamber dimension, ejection fraction is greater than 70%, grade 2 diastolic dysfunction. Filamentous mobile echodensity within the right atrium with suggestion of extension to with the tricuspid valve and into the right ventricle concerning for vegetation, thrombus or mass, trace mitral valve regurg, mild tricuspid regurg, no pulmonary hypertension no aortic valve stenosis there is moderate to large circumferential pericardial effusion with extensive febrile this material within the pericardial space no evidence of tamponade physiology. Discussed extensively with Cardiology Dr. Christ Jensen, in very difficult to obtain a EUSEBIO without intubating the patient, she most likely thinks it is vegetation given her septic shock, elevated white blood cell count, continue antibiotics as above for endocarditis (4) Altered mental status: Code(s): R41.82 - Altered mental status, unspecified Status: Acute Assessment and Plan: Altered mental status could be multifactorial related to hyponatremia, hypotension/bradycardia due to patient being on diltiazem as well as metoprolol -will decrease rate of maintenance IV fluids 50 mL/hour -06/20/2022 CT brain; Anterior left frontal scalp hematoma. No fracture or acute intracranial process.. Mild scattered white matter hypoattenuation consistent with chronic small vessel ischemic disease. -continue to monitor (5) Hyponatremia:
--- NOTE | 2022-06-21 13:02 | P.CONNP_ITS ---
Assessment and Plan Assessment and plan (1) Acute kidney injury: Code(s): N17.9 - Acute kidney failure, unspecified Status: Acute Assessment and Plan: * creatinine 0.9mg/dl in early May 2022 * however, creatinine up to 1.4mg/dl in last May 2022 (arguing a component of CKD) * acute insult likely mutlifactorial: * hypotension/hemodynamic instability * infection * pre-renal factors/hypovolemia * follow-up on renal ultrasound and urine electrolytes * follow trend of hemodynamics, repeat labs, and UOP likely related to hypotension, infection, hypovolemia (2) Shock: Code(s): R57.9 - Shock, unspecified Status: Acute Assessment and Plan: * as noted on presentation * presumed due to infection given significant leukocytosis with left shift * started on dopamine given bradycardia and persistent hypotension despite aggressive IVF resuscitation * to be transitioned to levophed * follow culture data * empiric antibiotics * follow trend of hemodynamics (3) Endocarditis: Code(s): I38 - Endocarditis, valve unspecified Status: Acute Assessment and Plan: * as suspected from TTE * on antibiotics at this time * if EUSEBIO to be considered, patient would likely need intubation (4) Acute and chronic respiratory failure with hypercapnia: Code(s): J96.22 - Acute and chronic respiratory failure with hypercapnia Status: Acute Assessment and Plan: * on home O2 at baseline * imaging noted - moderate left and small right pleural effusion along with pericardial effusion * need thoracentesis (?) and/or pericardiocentesis(?) * complicated by known history of COPD * continue supplemental oxygen and bronchodilators (5) Hyponatremia: Code(s): E87.1 - Hypo-osmolality and hyponatremia Status: Acute Assessment and Plan: * chronic issues at baseline * suspect further fluctuations to occur with IVFs, IV medications...etc * follow trend of sodium (6) Pericardial effusion: Code(s): I31.3 - Pericardial effusion (noninflammatory) Status: Acute Assessment and Plan: * moderate to large pericardial effusion per imaging although no significant difference from previous * Cardiology following * no indication for pericardiocentesis at this time (7) Pleural effusion: Code(s): J90 - Pleural effusion, not elsewhere classified Status: Acute Assessment and Plan: * as noted by admission CXR * possible thoracentsis when more stable Will continue to follow. History of Present Illness Reason for Consult Consult date: 06/22/22 Reason for consult: acute renal failure Chief Complaint Chief complaint: cardiogenic shock History of Present Illness Narrative: The patient is a 61 year old female with a past medical history as outlined below who presented to [facility] Emergency room with complaints of low blood pressure in association with shortness of breath. Apparently, when the patient was at her nursing facility, staff noted her oxygen saturations were running in the 80 percentile range despite her home dose of supplemental oxygen by nasal cannula. I am unclear if the patient felt symptomatic with regard to this finding but nonetheless, she was transferred to the ER for further evaluation because of this. Workup and evaluation emergency room demonstrated the patient to be indeed hypoxic but she was also quite hypotensive running in the 60s systolic range in association with relative bradycardia in the
--- NOTE | 2022-06-21 13:02 | PM.CNNEP ---
Assessment and Plan Assessment and plan (1) Acute kidney injury: Code(s): N17.9 - Acute kidney failure, unspecified Status: Acute Assessment and Plan: creatinine 0.9mg/dl in early May 2022 however, creatinine up to 1.4mg/dl in last May 2022 (arguing a component of CKD) acute insult likely mutlifactorial: hypotension/hemodynamic instability infection pre-renal factors/hypovolemia follow-up on renal ultrasound and urine electrolytes follow trend of hemodynamics, repeat labs, and UOP likely related to hypotension, infection, hypovolemia (2) Shock: Code(s): R57.9 - Shock, unspecified Status: Acute Assessment and Plan: as noted on presentation presumed due to infection given significant leukocytosis with left shift started on dopamine given bradycardia and persistent hypotension despite aggressive IVF resuscitation to be transitioned to levophed follow culture data empiric antibiotics follow trend of hemodynamics (3) Endocarditis: Code(s): I38 - Endocarditis, valve unspecified Status: Acute Assessment and Plan: as suspected from TTE on antibiotics at this time if EUSEBIO to be considered, patient would likely need intubation (4) Acute and chronic respiratory failure with hypercapnia: Code(s): J96.22 - Acute and chronic respiratory failure with hypercapnia Status: Acute Assessment and Plan: on home O2 at baseline imaging noted - moderate left and small right pleural effusion along with pericardial effusion need thoracentesis (?) and/or pericardiocentesis(?) complicated by known history of COPD continue supplemental oxygen and bronchodilators (5) Hyponatremia: Code(s): E87.1 - Hypo-osmolality and hyponatremia Status: Acute Assessment and Plan: chronic issues at baseline suspect further fluctuations to occur with IVFs, IV medications...etc follow trend of sodium (6) Pericardial effusion: Code(s): I31.3 - Pericardial effusion (noninflammatory) Status: Acute Assessment and Plan: moderate to large pericardial effusion per imaging although no significant difference from previous Cardiology following no indication for pericardiocentesis at this time (7) Pleural effusion: Code(s): J90 - Pleural effusion, not elsewhere classified Status: Acute Assessment and Plan: as noted by admission CXR possible thoracentsis when more stable Will continue to follow. History of Present Illness Reason for Consult Consult date: 06/22/22 Reason for consult: acute renal failure Chief Complaint Chief complaint: cardiogenic shock History of Present Illness Narrative: The patient is a 61 year old female with a past medical history as outlined below who presented to [facility] Emergency room with complaints of low blood pressure in association with shortness of breath. Apparently, when the patient was at her nursing facility, staff noted her oxygen saturations were running in the 80 percentile range despite her home dose of supplemental oxygen by nasal cannula. I am unclear if the patient felt symptomatic with regard to this finding but nonetheless, she was transferred to the ER for further evaluation because of this. Workup and evaluation emergency room demonstrated the patient to be indeed hypoxic but she was also quite hypotensive running in the 60s systolic range in association with relative bradycardia in the 40-50 range. Furthermore, she had healing bruising on her left frontal area of her face and particularly localized around her left eye as well as multiple bruising noted in her lower and upper extremities as well. Routine blood test demonstrated markedly elevated white blood cell count at 44,000 with relative stability in her hemoglobin, hematocrit, and platelet count. Her chemistry was significant for an elevated BUN and creatinine above baselin
[2022-06-21] MEDS: CENTRAL LINE FLUSH 10 ML IV PUSH ×2 (13:48→21:23)
--- NOTE | 2022-06-21 14:17 | PM.PNCARD ---
Progress Note: A&P Assessment and Plan (1) Endocarditis: Code(s): I38 - Endocarditis, valve unspecified Status: Acute (2) Port-A-Cath in place: Code(s): Z95.828 - Presence of other vascular implants and grafts Status: Acute (3) Septic shock: Code(s): A41.9 - Sepsis, unspecified organism; R65.21 - Severe sepsis with septic shock Status: Acute (4) Pericardial effusion: Code(s): I31.3 - Pericardial effusion (noninflammatory) Status: Acute Plan Echocardiogram shows filamentous mobile echodensity within the right atrium with suggestion of extension to the tricuspid valve and into the right ventricle concerning for vegetation. However there is no significant impact on the tricuspid valve with only mild tricuspid valve regurgitation noted. Patient has a port a cath with the tip extending into the right atrium, so the vegetation may be attached to the catheter (not well visualized on transthoracic echocardiogram). Given patient's clinical status, patient would be high risk for transesophageal echocardiogram due to her hemodynamics and respiratory status. 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 Continue medical management for endocarditis and septic shock. Time Spent With Patient Time with patient: 25 - 35 minutes Subjective Date/time seen: 06/21/22 14:17 Interval history: Patient remains on Dopamine this morning with improvement in blood pressure. HR higher now since stopping beta blockers. WBC 42. In septic shock. TTE results discussed with the patient - concerning for vegetation in the right atrium. Review of Systems Review of Systems: All systems reviewed & are unremarkable except as noted in HPI and below (HPI) Exam Const: General: comfortable Neck: Neck: no JVD Resp: Auscultation: diminished lung sounds Cardio: Rate: regular rate Rhythm: regular rhythm Other: Muffled heart sounds GI: GI Palp: Yes Soft to palpation Skin: Other: Bruising noted on face, arms, right foot Extrem: Other: 2+ bilateral lower extremity edema Objective Data Vital Signs Vital Signs: Vital Signs - 24 hr 06/20/22 14:55 06/20/22 14:55 06/20/22 15:00 Temperature Pulse Rate 50 L 52 L Respiratory Rate 12 Blood Pressure 69/39 L 71/42 L Pulse Oximetry 96 91 Oxygen Delivery Nasal Cannula Oxygen Flow Rate 6 06/20/22 15:50 06/20/22 15:45 06/20/22 15:53 Temperature 36.3 C L Pulse Rate 56 L 56 L 58 L Respiratory Rate 13 Blood Pressure 70/51 L 70/51 L 77/41 L Pulse Oximetry 95 Oxygen Delivery Oxygen Flow Rate 06/20/22 16:07 06/20/22 16:00 06/20/22 16:00 Temperature 36.5 C Pulse Rate 56 L 54 L 55 L Respiratory Rate 8 L Blood Pressure 74/45 L 76/46 L Pulse Oximetry 98 Oxygen Delivery Oxygen Flow Rate 06/20/22 16:00 06/20/22 16:39 06/20/22 16:45 Temperature Pulse Rate 57 L 57 L Respiratory Rate Blood Pressure 77/47 L 81/45 L Pulse Oximetry 95 Oxygen Delivery Nasal Cannula Oxygen Flow Rate 6 06/20/22 17:15 06/20/22 17:54 06/20/22 18:00 Temperature Pulse Rate 58 L 60 59 L Respiratory Rate Blood Pressure 85/47 L Pulse Oximetry 92 Oxygen Delivery High Flow Nasal Cannula Oxygen Flow Rate 6 06/20/22 18:00 06/20/22 17:30 06/20/22 17:45 Temperature Pulse Rate 59 L 57 L 57 L Respiratory Rate 12 Blood Pressure 84/57 L 86/50 L 82/51 L Pulse Oximetry 95 Oxygen Delivery Oxygen Flow Rate 06/20/22 18:15 06/20/22 20:00 06/20/22 20:00 Temperature Pulse Rate 62 60 60 Respiratory Rate 12 Blood Pressure 76/48 L 95/62 L 95/62 L Pulse Oximetry 95 Oxygen Delivery Oxygen Flow Rate 06/20/22 21:10 06/20/22 21:19 06/20/22 20:00 Temperature Pulse Rate 66 Respiratory Rate 18 Blood Pressure Pulse Oximetry 93 95 Oxygen Delivery High Flow Nasal Fidencio
[2022-06-21] MEDS: ACETAMINOPHEN 325 MG TABLET 650 MG PO (20:40)
[2022-06-21] MEDS: ATORVASTATIN 40 MG TABLET 80 MG PO (20:40)
[2022-06-21] MEDS: traZODone HCL 25 MG TABLET PO (20:41)
[2022-06-21] MEDS: LIDOCAINE 5% PATCH 1 PATCH TRANSDERM (20:41)
[2022-06-22] VITALS (38 sets, daily range): BP systolic 105–135; BP diastolic 52–79; PULSE 70–98; RESP 13–25; TEMP 36.2–36.9; O2SAT 90–100
[2022-06-22] MEDS: ALBUMIN HUMAN 25% 25 GM/100 ML 100 ML IVPB ×4 (00:12→18:01)
[2022-06-22] MEDS: ALBUTEROL SULFATE NEB 2.5 MG/3 ML INH 5 MG INHALATION ×4 (02:18→19:55)
[2022-06-22] MEDS: ACETAMINOPHEN 325 MG TABLET 650 MG PO (04:12)
[2022-06-22] MEDS: LEVOTHYROXINE SODIUM INJ 100 MCG/5 ML VIAL 50 MCG IV PUSH (05:55)
[2022-06-22] MEDS: SODIUM CHLORIDE 0.9% IV 1,000 ML 50 ML IV CONT (05:56)
[2022-06-22] MEDS: CENTRAL LINE FLUSH 10 ML IV PUSH ×3 (05:56→20:06)
[2022-06-22] MEDS: HYDROCORTISONE SODIUM SUCCINATE 100 MG/2 ML VIAL IV PUSH (05:56)
[2022-06-22 06:00] LABS: Basophils Absolute Auto 0.1 K/mm3 (0.0-0.1); Basophils Percent Auto 0.3 % (0.2-1.2); Hematocrit 27.9 % (37.0-47.0); Hemoglobin 8.6 g/dL (12.0-15.0); Immature Granulocyte Absolute 1.26 K/mm3 (0.00-0.031); Immature Granulocyte Percent A 3.7 % (0-0.5); Immature Platelet Fraction Pct 7.9 % (0.9-11.2); Lymphocytes Absolute Auto 0.14 K/mm3 (0.9-3.2); Lymphocytes Percent Auto 0.4 % (18.3-44.2); Mean Corpuscular HGB Conc 30.8 g/dl (32-36); Mean Corpuscular Hemoglobin 33.7 pg (26-34); Mean Corpuscular Volume 109.4 fl (80-100); Mean Platelet Volume 10.7 fl (7.4-10.4); Monocytes Absolute Auto 0.8 K/mm3 (0.1-0.6); Monocytes Percent Auto 2.4 % (2.6-8.5); Neutrophils Percent Auto 93.2 % (45.5-73.1); Nucleated Red Blood Cells Perc 0.1 % (0.0-0.2); Platelet Count Result 100 k/mm3 (150-375); Red Blood Count 2.55 M/mm3 (4.2-5.4); Red Cell Distribution Width 17.6 % (11.5-14.5); White Blood Count 34.4 K/mm3 (4.5-10.0)
[2022-06-22 06:09] LABS: Lactic Acid Reflex 0.7 mmol/L (0.7-2.0)
[2022-06-22 06:10] LABS: Alanine Aminotransferase 32 U/L (6-35); Albumin Level 3.9 g/dL (3.5-5.1); Alkaline Phosphatase 256 U/L (38-126); Anion Gap 16 mmol/L (8-16); Aspartate Amino Transferase 72 U/L (14-36); Bilirubin,Total 0.9 mg/dL (0.2-1.3); Blood Urea Nitrogen 24 mg/dL (7-17); Calcium 7.4 mg/dL (8.4-10.2); Carbon Dioxide 21 mmol/L (22-30); Chloride 95 mmol/L (98-107); Estimated Glomerular Filt Rate 21; Glucose 149 mg/dL (65-110); Magnesium 1.9 mg/dL (1.6-2.3); Phosphorus 1.5 mg/dL (2.5-4.5); Potassium 3.3 mmol/L (3.4-5.0); Sodium 132 mmol/L (137-145)
[2022-06-22 06:49] LABS: Anisocytosis 1+ (NORMAL); Macrocytosis 1+ (NORMAL)
[2022-06-22] MEDS: ASPIRIN 81 MG CHEWABLE TABLET PO (08:50)
[2022-06-22] MEDS: HEPARIN SODIUM 5,000 UNITS/ML VIAL 5000 UNITS SUB-Q ×2 (08:50→21:23)
[2022-06-22] MEDS: CYANOCOBALAMIN 1,000 MCG TABLET 1000 MCG BY MOUTH (08:50)
[2022-06-22] MEDS: SODIUM CHLORIDE 1 GM TABLET PO (08:50)
[2022-06-22] MEDS: PANTOPRAZOLE SODIUM IV 40 MG VIAL IV PUSH (08:50)
[2022-06-22] MEDS: BUMETANIDE INJ 1 MG/4 ML VIAL IV PUSH (09:45)
[2022-06-22] MEDS: POTASSIUM PHOS,M-BASIC-D-BASIC 20 MMOL in SODIUM CHLORIDE 0.9% IV 250 ML 64.17 MMOL IVPB (09:45)
--- NOTE | 2022-06-22 09:46 | WPDINTPN ---
Progress Note: A&P Assessment and Plan (1) Shock: Code(s): R57.9 - Shock, unspecified Status: Acute Assessment and Plan: Patient presented with shock, likely infectious given her WBC count is 44 with 94% neutrophilia. Patient also has moderate to large pericardial effusion, patient could have some tamponade physiology. -lactic acid remains normal -on admission patient was bradycardic hypotensive in the ER and was started on dopamine, which was later switched to Levophed . -off all pressors -acute kidney injury with elevated creatinine, continues to have low urine output -she did receive adequate IV fluids in the ER on admission -will discontinue maintenance IV fluids as patient is in positive fluid balance -wean stress dose steroids -continue vancomycin and cefepime in the ER (06/20) -06/20/2022 blood cultures: No growth so far 11/08 bottles -06/20/2022 urine cultures: Pending -06/20 echocardiogram: With possible endocarditis and vegetations on tricuspid valve CT scan of the abdomen and pelvis on 06/20/2022 MPRESSION: 1. Small right and moderate-sized left pleural effusions. 2. Diffuse lung disease, likely a combination of mild pulmonary edema and atelectasis and radiation pneumonitis. 3. 1.6 cm nodule in paramediastinal left lung upper lobe, which may be scarring or metastatic disease. 4. Stable diffuse soft tissue attenuation in the mediastinum, which may be anatoly metastatic disease and/or changes of radiation therapy. 5. Chronic large pericardial effusion. 6. Small volume of ascites. 7. Chronic calcified mass in right adnexa, likely a pedunculated fibroid. (2) Acute and chronic respiratory failure with hypercapnia: Code(s): J96.22 - Acute and chronic respiratory failure with hypercapnia Status: Acute Assessment and Plan: pt also complained of SOB/dyspnea on admission -06/22 chest x-ray: Enlarged cardiac silhouette resulting from a large pericardial effusion on prior CT. Bilateral diffuse interstitial and mild airspace opacities consistent with mild pulmonary edema and atelectasis although superimposed pneumonia is not excludable. Small bilateral pleural effusions, left greater than right.. -patient may require thoracentesis once she is more stable -patient has history of COPD and is on home oxygen -continue bronchodilators -continue BiPAP with intermittent nasal cannula -will diurese pt today (3) Endocarditis: Code(s): I38 - Endocarditis, valve unspecified Status: Acute Assessment and Plan: 06/20/2022 Echocardiogram: Showed normal LV chamber dimension, ejection fraction is greater than 70%, grade 2 diastolic dysfunction. Filamentous mobile echodensity within the right atrium with suggestion of extension to with the tricuspid valve and into the right ventricle concerning for vegetation, thrombus or mass, trace mitral valve regurg, mild tricuspid regurg, no pulmonary hypertension no aortic valve stenosis there is moderate to large circumferential pericardial effusion with extensive febrile this material within the pericardial space no evidence of tamponade physiology. Discussed extensively with Cardiology Dr. Christ Jensen, in very difficult to obtain a EUSEBIO without intubating the patient, she most likely thinks it is vegetation given her septic shock, elevated white blood cell count, continue antibiotics as above for endocarditis (4) Altered mental status: Code(s): R41.82 - Altered mental status, unspecified Status: Acute Assessment and Plan: Altered mental status could be multifactorial related to hyponatremia, hypotension/bradycardia due to patient being on diltiazem as well as metoprolol -06/20/2022 CT brain; Anterior left frontal scalp hematoma. No fracture or acute intracranial process.. Mild scattered white matter hypoattenuation consistent with chronic small vessel ischemic disease. -continue to monitor -check ABG as patient more somnolent today (5) Hyponatremia:
[2022-06-22 11:04] LABS: Alveolar/Arterial O2 Gradient 232.4 mmHg; Base Excess ABG -7.7 mEq/l (+/-2.0); Fractional Inspired Oxygen 55 %; HCO3 ABG 22.3 mEq/l (22.0-26.0); Oxygen Content ABG 12.9 %vol (16.0-22.0); Oxygen Saturation ABG 90.1 % (95.0-100.0); Oxyhemoglobin 92.1 % THb (90.0-100.0); PO2 ABG 78.5 mmHg (80.0-100.0); PO2 FiO2 Ratio Arterial Blood 1.43 %; Total Hemoglobin 9.9 g/dL (12.0-18.0)
[2022-06-22 11:07] LABS: pH ABG 7.103 (7.350-7.450)
[2022-06-22 11:08] LABS: Device NON-INVASIVE VENT; Non-Invasive Expiratory Pressure 5 CMH2O; Non-Invasive Inspiratory Pressure 10 CMH2O; Non-Invasive Vent Rate 12 /MIN; Site Drawn LEFT BRACHIAL
[2022-06-22] MEDS: SODIUM BICARBONATE 8.4% 50 MEQ/50 ML SYRINGE IV PUSH ×2 (11:48→16:32)
--- NOTE | 2022-06-22 13:24 | PM.PNCARD ---
Progress Note: A&P Assessment and Plan (1) Endocarditis: Code(s): I38 - Endocarditis, valve unspecified Status: Acute (2) Port-A-Cath in place: Code(s): Z95.828 - Presence of other vascular implants and grafts Status: Acute (3) Septic shock: Code(s): A41.9 - Sepsis, unspecified organism; R65.21 - Severe sepsis with septic shock Status: Acute (4) Pericardial effusion: Code(s): I31.3 - Pericardial effusion (noninflammatory) Status: Acute Plan Echocardiogram shows filamentous mobile echodensity within the right atrium with suggestion of extension to the tricuspid valve and into the right ventricle concerning for vegetation. However there is no significant impact on the tricuspid valve with only mild tricuspid valve regurgitation noted. Patient has a port a cath with the tip extending into the right atrium, so the vegetation may be attached to the catheter (not well visualized on transthoracic echocardiogram). Given patient's clinical status, patient would be high risk for transesophageal echocardiogram due to her hemodynamics and respiratory status. Transesophageal echocardiogram would not spinning frame changer at this time, therefore, we would not pursue transesophageal echocardiogram this time. Continue medical management for endocarditis and septic shock. Subjective Date/time seen: 06/22/22 13:24 Cardiology follow up for pericardial effusion Interval history: Unable to clearly communicate as she is wearing her BiPAP mask and cannot tolerate removing it. She seems comfortable though her breathing is labored. Review of Systems Review of Systems: All systems reviewed & are unremarkable except as noted in HPI and below (HPI) Constitutional: Constitutional: Denies body ache(s), Denies chills and Reports weakness Cardiovascular: Cardiovascular: Denies chest pain, Reports leg edema, Denies lightheadedness, Denies palpitations and Reports dyspnea Respiratory: Respiratory: Reports dyspnea Gastrointestinal: Gastrointestinal: Denies abdominal pain Neurologic: Reports weakness Endocrine: Endocrine: Denies palpitations Hematologic/Lymphatic: Hematologic/Lymphatic: Reports easy bruising Exam Narrative: Ill-appearing lady lying in bed with BiPAP mask in place. Const: General: no acute distress and uncomfortable HENMT: Mouth: Yes dry mucous membranes Neck: Neck: no JVD Resp: Auscultation: clear to auscultation bilaterally and diminished lung sounds Cardio: Rate: regular rate and bradycardic Rhythm: regular rhythm Other: Muffled heart sounds Skin: Other: Bruising noted on face, arms, right foot Extrem: Other: 1+ bilateral lower extremity edema Psych: Mental Status: mental status grossly normal Objective Data Vital Signs Vital Signs: Vital Signs - 24 hr 06/21/22 14:20 06/21/22 14:27 06/21/22 14:00 Temperature Pulse Rate 82 82 82 Respiratory Rate 12 13 Blood Pressure Pulse Oximetry Oxygen Delivery Oxygen Flow Rate Fraction of Inspired Oxygen 06/21/22 14:00 06/21/22 16:00 06/21/22 16:00 Temperature 36.2 C L 35.9 C L Pulse Rate 82 83 Respiratory Rate 17 100 H Blood Pressure 95/53 L 109/58 L Pulse Oximetry 100 15 L 98 Oxygen Delivery Nasal Cannula Oxygen Flow Rate 3 Fraction of Inspired Oxygen 06/21/22 16:00 06/21/22 18:00 06/21/22 18:00 Temperature 36.0 C L Pulse Rate 91 89 89 Respiratory Rate 19 Blood Pressure 120/60 Pulse Oximetry 100 Oxygen Delivery Oxygen Flow Rate Fraction of Inspired Oxygen 06/21/22 19:46 06/21/22 20:30 06/21/22 20:00 Temperature 35.7 C L Pulse Rate 92 85 83 Respiratory Rate 18 16 18 Blood Pressure 107/63 Pulse Oximetry 97 95 Oxygen Delivery Nasal Cannula Oxygen Flow Rate 4 Fraction of Inspired Oxygen 06/21/22 21:03 06/21/22 20:00 06/21/22 22:00 Temperature Pulse Rate 82 84 83 Respiratory Rate Blood Pressure 115/59 L Pulse Oxi
--- NOTE | 2022-06-22 14:34 | PM.PNNEP ---
Progress Note: A&P Assessment and Plan (1) Acute kidney injury: Code(s): N17.9 - Acute kidney failure, unspecified Status: Acute Assessment and Plan: creatinine 0.9mg/dl in early May 2022 however, creatinine up to 1.4mg/dl in last May 2022 (arguing a component of CKD) acute insult likely mutlifactorial: hypotension/hemodynamic instability infection pre-renal factors/hypovolemia evaluation to date: renal ultrasound normal urine electrolytes look prerenal follow trend of hemodynamics, repeat labs, and UOP likely related to hypotension, infection, hypovolemia (2) Shock: Code(s): R57.9 - Shock, unspecified Status: Acute Assessment and Plan: as noted on presentation presumed due to infection given significant leukocytosis with left shift started on dopamine given bradycardia and persistent hypotension despite aggressive IVF resuscitation was on levophed but not currently follow culture data empiric antibiotics follow trend of hemodynamics (3) Endocarditis: Code(s): I38 - Endocarditis, valve unspecified Status: Acute Assessment and Plan: as suspected from TTE on antibiotics at this time if EUSEBIO to be considered, patient would likely need intubation (4) Acute and chronic respiratory failure with hypercapnia: Code(s): J96.22 - Acute and chronic respiratory failure with hypercapnia Status: Acute Assessment and Plan: on home O2 at baseline imaging noted - moderate left and small right pleural effusion along with pericardial effusion need thoracentesis (?) complicated by known history of COPD continue supplemental oxygen and bronchodilators (5) Hyponatremia: Code(s): E87.1 - Hypo-osmolality and hyponatremia Status: Acute Assessment and Plan: chronic issues at baseline suspect further fluctuations to occur with IVFs, IV medications...etc follow trend of sodium (6) Pericardial effusion: Code(s): I31.3 - Pericardial effusion (noninflammatory) Status: Acute Assessment and Plan: moderate to large pericardial effusion per imaging although no significant difference from previous Cardiology following no indication for pericardiocentesis at this time (7) Pleural effusion: Code(s): J90 - Pleural effusion, not elsewhere classified Status: Acute Assessment and Plan: as noted by admission CXR possible thoracentsis when more stable Will continue to follow. Subjective Date/time seen: 06/22/22 14:34 Weaned off levophed with stable hemodynamics at this time; not very much urine output in the last 24 hours and in positive fluid balance so IVFs discontinued; mentation continues to wax and wane but given recent ABG, on BiPAP therapy at this time. Exam Narrative: General: thin and frail [place] female who looks older than state age in NAD Heart: normal S1 and S2; no rub Lungs: coarse and decreased at bases Abdomen: soft, nontender, nondistended, positive bowel sounds Extremities: no cyanosis or clubbing; 2 - 3+ edema Skin: warm and dry Objective Data Vital Signs Vital Signs: Vital Signs Temp Pulse Resp BP Pulse Ox O2 Del Method O2 Flow Rate 06/22/22 13:52 97 16 90 06/22/22 14:00 84 06/22/22 14:21 88 22 H 06/22/22 13:55 85 23 H 92 BiPAP 06/22/22 14:00 85 21 H 06/22/22 12:00 80 06/22/22 12:00 87 21 H 92 BiPAP 06/22/22 12:00 36.6 C 06/22/22 12:04 82 16 91 BiPAP 06/22/22 08:00 84 13 90 BiPAP 06/22/22 10:00 84 06/22/22 08:00 93 06/22/22 10:00 81 16 133/69 94 06/22/22 10:20 84 13 90 BiPAP 06/22/22 08:00 36.4 C 06/22/22 09:30 98 20 06/22/22 09:07 90 20 06/22/22 09:02 100 Non-Rebreather Mask 15 06/22/22 06:00 80 18 131/70 96 06/22/22 06:00 83 06/22/22 04:00 88 06/22/22
--- NOTE | 2022-06-22 14:34 | P.PNNP_ITS ---
Progress Note: A&P Assessment and Plan (1) Acute kidney injury: Code(s): N17.9 - Acute kidney failure, unspecified Status: Acute Assessment and Plan: * creatinine 0.9mg/dl in early May 2022 * however, creatinine up to 1.4mg/dl in last May 2022 (arguing a component of CKD) * acute insult likely mutlifactorial: * hypotension/hemodynamic instability * infection * pre-renal factors/hypovolemia * evaluation to date: * renal ultrasound normal * urine electrolytes look prerenal * follow trend of hemodynamics, repeat labs, and UOP likely related to hypotension, infection, hypovolemia (2) Shock: Code(s): R57.9 - Shock, unspecified Status: Acute Assessment and Plan: * as noted on presentation * presumed due to infection given significant leukocytosis with left shift * started on dopamine given bradycardia and persistent hypotension despite aggressive IVF resuscitation * was on levophed but not currently * follow culture data * empiric antibiotics * follow trend of hemodynamics (3) Endocarditis: Code(s): I38 - Endocarditis, valve unspecified Status: Acute Assessment and Plan: * as suspected from TTE * on antibiotics at this time * if EUSEBIO to be considered, patient would likely need intubation (4) Acute and chronic respiratory failure with hypercapnia: Code(s): J96.22 - Acute and chronic respiratory failure with hypercapnia Status: Acute Assessment and Plan: * on home O2 at baseline * imaging noted - moderate left and small right pleural effusion along with pericardial effusion * need thoracentesis (?) * complicated by known history of COPD * continue supplemental oxygen and bronchodilators (5) Hyponatremia: Code(s): E87.1 - Hypo-osmolality and hyponatremia Status: Acute Assessment and Plan: * chronic issues at baseline * suspect further fluctuations to occur with IVFs, IV medications...etc * follow trend of sodium (6) Pericardial effusion: Code(s): I31.3 - Pericardial effusion (noninflammatory) Status: Acute Assessment and Plan: * moderate to large pericardial effusion per imaging although no significant difference from previous * Cardiology following * no indication for pericardiocentesis at this time (7) Pleural effusion: Code(s): J90 - Pleural effusion, not elsewhere classified Status: Acute Assessment and Plan: * as noted by admission CXR * possible thoracentsis when more stable Will continue to follow. Subjective Date/time seen: 06/22/22 14:34 Weaned off levophed with stable hemodynamics at this time; not very much urine output in the last 24 hours and in positive fluid balance so IVFs discontinued; mentation continues to wax and wane but given recent ABG, on BiPAP therapy at this time. Exam Narrative: General: thin and frail [place] female who looks older than state age in NAD Heart: normal S1 and S2; no rub Lungs: coarse and decreased at bases Abdomen: soft, nontender, nondistended, positive bowel sounds Extremities: no cyanosis or clubbing; 2 - 3+ edema Skin: warm and dry Objective Data Vital Signs Vital Signs: Vital Signs Temp Pulse Resp BP Pulse Ox O2 Del Method O2 Flow Rate 06/22/22 13:52 97 16 90 06/22/22 14:00 84 06/22/22 14:21 88 22 H 06/22/22 13:55 85 23 H
[2022-06-22 15:22] LABS: Alveolar/Arterial O2 Gradient 194.2 mmHg; Base Excess ABG -8.9 mEq/l (+/-2.0); Fractional Inspired Oxygen 45 %; HCO3 ABG 19.3 mEq/l (22.0-26.0); Oxygen Content ABG 11.9 %vol (16.0-22.0); Oxyhemoglobin 90.1 % THb (90.0-100.0); PCO2 ABG 53.4 mmHg (35.0-45.0); PO2 ABG 65.9 mmHg (80.0-100.0); PO2 FiO2 Ratio Arterial Blood 1.46 %; Total Hemoglobin 9.3 g/dL (12.0-18.0)
[2022-06-22 15:27] LABS: pH ABG 7.175 (7.350-7.450)
[2022-06-22 15:28] LABS: Oxygen Saturation ABG 87.4 % (95.0-100.0)
[2022-06-22 15:29] LABS: Device NON-INVASIVE VENT; Site Drawn LEFT BRACHIAL
[2022-06-22 15:30] LABS: Non-Invasive Expiratory Pressure 5 CMH2O; Non-Invasive Vent Rate 20 /MIN
[2022-06-22] MEDS: LIDOCAINE 5% PATCH 1 PATCH TRANSDERM (16:32)
[2022-06-22 20:09] LABS: Alveolar/Arterial O2 Gradient 176.1 mmHg; Base Excess ABG -5.3 mEq/l (+/-2.0); Fractional Inspired Oxygen 45 %; HCO3 ABG 24.3 mEq/l (22.0-26.0); Oxygen Content ABG 11.3 %vol (16.0-22.0); PO2 ABG 60.6 mmHg (80.0-100.0); PO2 FiO2 Ratio Arterial Blood 1.35 %; Total Hemoglobin 9.2 g/dL (12.0-18.0)
--- NOTE | 2022-06-22 20:48 | WPDPROCEDUR ---
Procedures Intubation Intubation Date: 06/22/22 Intubation Time: 20:50 Consent: The patient's family at told staff they want the patient be a full code. The patient had a worsening ABGs and had to be intubated emergently. Sedative: etomidate Mg given: 20 Paralytic: succinylcholine Mg given: 100 Laryngoscope: fiber optic video scope ET tube size: 7 Tube secured depth (cm): 23 Tube secured location: lips Tube placement confirmation: visualized tube passing through cords, equal breath sounds bilaterally, no breath sounds over epigastrium and confirmation by capnometry Patient tolerated procedure: well and no complications Additional comments: Chest x-ray personally reviewed ET tube appropriately positioned no evidence of pneumothorax
[2022-06-22] MEDS: ETOMIDATE 20 MG/10 ML AMPUL IV PUSH (20:51)
[2022-06-22] MEDS: SUCCINYLCHOLINE CHLORIDE 20 MG/ML 10 ML VIAL 100 MG IV PUSH (20:53)
[2022-06-22] MEDS: PROPOFOL IV EMULSION 100 ML 1.49 MG IV CONT (21:09)
[2022-06-22] MEDS: HYDROCORTISONE SODIUM SUCCINATE 100 MG/2 ML VIAL 50 MG IV PUSH (21:23)
[2022-06-22 22:46] LABS: Alveolar/Arterial O2 Gradient 459.2 mmHg; Base Excess ABG -3.8 mEq/l (+/-2.0); Carboxyhemoglobin 0.3 % THb (0-2.0); Fractional Inspired Oxygen 100 %; HCO3 ABG 21.4 mEq/l (22.0-26.0); Methemoglobin ABG 0.4 %THb (0-1.5); Oxygen Content ABG 13.2 %vol (16.0-22.0); Oxygen Saturation ABG 99.4 % (95.0-100.0); Oxyhemoglobin 98.2 % THb (90.0-100.0); PCO2 ABG 39.6 mmHg (35.0-45.0); PO2 ABG 214.2 mmHg (80.0-100.0); PO2 FiO2 Ratio Arterial Blood 2.14 %; Reduced Hemoglobin 1.1 %THb (0-5.0); Total Hemoglobin 9.2 g/dL (12.0-18.0); pH ABG 7.351 (7.350-7.450)
[2022-06-22 22:48] LABS: pH ABG 7.134 (7.350-7.450)
[2022-06-22 22:50] LABS: Oxygen Saturation ABG 81.9 % (95.0-100.0); Oxyhemoglobin 87.2 % THb (90.0-100.0)
[2022-06-22 22:51] LABS: Device VENTILATOR; Modified Allen's Test Pass; Site Drawn RIGHT RADIAL
[2022-06-22 22:55] LABS: Arterial Blood Gas PEEP 5 cmH2O; Arterial Blood Gas Tidal Volume 350 ml; Arterial Blood Gas Vent Mode CMV; Arterial Blood Gas Ventilator rate 24 /MIN
[2022-06-22 22:59] LABS: Device NON-INVASIVE VENT; Modified Allen's Test Pass; Site Drawn LEFT RADIAL
[2022-06-22] MEDS: FENTANYL 2,500MCG/NS250ML(*CRX 2,500 MCG/250 ML BAG IV CONT (23:16)
[2022-06-23] VITALS (35 sets, daily range): BP systolic 117–140; BP diastolic 60–77; PULSE 68–91; RESP 18–20; TEMP 35.9–36.7; O2SAT 95–99
[2022-06-23] MEDS: ALBUMIN HUMAN 25% 25 GM/100 ML 100 ML IVPB ×4 (00:06→17:48)
[2022-06-23] MEDS: ROCURONIUM BROMIDE 50 MG/5 ML VIAL 15 MG IV PUSH (00:26)
[2022-06-23] MEDS: ALBUTEROL SULFATE NEB 2.5 MG/3 ML INH 5 MG INHALATION ×3 (02:28→20:00)
[2022-06-23] MEDS: PROPOFOL IV EMULSION 100 ML 10.4 MG IV CONT (04:04)
[2022-06-23] MEDS: CENTRAL LINE FLUSH 10 ML IV PUSH ×4 (04:51→21:22)
[2022-06-23] MEDS: LEVOTHYROXINE SODIUM INJ 100 MCG/5 ML VIAL 50 MCG IV PUSH (05:13)
[2022-06-23 05:33] LABS: Basophils Absolute Auto 0.1 K/mm3 (0.0-0.1); Basophils Percent Auto 0.3 % (0.2-1.2); Hematocrit 25.9 % (37.0-47.0); Immature Granulocyte Absolute 0.31 K/mm3 (0.00-0.031); Immature Granulocyte Percent A 1.4 % (0-0.5); Immature Platelet Fraction Pct 8.5 % (0.9-11.2); Lymphocytes Percent Auto 0.4 % (18.3-44.2); Mean Corpuscular HGB Conc 30.9 g/dl (32-36); Mean Corpuscular Hemoglobin 33.3 pg (26-34); Mean Corpuscular Volume 107.9 fl (80-100); Mean Platelet Volume 10.8 fl (7.4-10.4); Monocytes Absolute Auto 0.5 K/mm3 (0.1-0.6); Monocytes Percent Auto 2.3 % (2.6-8.5); Neutrophils Absolute Auto 21.4 K/mm3 (1.3-6.7); Neutrophils Percent Auto 95.6 % (45.5-73.1); Nucleated Red Blood Cells Absolute Auto 0.1 K/mm3 (0.0-0.012); Nucleated Red Blood Cells Perc 0.2 % (0.0-0.2); Platelet Count Result 68 k/mm3 (150-375); White Blood Count 22.3 K/mm3 (4.5-10.0)
[2022-06-23 05:42] LABS: Alanine Aminotransferase 25 U/L (6-35); Albumin Level 3.9 g/dL (3.5-5.1); Alkaline Phosphatase 262 U/L (38-126); Anion Gap 17 mmol/L (8-16); Aspartate Amino Transferase 74 U/L (14-36); Bilirubin,Total 1.5 mg/dL (0.2-1.3); Blood Urea Nitrogen 28 mg/dL (7-17); Calcium 7.6 mg/dL (8.4-10.2); Carbon Dioxide 21 mmol/L (22-30); Chloride 96 mmol/L (98-107); Estimated Glomerular Filt Rate 20; Glucose 84 mg/dL (65-110); Magnesium 1.9 mg/dL (1.6-2.3); Phosphorus 1.2 mg/dL (2.5-4.5); Potassium 3.1 mmol/L (3.4-5.0); Sodium 134 mmol/L (137-145)
[2022-06-23 05:52] LABS: Alveolar/Arterial O2 Gradient 254.9 mmHg; Carboxyhemoglobin 0.3 % THb (0-2.0); Fractional Inspired Oxygen 50 %; HCO3 ABG 21.6 mEq/l (22.0-26.0); Methemoglobin ABG 0.4 %THb (0-1.5); Oxygen Content ABG 12.2 %vol (16.0-22.0); Oxygen Saturation ABG 91.1 % (95.0-100.0); Oxyhemoglobin 91.6 % THb (90.0-100.0); PCO2 ABG 36.7 mmHg (35.0-45.0); PO2 ABG 60.3 mmHg (80.0-100.0); PO2 FiO2 Ratio Arterial Blood 1.21 %; Reduced Hemoglobin 7.7 %THb (0-5.0); Total Hemoglobin 9.4 g/dL (12.0-18.0); pH ABG 7.388 (7.350-7.450)
[2022-06-23 05:53] LABS: Arterial Blood Gas PEEP 5 cmH2O; Arterial Blood Gas Tidal Volume 350 ml; Arterial Blood Gas Vent Mode CMV; Arterial Blood Gas Ventilator rate 20 /MIN; Device VENTILATOR; Modified Allen's Test Pass; Site Drawn RIGHT RADIAL
[2022-06-23 06:17] LABS: Macrocytosis 1+ (NORMAL); Platelet Estimate Decreased (Adequate)
[2022-06-23 06:18] LABS: Anisocytosis 1+ (NORMAL); Poikilocytosis 1+ (NORMAL)
[2022-06-23] MEDS: POTASSIUM PHOS,M-BASIC-D-BASIC 40 MMOL in SODIUM CHLORIDE 0.9% IV 250 ML 43.89 MMOL IVPB (06:55)
--- NOTE | 2022-06-23 07:35 | PM.IMPN ---
Progress Note: A&P Assessment and Plan (1) Endocarditis: Code(s): I38 - Endocarditis, valve unspecified Status: Acute Assessment and Plan: Improving, WBC trending down, now 22.3 from 44 Appreciate critical care and cardiology consultations Blood cx NGTD Urine cultures pending Continue broad-spectrum antibiotics with vancomycin and cefepime Diuresed yesterday EUSEBIO cancelled d/t instability of patient, currently being treated as if she has tricuspid endocarditis Receiving stress dosing hydrocortisone (2) Shock: Code(s): R57.9 - Shock, unspecified Status: Acute Assessment and Plan: LFTs improving, intubated now, WBC improving, prognosis guarded (3) Pleural effusion: Code(s): J90 - Pleural effusion, not elsewhere classified Status: Acute Assessment and Plan: Stable, monitor, may need thoracentesis (4) Hypothyroidism: Code(s): E03.9 - Hypothyroidism, unspecified Status: Acute Assessment and Plan: Continue home medications (5) Chronic respiratory failure with hypoxia, on home oxygen therapy: Code(s): J96.11 - Chronic respiratory failure with hypoxia; Z99.81 - Dependence on supplemental oxygen Status: Acute Assessment and Plan: intubated on a ventilator now (6) Hypertension: Code(s): I10 - Essential (primary) hypertension Status: Acute (7) Altered mental status: Code(s): R41.82 - Altered mental status, unspecified Status: Acute (8) Hyponatremia: Code(s): E87.1 - Hypo-osmolality and hyponatremia Status: Acute Assessment and Plan: Improving, hypovolemia vs SIADH? Diuresed yesterday d/t thoughts patient was hypervolemic, likely SIADH (9) Pericardial effusion: Code(s): I31.3 - Pericardial effusion (noninflammatory) Status: Acute Assessment and Plan: No tamponade physiology seen now, appreciate Cardiology consultation, will hold beta-blockers and antihypertensives (10) Acute kidney injury: Code(s): N17.9 - Acute kidney failure, unspecified Status: Acute Assessment and Plan: Worsening, appreciate nephrology consultation, creat 2.5, up from baseline of 1 and 2.3 yesterday (11) Anemia in CKD (chronic kidney disease): Qualifiers: Chronic kidney disease stage: unspecified stage Qualified Code(s): N18.9 - Chronic kidney disease, unspecified; D63.1 - Anemia in chronic kidney disease Code(s): N18.9 - Chronic kidney disease, unspecified; D63.1 - Anemia in chronic kidney disease Status: Acute Assessment and Plan: Hemoglobin appears closer to 8-9 at baseline, 8 today (12) Hypokalemia: Code(s): E87.6 - Hypokalemia Status: Acute Assessment and Plan: Still low at 3.1, defer management to critical care and nephrology Plan DVT prophylaxis with SCDs GI prophylaxis with PPI Code status full code Subjective Date/time seen: 06/23/22 07:35 Interval history: intubated overnight. int/sed. Review of Systems Review of Systems: ROS unobtainable: Yes unobtainable due to endotracheal tube Exam Narrative: General: int/sed HEENT: Atraumatic, normocephalic CV: Regular rate and rhythm, S1, S2 Lungs: Unlabored breath sounds, no audible wheeze heard Abdomen: Non distended Extremities: Normal to inspection, edema B/L Skin: Scattered bruising noted Objective Data Vital Signs Vital Signs: Vital Signs - 24 hr 06/22/22 09:02 06/22/22 09:07 06/22/22 09:30 Temperature Pulse Rate 90 98 Respiratory Rate 20 20 Blood Pressure Pulse Oximetry 100 Oxygen Delivery Non-Rebreather Mask Oxygen Flow Rate 15 Fraction of Inspired Oxygen 06/22/22 08:00 06/22/22 10:20 06/22/22 10:00 Temperature 97.6 F Pulse Rate 84 81 Respiratory Rate 13 16 Blood Pressure 133/69 Pulse Oximetry 90 94 Oxygen Delivery BiPAP Oxygen Flow Rate Fraction of Inspired Oxygen 06/22/22 08:0
[2022-06-23] MEDS: ALBUTEROL SULFATE NEB 2.5 MG/3 ML INH 15 MG INHALATION (08:00)
[2022-06-23] MEDS: CYANOCOBALAMIN 1,000 MCG TABLET 1000 MCG BY MOUTH (08:14)
[2022-06-23] MEDS: ASPIRIN 81 MG CHEWABLE TABLET PO (08:14)
[2022-06-23] MEDS: PANTOPRAZOLE SODIUM IV 40 MG VIAL IV PUSH ×2 (08:14→21:21)
[2022-06-23] MEDS: SODIUM CHLORIDE 1 GM TABLET PO ×2 (08:14→17:50)
[2022-06-23] MEDS: methylPREDNISolone SOD SUCC 125 MG VIAL IV PUSH (08:42)
[2022-06-23] MEDS: HYDROCORTISONE SODIUM SUCCINATE 100 MG/2 ML VIAL 50 MG IV PUSH (09:23)
[2022-06-23] MEDS: LIDOCAINE 5% PATCH 1 PATCH TRANSDERM (09:23)
[2022-06-23 10:02] LABS: Iron 58 ug/dL (37-170)
[2022-06-23 10:11] LABS: Percent Iron Saturation 68 % (20-50)
[2022-06-23 10:16] LABS: Folic Acid 4.6 ng/mL (2.76->20); Vitamin B12 > 1000.0 pg/mL (239-931)
--- NOTE | 2022-06-23 12:37 | PM.PNNEP ---
Progress Note: A&P Assessment and Plan (1) Acute kidney injury: Code(s): N17.9 - Acute kidney failure, unspecified Status: Acute Assessment and Plan: creatinine 0.9mg/dl in early May 2022 however, creatinine up to 1.4mg/dl in LATE May 2022 (arguing a component of CKD) acute insult likely multifactorial: hypotension/hemodynamic instability infection pre-renal factors/hypovolemia evaluation to date: renal ultrasound normal urine electrolytes look prerenal follow trend of hemodynamics, repeat labs, and UOP although no critical electrolytes, I suspect she will eventually need KEY ACCOUNT MANAGER/dialysis for optimization of volume status give her oliguria/anuria... (2) Shock: Code(s): R57.9 - Shock, unspecified Status: Acute Assessment and Plan: as noted on presentation presumed due to infection given significant leukocytosis with left shift started on dopamine given bradycardia and persistent hypotension despite aggressive IVF resuscitation was on levophed but not currently (weaned off) follow culture data empiric antibiotics follow trend of hemodynamics (3) Endocarditis: Code(s): I38 - Endocarditis, valve unspecified Status: Acute Assessment and Plan: as suspected from TTE on antibiotics at this time now intubated, consider EUSEBIO for definitive diagnosis(?) (4) Acute and chronic respiratory failure with hypercapnia: Code(s): J96.22 - Acute and chronic respiratory failure with hypercapnia Status: Acute Assessment and Plan: intubated at this time on home O2 at baseline imaging noted - moderate left and small right pleural effusion along with pericardial effusion need thoracentesis (?) when more stable complicated by known history of COPD continue bronchodilators (5) Hyponatremia: Code(s): E87.1 - Hypo-osmolality and hyponatremia Status: Acute Assessment and Plan: chronic issues at baseline suspect further fluctuations to occur with IVFs, IV medications...etc relatively stable at this time follow trend of sodium (6) Pericardial effusion: Code(s): I31.3 - Pericardial effusion (noninflammatory) Status: Acute Assessment and Plan: moderate to large pericardial effusion per imaging although no significant difference from previous Cardiology following no indication for pericardiocentesis at this time (7) Pleural effusion: Code(s): J90 - Pleural effusion, not elsewhere classified Status: Acute Assessment and Plan: as noted by admission CXR possible thoracentsis when more stable Long and extensive discussion (> 20 minutes) with patient's daughter at bedside regarding patient declining kidney function in association with declining urine output and likely need for renal replacement therapy/dialysis if she starts running into issues hyperkalemia, metabolic acidosis, volume overload, or uremia and I voiced my voiced my concerns that given her multiple comorbidities (hx of lung cancer, COPD, endocarditis, cardiac disease) she may not tolerated KEY ACCOUNT MANAGER/dialysis -- she appeared to voice understanding. Discussed case with Dr. Bustos as well. Will continue to follow. Subjective Date/time seen: 06/23/22 12:37 Had to be intubatedovernight due to worsening ABGs in association with decreased mental status/somnolensce; remains off levophed with stable hemodynamics but her urine output remains quite poor/low; no apparent distress noted; family at bedside and we discussed the situation. Exam Narrative: General: thin/frail/ill-appearing female who looks older than state age; intubated Heart: normal S1 and S2; no rub Lungs: coarse and decreased at bases Abdomen: soft, nontender, nondistended, positive bowel sounds Extremities: no cyanosis or clubbing; 2 - 3+ edema Skin: warm and intact Objective Data Vital Signs Vital Signs: Vital Signs Tem
--- NOTE | 2022-06-23 12:37 | P.PNNP_ITS ---
Progress Note: A&P Assessment and Plan (1) Acute kidney injury: Code(s): N17.9 - Acute kidney failure, unspecified Status: Acute Assessment and Plan: * creatinine 0.9mg/dl in early May 2022 * however, creatinine up to 1.4mg/dl in LATE May 2022 (arguing a component of CKD) * acute insult likely multifactorial: * hypotension/hemodynamic instability * infection * pre-renal factors/hypovolemia * evaluation to date: * renal ultrasound normal * urine electrolytes look prerenal * follow trend of hemodynamics, repeat labs, and UOP * although no critical electrolytes, I suspect she will eventually need PUBLIC SPEAKER/dialysis for optimization of volume status give her oliguria/anuria... (2) Shock: Code(s): R57.9 - Shock, unspecified Status: Acute Assessment and Plan: * as noted on presentation * presumed due to infection given significant leukocytosis with left shift * started on dopamine given bradycardia and persistent hypotension despite aggressive IVF resuscitation * was on levophed but not currently (weaned off) * follow culture data * empiric antibiotics * follow trend of hemodynamics (3) Endocarditis: Code(s): I38 - Endocarditis, valve unspecified Status: Acute Assessment and Plan: * as suspected from TTE * on antibiotics at this time * now intubated, consider EUSEBIO for definitive diagnosis(?) (4) Acute and chronic respiratory failure with hypercapnia: Code(s): J96.22 - Acute and chronic respiratory failure with hypercapnia Status: Acute Assessment and Plan: * intubated at this time * on home O2 at baseline * imaging noted - moderate left and small right pleural effusion along with pericardial effusion * need thoracentesis (?) when more stable * complicated by known history of COPD * continue bronchodilators (5) Hyponatremia: Code(s): E87.1 - Hypo-osmolality and hyponatremia Status: Acute Assessment and Plan: * chronic issues at baseline * suspect further fluctuations to occur with IVFs, IV medications...etc * relatively stable at this time * follow trend of sodium (6) Pericardial effusion: Code(s): I31.3 - Pericardial effusion (noninflammatory) Status: Acute Assessment and Plan: * moderate to large pericardial effusion per imaging although no significant difference from previous * Cardiology following * no indication for pericardiocentesis at this time (7) Pleural effusion: Code(s): J90 - Pleural effusion, not elsewhere classified Status: Acute Assessment and Plan: * as noted by admission CXR * possible thoracentsis when more stable Long and extensive discussion (> 20 minutes) with patient's daughter at bedside regarding patient declining kidney function in association with declining urine output and likely need for renal replacement therapy/dialysis if she starts running into issues hyperkalemia, metabolic acidosis, volume overload, or uremia and I voiced my voiced my concerns that given her multiple comorbidities (hx of lung cancer, COPD, endocarditis, cardiac disease) she may not tolerated PUBLIC SPEAKER/dialysis -- she appeared to voice understanding. Discussed case with Dr. Bustos as well. Will continue to follow. Subjective Date/time seen: 06/23/22 12:37 Had to be intubatedovernight due to worsening ABGs in association with decreased mental status/somnolensce; remains off levophed with stable hemodynamics but her urine output remains quite poor/low; no apparent dis
--- NOTE | 2022-06-23 12:53 | WPDINTPN ---
Progress Note: A&P Assessment and Plan (1) Shock: Code(s): R57.9 - Shock, unspecified Status: Acute Assessment and Plan: Patient presented with shock, likely infectious given her WBC count is 44 with 94% neutrophilia. Patient also has moderate to large pericardial effusion, patient could have some tamponade physiology. -lactic acid remains normal -on admission patient was bradycardic hypotensive in the ER and was started on dopamine, which was later switched to Levophed . -off all pressors since 06/22 -acute kidney injury with elevated creatinine, continues to oliguria/anuria -she has received adequate IV fluids -contains IV fluids were discontinued as patient was in positive fluid balance -wean stress dose steroids -continue vancomycin and cefepime (06/20) -06/20/2022 blood cultures: No growth so far 11/08 bottles -06/20/2022 urine cultures: Pending -06/20 echocardiogram: Likely Endocarditis with vegetations on tricuspid valve -06/22 repeat blood cultures: No growth on preliminary report x2 CT scan of the abdomen and pelvis on 06/20/2022 MPRESSION: 1. Small right and moderate-sized left pleural effusions. 2. Diffuse lung disease, likely a combination of mild pulmonary edema and atelectasis and radiation pneumonitis. 3. 1.6 cm nodule in paramediastinal left lung upper lobe, which may be scarring or metastatic disease. 4. Stable diffuse soft tissue attenuation in the mediastinum, which may be anatoly metastatic disease and/or changes of radiation therapy. 5. Chronic large pericardial effusion. 6. Small volume of ascites. 7. Chronic calcified mass in right adnexa, likely a pedunculated fibroid. (2) Acute and chronic respiratory failure with hypercapnia: Code(s): J96.22 - Acute and chronic respiratory failure with hypercapnia Status: Acute Assessment and Plan: pt also complained of SOB/dyspnea on admission -06/22 chest x-ray: Enlarged cardiac silhouette resulting from a large pericardial effusion on prior CT. Bilateral diffuse interstitial and mild airspace opacities consistent with mild pulmonary edema and atelectasis although superimposed pneumonia is not excludable. Small bilateral pleural effusions, left greater than right.. -patient may require thoracentesis once she is more stable -patient has history of COPD and is on home oxygen -06/22/2022 patient on BiPAP then AVAPS for hypercapnic respiratory failure, pCO2 continue to worsen and patient was intubated on 06/22/2022 -patient on CMV mode of ventilation this morning with high peak pressures in the upper 50s, switch patient to pressure control ventilation, will target tidal volumes between 300-350 mL minute ventilation close to 7 L per minute -ABGs much improved this morning -chest x-ray on 06/23: ?Diffuse lung disease with mild improvement, likely a combination of mild pulmonary edema and treatment changes without or with pneumonia. Stable small pleural effusions.. Enlargement of the cardiac silhouette correlating with a large pericardial effusion by CT -continue bronchodilators -sedated with propofol, maintain RASS of 0 to -1 (3) Endocarditis: Code(s): I38 - Endocarditis, valve unspecified Status: Acute Assessment and Plan: 06/20/2022 Echocardiogram: Showed normal LV chamber dimension, ejection fraction is greater than 70%, grade 2 diastolic dysfunction. Filamentous mobile echodensity within the right atrium with suggestion of extension to with the tricuspid valve and into the right ventricle concerning for vegetation, thrombus or mass, trace mitral valve regurg, mild tricuspid regurg, no pulmonary hypertension no aortic valve stenosis there is moderate to large circumferential pericardial effusion with extensive febrile this material within the pericardial space no evidence of tamponade physiology. Discussed extensively with Cardiology Dr. Christ Jensen, in very difficult to obtain a EUSEBIO without intubating the patient, she most likely t
[2022-06-23] MEDS: PROPOFOL IV EMULSION 100 ML 5.94 MG IV CONT (14:06)
--- NOTE | 2022-06-23 16:04 | PC.NURSE ---
Spoke with [facility] RN who placed pt's PICC line today. He stated radiologist gave the OK to use. Report of x-ray said consider 2 cm retraction . Call [facility] RN back to verify that this was already done, to which he confirmed.
[2022-06-23] MEDS: IPRATROPIUM BR 0.02% INH SOLN 0.5 MG/2.5 ML VIAL INHALATION ×2 (16:13→20:00)
[2022-06-23 17:36] LABS: Vancomycin Trough 16.1 ug/mL (10.0-20.0)
[2022-06-23] MEDS: methylPREDNISolone SOD SUCC 40 MG VIAL IV PUSH (17:53)
[2022-06-23] MEDS: ATORVASTATIN 40 MG TABLET 80 MG PO (21:21)
[2022-06-24] VITALS (40 sets, daily range): BP systolic 119–153; BP diastolic 72–94; PULSE 78–98; RESP 18–27; TEMP 36.1–36.6; O2SAT 95–98
[2022-06-24] MEDS: IPRATROPIUM BR 0.02% INH SOLN 0.5 MG/2.5 ML VIAL INHALATION ×7 (00:01→23:32)
[2022-06-24] MEDS: ALBUTEROL SULFATE NEB 2.5 MG/3 ML INH 5 MG INHALATION ×7 (00:01→23:32)
[2022-06-24] MEDS: methylPREDNISolone SOD SUCC 40 MG VIAL IV PUSH ×5 (00:36→23:48)
[2022-06-24] MEDS: ALBUMIN HUMAN 25% 25 GM/100 ML 100 ML IVPB ×2 (00:36→06:43)
[2022-06-24] MEDS: PROPOFOL IV EMULSION 100 ML 5.94 MG IV CONT (04:30)
[2022-06-24 06:11] LABS: Alveolar/Arterial O2 Gradient 213.9 mmHg; Base Excess ABG -4.8 mEq/l (+/-2.0); Carboxyhemoglobin 0.3 % THb (0-2.0); Fractional Inspired Oxygen 45 %; HCO3 ABG 19.4 mEq/l (22.0-26.0); Methemoglobin ABG 0.5 %THb (0-1.5); Oxygen Saturation ABG 94.2 % (95.0-100.0); Oxyhemoglobin 92.2 % THb (90.0-100.0); PCO2 ABG 32.5 mmHg (35.0-45.0); PO2 FiO2 Ratio Arterial Blood 1.56 %; Total Hemoglobin 9.2 g/dL (12.0-18.0); pH ABG 7.394 (7.350-7.450)
[2022-06-24 06:14] LABS: Arterial Blood Gas Vent Mode PRESSURE CONTROL; Arterial Blood Gas Ventilator rate 20 /MIN; Device VENTILATOR; Modified Allen's Test Unable to perform; Peak Inspiratory Pressure 43 cmH2O; Site Drawn RIGHT RADIAL
[2022-06-24 06:15] LABS: Arterial Blood Gas PEEP 3 cmH2O
[2022-06-24] MEDS: LEVOTHYROXINE SODIUM INJ 100 MCG/5 ML VIAL 50 MCG IV PUSH (06:43)
[2022-06-24] MEDS: CENTRAL LINE FLUSH 10 ML IV PUSH ×6 (06:44→21:34)
[2022-06-24 07:03] LABS: Basophils Absolute Auto 0.1 K/mm3 (0.0-0.1); Basophils Percent Auto 0.3 % (0.2-1.2); Hematocrit 22.9 % (37.0-47.0); Hemoglobin 7.5 g/dL (12.0-15.0); Immature Granulocyte Absolute 0.22 K/mm3 (0.00-0.031); Immature Granulocyte Percent A 1.1 % (0-0.5); Immature Platelet Fraction Pct 13.1 % (0.9-11.2); Lymphocytes Absolute Auto 0.09 K/mm3 (0.9-3.2); Lymphocytes Percent Auto 0.5 % (18.3-44.2); Mean Corpuscular HGB Conc 32.8 g/dl (32-36); Mean Corpuscular Hemoglobin 34.2 pg (26-34); Mean Corpuscular Volume 104.6 fl (80-100); Mean Platelet Volume 11.6 fl (7.4-10.4); Monocytes Absolute Auto 0.6 K/mm3 (0.1-0.6); Monocytes Percent Auto 3.2 % (2.6-8.5); Neutrophils Absolute Auto 18.9 K/mm3 (1.3-6.7); Neutrophils Percent Auto 94.9 % (45.5-73.1); Nucleated Red Blood Cells Perc 0.2 % (0.0-0.2); Platelet Count Result 52 k/mm3 (150-375); Red Blood Count 2.19 M/mm3 (4.2-5.4); Red Cell Distribution Width 18.9 % (11.5-14.5); White Blood Count 19.9 K/mm3 (4.5-10.0)
[2022-06-24 07:15] LABS: Alanine Aminotransferase 26 U/L (6-35); Albumin Level 4.7 g/dL (3.5-5.1); Alkaline Phosphatase 284 U/L (38-126); Anion Gap 22 mmol/L (8-16); Aspartate Amino Transferase 88 U/L (14-36); Bilirubin,Total 2.2 mg/dL (0.2-1.3); Blood Urea Nitrogen 32 mg/dL (7-17); Calcium 7.6 mg/dL (8.4-10.2); Carbon Dioxide 18 mmol/L (22-30); Chloride 96 mmol/L (98-107); Estimated Glomerular Filt Rate 16; Glucose 94 mg/dL (65-110); Magnesium 1.7 mg/dL (1.6-2.3); Phosphorus 2.8 mg/dL (2.5-4.5); Potassium 3.6 mmol/L (3.4-5.0); Sodium 136 mmol/L (137-145)
[2022-06-24 08:18] LABS: Platelet Estimate Decreased (Adequate)
[2022-06-24 08:20] LABS: Anisocytosis 1+ (NORMAL); Poikilocytosis 1+ (NORMAL)
[2022-06-24 08:21] LABS: Hypochromasia 1+ (NORMAL)
[2022-06-24] MEDS: LIDOCAINE 5% PATCH 1 PATCH TRANSDERM (08:34)
[2022-06-24] MEDS: PANTOPRAZOLE SODIUM IV 40 MG VIAL IV PUSH ×2 (08:35→21:32)
[2022-06-24] MEDS: SODIUM CHLORIDE 1 GM TABLET PO ×2 (08:35→17:41)
[2022-06-24 10:21] LABS: IFOB Positive Control Positive; Immunochemical Fecal Occult Bl Positive (N)
--- NOTE | 2022-06-24 11:28 | WPDINTPN ---
Progress Note: A&P Assessment and Plan (1) Shock: Code(s): R57.9 - Shock, unspecified Status: Acute Assessment and Plan: Patient presented with shock, likely infectious given her WBC count is 44 with 94% neutrophilia. Patient also has moderate to large pericardial effusion, patient could have some tamponade physiology. -lactic acid remains normal -on admission patient was bradycardic hypotensive in the ER and was started on dopamine, which was later switched to Levophed . -off all pressors since 06/22 -acute kidney injury with elevated creatinine, continues to oliguria/anuria -she has received adequate IV fluids -IV fluids were discontinued on 06/22/2022 -off stress dose steroids -continue vancomycin and cefepime (06/20) -06/20/2022 blood cultures: No growth so far 11/08 bottles -06/20/2022 urine cultures: No growth -06/20 echocardiogram: Likely Endocarditis with vegetations on tricuspid valve -06/22 repeat blood cultures: No growth on preliminary report x2 -06/23 sputum culture: Pending CT scan of the abdomen and pelvis on 06/20/2022 MPRESSION: 1. Small right and moderate-sized left pleural effusions. 2. Diffuse lung disease, likely a combination of mild pulmonary edema and atelectasis and radiation pneumonitis. 3. 1.6 cm nodule in paramediastinal left lung upper lobe, which may be scarring or metastatic disease. 4. Stable diffuse soft tissue attenuation in the mediastinum, which may be anatoly metastatic disease and/or changes of radiation therapy. 5. Chronic large pericardial effusion. 6. Small volume of ascites. 7. Chronic calcified mass in right adnexa, likely a pedunculated fibroid. (2) Acute and chronic respiratory failure with hypercapnia: Code(s): J96.22 - Acute and chronic respiratory failure with hypercapnia Status: Acute Assessment and Plan: pt also complained of SOB/dyspnea on admission -06/22 chest x-ray: Enlarged cardiac silhouette resulting from a large pericardial effusion on prior CT. Bilateral diffuse interstitial and mild airspace opacities consistent with mild pulmonary edema and atelectasis although superimposed pneumonia is not excludable. Small bilateral pleural effusions, left greater than right.. -patient may require thoracentesis once she is more stable -patient has history of COPD and is on home oxygen -06/22/2022 patient on BiPAP then AVAPS for hypercapnic respiratory failure, pCO2 continue to worsen and patient was intubated on 06/22/2022 - currently on pressure control ventilation,, inspiratory pressure of 43 and PEEP of 3, 45% FiO2 -ABGs and chest x-ray reviewed -continue bronchodilators -sedated with propofol, maintain RASS of 0 to -1 (3) Endocarditis: Code(s): I38 - Endocarditis, valve unspecified Status: Acute Assessment and Plan: 06/20/2022 Echocardiogram: Showed normal LV chamber dimension, ejection fraction is greater than 70%, grade 2 diastolic dysfunction. Filamentous mobile echodensity within the right atrium with suggestion of extension to with the tricuspid valve and into the right ventricle concerning for vegetation, thrombus or mass, trace mitral valve regurg, mild tricuspid regurg, no pulmonary hypertension no aortic valve stenosis there is moderate to large circumferential pericardial effusion with extensive febrile this material within the pericardial space no evidence of tamponade physiology. Discussed extensively with Cardiology Dr. Christ Jensen, in very difficult to obtain a EUSEBIO without intubating the patient, she most likely thinks it is vegetation given her septic shock, elevated white blood cell count, continue antibiotics as above for endocarditis (4) Acute kidney injury: Code(s): N17.9 - Acute kidney failure, unspecified Status: Acute Assessment and Plan: Acute on chronic kidney disease, likely related to hypotension, infection, hypovolemia -urine sodium showed increased renal picture patient was adequately f
--- NOTE | 2022-06-24 11:46 | PM.PNNEP ---
Progress Note: A&P Assessment and Plan (1) Acute kidney injury: Code(s): N17.9 - Acute kidney failure, unspecified Status: Acute Assessment and Plan: creatinine 0.9mg/dl in early May 2022 however, creatinine up to 1.4mg/dl in LATE May 2022 (arguing a component of CKD) acute insult likely multifactorial: hypotension/hemodynamic instability infection pre-renal factors/hypovolemia evaluation to date: renal ultrasound normal urine electrolytes look prerenal follow trend of hemodynamics, repeat labs, and UOP although no critical electrolytes, I suspect she will eventually need AIRLINE CAPTAIN/dialysis in the next 24 hours for optimization of volume status give her oliguria/anuria and acidosis (2) Shock: Code(s): R57.9 - Shock, unspecified Status: Acute Assessment and Plan: as noted on presentation presumed due to infection given significant leukocytosis with left shift started on dopamine given bradycardia and persistent hypotension despite aggressive IVF resuscitation was on levophed but not currently (weaned off) follow culture data empiric antibiotics follow trend of hemodynamics (3) Endocarditis: Code(s): I38 - Endocarditis, valve unspecified Status: Acute Assessment and Plan: as suspected from TTE on antibiotics at this time now intubated, consider EUSEBIO for definitive diagnosis(?) (4) Acute and chronic respiratory failure with hypercapnia: Code(s): J96.22 - Acute and chronic respiratory failure with hypercapnia Status: Acute Assessment and Plan: intubated at this time on home O2 at baseline imaging noted - moderate left and small right pleural effusion along with pericardial effusion need thoracentesis (?) when more stable complicated by known history of COPD continue bronchodilators (5) Hyponatremia: Code(s): E87.1 - Hypo-osmolality and hyponatremia Status: Acute Assessment and Plan: chronic issues at baseline suspect further fluctuations to occur with IVFs, IV medications...etc relatively stable at this time follow trend of sodium (6) Pericardial effusion: Code(s): I31.3 - Pericardial effusion (noninflammatory) Status: Acute Assessment and Plan: moderate to large pericardial effusion per imaging although no significant difference from previous Cardiology following no indication for pericardiocentesis at this time (7) Pleural effusion: Code(s): J90 - Pleural effusion, not elsewhere classified Status: Acute Assessment and Plan: as noted by admission CXR possible thoracentsis when more stable Tentatively plan initiation of renal replacement therapy/dialysis tomorrow if family agreeable. Discussed case with Dr. Bustos as well - plan HD catheter placement tomorrow after discussion with family and proceed with dialysis afterwards. Will continue to follow. Subjective Date/time seen: 06/24/22 11:46 No real significant change noted at this time -- remains intubated/sedated on mechanical ventilation; remains hemodynamically stable off vasopressor therapy; urine output continues to decline with almost anuria at this time with rising creatinine as noted; no apparent distress currently. Exam Narrative: General: thin/frail/ill-appearing female who looks older than state age; intubated Heart: normal S1 and S2; no rub Lungs: coarse and decreased at bases Abdomen: soft, nontender, nondistended, positive bowel sounds Extremities: no cyanosis or clubbing; 2 - 3+ edema Skin: no rash Objective Data Vital Signs Vital Signs: Vital Signs Temp Pulse Resp BP Pulse Ox O2 Del Method FiO2 06/24/22 11:16 92 25 H 06/24/22 11:10 96 26 H 06/24/22 11:09 96 95 Mechanical Ventilation 45 06/24/22 11:08 94 24 H 06/24/22 11:00 94 20 06/24/22 10:00 95 20 06/24/22 09:00 95 20 06/24/22
--- NOTE | 2022-06-24 11:46 | P.PNNP_ITS ---
Progress Note: A&P Assessment and Plan (1) Acute kidney injury: Code(s): N17.9 - Acute kidney failure, unspecified Status: Acute Assessment and Plan: * creatinine 0.9mg/dl in early May 2022 * however, creatinine up to 1.4mg/dl in LATE May 2022 (arguing a component of CKD) * acute insult likely multifactorial: * hypotension/hemodynamic instability * infection * pre-renal factors/hypovolemia * evaluation to date: * renal ultrasound normal * urine electrolytes look prerenal * follow trend of hemodynamics, repeat labs, and UOP * although no critical electrolytes, I suspect she will eventually need TRACK WALKER/dialysis in the next 24 hours for optimization of volume status give her oliguria/anuria and acidosis (2) Shock: Code(s): R57.9 - Shock, unspecified Status: Acute Assessment and Plan: * as noted on presentation * presumed due to infection given significant leukocytosis with left shift * started on dopamine given bradycardia and persistent hypotension despite aggressive IVF resuscitation * was on levophed but not currently (weaned off) * follow culture data * empiric antibiotics * follow trend of hemodynamics (3) Endocarditis: Code(s): I38 - Endocarditis, valve unspecified Status: Acute Assessment and Plan: * as suspected from TTE * on antibiotics at this time * now intubated, consider EUSEBIO for definitive diagnosis(?) (4) Acute and chronic respiratory failure with hypercapnia: Code(s): J96.22 - Acute and chronic respiratory failure with hypercapnia Status: Acute Assessment and Plan: * intubated at this time * on home O2 at baseline * imaging noted - moderate left and small right pleural effusion along with pericardial effusion * need thoracentesis (?) when more stable * complicated by known history of COPD * continue bronchodilators (5) Hyponatremia: Code(s): E87.1 - Hypo-osmolality and hyponatremia Status: Acute Assessment and Plan: * chronic issues at baseline * suspect further fluctuations to occur with IVFs, IV medications...etc * relatively stable at this time * follow trend of sodium (6) Pericardial effusion: Code(s): I31.3 - Pericardial effusion (noninflammatory) Status: Acute Assessment and Plan: * moderate to large pericardial effusion per imaging although no significant difference from previous * Cardiology following * no indication for pericardiocentesis at this time (7) Pleural effusion: Code(s): J90 - Pleural effusion, not elsewhere classified Status: Acute Assessment and Plan: * as noted by admission CXR * possible thoracentsis when more stable Tentatively plan initiation of renal replacement therapy/dialysis tomorrow if family agreeable. Discussed case with Dr. Bustos as well - plan HD catheter placement tomorrow after discussion with family and proceed with dialysis afterwards. Will continue to follow. Subjective Date/time seen: 06/24/22 11:46 No real significant change noted at this time -- remains intubated/sedated on mechanical ventilation; remains hemodynamically stable off vasopressor therapy; urine output continues to decline with almost anuria at this time with rising creatinine as noted; no apparent distress currently. Exam Narrative: General: thin/frail/ill-appearing female who looks older than state age; intubated Heart: normal S1 and S2; no rub Lungs: coarse and decreased at ba
[2022-06-24] MEDS: CALCIUM GLUC 2,000 MG/NS 100ML 2,000 MG/100 ML BAG 100 MG IVPB (11:53)
[2022-06-24 12:14] LABS: INR 2.1; Prothrombin Time 22.4 Seconds (11.1-14.7)
[2022-06-24 12:15] LABS: Partial Thromboplastin Time 48.9 SECONDS (22.3-36.8)
[2022-06-24] MEDS: PROPOFOL IV EMULSION 100 ML 10.4 MG IV CONT (14:47)
[2022-06-24] MEDS: ATORVASTATIN 40 MG TABLET 80 MG PO (21:33)
[2022-06-24] MEDS: PROPOFOL IV EMULSION 100 ML 11.88 MG IV CONT (23:44)
[2022-06-25] VITALS (41 sets, daily range): BP systolic 103–130; BP diastolic 64–87; PULSE 82–109; RESP 20–24; TEMP 36.4–37.1; O2SAT 94–98; BMI 22.9
[2022-06-25] MEDS: IPRATROPIUM BR 0.02% INH SOLN 0.5 MG/2.5 ML VIAL INHALATION ×6 (04:33→23:33)
[2022-06-25] MEDS: ALBUTEROL SULFATE NEB 2.5 MG/3 ML INH 5 MG INHALATION ×6 (04:33→23:33)
[2022-06-25] MEDS: CENTRAL LINE FLUSH 10 ML IV PUSH ×6 (05:06→20:24)
[2022-06-25 05:17] LABS: Alveolar/Arterial O2 Gradient 216.9 mmHg; Base Excess ABG -4.6 mEq/l (+/-2.0); Carboxyhemoglobin 0.3 % THb (0-2.0); Fractional Inspired Oxygen 45 %; HCO3 ABG 19.1 mEq/l (22.0-26.0); Methemoglobin ABG 0.5 %THb (0-1.5); Oxygen Content ABG 13.4 %vol (16.0-22.0); Oxygen Saturation ABG 94.3 % (95.0-100.0); PCO2 ABG 30.7 mmHg (35.0-45.0); PO2 FiO2 Ratio Arterial Blood 1.53 %; Reduced Hemoglobin 7.2 %THb (0-5.0); Total Hemoglobin 10.3 g/dL (12.0-18.0); pH ABG 7.412 (7.350-7.450)
[2022-06-25 05:19] LABS: Site Drawn RIGHT RADIAL
[2022-06-25 05:20] LABS: Arterial Blood Gas Ventilator rate 20 /MIN; Device VENTILATOR; Modified Allen's Test Pass
[2022-06-25 05:21] LABS: Arterial Blood Gas PEEP 3 cmH2O; Arterial Blood Gas Vent Mode PRESSURE CONTROL; Peak Inspiratory Pressure 43 cmH2O
[2022-06-25] MEDS: PROPOFOL IV EMULSION 100 ML 11.88 MG IV CONT ×3 (05:49→21:05)
[2022-06-25] MEDS: methylPREDNISolone SOD SUCC 40 MG VIAL IV PUSH ×4 (05:52→23:41)
[2022-06-25] MEDS: LEVOTHYROXINE SODIUM INJ 100 MCG/5 ML VIAL 50 MCG IV PUSH (05:52)
[2022-06-25 06:54] LABS: Hematocrit 28.6 % (37.0-47.0); Hemoglobin 9.4 g/dL (12.0-15.0); Immature Platelet Fraction Pct 17.2 % (0.9-11.2); Mean Corpuscular HGB Conc 32.9 g/dl (32-36); Mean Corpuscular Hemoglobin 34.2 pg (26-34); Platelet Count Result 46 k/mm3 (150-375); Red Blood Count 2.75 M/mm3 (4.2-5.4); Red Cell Distribution Width 19.5 % (11.5-14.5); White Blood Count 13.3 K/mm3 (4.5-10.0)
[2022-06-25 06:58] LABS: Alanine Aminotransferase 53 U/L (6-35); Albumin Level 3.6 g/dL (3.5-5.1); Alkaline Phosphatase 608 U/L (38-126); Anion Gap 17 mmol/L (8-16); Aspartate Amino Transferase 225 U/L (14-36); Bilirubin,Total 3.5 mg/dL (0.2-1.3); Blood Urea Nitrogen 38 mg/dL (7-17); Calcium 7.7 mg/dL (8.4-10.2); Carbon Dioxide 19 mmol/L (22-30); Chloride 96 mmol/L (98-107); Estimated Glomerular Filt Rate 15; Glucose 154 mg/dL (65-110); Magnesium 1.6 mg/dL (1.6-2.3); Phosphorus 2.4 mg/dL (2.5-4.5); Potassium 3.4 mmol/L (3.4-5.0); Sodium 132 mmol/L (137-145)
[2022-06-25 07:41] LABS: Hepatitis B Surface Antigen Negative (Negative)
[2022-06-25 07:49] LABS: Band Neutrophils Percent 26 % (0-6); Lymphocytes Absolute Manual 0.39 K/mm3 (1.1-4.5); Neutrophils Percent Manual 71 % (46-73); Nucleated Red Blood Cells 3 %; Platelet Estimate Decreased (Adequate); Total Cells Counted 100
[2022-06-25 07:50] LABS: Macrocytosis 1+ (NORMAL); Tear Drop Cells 1+ (NORMAL)
[2022-06-25 07:59] LABS: Hepatitis B Surface Anti Res Negative
--- NOTE | 2022-06-25 08:17 | P.PNNP_ITS ---
Progress Note: A&P Assessment and Plan (1) Acute kidney injury: Code(s): N17.9 - Acute kidney failure, unspecified Status: Acute Assessment and Plan: * creatinine 0.9mg/dl in early May 2022 * however, creatinine up to 1.4mg/dl in LATE May 2022. Unclear why this creatinine was elevated before she came in, however she was chronically ill and on multiple medications. * acute insult likely multifactorial: * hypotension/hemodynamic instability * infection * pre-renal factors/hypovolemia * evaluation to date: * renal ultrasound normal * urine electrolytes look prerenal * Creatinine is slowly rising. * Her intake/output is positive by 9L for the hospital stay. She has significant swelling. Most likely this is not dehydration at this point. * Her blood pressure is better so the hemodynamic instability is better. * She is getting antibiotics for the endocarditis, and she is afebrile and her white cell count has been decreasing gradually. Blood cultures were negative. * She has multiple underlying comorbidities including severe COPD on home oxygen, prior colon cancer but now in remission, malnourished state. And now acute underlying issues such as respiratory failure. * At this point she is still making very little urine. She is close to needing dialysis but it is not urgent currently as she has no uremic indication, and her volume status, although overloaded, is not critical. Will try Bumex 2 mg twice a day. If she does not respond then it is likely she will need dialysis starting tomorrow. If she needs dialysis it will be for indefinite period of time not for just a brief 1 or to tries so I think we ought to have a PermCath placed at the on set. * Discussed with Dr. Bustos (2) Shock: Code(s): R57.9 - Shock, unspecified Status: Acute Assessment and Plan: * as noted on presentation * presumed due to infection given significant leukocytosis with left shift * the patient is off pressors now for the last couple of days. (3) Endocarditis: Code(s): I38 - Endocarditis, valve unspecified Status: Acute Assessment and Plan: * as suspected from TTE * on antibiotics at this time * now intubated, consider EUSEBIO for definitive diagnosis(?) (4) Acute and chronic respiratory failure with hypercapnia: Code(s): J96.22 - Acute and chronic respiratory failure with hypercapnia Status: Acute Assessment and Plan: * intubated at this time * on home O2 at baseline * imaging noted - moderate left and small right pleural effusion along with pericardial effusion * need thoracentesis (?) when more stable * complicated by known history of COPD * continue bronchodilators and other supportive care. (5) Hyponatremia: Code(s): E87.1 - Hypo-osmolality and hyponatremia Status: Acute Assessment and Plan: * chronic issues at baseline * suspect further fluctuations to occur with IVFs, IV medications...etc * relatively stable in the low to mid 130s (6) Pericardial effusion: Code(s): I31.3 - Pericardial effusion (noninflammatory) Status: Acute Assessment and Plan: * moderate to large pericardial effusion per imaging although no significant difference from previous * Cardiology following * no indication for pericardiocentesis at this time (7) Pleural effusion: Code(s): J90 - Pleural effusion, not elsewhere classified Status: Acute Assessment and Plan: * as noted by admission CXR * possible thoracentsis when more stable
--- NOTE | 2022-06-25 08:17 | PM.PNNEP ---
Progress Note: A&P Assessment and Plan (1) Acute kidney injury: Code(s): N17.9 - Acute kidney failure, unspecified Status: Acute Assessment and Plan: creatinine 0.9mg/dl in early May 2022 however, creatinine up to 1.4mg/dl in LATE May 2022. Unclear why this creatinine was elevated before she came in, however she was chronically ill and on multiple medications. acute insult likely multifactorial: hypotension/hemodynamic instability infection pre-renal factors/hypovolemia evaluation to date: renal ultrasound normal urine electrolytes look prerenal Creatinine is slowly rising. Her intake/output is positive by 9L for the hospital stay. She has significant swelling. Most likely this is not dehydration at this point. Her blood pressure is better so the hemodynamic instability is better. She is getting antibiotics for the endocarditis, and she is afebrile and her white cell count has been decreasing gradually. Blood cultures were negative. She has multiple underlying comorbidities including severe COPD on home oxygen, prior colon cancer but now in remission, malnourished state. And now acute underlying issues such as respiratory failure. At this point she is still making very little urine. She is close to needing dialysis but it is not urgent currently as she has no uremic indication, and her volume status, although overloaded, is not critical. Will try Bumex 2 mg twice a day. If she does not respond then it is likely she will need dialysis starting tomorrow. If she needs dialysis it will be for indefinite period of time not for just a brief 1 or to tries so I think we ought to have a PermCath placed at the on set. Discussed with Dr. Bustos (2) Shock: Code(s): R57.9 - Shock, unspecified Status: Acute Assessment and Plan: as noted on presentation presumed due to infection given significant leukocytosis with left shift the patient is off pressors now for the last couple of days. (3) Endocarditis: Code(s): I38 - Endocarditis, valve unspecified Status: Acute Assessment and Plan: as suspected from TTE on antibiotics at this time now intubated, consider EUSEBIO for definitive diagnosis(?) (4) Acute and chronic respiratory failure with hypercapnia: Code(s): J96.22 - Acute and chronic respiratory failure with hypercapnia Status: Acute Assessment and Plan: intubated at this time on home O2 at baseline imaging noted - moderate left and small right pleural effusion along with pericardial effusion need thoracentesis (?) when more stable complicated by known history of COPD continue bronchodilators and other supportive care. (5) Hyponatremia: Code(s): E87.1 - Hypo-osmolality and hyponatremia Status: Acute Assessment and Plan: chronic issues at baseline suspect further fluctuations to occur with IVFs, IV medications...etc relatively stable in the low to mid 130s (6) Pericardial effusion: Code(s): I31.3 - Pericardial effusion (noninflammatory) Status: Acute Assessment and Plan: moderate to large pericardial effusion per imaging although no significant difference from previous Cardiology following no indication for pericardiocentesis at this time (7) Pleural effusion: Code(s): J90 - Pleural effusion, not elsewhere classified Status: Acute Assessment and Plan: as noted by admission CXR possible thoracentsis when more stable Subjective Date/time seen: 06/25/22 08:17 Interval history: Stephanie is on the ventilator and sedated. FiO2 45%. She is off pressors. Exam Narrative: General: thin/frail/ill-appearing female who looks older than state age; intubated Heart: normal S1 and S2; no rub Or gallop Lungs: coarse and decreased at bases Abdomen: soft, nontender, nondistended, positive bowel sounds Extremities: 2 - 3+
--- NOTE | 2022-06-25 08:33 | WPDINTPN ---
Progress Note: A&P Assessment and Plan (1) Shock: Code(s): R57.9 - Shock, unspecified Status: Acute Assessment and Plan: Patient presented with shock, likely infectious given her WBC count is 44 with 94% neutrophilia. Patient also has moderate to large pericardial effusion, patient could have some tamponade physiology. -lactic acid remains normal -on admission patient was bradycardic hypotensive in the ER and was started on dopamine, which was later switched to Levophed . -off all pressors since 06/22 -acute kidney injury with elevated creatinine, continues to oliguria/anuria -she has received adequate IV fluids -IV fluids were discontinued on 06/22/2022 -off stress dose steroids -continue vancomycin and cefepime (06/20) leukocytosis trending down -06/20/2022 blood cultures: No growth so far 11/08 bottles -06/20/2022 urine cultures: No growth -06/20 echocardiogram: Likely Endocarditis with vegetations on tricuspid valve -06/22 repeat blood cultures: No growth on preliminary report x2 -06/23 sputum culture: Pending CT scan of the abdomen and pelvis on 06/20/2022 MPRESSION: 1. Small right and moderate-sized left pleural effusions. 2. Diffuse lung disease, likely a combination of mild pulmonary edema and atelectasis and radiation pneumonitis. 3. 1.6 cm nodule in paramediastinal left lung upper lobe, which may be scarring or metastatic disease. 4. Stable diffuse soft tissue attenuation in the mediastinum, which may be anatoly metastatic disease and/or changes of radiation therapy. 5. Chronic large pericardial effusion. 6. Small volume of ascites. 7. Chronic calcified mass in right adnexa, likely a pedunculated fibroid. (2) Acute and chronic respiratory failure with hypercapnia: Code(s): J96.22 - Acute and chronic respiratory failure with hypercapnia Status: Acute Assessment and Plan: pt also complained of SOB/dyspnea on admission -06/22 chest x-ray: Enlarged cardiac silhouette resulting from a large pericardial effusion on prior CT. Bilateral diffuse interstitial and mild airspace opacities consistent with mild pulmonary edema and atelectasis although superimposed pneumonia is not excludable. Small bilateral pleural effusions, left greater than right.. -patient may require thoracentesis once she is more stable -patient has history of COPD and is on home oxygen -06/22/2022 patient on BiPAP then AVAPS for hypercapnic respiratory failure, pCO2 continue to worsen and patient was intubated on 06/22/2022 - currently on pressure control ventilation,, inspiratory pressure of 43 and PEEP of 3, 45% FiO2 -ABGs and chest x-ray reviewed -Switched pt to CMV mode, 45% FiO2 peep of 5, mean airway pressure is much improved -continue bronchodilators -sedated with propofol, maintain RASS of 0 to -1 (3) Endocarditis: Code(s): I38 - Endocarditis, valve unspecified Status: Acute Assessment and Plan: 06/20/2022 Echocardiogram: Showed normal LV chamber dimension, ejection fraction is greater than 70%, grade 2 diastolic dysfunction. Filamentous mobile echodensity within the right atrium with suggestion of extension to with the tricuspid valve and into the right ventricle concerning for vegetation, thrombus or mass, trace mitral valve regurg, mild tricuspid regurg, no pulmonary hypertension no aortic valve stenosis there is moderate to large circumferential pericardial effusion with extensive febrile this material within the pericardial space no evidence of tamponade physiology. Discussed extensively with Cardiology Dr. Christ Jensen, in very difficult to obtain a EUSEBIO without intubating the patient, she most likely thinks it is vegetation given her septic shock, elevated white blood cell count, continue antibiotics as above for endocarditis (4) Acute kidney injury: Code(s): N17.9 - Acute kidney failure, unspecified Status: Acute Assessment and Plan: Acute on chronic kidney disease, likely r
[2022-06-25] MEDS: BUMETANIDE INJ 2.5 MG/10 ML VIAL 2 MG IV PUSH ×2 (08:41→13:29)
[2022-06-25] MEDS: SODIUM CHLORIDE 1 GM TABLET PO ×2 (08:41→16:55)
[2022-06-25] MEDS: PANTOPRAZOLE SODIUM IV 40 MG VIAL IV PUSH ×2 (08:41→20:23)
[2022-06-25] MEDS: LIDOCAINE 5% PATCH 1 PATCH TRANSDERM (08:41)
[2022-06-25 12:08] LABS: Alveolar/Arterial O2 Gradient 192.9 mmHg; Base Excess ABG -7.1 mEq/l (+/-2.0); Fractional Inspired Oxygen 45 %; HCO3 ABG 18.7 mEq/l (22.0-26.0); Modified Allen's Test Pass; Oxygen Content ABG 13.7 %vol (16.0-22.0); Oxygen Saturation ABG 95.4 % (95.0-100.0); Oxyhemoglobin 93.5 % THb (90.0-100.0); PCO2 ABG 38.6 mmHg (35.0-45.0); PO2 FiO2 Ratio Arterial Blood 1.87 %; Site Drawn RIGHT RADIAL; Total Hemoglobin 10.3 g/dL (12.0-18.0); pH ABG 7.302 (7.350-7.450)
[2022-06-25 12:09] LABS: Arterial Blood Gas PEEP 5 cmH2O; Arterial Blood Gas Tidal Volume 330 ml; Arterial Blood Gas Vent Mode CMV; Arterial Blood Gas Ventilator rate 20 /MIN; Device VENTILATOR
--- NOTE | 2022-06-25 12:39 | WPDGICN ---
Assessment and Plan Assessment and plan (1) Anemia in chronic illness: Code(s): D63.8 - Anemia in other chronic diseases classified elsewhere Status: Acute Assessment and Plan: probably multifactorial with worsening renal failure, endocarditis and thrombocytopenia transfuse as needed egd only if obvious gib, continue supportive care in icu (2) Occult blood in stools: Code(s): R19.5 - Other fecal abnormalities Status: Acute Assessment and Plan: probably multifactorial ppi daily trend h/h hold EGD for now (3) Thrombocytopenia: Code(s): D69.6 - Thrombocytopenia, unspecified Status: Acute Assessment and Plan: probably from MOF and endocarditis (4) Endocarditis: Code(s): I38 - Endocarditis, valve unspecified Status: Acute Assessment and Plan: on treatment (5) Septic shock: Code(s): A41.9 - Sepsis, unspecified organism; R65.21 - Severe sepsis with septic shock Status: Acute Assessment and Plan: s/p pressors (6) Acute and chronic respiratory failure with hypercapnia: Code(s): J96.22 - Acute and chronic respiratory failure with hypercapnia Status: Acute Assessment and Plan: intubated, critically ill (7) Pleural effusion: Code(s): J90 - Pleural effusion, not elsewhere classified Status: Acute (8) Acute kidney injury: Code(s): N17.9 - Acute kidney failure, unspecified Status: Acute Assessment and Plan: also worsening renal failure GI Consult Note Consult date/time: 06/25/22 12:39 Reason for consult: FOBT +, anemia, multiorgan failure HPI: Stephanie Holt is a 61 year old female who is critically ill in ICU intubated (history obtained from records). She has history of chronic anemia (mid 7-9), chronic hyponatremia, chronic kidney disease with creatinine 1.2, COPD on home oxygen, grade 1 diastolic dysfunction, moderate pulmonary hypertension, small cell lung cancer status post chemotherapy and radiation with local recurrence in June 2021, status post salvage radiation therapy, recent admission May 2022 for pericardial effusion, congestive heart failure and COPD.? She came to the ED on 06/20/2022 with hypotension and dyspnea.? Patient also had a fall the fpc.? Patient was hypotensive and bradycardic and was started on dopamine the ER and transferred to the ICU. Then on 06/20/2022: Echocardiogram showed vegetations -endocarditis and intubated on 06/22. Also noted worsening thrombocytopenia with elevated inr and anemia ~ 7, occult blood positive in stool. Also worsening renal failure in multiorgan failure. Tube feeding at 25 ml/h Review of Systems Review of Systems: ROS unobtainable: Yes unobtainable due to endotracheal tube and unobtainable due to mental status PMFSH Past Medical History Medical History (Updated 06/25/22 @ 12:44 by Julián Padilla MD) Anemia in chronic illness Anxiety C. difficile colitis (03/21/22) Resulting in shock Chronic hypercapnic respiratory failure Chronic hyponatremia Chronic kidney disease Chronic obstructive pulmonary disease Chronic respiratory failure with hypoxia, on home oxygen therapy Depression Diastolic dysfunction EF 65 to 70%. Grade 1 diastolic dysfunction. Most recent echo March 2022 Emphysema of lung Hearing loss Hypercholesterolemia Hypertension Hypothyroidism Occult blood in stools Pericardial effusion without cardiac tamponade Patient has had a chronic pericardial effusion since at least September 2021. Large pericardial effusion with fibrinous material within the pericardial space with right atrial free wall invagination consistent with elevated intrapericardial pressures. Flow velocity criteria does not be tamponade physiology. MV inflow velocity variation is borderline consistent. IVC is not dilated and has normal collapse. Port-A-Cath in place Pulmonary hypertension Moderate pulmonary hype
[2022-06-25 15:38] LABS: Osmolality, Urine 294 mOsm/kg (50-1200)
--- NOTE | 2022-06-25 19:00 | PC.NURSE ---
patient's daughter, Priscilla, asked to change patient's code status to DNR and wants to discuss comfort measures further tomorrow with fashion patternmaker; Test Technician notified of conversation and request for code status order change
[2022-06-25] MEDS: ATORVASTATIN 40 MG TABLET 80 MG PO (20:22)
[2022-06-25 22:05] LABS: Heparin Induced Platelet Antib Negative (Negative)
[2022-06-26] VITALS (13 sets, daily range): BP systolic 109–127; BP diastolic 60–72; PULSE 86–98; RESP 19–24; TEMP 36.3–36.8; O2SAT 93–94
[2022-06-26] MEDS: PROPOFOL IV EMULSION 100 ML 11.88 MG IV CONT (03:52)
[2022-06-26] MEDS: ALBUTEROL SULFATE NEB 2.5 MG/3 ML INH 5 MG INHALATION ×2 (04:05→07:58)
[2022-06-26] MEDS: IPRATROPIUM BR 0.02% INH SOLN 0.5 MG/2.5 ML VIAL INHALATION ×2 (04:05→07:58)
[2022-06-26 05:10] LABS: Hematocrit 27.1 % (37.0-47.0); Hemoglobin 8.9 g/dL (12.0-15.0); Immature Platelet Fraction Pct 22.5 % (0.9-11.2); Mean Corpuscular HGB Conc 32.8 g/dl (32-36); Mean Corpuscular Volume 106.7 fl (80-100); Platelet Count Result 38 k/mm3 (150-375); Red Blood Count 2.54 M/mm3 (4.2-5.4); Red Cell Distribution Width 19.5 % (11.5-14.5); White Blood Count 13.7 K/mm3 (4.5-10.0)
[2022-06-26 05:12] LABS: Alveolar/Arterial O2 Gradient 182.1 mmHg; Carboxyhemoglobin 0.3 % THb (0-2.0); Fractional Inspired Oxygen 40 %; HCO3 ABG 17.3 mEq/l (22.0-26.0); Methemoglobin ABG 0.5 %THb (0-1.5); Oxygen Content ABG 12.6 %vol (16.0-22.0); Oxygen Saturation ABG 90.8 % (95.0-100.0); Oxyhemoglobin 89.2 % THb (90.0-100.0); PCO2 ABG 34.4 mmHg (35.0-45.0); PO2 ABG 63.5 mmHg (80.0-100.0); PO2 FiO2 Ratio Arterial Blood 1.59 %; pH ABG 7.319 (7.350-7.450)
[2022-06-26 05:13] LABS: Device VENTILATOR; Modified Allen's Test Pass; Site Drawn RIGHT RADIAL
[2022-06-26 05:14] LABS: Arterial Blood Gas Vent Mode CMV; Arterial Blood Gas Ventilator rate 20 /MIN
[2022-06-26 05:15] LABS: Arterial Blood Gas PEEP 5 cmH2O; Arterial Blood Gas Tidal Volume 330 ml
[2022-06-26 05:19] LABS: Alanine Aminotransferase 93 U/L (6-35); Albumin Level 3.5 g/dL (3.5-5.1); Alkaline Phosphatase 657 U/L (38-126); Anion Gap 17 mmol/L (8-16); Aspartate Amino Transferase 390 U/L (14-36); Bilirubin,Total 3.8 mg/dL (0.2-1.3); Blood Urea Nitrogen 43 mg/dL (7-17); Calcium 7.9 mg/dL (8.4-10.2); Carbon Dioxide 19 mmol/L (22-30); Chloride 94 mmol/L (98-107); Glucose 121 mg/dL (65-110); Magnesium 1.8 mg/dL (1.6-2.3); Phosphorus 2.5 mg/dL (2.5-4.5); Potassium 3.9 mmol/L (3.4-5.0); Sodium 130 mmol/L (137-145)
[2022-06-26 05:30] LABS: Estimated Glomerular Filt Rate 13
[2022-06-26] MEDS: LEVOTHYROXINE SODIUM INJ 100 MCG/5 ML VIAL 50 MCG IV PUSH (06:28)
[2022-06-26] MEDS: CENTRAL LINE FLUSH 10 ML IV PUSH ×2 (06:29)
[2022-06-26] MEDS: methylPREDNISolone SOD SUCC 40 MG VIAL IV PUSH (06:29)
[2022-06-26 06:46] LABS: Band Neutrophils Percent 12 % (0-6); Hypochromasia 1+ (NORMAL); Lymphocytes Absolute Manual 0.27 K/mm3 (1.1-4.5); Neutrophils Absolute Manual 13.42 K/mm3 (1.7-7.2); Neutrophils Percent Manual 86 % (46-73); Platelet Estimate Decreased (Adequate); Tear Drop Cells 2+ (NORMAL); Total Cells Counted 100
[2022-06-26 06:47] LABS: Anisocytosis 1+ (NORMAL); Target Cells 1+ (NORMAL)
--- NOTE | 2022-06-26 08:23 | P.PNNP_ITS ---
Progress Note: A&P Assessment and Plan (1) Acute kidney injury: Code(s): N17.9 - Acute kidney failure, unspecified Status: Acute Assessment and Plan: * creatinine 0.9mg/dl in early May 2022 * however, creatinine up to 1.4mg/dl in LATE May 2022. Unclear why this creatinine was elevated before she came in, however she was chronically ill and on multiple medications. * acute insult likely multifactorial: * hypotension/hemodynamic instability * infection * pre-renal factors/hypovolemia * evaluation to date: * renal ultrasound normal * urine electrolytes look prerenal * Creatinine is slowly rising. * urine output is minimal. * Discussed with Dr. Bustos.. Family is considering comfort care right now. (2) Shock: Code(s): R57.9 - Shock, unspecified Status: Acute Assessment and Plan: * as noted on presentation * Blood cultures negative. * on antibiotics. * the patient is off pressors now for the last couple of days. (3) Endocarditis: Code(s): I38 - Endocarditis, valve unspecified Status: Acute Assessment and Plan: * as suspected from TTE * on antibiotics (4) Acute and chronic respiratory failure with hypercapnia: Code(s): J96.22 - Acute and chronic respiratory failure with hypercapnia Status: Acute Assessment and Plan: * intubated at this time * on home O2 at baseline * imaging noted - moderate left and small right pleural effusion along with pericardial effusion * Management pending on family decision. (5) Hyponatremia: Code(s): E87.1 - Hypo-osmolality and hyponatremia Status: Acute Assessment and Plan: * chronic issues at baseline * suspect further fluctuations to occur with IVFs, IV medications...etc * Sodium 130 today. (6) Pericardial effusion: Code(s): I31.3 - Pericardial effusion (noninflammatory) Status: Acute Assessment and Plan: * moderate to large pericardial effusion per imaging although no significant difference from previous * Cardiology following * no indication for pericardiocentesis at this time (7) Pleural effusion: Code(s): J90 - Pleural effusion, not elsewhere classified Status: Acute Assessment and Plan: * as noted by admission CXR * possible thoracentsis when more stable depending on outcome a family decision. Subjective Date/time seen: 06/26/22 08:23 Interval history: patient looks comfortable. She is on the ventilator and sedated. Exam Narrative: General: thin/frail/ill-appearing female who looks older than state age; intubated Heart: normal S1 and S2; no rub Lungs: coarse and decreased at bases Abdomen: bowel sounds positive nontender Extremities: 2 - 3+ edema Skin: no rash Or subcu nodules Objective Data Vital Signs Vital Signs: Vital Signs - 24 hr 06/25/22 08:27 06/25/22 08:28 06/25/22 10:00 Temperature Pulse Rate 86 99 95 Respiratory Rate 20 Blood Pressure Pulse Oximetry 97 Oxygen Delivery Mechanical Ventilation Oxygen Flow Rate Fraction of Inspired Oxygen 45 06/25/22 10:00 06/25/22 10:27 06/25/22 11:57 Temperature 36.4 C L Pulse Rate 95 86 Respiratory Rate 20 Blood Pressure 115/67
--- NOTE | 2022-06-26 08:23 | PM.PNNEP ---
Progress Note: A&P Assessment and Plan (1) Acute kidney injury: Code(s): N17.9 - Acute kidney failure, unspecified Status: Acute Assessment and Plan: creatinine 0.9mg/dl in early May 2022 however, creatinine up to 1.4mg/dl in LATE May 2022. Unclear why this creatinine was elevated before she came in, however she was chronically ill and on multiple medications. acute insult likely multifactorial: hypotension/hemodynamic instability infection pre-renal factors/hypovolemia evaluation to date: renal ultrasound normal urine electrolytes look prerenal Creatinine is slowly rising. urine output is minimal. Discussed with Dr. Bustos.. Family is considering comfort care right now. (2) Shock: Code(s): R57.9 - Shock, unspecified Status: Acute Assessment and Plan: as noted on presentation Blood cultures negative. on antibiotics. the patient is off pressors now for the last couple of days. (3) Endocarditis: Code(s): I38 - Endocarditis, valve unspecified Status: Acute Assessment and Plan: as suspected from TTE on antibiotics (4) Acute and chronic respiratory failure with hypercapnia: Code(s): J96.22 - Acute and chronic respiratory failure with hypercapnia Status: Acute Assessment and Plan: intubated at this time on home O2 at baseline imaging noted - moderate left and small right pleural effusion along with pericardial effusion Management pending on family decision. (5) Hyponatremia: Code(s): E87.1 - Hypo-osmolality and hyponatremia Status: Acute Assessment and Plan: chronic issues at baseline suspect further fluctuations to occur with IVFs, IV medications...etc Sodium 130 today. (6) Pericardial effusion: Code(s): I31.3 - Pericardial effusion (noninflammatory) Status: Acute Assessment and Plan: moderate to large pericardial effusion per imaging although no significant difference from previous Cardiology following no indication for pericardiocentesis at this time (7) Pleural effusion: Code(s): J90 - Pleural effusion, not elsewhere classified Status: Acute Assessment and Plan: as noted by admission CXR possible thoracentsis when more stable depending on outcome a family decision. Subjective Date/time seen: 06/26/22 08:23 Interval history: patient looks comfortable. She is on the ventilator and sedated. Exam Narrative: General: thin/frail/ill-appearing female who looks older than state age; intubated Heart: normal S1 and S2; no rub Lungs: coarse and decreased at bases Abdomen: bowel sounds positive nontender Extremities: 2 - 3+ edema Skin: no rash Or subcu nodules Objective Data Vital Signs Vital Signs: Vital Signs - 24 hr 06/25/22 08:27 06/25/22 08:28 06/25/22 10:00 Temperature Pulse Rate 86 99 95 Respiratory Rate 20 Blood Pressure Pulse Oximetry 97 Oxygen Delivery Mechanical Ventilation Oxygen Flow Rate Fraction of Inspired Oxygen 45 06/25/22 10:00 06/25/22 10:27 06/25/22 11:57 Temperature 36.4 C L Pulse Rate 95 86 Respiratory Rate 20 Blood Pressure 115/67 Pulse Oximetry 96 97 Oxygen Delivery Mechanical Ventilation Oxygen Flow Rate Fraction of Inspired Oxygen 45 45 06/25/22 11:57 06/25/22 12:00 06/25/22 12:00 Temperature 36.4 C Pulse Rate 97 96 Respiratory Rate 20 Blood Pressure 121/72 Pulse Oximetry 95 94 Oxygen Delivery Mechanical Ventilation Oxygen Flow Rate Fraction of Inspired Oxygen 45 06/25/22 12:00 06/25/22 12:15 06/25/22 13:29 Temperature Pulse Rate 94 96 96 Respiratory Rate 20 20 20 Blood Pressure Pulse Oximetry Oxygen Delivery Oxygen Flow Rate Fraction of Inspired Oxygen 06/25/22 13:29 06/25/22 10:00 06/25/22 14:28 Temperature Pulse Rate 96 95 95 Respiratory Rate
--- NOTE | 2022-06-26 08:27 | WPDINTPN ---
Progress Note: A&P Assessment and Plan (1) Shock: Code(s): R57.9 - Shock, unspecified Status: Acute Assessment and Plan: Patient presented with shock, likely infectious given her WBC count is 44 with 94% neutrophilia. Patient also has moderate to large pericardial effusion, patient could have some tamponade physiology. -lactic acid remains normal -on admission patient was bradycardic hypotensive in the ER and was started on dopamine, which was later switched to Levophed . -off all pressors since 06/22 -acute kidney injury with elevated creatinine, continues to oliguria/anuria -she has received adequate IV fluids -IV fluids were discontinued on 06/22/2022 -off stress dose steroids -continue vancomycin and cefepime (06/20) -06/20/2022 blood cultures: No growth so far 11/08 bottles -06/20/2022 urine cultures: No growth -06/20 echocardiogram: Likely Endocarditis with vegetations on tricuspid valve -06/22 repeat blood cultures: No growth on preliminary report x2 -06/23 sputum culture: No growth CT scan of the abdomen and pelvis on 06/20/2022 MPRESSION: 1. Small right and moderate-sized left pleural effusions. 2. Diffuse lung disease, likely a combination of mild pulmonary edema and atelectasis and radiation pneumonitis. 3. 1.6 cm nodule in paramediastinal left lung upper lobe, which may be scarring or metastatic disease. 4. Stable diffuse soft tissue attenuation in the mediastinum, which may be anatoly metastatic disease and/or changes of radiation therapy. 5. Chronic large pericardial effusion. 6. Small volume of ascites. 7. Chronic calcified mass in right adnexa, likely a pedunculated fibroid. (2) Acute and chronic respiratory failure with hypercapnia: Code(s): J96.22 - Acute and chronic respiratory failure with hypercapnia Status: Acute Assessment and Plan: pt also complained of SOB/dyspnea on admission -06/22 chest x-ray: Enlarged cardiac silhouette resulting from a large pericardial effusion on prior CT. Bilateral diffuse interstitial and mild airspace opacities consistent with mild pulmonary edema and atelectasis although superimposed pneumonia is not excludable. Small bilateral pleural effusions, left greater than right.. -patient may require thoracentesis once she is more stable -patient has history of COPD and is on home oxygen -06/22/2022 patient on BiPAP then AVAPS for hypercapnic respiratory failure, pCO2 continue to worsen and patient was intubated on 06/22/2022 - currently on pressure control ventilation,, inspiratory pressure of 43 and PEEP of 3, 45% FiO2 -ABGs and chest x-ray reviewed -continue CMV mode, 40% FiO2 peep of 5, mean airway pressures much improved -continue bronchodilators -sedated with propofol, maintain RASS of 0 to -1 (3) Endocarditis: Code(s): I38 - Endocarditis, valve unspecified Status: Acute Assessment and Plan: 06/20/2022 Echocardiogram: Showed normal LV chamber dimension, ejection fraction is greater than 70%, grade 2 diastolic dysfunction. Filamentous mobile echodensity within the right atrium with suggestion of extension to with the tricuspid valve and into the right ventricle concerning for vegetation, thrombus or mass, trace mitral valve regurg, mild tricuspid regurg, no pulmonary hypertension no aortic valve stenosis there is moderate to large circumferential pericardial effusion with extensive febrile this material within the pericardial space no evidence of tamponade physiology. Discussed extensively with Cardiology Dr. Christ Jensen, in very difficult to obtain a EUSEBIO without intubating the patient, she most likely thinks it is vegetation given her septic shock, elevated white blood cell count, continue antibiotics as above for endocarditis (4) Acute kidney injury: Code(s): N17.9 - Acute kidney failure, unspecified Status: Acute Assessment and Plan: Acute on chronic kidney disease, likely related to hypotension, infection, h
[2022-06-26] MEDS: PANTOPRAZOLE SODIUM IV 40 MG VIAL IV PUSH (09:02)
[2022-06-26] MEDS: SODIUM CHLORIDE 1 GM TABLET PO (09:03)
[2022-06-26] MEDS: LIDOCAINE 5% PATCH 1 PATCH TRANSDERM (09:04)
--- NOTE | 2022-06-26 11:09 | PCNFU ---
Nutrition Follow-Up Complete: Inadequate Oral Intake as related to mechanical ventilator as evidenced by no oral intake. Goal: Meet estimated nutritional needs. Patient has limited progress towards goal. We will continue current goal. Pt current nutrition is Nepro at 25 ml/hr. Last recorded weight is 46.5 kg, down from 51.6 kg on admit. Bowel Motility:+BM reported 06/26 Labs Reviewed:Glu 121, Na 130,GFR 13, Cr 3.6,Glu 121 Meds Noted: Propofol 11.88 ml/on=395 kcals, Cefepime, Atrovent,Solu Medrol, Synthroid Skin: WNL Additional Notes:Patient remains on mechanical vent. Tube feeding are currently on hold due to elevated residuals. When restarting tube feedings recommend Nepro at 25 ml/hr goal rate due to Propofol Infusion at 40 mics =312 kcals. 30 ml free water flush. Patient has been made a DNR, discussions regarding withdraw of care unknown at this time. Agree with diet orders. Will monitor in ICU rounds and reassess every Saturday and Saturday.
[2022-06-26] MEDS: MORPHINE SULFATE INJ (*CRX) 10 MG/ML AMP 5 MG IV PUSH (11:23)
[2022-06-26] MEDS: LORazepam INJ (*CRX) 2 MG/ML VIAL IV PUSH (11:24)
--- NOTE | 2022-06-26 11:31 | WPDGIPROGNO ---
Progress Note: A&P Assessment and Plan (1) Endocarditis: Code(s): I38 - Endocarditis, valve unspecified Status: Acute Assessment and Plan: multiorgan failure, intubated and very sick family decided to withdraw care (2) Anemia in chronic illness: Code(s): D63.8 - Anemia in other chronic diseases classified elsewhere Status: Acute Assessment and Plan: multifactorial (3) Occult blood in stools: Code(s): R19.5 - Other fecal abnormalities Status: Acute Assessment and Plan: will sign off (4) Thrombocytopenia: Code(s): D69.6 - Thrombocytopenia, unspecified Status: Acute (5) Altered mental status: Code(s): R41.82 - Altered mental status, unspecified Status: Acute (6) Acute and chronic respiratory failure with hypercapnia: Code(s): J96.22 - Acute and chronic respiratory failure with hypercapnia Status: Acute Assessment and Plan: intubated Subjective Date/time seen: 06/26/22 10:31 Interval history: still quite sick, family decided to withdraw care Review of Systems Review of Systems: All systems reviewed & are unremarkable except as noted in HPI and below Exam Narrative: General: Patient is intubated and sedated HEENT:? Pupils equal and reactive, sclera is clear, ETT in place, Large area of bruising in the healing stage noted around the left periorbital and left frontal area Neck:? Supple, no cervical lymphadenopathy Respiratory:? Coarse breath sounds bilaterally, decreased at bases, Cardiac:? Muffled heart sounds, S1-S2 was normal, sinus rhythm Abdomen:? Soft, nontender, nondistended, hypoactive bowel sounds Extremities:? Bruising noted on the left lower extremity and bilateral upper extremity. Bilateral lower extremity pitting edema 3+. Bilateral upper extremity swelling, weeping Neuro:? Patient is intubated and sedated,does not open eyes but does not follow simple commands Skin:? Skin tear on left upper extremity, bruising noted bilateral upper and lower extremities Psych:? Unable to assess at this time Objective Data Vital Signs Vital Signs: Vital Signs - 24 hr 06/25/22 11:57 06/25/22 11:57 06/25/22 12:00 Temperature 97.6 F Pulse Rate 97 Respiratory Rate 20 Blood Pressure 121/72 Pulse Oximetry 95 94 Oxygen Delivery Mechanical Ventilation Oxygen Flow Rate Fraction of Inspired Oxygen 45 45 06/25/22 12:00 06/25/22 12:00 06/25/22 12:15 Temperature Pulse Rate 96 94 96 Respiratory Rate 20 20 Blood Pressure Pulse Oximetry Oxygen Delivery Oxygen Flow Rate Fraction of Inspired Oxygen 06/25/22 13:29 06/25/22 13:29 06/25/22 14:28 Temperature Pulse Rate 96 96 95 Respiratory Rate 20 20 Blood Pressure Pulse Oximetry 95 Oxygen Delivery Mechanical Ventilation Oxygen Flow Rate Fraction of Inspired Oxygen 45 06/25/22 14:00 06/25/22 14:00 06/25/22 16:00 Temperature 97.6 F 97.6 F Pulse Rate 93 93 95 Respiratory Rate 20 20 Blood Pressure 118/64 118/65 Pulse Oximetry 95 95 Oxygen Delivery Oxygen Flow Rate Fraction of Inspired Oxygen 06/25/22 16:00 06/25/22 17:03 06/25/22 16:40 Temperature Pulse Rate 95 94 Respiratory Rate 20 Blood Pressure Pulse Oximetry 94 Oxygen Delivery Mechanical Ventilation Oxygen Flow Rate Fraction of Inspired Oxygen 45 45 06/25/22 16:55 06/25/22 17:08 06/25/22 16:00 Temperature Pulse Rate 95 97 95 Respiratory Rate 20 20 Blood Pressure Pulse Oximetry Oxygen Delivery Oxygen Flow Rate Fraction of Inspired Oxygen 06/25/22 16:00 06/25/22 18:00 06/25/22 18:00 Temperature 97.6 F Pulse Rate 92 92 Respiratory Rate 20 Blood Pressure 114/74 Pulse Oximetry 95 94 Oxygen Delivery Mechanical Ventilation Oxygen Flow Rate Fraction of Inspired Oxygen 45 06/25/22 20:00 06/25/22 20:00 06/25/22 20:00 Temperature Pulse Rate 93 93 Respira
--- NOTE | 2022-06-26 11:37 | PCRCNOTE ---
Per Dr. Bustos's orders pt terminally extubated at 11:32am to room air.
--- NOTE | 2022-06-26 12:00 | PC.NURSE ---
Pt extubated at 1132, pt at 1157. Family at bedside.
[2022-06-26 15:48] LABS: UFH SRA Result Interpretation Negative (Negative)
[2022-06-27 13:51] LABS: Hepatitis B Core Ab Total Nonreactive (Nonreactive)
--- NOTE | 2022-07-18 13:36 | P.DN_ITS ---
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 Status post is salvage radiation therapy, patient was recently admitted on May 2022 for pericardial effusion, congestive heart failure and COPD. Patient presented the ED on 06/20/2022 with complains of hypotension and dyspnea, patient also had a fall at the residential. He was very hypotensive in the ER along with bradycardia and was started on dopamine. Echocardiogram on 06/20 showed vegetations which was secondary to endocarditis. Patient was intubated on 06/22/2022. Patient was in septic shock on Dopamine and levophed. 06/20 echocardiogram:? Likely Endocarditis with vegetations on tricuspid valve. grade 2 diastolic dysfunction, moderate to large circumferential pericardial effusion with extensive febrile this material within the pericardial space no evidence of tamponade physiology. Pt was anuric with worsening renal function. Moderate-sized left and small right pleural effusions. Son and daughter in-law had a conversation with the bedside RN who was very nice in updating them, they decided to make the patient do not resuscitate and made her comfort measure with withdrawal of support Patient on 06/26/2022 at 1157 Additional Data Confirmation of as documented by pronouncing clinician: Pupillary Reflex, Palpable Pulses, Response to Stimuli, Heart Tones and Breath Sounds Name of Provider Notified: DR. SIMON Time Provider Notified: 11:57 Provider Requests Autopsy: No Family Requests Autopsy: No Repair Order Clerk Notified: Yes Date [facility] Notified of : 06/26/22 Time [facility] Notified of : 12:22
== END 2022-06-26 11:57 | disposition expired | DRG 720 ==
LOC: ANHED 13:22 → ANHICU 15:26
PROVIDERS: Internal Medicine; Internal Medicine Nephrology; Nurse Practitioner; Admitting Provider Family Medicine; Emergency Provider Emergency Medicine; Visit Provider Internal Medicine
DX: A41.9 Sepsis, unspecified organism (principal); J96.21 Acute and chronic respiratory failure with hypoxia; R65.21 Severe sepsis with septic shock; N17.9 Acute kidney failure, unspecified; I50.9 Heart failure, unspecified; E87.1 Hypo-osmolality and hyponatremia; E83.42 Hypomagnesemia; C34.02 Malignant neoplasm of left main bronchus; I27.20 Pulmonary hypertension, unspecified; J96.22 Acute and chronic respiratory failure with hypercapnia; D69.6 Thrombocytopenia, unspecified; I31.3 Pericardial effusion (noninflammatory); J43.9 Emphysema, unspecified; I38 Endocarditis, valve unspecified; Z99.81 Dependence on supplemental oxygen; N18.9 Chronic kidney disease, unspecified; D63.1 Anemia in chronic kidney disease; R19.5 Other fecal abnormalities; F41.9 Anxiety disorder, unspecified; H91.90 Unspecified hearing loss, unspecified ear; S00.03XA Contusion of scalp, initial encounter; W19.XXXA Unspecified fall, initial encounter; Z79.82 Long term (current) use of aspirin; Z79.899 Other long term (current) drug therapy; I13.0 Hypertensive heart and chronic kidney disease with heart failure and stage 1 through stage 4 chronic kidney disease, or unspecified chronic kidney disease; Z66 Do not resuscitate; Z20.822 Contact with and (suspected) exposure to COVID-19; E03.9 Hypothyroidism, unspecified; E78.00 Pure hypercholesterolemia, unspecified; F32.A Depression, unspecified; E87.6 Hypokalemia; Z87.891 Personal history of nicotine dependence; Z92.21 Personal history of antineoplastic chemotherapy; Z92.3 Personal history of irradiation; Z95.828 Presence of other vascular implants and grafts
CPT/HCPCS: 36415; 36569; 36600; 70450; 71045; 71250; 74019; 74176; 76775; 80048; 80053; 80202; 81001; 82274; 82375; 82607; 82746; 82805; 82948; 83050; 83540; 83550; 83605; 83615; 83735; 83880; 83935; 84100; 84300; 84443; 84484; 85025; 85055; 85610; 85730; 86022; 86140; 86704; 86706; 87040; 87070; 87086; 87205; 87340; 93005; 93306; 94002; 94003; 94640; 99291; A9270; C1751; C9113; C9803; J0330; J0610; J0692; J1265; J1610; J1642; J1644; J1720; J2060; J2270; J2405; J2704; J2920; J2930; J3010; J3370; J3475; J3480; J7030; J7040; J7050; P9047; U0003; U0005